=== PATIENT | male | born 1970 | race African-American/Black ===

== ENCOUNTER → 2023-06-11 08:38 | Outpatient (REF) | payer MEDICARE, OTHER, SELFPAY | LOC: RAD 08:38 | PROVIDERS: ATTENDING PHYSICIAN Surgery Vascular Surgery | DX: I77.0 Arteriovenous fistula, acquired (principal) | CPT/HCPCS: 93990 ==

== ENCOUNTER 2023-06-17 16:35 | Emergency (ER) | payer MEDICARE, OTHER, SELFPAY ==
[2023-06-17 16:38] VITALS: BP 142/74; BMI 25.8
[2023-06-17 17:00] VITALS: BP 131/69
[2023-06-17 17:04] LABS: % Basophils 1.2 % (0-2); % Eosinophils 1.6 % (0-6); % Immature Granulocytes 0.3 % (0-0.5); % Monocytes 13.6 % (1.7-9.3); % Neutrophils 61.3 % (42.2-75.2); Absolute Basophils 0.1 10^3/uL (0-0.2); Absolute Eosinophils 0.1 10^3/uL (0-0.7); Absolute Lymphocytes 1.5 10^3/uL (1.2-3.4); Absolute Monocytes 0.9 10^3/uL (0.1-0.6); Absolute Neutrophils 4.2 10^3/uL (1.4-6.5); Hematocrit 30.8 % (39.0-52.0); Hemoglobin 10.9 g/dL (13.0-18.0); Mean Corp Hgb Conc. 35.4 g/dL (33.0-37.0); Mean Corpuscular Hgb 29.9 pg (27.0-31.0); Mean Corpuscular Volume 84.6 fL (80.0-94.0); Mean Platelet Volume 10.2 fL (7.4-10.4); Nucleated Red Blood Cells % 0 % (-); Platelet Count 223 10^3/uL (130-400); Red Blood Cell Count 3.64 10^6/uL (4.70-6.10); Red Cell Dist. Width 14.9 % (11.5-14.5); White Blood Cell Count 6.8 10^3/uL (4.8-10.8)
--- NOTE | 2023-06-17 17:12 | ED.GENMED ---
History of Present Illness
General
Chief Complaint: Abnormal Lab Value
Source: patient
Exam Limitations: none
Time Seen by Provider: 06/17/23 16:53
Nursing documentation reviewed up to this point in time: agreed with
Travel History
Have you had any contact with someone who has COVID-19?: No
Do you have any symptoms of coronavirus? Fever > 100 degrees, chills, cough, shortness of breath, sore throat, loss of taste or smell, muscle aches, or headache?: No
History of Present Illness
History of Present Illness:
52-year-old male from [facility] with history of IDDM, HTN, HLD, epilepsy, CVA, renal failure on dialysis M/W/F, he did have dialysis today and is here for a reported potassium of 7.1. The blood was drawn prior to his dialysis today. He
presents stating that he feels 'fine.'
Past History
Past History
ED Past Medical History: CVA, HTN, Hypercholesterolemia, NIDDM, Renal failure and Seizures
ED Past Surgical History: Urological
Social History
Tobacco: Former smoker
Alcohol: None
Drug: None
Personal:
Living: [facility]
Employment: Not employed
Family History
Family History: Hypertension
Review of Systems
Review of Systems
Allergies reviewed?: Yes
All Other Systems: ROS reviewed and negative except as documented in HPI and ROS
Constitutional: Denies fever or fatigue
Respiratory: Denies trouble breathing
Cardiac: Denies chest pain
ABD/GI: Denies abdominal pain, nausea or vomiting
Skin: Reports other (Dialysis catheter in place, palpable thrill.)
Neurological: Denies dizzy or headache
Phy Exam
Physical Exam
Physical Exam:
GENERAL: No acute distress. A&Ox3.
CONSTITUTIONAL: Afebrile.
EYES: PERRL, conjunctivae normal
ENMT: moist mucus membranes, Pharynx nl
RESPIRATORY: Regular respirations, nonlabored, lungs clear.
CARDIOVASCULAR: Regular rate and rhythm, no murmurs, no rubs.
GI: Soft, nontender
MUSCULOSKELETAL: Well perfused.
SKIN: Warm, dry, pink
PSYCH: Normal mood and affect. Well kept, interactive and appropriate
NEUROLOGIC: Awake, alert and oriented.
Course
Orders/Labs/Results
Orders:
Orders
06/17/23 16:45
Electrocardiogram (*1) Urgent
Reason for Study: Abdominal Pain
EKG- Treatment ONCE
IV Insert/Care/Rem.- Treatment PRN
06/17/23 16:52
Complete Blood Count/With Diff Urgent
Comprehensive Metabolic Panel Urgent
Abnormal Lab Results
06/17/23
16:52
RBC 3.64 L 10^6/uL
(4.70-6.10)
Hgb 10.9 L g/dL
(13.0-18.0)
Hct 30.8 L %
(39.0-52.0)
RDW 14.9 H %
(11.5-14.5)
Absolute Monos (auto) 0.9 H 10^3/uL
(0.1-0.6)
Monocytes % 13.6 H %
(1.7-9.3)
BUN 57 H mg/dl
(9-20)
Creatinine 2.0 H mg/dL
(0.7-1.3)
Glucose 133 H mg/dl
(70-99)
Albumin 2.8 L g/dl
(3.5-5.0)
06/17/23 16:52
06/17/23 16:52
Vital Signs
Initial and Last Documented VS:
Initial Vital Signs
Temp Pulse Resp BP Pulse Ox
98.2 F 69 16 142/74 99
06/17/23 16:38 06/17/23 16:38 06/17/23 16:38 06/17/23 16:38 06/17/23 16:38
Last Documented Vital Signs
Temp Pulse Resp BP Pulse Ox
98.2 F 71 13 119/70 99
06/17/23 16:38 06/17/23 19:15 06/17/23 19:15 06/17/23 19:00 06/17/23 17:30
MDM/Problems Addressed
Differential Diagnosis Includes:
Hyperkalemia
MDM/Problems Addressed:
52-year-old male from [facility] with history of IDDM, HTN, HLD, epilepsy, CVA, renal failure on dialysis M/W/F, he did have dialysis today and is here for a reported potassium of 7.1. The blood was drawn prior to his dialysis today. He
presents stating that he feels 'fine.'
Vital signs stable
EKG NSR
06/17/2023 1744 PM
CBC with no clinically significant abnormality
CMP is showing a normal potassium of 4.6, no other clinically significant abnormalities.
Patient is eating and is stable for discharge.
*Critical Care Note
Total Time (30-74mins, 75-104mins- exclusive of procedures): Not Applicable
ED Attending Note
-
Portions of this chart may have been created with voice recognition software.� Occasional wrong word or��sound alike� substitutions may have occurred due to the inherent limitations of voice recognition software.
Discharge Plan
Departure
Patient Disposition: Assisted/SNF
Date of Disposition: 06/17/23
Time of Disposition: 17:34
Patient with high blood pressure during this ER visit?: No
Condition: Good
Discharge Problem:
History of hyperkalemia
Prescriptions:
No Action
carvedilol [Coreg] 25 mg Tablet
25 mg PO Q12H
ipratropium-albuterol 0.5 mg-3 mg(2.5 mg base)/3 mL Solution For Nebulization
3 ml INHALATION R Q4HPRN PRN (Reason: sob)
polyvinyl alcohol [Artificial Tears (polyvin alc)] 1.4 % Drops
1 drp BOTH EYES Q6HPRN PRN (Reason: DRY EYES)
ondansetron HCl 4 mg Tablet
4 mg PO Q6HPRN PRN (Reason: nausea/vomiting)
insulin aspart U-100 100 unit/mL Solution
0 - 10 unit SC ACHS
Patient Comments:
Rx Instructions:
if 150-200= 2 units; 201-250= 4 units; 251-300= 6 units; 301-350= 8 units; 351-400= 10 units.
pantoprazole 40 mg Tablet,Delayed Release (Dr/Ec)
40 mg PO DAILY
ferrous sulfate 325 mg (65 mg iron) Tablet
325 mg PO DAILY
docusate sodium [Colace] 100 mg Capsule
100 mg PO Q12H PRN (Reason: Constipation)
ascorbic acid (vitamin C) [Vitamin C] 1,000 mg Tablet
1,000 mg PO DAILY
acetaminophen 325 mg Tablet
650 mg PO Q6H PRN (Reason: mild pain)
lidocaine-prilocaine 2.5-2.5 % Cream
1 applic TOPICAL MOWEFR
Rx Instructions:
apply to right avg 1 hr prior to HD TX.
atorvastatin 40 mg Tablet
40 mg PO DAILY
potassium, sodium phosphates [Phosphorous Supplement] 280-160-250 mg Powder In Packet
1 packet PO PCHS Qty: 0 0RF
Rx Instructions:
01/26/2023, patient instructed to take one packet by mouth after meals and at bedtime for ESRD on HD.
bumetanide 2 mg Tablet
2 mg PO DAILY
bisacodyl 10 mg Suppository
10 mg IN DAILY PRN (Reason: constipation)
levetiracetam [Keppra] 750 mg tablet
750 mg PO BID Qty: 60 0RF
psyllium Packet
1 packet PO DAILY
divalproex [Depakote] 500 mg tablet,delayed release (DR/EC)
500 mg PO BID
ceftazidime [Tazicef] 2 gram Recon Soln
2,000 mg IV MOWEFR Qty: 10 0RF
white petrolatum [Hydrophor] 42 % Ointment
1 applic topical DAILY Qty: 454 0RF
heparin (porcine) 5,000 unit/mL Solution
5,000 unit SC Q12H Qty: 0 0RF
oxycodone 10 mg tablet
10 mg PO Q4HPRN PRN (Reason: severe pain) Qty: 10 0RF
Referrals:
Waqar Méndez MD [Family Provider] -
Activity Restrictions/Additional Instructions:
Mr. Mejia potassium is normal
If his potassium is high, it will most likely normalize after dialysis.
Interventions
Interventions:
*Risk Screen - Suicide Last Done: 06/17/23 16:38
*General Assessment Last Done: 06/17/23 16:38
*Neglect/Abuse Screening Last Done: 06/17/23 16:38
ED- Fall Risk Assessment Last Done: 06/17/23 16:38
*ED COVID-19 Vaccine History Last Done: 06/17/23 16:38
*Nursing Disposition Last Done: 06/17/23 19:26
Discharge Date and Time
Discharge Date/Time: 06/17/23 19:30
[2023-06-17 17:23] LABS: ALT (SGPT) 21 U/L (0-50); AST (SGOT) 29 U/L (17-59); Albumin 2.8 g/dl (3.5-5.0); Alkaline Phosphatase 106 U/L (38-126); Blood Urea Nitrogen 57 mg/dl (9-20); Calcium 8.9 mg/dl (8.4-10.2); Carbon Dioxide 30 mmol/L (22-30); Chloride 100 mmol/L (98-107); Estimated Creatinine Clearance 46 ml/min; Glucose 133 mg/dl (70-99); Potassium 4.6 mmol/L (3.5-5.1); Sodium 136 mmol/L (135-145); Total Bilirubin 0.5 mg/dl (0.2-1.3); Total Protein 7.9 g/dl (6.3-8.2); eGFR 39.91
[2023-06-17 18:00] VITALS: BP 147/80
[2023-06-17 19:00] VITALS: BP 119/70
== END 2023-06-17 19:30 ==
LOC: EMR 16:35
PROVIDERS: Emergency Medicine; EMERGENCY PHYSICIAN Emergency Medicine; FAMILY PHYSICIAN Internal Medicine
DX: E87.5 Hyperkalemia (principal); E78.5 Hyperlipidemia, unspecified; E11.9 Type 2 diabetes mellitus without complications; I10 Essential (primary) hypertension; Z87.891 Personal history of nicotine dependence
CPT/HCPCS: 99284; 80053; 85025; 93005

== ENCOUNTER 2024-04-29 17:46 | Emergency (ER) | payer MEDICARE, OTHER, SELFPAY ==
[2024-04-29 17:51] VITALS: BP 117/67
[2024-04-29 18:00] VITALS: BP 129/68
[2024-04-29 18:07] LABS: % Basophils 0.4 % (0-2); % Eosinophils 0.3 % (0-6); % Immature Granulocytes 0.3 % (0-0.5); % Lymphocytes 16.2 % (20.5-51.1); % Monocytes 13.1 % (1.7-9.3); % Neutrophils 69.7 % (42.2-75.2); Absolute Lymphocytes 1.5 10^3/uL (1.2-3.4); Absolute Monocytes 1.2 10^3/uL (0.1-0.6); Absolute Neutrophils 6.5 10^3/uL (1.4-6.5); Hematocrit 30.8 % (39.0-52.0); Hemoglobin 10.9 g/dL (13.0-18.0); Mean Corp Hgb Conc. 35.4 g/dL (33.0-37.0); Mean Corpuscular Hgb 31.8 pg (27.0-31.0); Mean Corpuscular Volume 89.8 fL (80.0-94.0); Mean Platelet Volume 11.3 fL (7.4-10.4); Nucleated Red Blood Cells % 0 % (-); Platelet Count 142 10^3/uL (130-400); Red Blood Cell Count 3.43 10^6/uL (4.70-6.10); White Blood Cell Count 9.4 10^3/uL (4.8-10.8)
[2024-04-29 18:33] LABS: Blood Urea Nitrogen 32 mg/dl (9-20); Calcium 9.1 mg/dl (8.4-10.2); Carbon Dioxide 27 mmol/L (22-30); Chloride 101 mmol/L (98-107); Glucose 150 mg/dl (70-99); Sodium 136 mmol/L (135-145); eGFR 37.41
[2024-04-29 19:00] VITALS: BP 111/67
[2024-04-29 20:00] VITALS: BP 108/62
[2024-04-29 20:06] LABS: Potassium 4.1 mmol/L (3.5-5.1)
--- NOTE | 2024-04-29 20:41 | ED.GENMED ---
History of Present Illness
General
Chief Complaint: Wound Check/Suture Removal
Source: patient
Exam Limitations: none
Time Seen by Provider: 04/29/24 20:35
History of Present Illness
History of Present Illness:
53-year-old male complex medical history presents for evaluation of a sacral wound. This has been ongoing for months. Apparently followed by wound care there. Patient has no acute complaints denying increasing pain fever chills nausea vomiting or
other complaints. Unsure at this time why [facility] wanted him sent out today.
Past History
Past History
ED Past Medical History: CVA, HTN, Hypercholesterolemia, NIDDM, Renal failure and Seizures
ED Past Surgical History: Urological
Social History
Tobacco: Former smoker
Alcohol: None
Drug: None
Personal:
[facility]: [facility]
Employment: Not employed
Family History
Family History: Hypertension
Review of Systems
Review of Systems
All Other Systems: Not applicable
Constitutional: Denies fever or chills
Phy Exam
Physical Exam
Physical Exam:
GENERAL: Alert and oriented. Slow to answer some questions
EYE: Orbits normal.
NECK: Supple
CARDIAC: Regular rate and rhythm
LUNGS: Clear breath sounds,normal
ABDOMEN: Soft, without focal tenderness or distention
NEUROLOGICAL: Alert. Speech normal
SKIN: Warm and dry, very large sacral wound currently being packed. Packing was gently partially removed to evaluate the base. Base is full-thickness. However there is no surrounding erythema or purulent drainage. There is some wetness
appearance to the edge of the wound however.
Course
Orders/Labs/Results
Orders:
Orders
04/29/24 17:56
Basic Metabolic Panel Urgent
Complete Blood Count/With Diff Urgent
04/29/24 19:46
Potassium Urgent
Abnormal Lab Results
04/29/24
17:56
RBC 3.43 L 10^6/uL
(4.70-6.10)
Hgb 10.9 L g/dL
(13.0-18.0)
Hct 30.8 L %
(39.0-52.0)
MCH 31.8 H pg
(27.0-31.0)
RDW 17.0 H %
(11.5-14.5)
MPV 11.3 H fL
(7.4-10.4)
Absolute Monos (auto) 1.2 H 10^3/uL
(0.1-0.6)
Lymphocytes % 16.2 L %
(20.5-51.1)
Monocytes % 13.1 H %
(1.7-9.3)
BUN 32 H mg/dl
(9-20)
Creatinine 2.1 H mg/dL
(0.7-1.3)
Glucose 150 H mg/dl
(70-99)
04/29/24 17:56
04/29/24 19:46
Vital Signs
Initial and Last Documented VS:
Initial Vital Signs
Pulse Resp Pulse Ox
93 13 99
04/29/24 17:50 04/29/24 17:50 04/29/24 17:50
Last Documented Vital Signs
Temp Pulse Resp BP Pulse Ox
99.6 F 85 13 111/67 99
04/29/24 17:51 04/29/24 19:30 04/29/24 19:30 04/29/24 19:00 04/29/24 19:30
*Critical Care Note
Total Time (30-74mins, 75-104mins- exclusive of procedures): Not Applicable
Update Note
Update Note:
Multiple calls were placed to [facility] to try to see what the reason was for sending him tonight. No answer. However medically the wound is stable, no signs of sepsis or secondary infection at this time. Patient was updated pain. Clearly
needs significant offloading.
ED Attending Note
-
Portions of this chart may have been created with voice recognition software.� Occasional wrong word or��sound alike� substitutions may have occurred due to the inherent limitations of voice recognition software.
Discharge Plan
Departure
Patient Disposition: Home (Routine Discharge)
Date of Disposition: 04/29/24
Time of Disposition: 22:08
Patient with high blood pressure during this ER visit?: No
Discharge Problem:
Evaluation of a large sacral wound, History of acute renal failure
Instructions: Wound Care (DC)
Prescriptions:
No Action
carvedilol [Coreg] 25 mg Tablet
25 mg PO Q12H
ipratropium-albuterol 0.5 mg-3 mg(2.5 mg base)/3 mL Solution For Nebulization
3 ml INHALATION R Q4HPRN PRN (Reason: sob)
polyvinyl alcohol [Artificial Tears (polyvin alc)] 1.4 % Drops
1 drp BOTH EYES Q6HPRN PRN (Reason: DRY EYES)
ondansetron HCl 4 mg Tablet
4 mg PO Q6HPRN PRN (Reason: nausea/vomiting)
insulin aspart U-100 100 unit/mL Solution
0 - 10 unit SC ACHS
Patient Comments:
Rx Instructions:
if 150-200= 2 units; 201-250= 4 units; 251-300= 6 units; 301-350= 8 units; 351-400= 10 units.
pantoprazole 40 mg Tablet,Delayed Release (Dr/Ec)
40 mg PO DAILY
ferrous sulfate 325 mg (65 mg iron) Tablet
325 mg PO DAILY
docusate sodium [Colace] 100 mg Capsule
100 mg PO Q12H PRN (Reason: Constipation)
ascorbic acid (vitamin C) [Vitamin C] 1,000 mg Tablet
1,000 mg PO DAILY
acetaminophen 325 mg Tablet
650 mg PO Q6H PRN (Reason: mild pain)
lidocaine-prilocaine 2.5-2.5 % Cream
1 applic TOPICAL MOWEFR
Rx Instructions:
apply to right avg 1 hr prior to HD TX.
atorvastatin 40 mg Tablet
40 mg PO DAILY
potassium, sodium phosphates [Phosphorous Supplement] 280-160-250 mg Powder In Packet
1 packet PO PCHS Qty: 0 0RF
Rx Instructions:
01/26/2023, patient instructed to take one packet by mouth after meals and at bedtime for ESRD on HD.
bumetanide 2 mg Tablet
2 mg PO DAILY
bisacodyl 10 mg Suppository
10 mg [place] DAILY PRN (Reason: constipation)
levetiracetam [Keppra] 750 mg tablet
750 mg PO BID Qty: 60 0RF
psyllium Packet
1 packet PO DAILY
divalproex [Depakote] 500 mg tablet,delayed release (DR/EC)
500 mg PO BID
ceftazidime [Tazicef] 2 gram Recon Soln
2,000 mg IV MOWEFR Qty: 10 0RF
white petrolatum [Hydrophor] 42 % Ointment
1 applic topical DAILY Qty: 454 0RF
heparin (porcine) 5,000 unit/mL Solution
5,000 unit SC Q12H Qty: 0 0RF
oxycodone 10 mg tablet
10 mg PO Q4HPRN PRN (Reason: severe pain) Qty: 10 0RF
Referrals:
Waqar Méndez MD [Family Provider] - Follow up in 2-3 days
Activity Restrictions/Additional Instructions:
Although I suspect this is already being done, needs increased offloading of the sacral area with rotation
Follow-up closely with wound center
Return with fever, spreading redness or any other concerning symptoms
Interventions
Interventions:
*Risk Screen - Suicide Last Done: 04/29/24 17:51
*General Assessment Last Done: 04/29/24 17:51
ED- Fall Risk Assessment Last Done: 04/29/24 18:00
*ED COVID-19 Vaccine History Last Done: 04/29/24 17:51
ED-Skin Assessment Last Done: 04/29/24 18:00
Discharge Date and Time
Print Language: AMHARIC
[2024-04-29 22:00] VITALS: BP 119/85
[2024-04-29 23:00] VITALS: BP 121/68
[2024-04-30] VITALS: BP 111/63
== END 2024-04-30 00:16 | disposition home or self-care (01) ==
LOC: EMR 17:46
PROVIDERS: Emergency Medicine; EMERGENCY PHYSICIAN Emergency Medicine; FAMILY PHYSICIAN Internal Medicine
DX: S31.000A Unspecified open wound of lower back and pelvis without penetration into retroperitoneum, initial encounter (principal); X58.XXXA Exposure to other specified factors, initial encounter; N19 Unspecified kidney failure; Z87.891 Personal history of nicotine dependence
CPT/HCPCS: 99283; 80048; 84132; 85025

== ENCOUNTER 2024-05-13 00:01 | Emergency (ER) | payer MEDICARE, OTHER, SELFPAY ==
[2024-05-13 01:00] VITALS: BP 100/62
[2024-05-13 01:32] LABS: % Basophils 0.5 % (0-2); % Eosinophils 0.7 % (0-6); % Immature Granulocytes 0.3 % (0-0.5); % Lymphocytes 15.2 % (20.5-51.1); % Monocytes 9.5 % (1.7-9.3); % Neutrophils 73.8 % (42.2-75.2); Absolute Basophils 0.1 10^3/uL (0-0.2); Absolute Eosinophils 0.1 10^3/uL (0-0.7); Absolute Lymphocytes 1.5 10^3/uL (1.2-3.4); Absolute Neutrophils 7.5 10^3/uL (1.4-6.5); Hematocrit 26.4 % (39.0-52.0); Hemoglobin 9.2 g/dL (13.0-18.0); Mean Corp Hgb Conc. 34.8 g/dL (33.0-37.0); Mean Corpuscular Hgb 31.6 pg (27.0-31.0); Mean Corpuscular Volume 90.7 fL (80.0-94.0); Mean Platelet Volume 10.6 fL (7.4-10.4); Nucleated Red Blood Cells % 0 % (-); Platelet Count 208 10^3/uL (130-400); Red Blood Cell Count 2.91 10^6/uL (4.70-6.10); Red Cell Dist. Width 15.7 % (11.5-14.5); White Blood Cell Count 10.1 10^3/uL (4.8-10.8)
[2024-05-13 01:53] LABS: Blood Urea Nitrogen 84 mg/dl (9-20); Calcium 9.3 mg/dl (8.4-10.2); Carbon Dioxide 26 mmol/L (22-30); Chloride 97 mmol/L (98-107); Glucose 144 mg/dl (70-99); Sodium 135 mmol/L (135-145); eGFR 18.36
--- NOTE | 2024-05-13 01:56 | ED.GENMED ---
History of Present Illness
General
Chief Complaint: Catheter/Tube Problem
Source: patient
Time Seen by Provider: 05/13/24 01:10
History of Present Illness
History of Present Illness:
53-year-old male with past medical history of CVA, chronic kidney disease (dialysis Thursday/Thursday/Thursday), insulin-dependent diabetes, stage IV sacral decubitus ulcer presenting to the emergency department for evaluation from [facility]
alf for evaluation of reported decreased urinary output from his chronic indwelling Vale catheter. Patient has no complaints or concerns at this time. There were no reported fevers. He denies any abdominal pain, nausea, vomiting, flank
pain. 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
Past History
Past History
ED Past Medical History: CVA, HTN, Hypercholesterolemia, NIDDM, Renal failure and Seizures
ED Past Surgical History: Urological
Social History
Tobacco: Former smoker
Alcohol: None
Drug: None
Personal:
Living: alf
Employment: Not employed
Family History
Family History: Hypertension
Review of Systems
Review of Systems
All Other Systems: ROS reviewed and negative except as documented in HPI and ROS
Phy Exam
Physical Exam
Physical Exam:
GENERAL: Alert , in no apparent distress
EYE: clear conjunctiva b/l
HEAD: NCAT
ENT: o/p clr
CARDIAC: Regular rate and rhythm .
LUNGS: Clear breath sounds bilaterally, no acute respiratory distress, no wheezes/rales/rhonchi
ABDOMEN: Soft, without focal tenderness, no r/g, no cvat, colostomy noted with small brown stool, Vale catheter in place with minimal urinary output
NEUROLOGICAL: Alert and oriented
SKIN: Warm and dry, sacral decubitus ulcer not visualized
MUSCULOSKELETAL: Mild lower extremity edema bilateral
PSYCH: Normal and appropriate interaction.
Scores
Heart Failure Risk
Heart Failure Risk Score: Not Applicable
Heart Score for Chest Pain Patients
STEMI patient?: Not applicable
Withdrawal Assessment of Alcohol
Withdrawal Assessment Completed?: Not applicable
Course
Orders/Labs/Results
Orders:
Orders
05/13/24 01:22
Basic Metabolic Panel Urgent
Complete Blood Count/With Diff Urgent
Abnormal Lab Results
05/13/24
01:22
RBC 2.91 L 10^6/uL
(4.70-6.10)
Hgb 9.2 L g/dL
(13.0-18.0)
Hct 26.4 L %
(39.0-52.0)
MCH 31.6 H pg
(27.0-31.0)
RDW 15.7 H %
(11.5-14.5)
MPV 10.6 H fL
(7.4-10.4)
Absolute Neuts (auto) 7.5 H 10^3/uL
(1.4-6.5)
Absolute Monos (auto) 1.0 H 10^3/uL
(0.1-0.6)
Lymphocytes % 15.2 L %
(20.5-51.1)
Monocytes % 9.5 H %
(1.7-9.3)
Chloride 97 L mmol/L
(98-107)
BUN 84 H mg/dl
(9-20)
Creatinine 3.8 H mg/dL
(0.7-1.3)
Glucose 144 H mg/dl
(70-99)
05/13/24 01:22
05/13/24 01:22
Vital Signs
Initial and Last Documented VS:
Initial Vital Signs
Temp
98.7 F
05/13/24 00:03
Last Documented Vital Signs
Temp BP Pulse Ox
98.7 F 100/62 99
05/13/24 00:03 05/13/24 01:00 05/13/24 01:45
MDM/Problems Addressed
Differential Diagnosis Includes:
Worsening of chronic kidney disease, Vale catheter mechanical dysfunction, urinary tract infection although patient without any fevers or infectious symptoms
MDM/Problems Addressed:
53-year-old male presenting to the emergency department for evaluation of decreased urinary output noticed by his alf today. Vale catheter was exchanged and there was still minimal urinary output. Patient's abdomen is soft and without
any focal tenderness. I suspect his chronic kidney disease is the most likely reasoning for the decreasing urinary output. Will check labs. Anticipate disposition back to alf.
Chronic conditions affecting care: Neurological disorder and Kidney disease
Acute Exacerbation and/or Progression of Chronic Illness: Neurological disorder and Kidney disease
*Pulse Oximetry
Patient hypoxic: no
*Critical Care Note
Total Time (30-74mins, 75-104mins- exclusive of procedures): Not Applicable
Data Reviewed
Review of Other/Old Records Reveals: Labs and Records
Patient Management
Escalation/DeEscalation of care consider admission/obs:
Patient's creatinine 3.8. GFR of 18. Baseline creatinine appears to be between 1.5-2.5. I suspect the change in his creatinine is the likely reason behind his diminished urinary output. Patient already dialysis patient so will not change his long
term outlook/treatment plan. At this time patient does not require further emergent care and can be safely dispositioned back to [facility]. Will arrange for transport.
ED Attending Note
-
Portions of this chart may have been created with voice recognition software.� Occasional wrong word or��sound alike� substitutions may have occurred due to the inherent limitations of voice recognition software.
Discharge Plan
Departure
Patient Disposition: [facility]/SNF
Date of Disposition: 05/13/24
Time of Disposition: 01:56
Patient with high blood pressure during this ER visit?: No
Discharge Problem:
CKD (chronic kidney disease)
Instructions: End-stage kidney disease (kidney failure)
Prescriptions:
No Action
carvedilol [Coreg] 25 mg Tablet
25 mg PO Q12H
ipratropium-albuterol 0.5 mg-3 mg(2.5 mg base)/3 mL Solution For Nebulization
3 ml INHALATION R Q4HPRN PRN (Reason: sob)
polyvinyl alcohol [Artificial Tears (polyvin alc)] 1.4 % Drops
1 drp BOTH EYES Q6HPRN PRN (Reason: DRY EYES)
ondansetron HCl 4 mg Tablet
4 mg PO Q6HPRN PRN (Reason: nausea/vomiting)
insulin aspart U-100 100 unit/mL Solution
0 - 10 unit SC ACHS
Patient Comments:
Rx Instructions:
if 150-200= 2 units; 201-250= 4 units; 251-300= 6 units; 301-350= 8 units; 351-400= 10 units.
pantoprazole 40 mg Tablet,Delayed Release (Dr/Ec)
40 mg PO DAILY
ferrous sulfate 325 mg (65 mg iron) Tablet
325 mg PO DAILY
docusate sodium [Colace] 100 mg Capsule
100 mg PO Q12H PRN (Reason: Constipation)
ascorbic acid (vitamin C) [Vitamin C] 1,000 mg Tablet
1,000 mg PO DAILY
acetaminophen 325 mg Tablet
650 mg PO Q6H PRN (Reason: mild pain)
lidocaine-prilocaine 2.5-2.5 % Cream
1 applic TOPICAL MOWEFR
Rx Instructions:
apply to right avg 1 hr prior to HD TX.
atorvastatin 40 mg Tablet
40 mg PO DAILY
potassium, sodium phosphates [Phosphorous Supplement] 280-160-250 mg Powder In Packet
1 packet PO PCHS Qty: 0 0RF
Rx Instructions:
01/26/2023, patient instructed to take one packet by mouth after meals and at bedtime for ESRD on HD.
bumetanide 2 mg Tablet
2 mg PO DAILY
bisacodyl 10 mg Suppository
10 mg [place] DAILY PRN (Reason: constipation)
levetiracetam [Keppra] 750 mg tablet
750 mg PO BID Qty: 60 0RF
psyllium Packet
1 packet PO DAILY
divalproex [Depakote] 500 mg tablet,delayed release (DR/EC)
500 mg PO BID
ceftazidime [Tazicef] 2 gram Recon Soln
2,000 mg IV MOWEFR Qty: 10 0RF
white petrolatum [Hydrophor] 42 % Ointment
1 applic topical DAILY Qty: 454 0RF
heparin (porcine) 5,000 unit/mL Solution
5,000 unit SC Q12H Qty: 0 0RF
oxycodone 10 mg tablet
10 mg PO Q4HPRN PRN (Reason: severe pain) Qty: 10 0RF
Referrals:
Waqar Méndez MD [Family Provider] -
Interventions
Interventions:
*Risk Screen - Suicide Last Done: 05/13/24 00:03
*General Assessment Last Done: 05/13/24 00:03
*Neglect/Abuse Screening Last Done: 05/13/24 00:03
ED- Fall Risk Assessment Last Done: 05/13/24 03:42
*ED COVID-19 Vaccine History Last Done: 05/13/24 00:03
*Nursing Disposition Last Done: 05/13/24 03:42
CH-Glnbkv-[id number] Assessment Last Done: 05/13/24 00:03
ED-Male Genitourinary Assessment Last Done: 05/13/24 00:03
Discharge Date and Time
Discharge Date/Time: 05/13/24 05:21
Print Language: GERMAN
== END 2024-05-13 05:21 ==
LOC: EMR 00:01
PROVIDERS: Physician Assistant Medical; EMERGENCY PHYSICIAN Student in an Organized Health Care Education/Training Program; FAMILY PHYSICIAN Internal Medicine
DX: E11.22 Type 2 diabetes mellitus with diabetic chronic kidney disease (principal); I12.0 Hypertensive chronic kidney disease with stage 5 chronic kidney disease or end stage renal disease; N18.6 End stage renal disease; Z99.2 Dependence on renal dialysis; I69.351 Hemiplegia and hemiparesis following cerebral infarction affecting right dominant side; E78.00 Pure hypercholesterolemia, unspecified; Z79.4 Long term (current) use of insulin; Z96.0 Presence of urogenital implants
CPT/HCPCS: 99283; 80048; 85025

== ENCOUNTER 2024-08-18 22:32 | Observation (INO) | payer MEDICARE, OTHER, SELFPAY ==
[2024-08-18 19:41] VITALS: BP 101/59
--- NOTE | 2024-08-18 19:42 | ED.GENMED ---
History of Present Illness
General
Chief Complaint: Abnormal Lab Value
Time Seen by Provider: 08/18/24 19:44
History of Present Illness
History of Present Illness:
TIME OF INITIAL ENCOUNTER: 7:45 PM
HPI: The patient was sent here from [facility] related to a hemoglobin of 6.1. The patient has CKD on HD and was dialyzed yesterday. The patient has no specific complaints.
EXAM:
GENERAL: Well appearing in no distress, foul-smelling odor noted, borderline hypotension noted
HEENT: Slightly dry oral mucosa
CARDIOVASCULAR: No murmurs, normal heart rate, regular rhythm, No chest wall tenderness
PULMONARY: No respiratory distress, breath sounds are clear and equal
ABDOMEN: Soft with no peritoneal signs, no tenderness, colostomy is in place with scant amount of brown stool which was heme-negative
NEUROLOGIC: Nearly absent strength of the lower extremities, protective heel boots on, he is moving his upper extremities with no significant difficulty
PSYCHIATRIC: Fair this is an acute problem insight and judgement
EXTREMITIES: Absent range of motion of the lower extremities
SKIN: Sacral decubitus
NUMBER AND COMPLEXITY OF PROBLEMS ADDRESSED AT THE ENCOUNTER
� Chronic conditions affecting care: IDDM, CKD on HD, testicular cancer, CVA, high blood pressure, seizure disorder
� Acute Exacerbation and/or Progression of Chronic Illness:
� Differential Diagnosis includes: Anemia of chronic disease, acute blood loss anemia, iron deficiency anemia, anemia related to chronic kidney disease
AMOUNT AND/OR COMPLEXITY OF DATA TO BE REVIEWED AND ANALYZED
� I performed an independent evaluation of and my interpretation is:
EKG:
CT:
X-rays:
Laboratory Studies: Hemoglobin 6.7, BUN 27, creatinine 2.5, iron 37
Other:
� Review of other/old records: I reviewed records, the patient was given 3 units of blood when he was admitted with sepsis. In April, hemoglobin was 9.2 and earlier in April it was 10.9
� Clinical information was obtained by an independent historian: I reviewed notes from [facility]
� Prescriptions/Medications Considered but not given:
� Further testing considered but not performed:
RISK OF COMPLICATIONS AND/OR MORBIDITY OR MORTALITY OF PATIENT MANAGEMENT
� Social determinants of health affecting care: Resides at [facility]
� Discussion with other providers: Dr. Orosco
� Escalation of care including admission/observation vs risk of discharge considered: Given the drop in hemoglobin, I recommend patient stay especially as he has been borderline high tensive here. I have ordered 2 units of
blood. He signed consent.
ANY OTHER UPDATES:
Past History
Past History
ED Past Medical History: CVA, HTN, Hypercholesterolemia, NIDDM, Renal failure and Seizures
ED Past Surgical History: Urological
Social History
Tobacco: Former smoker
Alcohol: None
Drug: None
Personal:
Living: [facility]
Employment: Not employed
Family History
Family History: Hypertension
Phy Exam
Physical Exam
Physical Exam:
See HPI
Course
Orders/Labs/Results
Orders:
Orders
08/18/24 20:31
Add On- LAB Urgent
Tests Added?: iron, TIBC, ferritin
Complete Blood Count/With Diff Urgent
Comprehensive Metabolic Panel Urgent
Ferritin Urgent
Comment: ADD ON
Iron Urgent
Comment: ADD ON
Total Iron Binding Urgent
Comment: ADD ON
08/18/24 21:22
* Blood Bank Products Urgent
Blood Bank Products: *Packed RBC Leuko(PRBC's)
Quantity: 2
Transfuse Today: Yes
Reason: Anemia
08/18/24 21:47
Admit/Transfer Patient As Directed
Co-Sign Provider:
Level of Care: Observation services
Assign to:: Medical/Surgical
Physician / Group: hospitalist
Diagnosis: symptomatic anemia
08/18/24 21:48
PRN Pain Medication Management As Directed
May give lesser potent ordered pain med per pt: Yes
preference::
Protocol:: Medication orders for pain may be administered in a
manner that supports deferring to patient preference
when the pt is:
- Requesting an ordered lesser potent pain medication.
Least to most potent pain medications are defined
as: acetaminophen < NSAID < tramadol < opioids
(morphine, oxycodone, hydromorphone).
- Requesting a lesser dose of the same medication IF
ORDERED.
- Requesting a less intrusive route of administration
if both routes are prescribed by the provider (PO <
IV).
08/18/24 21:51
Code Status As Directed
Resuscitation Status: Full Code
08/18/24 22:07
Type And Crossmatch [Type+Screen] Urgent
Abnormal Lab Results
08/18/24
20:31
RBC 2.25 L 10^6/uL
(4.70-6.10)
Hgb 6.7 L* g/dL
(13.0-18.0)
Hct 20.6 L* %
(39.0-52.0)
MCHC 32.5 L g/dL
(33.0-37.0)
RDW 17.5 H %
(11.5-14.5)
Abs Immat Gran (auto) 0.1 H 10^3/uL
(0-0.05)
Absolute Neuts (auto) 7.8 H 10^3/uL
(1.4-6.5)
Absolute Lymphs (auto) 1.1 L 10^3/uL
(1.2-3.4)
Absolute Monos (auto) 0.9 H 10^3/uL
(0.1-0.6)
Immature Gran % 1.1 H %
(0-0.5)
Neutrophils % 77.9 H %
(42.2-75.2)
Lymphocytes % 10.9 L %
(20.5-51.1)
BUN 27 H mg/dl
(9-20)
Creatinine 2.5 H mg/dL
(0.7-1.3)
Iron 37 L ug/dl
(49-181)
TIBC 103 L ug/dl
(261-462)
AST 16 L U/L
(17-59)
Albumin 2.7 L g/dl
(3.5-5.0)
08/18/24 20:31
08/18/24 20:31
Vital Signs
Initial and Last Documented VS:
Initial Vital Signs
Pulse Resp BP Pulse Ox
93 18 101/59 100
08/18/24 19:41 08/18/24 19:41 08/18/24 19:41 08/18/24 19:41
Last Documented Vital Signs
Temp Pulse Resp BP Pulse Ox
37.8 C 88 18 96/57 100
08/18/24 19:54 08/18/24 21:45 08/18/24 21:45 08/18/24 20:00 08/18/24 20:30
*Critical Care Note
Total Time (30-74mins, 75-104mins- exclusive of procedures): Not Applicable
ED Attending Note
-
Portions of this chart may have been created with voice recognition software.� Occasional wrong word or��sound alike� substitutions may have occurred due to the inherent limitations of voice recognition software.
Discharge Plan
Departure
Patient Disposition: Admit
Date of Disposition: 08/18/24
Time of Disposition: 21:24
Presentation/result/management discussed w/ accepting MD/DO: Hospitalist
Discharge Problem:
Anemia
Prescriptions:
No Action
carvedilol [Coreg] 25 mg Tablet
25 mg PO Q12H
ipratropium-albuterol 0.5 mg-3 mg(2.5 mg base)/3 mL Solution For Nebulization
3 ml INHALATION R Q4HPRN PRN (Reason: sob)
polyvinyl alcohol [Artificial Tears (polyvin alc)] 1.4 % Drops
1 drp BOTH EYES Q6HPRN PRN (Reason: DRY EYES)
ondansetron HCl 4 mg Tablet
4 mg PO Q6HPRN PRN (Reason: nausea/vomiting)
insulin aspart U-100 100 unit/mL Solution
0 - 10 unit SC ACHS
Patient Comments:
Rx Instructions:
if 150-200= 2 units; 201-250= 4 units; 251-300= 6 units; 301-350= 8 units; 351-400= 10 units.
pantoprazole 40 mg Tablet,Delayed Release (Dr/Ec)
40 mg PO DAILY
ferrous sulfate 325 mg (65 mg iron) Tablet
325 mg PO DAILY
docusate sodium [Colace] 100 mg Capsule
100 mg PO Q12H PRN (Reason: Constipation)
ascorbic acid (vitamin C) [Vitamin C] 1,000 mg Tablet
1,000 mg PO DAILY
acetaminophen 325 mg Tablet
650 mg PO Q6H PRN (Reason: mild pain)
lidocaine-prilocaine 2.5-2.5 % Cream
1 applic TOPICAL MOWEFR
Rx Instructions:
apply to right avg 1 hr prior to HD TX.
atorvastatin 40 mg Tablet
40 mg PO DAILY
potassium, sodium phosphates [Phosphorous Supplement] 280-160-250 mg Powder In Packet
1 packet PO PCHS Qty: 0 0RF
Rx Instructions:
01/26/2023, patient instructed to take one packet by mouth after meals and at bedtime for ESRD on HD.
bumetanide 2 mg Tablet
2 mg PO DAILY
bisacodyl 10 mg Suppository
10 mg [place] DAILY PRN (Reason: constipation)
levetiracetam [Keppra] 750 mg tablet
750 mg PO BID Qty: 60 0RF
psyllium Packet
1 packet PO DAILY
divalproex [Depakote] 500 mg tablet,delayed release (DR/EC)
500 mg PO BID
ceftazidime [Tazicef] 2 gram Recon Soln
2,000 mg IV MOWEFR Qty: 10 0RF
white petrolatum [Hydrophor] 42 % Ointment
1 applic topical DAILY Qty: 454 0RF
heparin (porcine) 5,000 unit/mL Solution
5,000 unit SC Q12H Qty: 0 0RF
oxycodone 10 mg tablet
10 mg PO Q4HPRN PRN (Reason: severe pain) Qty: 10 0RF
Referrals:
Waqar Méndez MD [Family Provider] -
Interventions
Interventions:
*Risk Screen - Suicide Last Done: 08/18/24 19:53
*General Assessment Last Done: 08/18/24 19:55
*Neglect/Abuse Screening Last Done: 08/18/24 19:53
*ED- Fall Risk Assessment Last Done: 08/18/24 19:55
*ED COVID-19 Vaccine History Last Done: 08/18/24 19:55
Discharge Date and Time
Print Language: HONDURAN
[2024-08-18 19:51] VITALS: BP 101/59
[2024-08-18 20:00] VITALS: BP 96/57
[2024-08-18 21:07] LABS: ALT (SGPT) 13 U/L (0-50); AST (SGOT) 16 U/L (17-59); Albumin 2.7 g/dl (3.5-5.0); Alkaline Phosphatase 103 U/L (38-126); Blood Urea Nitrogen 27 mg/dl (9-20); Calcium 8.8 mg/dl (8.4-10.2); Carbon Dioxide 25 mmol/L (22-30); Chloride 99 mmol/L (98-107); Glucose 78 mg/dl (70-99); Iron 37 ug/dl (49-181); Potassium 3.6 mmol/L (3.5-5.1); Sodium 136 mmol/L (135-145); Total Bilirubin 0.7 mg/dl (0.2-1.3); eGFR 30.35
[2024-08-18 21:09] LABS: Hematocrit 20.6 % (39.0-52.0); Hemoglobin 6.7 g/dL (13.0-18.0); Mean Corp Hgb Conc. 32.5 g/dL (33.0-37.0); Mean Corpuscular Hgb 29.8 pg (27.0-31.0); Mean Corpuscular Volume 91.6 fL (80.0-94.0); Mean Platelet Volume 9.3 fL (7.4-10.4); Platelet Count 211 10^3/uL (130-400); Red Blood Cell Count 2.25 10^6/uL (4.70-6.10); Red Cell Dist. Width 17.5 % (11.5-14.5)
[2024-08-18 21:12] LABS: Percent Saturation 35 % (20-50); Total Iron Binding Capacity 103 ug/dl (261-462)
[2024-08-18 21:33] LABS: % Basophils 0.3 % (0-2); % Eosinophils 0.5 % (0-6); % Immature Granulocytes 1.1 % (0-0.5); % Lymphocytes 10.9 % (20.5-51.1); % Monocytes 9.3 % (1.7-9.3); % Neutrophils 77.9 % (42.2-75.2); Absolute Eosinophils 0.1 10^3/uL (0-0.7); Absolute Immature Granulocytes 0.1 10^3/uL (0-0.05); Absolute Lymphocytes 1.1 10^3/uL (1.2-3.4); Absolute Monocytes 0.9 10^3/uL (0.1-0.6); Absolute Neutrophils 7.8 10^3/uL (1.4-6.5); Nucleated Red Blood Cells % 0 % (-)
--- NOTE | 2024-08-18 21:33 | HPS.HSE ---
Family Physician
-
Family Physician: Waqar Méndez
Chief Complaint
-
Low hemoglobin
History of Present Illness
This is a 53-year-old with history of end-stage renal disease on hemodialysis Thursday, hypertension, hyperlipidemia, diabetes, CVA with right hemiplegia and hemiparesis, sacral pressure ulcers, status post colectomy with end
colostomy, presenting to the emergency department with low hemoglobin.
It appears patient was transferred to the emergency department when he was found to have low hemoglobin on routine blood test. His last hemoglobin here was 9.2 in April. Patient unable to verbalize much but denies any hematemesis, melena or
hematochezia.
In the emergency department he was afebrile with a Tmax of 100.1, blood pressure was 96/52 with a pulse rate of 93 satting 100% on room air. Hemoglobin was 6.7 with MCV of 91.6. WBCs and platelet counts were normal. Electrolytes were all within
normal range. BUN/creatinine consistent with ESRD. Low iron and TIBC.
Medical History
Past Medical History
Past Medical History: Reports Other
Additional Past Medical History:
ESRD MWF
chronic Vale
history of intracranial hemorrhage stroke residual right-sided weakness
hypertension
hyperlipidemia
diabetes
chronic bedbound
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
right thigh complex abscess
sacral stage IV decubitus ulcer with osteomyelitis�
Past Surgical History: Reports None and Other
Social History
Unable to obtain full social history at this time due to: Acuity
Family History
Family History: Not pertinent
Allergies / Home Medications
Allergies reflects when Allergies were last updated in [facility].
Home Medications with original date entered in [facility]
Allergy/Medication List:
Allergies
Allergy/AdvReac Type Severity Reaction Status Date / Time
banana Allergy Swelling Verified 01/26/23 08:06
Home Medications
acetaminophen 325 mg tablet 650 mg PO Q4H PRN temp>100F 08/14/22
amlodipine 10 mg tablet 10 mg PO DAILY Blood pressure 08/14/22
bisacodyl 10 mg rectal suppository (Dulcolax (bisacodyl)) 10 mg NM DAILY PRN if no results for MOM 08/14/22
carvedilol 25 mg tablet (Coreg) 25 mg PO Q12H Blood pressure 08/14/22
docusate sodium 100 mg capsule (Colace) 100 mg PO Q12H PRN Constipation 08/14/22
ferrous sulfate 325 mg (65 mg iron) tablet 325 mg PO DAILY Supplement 08/14/22
heparin (porcine) 5,000 unit/mL injection solution 5,000 unit SC TID Blood clot prevention/tx 08/14/22
insulin aspart U-100 100 unit/mL subcutaneous solution 0 - 10 unit SC ACHS Diabetes 08/14/22
ipratropium 0.5 mg-albuterol 3 mg (2.5 mg base)/3 mL nebulization soln 3 ml inhalation R Q4HPRN PRN sob 08/14/22
ondansetron HCl 4 mg tablet 4 mg PO Q6HPRN PRN nausea/vomiting 08/14/22
pantoprazole 40 mg tablet,delayed release 40 mg PO DAILY Gastrointestinal issue 08/14/22
polyvinyl alcohol 1.4 % eye drops (Artificial Tears (polyvinyl alcohol)) 1 drp BOTH EYES Q6HPRN PRN DRY EYES 08/14/22
acetaminophen 325 mg tablet 650 mg PO Q6H PRN mild pain 12/02/22
ascorbic acid (vitamin C) 1,000 mg tablet (Vitamin C) 1,000 mg PO DAILY Supplement 12/02/22
lidocaine-prilocaine 2.5 %-2.5 % topical cream 1 applic topical MOWEFR apply to right AVG 12/02/22
atorvastatin 40 mg tablet 40 mg PO DAILY High Cholesterol 01/16/23
oxycodone 10 mg tablet 10 mg PO Q4HPRN PRN severe pain 01/16/23
tramadol 50 mg tablet 50 mg PO Q8HPRN PRN moderate pain 01/16/23
potassium, sodium phosphates 280 mg-160 mg-250 mg oral powder packet (Phosphorous Supplement) 1 packet PO PCHS #0 ea 01/22/23
bisacodyl 10 mg rectal suppository 10 mg NM DAILY PRN constipation 01/23/23
bumetanide 2 mg tablet 2 mg PO DAILY 01/23/23
levetiracetam 750 mg tablet (Keppra) 750 mg PO BID #60 tabs 01/25/23
divalproex 500 mg tablet,delayed release (Depakote) 500 mg PO BID 04/06/23
lorazepam 2 mg/mL injection solution 1 mg IM Q2H PRN seizures 04/06/23
psyllium 1 packet PO DAILY 04/06/23
Review of Systems
-
History Source: Patient
Constitutional: Reports No Symptoms
EENT: Reports No Symptoms
Respiratory: Reports No Symptoms
Cardiac: Reports No Symptoms
Abdomen/GI: Reports No Symptoms
Musculoskeletal: Reports No Symptoms
Skin: Reports No Symptoms
Neurological: Reports No Symptoms
Endocrine: Reports No Symptoms
Hematologic/Lymphatic: Reports No Symptoms
Psych: Reports No Symptoms
Physical Exam
Vital Signs
Vital Signs
Temp Pulse Resp BP Pulse Ox
100.1 F 93 24 96/57 100
08/18/24 19:54 08/18/24 20:00 08/18/24 20:00 08/18/24 20:00 08/18/24 20:00
Physical Exam
General: Well Developed, Well Nourished, No Apparent Distress and Comfortable
HEENT: NormoCephalic, Anicteric, Moist mucous membranes and Atraumatic
Respiratory: Clear
Cardiac: S1/S2 and Regular Rhythm
Breast: Deferred by me
GI: Soft, Non Tender, Non Distended and Normal Bowel Sounds
Rectal: Other (colostomy with heme negative brown stool)
Genito-urinary: Deferred by me
Musculoskeletal: No Clubbing, No Cyanosis and No Edema
Skin: Warm
Neuro: AO x 3 and Cranial Nerves Intact
Hematologic/Lymphatic: No Lymphadenopathy
Psych: Calm
Laboratory Results
-
08/18/24 20:
08/18/24 20:
Laboratory Results
Total Bilirubin 0.7 mg/dl (0.2-1.3) 08/18/24 20:
AST 16 U/L (17-59) L 08/18/24 20:
ALT 13 U/L (0-50) 08/18/24:
Alkaline Phosphatase 103 U/L (38-126) 08/18/24:
Data Reviewed
-
Lab Data: Labs Reviewed by me
Old Records: Reviewed
Impression/Plan
-
IMPRESSION:
Chronically ill patient with end-stage renal disease on hemodialysis Thursday, CVA with right hemiplegia, mostly normal bowel, presents to the emergency department from senior care with low hemoglobin. He has heme-negative brown
stool from his colostomy. No evidence of acute blood loss. No evidence of chronic GI bleed at this time. He is afebrile and hemodynamically stable with blood pressure of 96 systolic. Last HD was yesterday with a completed session.
PLAN:
1. Anemia -given low iron likely iron deficiency anemia combined with anemia of chronic disease in patient with ESRD and [place]'s. No evidence of acute blood loss. Likely transfuse and d/c. Not sure needs 2 units as ordered per ED.
-Admit to MedSurg observation
-Transfuse 2 units (ED already ordered 2 units)
-Given that the patient will be given 2 units we will keep until he receives dialysis tomorrow
-Check ferritin, iron supplementation per hemodialysis
- SUMEET per hemodialysis/nephrology
2. ESRD - M/W/F
- nephrology consultation
-
3. DM II
- lantus 10 hs at home, will continue with 5 hs here
- sliding scale insulin
4. Seizure d/o
- continue valproic acid and keppra per home regimen
- pureed diet, thin liquids
5. HTN - orthostatic
- continue coreg with hold parameters
- midodrine on dialysis days
wound care/ostomy consult for ulcer, complete course of doxycycline from home
on influenza ppx with tamiflu m/w/f
DVT PPX - hep s/q q 12
Code status - Full Code
[2024-08-18 21:35] LABS: Anisocytosis 1+; Hypochromasia 2+; Macrocytosis 1+; Normal RBC Morphology No; Polychromasia 1+
[2024-08-18 21:36] LABS: Stomatocytes Occasional
[2024-08-18 22:00] VITALS: BP 94/57
[2024-08-18 23:35] VITALS: BP 95/61
[2024-08-19] VITALS (11 sets, daily range): BP systolic 85–121; BP diastolic 50–72; BMI 21.5
[2024-08-19 02:12] LABS: Glucose - Point of Care 82 mg/dl (70-99)
[2024-08-19 08:14] LABS: Glucose - Point of Care 74 mg/dl (70-99)
[2024-08-19 08:54] LABS: Hematocrit 25.2 % (39.0-52.0); Hemoglobin 8.5 g/dL (13.0-18.0); Mean Corp Hgb Conc. 33.7 g/dL (33.0-37.0); Mean Platelet Volume 9.6 fL (7.4-10.4); Platelet Count 200 10^3/uL (130-400); Red Blood Cell Count 2.83 10^6/uL (4.70-6.10); Red Cell Dist. Width 16.7 % (11.5-14.5); White Blood Cell Count 10.5 10^3/uL (4.8-10.8)
--- NOTE | 2024-08-19 09:01 | W.CON.NEPH ---
Consultation
-
Date/Time Consultation Requested: 08/19/2024 7:00 AM
Date/Time Consultation Performed: 08/19/2024 9:00 AM
Requesting Provider: Dr. Eldridge
Performing Provider: Dr. Prescott
Reason for Consultation: End-stage renal disease
Medical History
-
Chief Complaint: End-stage renal disease
History of Present Illness:
The patient is a 53-year-old male with a past medical history of end-stage renal disease who dialyzes Thursday at [facility]. He has a history of hypertension for which he is maintained on carvedilol. He is maintained on insulin for
diabetes. He has a prior history of CVA with right hemiplegia and hemiparesis as well as underlying sacral decubiti. He has also had a previous colectomy and colostomy. He presented to the hospital with a hemoglobin of 6.7. On presentation to
the hospital the patient had low-grade fevers and hypotension with blood pressure of 96/52. Nephrology was consulted in regards to his end-stage renal disease.
Past Medical History
ESRD Thursday [facility]
chronic Vale
history of intracranial hemorrhage stroke residual right-sided weakness
hypertension
hyperlipidemia
diabetes
chronic bedbound
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
right thigh complex abscess
History of seizure disorder
sacral stage IV decubitus ulcer with osteomyelitis�
Social History
Tobacco: Non-Smoker
Family History
no ckd
Allergies / Home Medications
Allergy/AdvReac Type Severity Reaction Status Date / Time
banana Allergy Swelling Verified 04/29/24 17:49
�Medication �Instructions �Recorded �Confirmed �Type
carvedilol 25 mg tablet (Coreg) 25 mg PO Q12H Blood pressure 08/14/22 04/06/23 History
docusate sodium 100 mg capsule 100 mg PO Q12H PRN Constipation 08/14/22 04/06/23 History
(Colace)
ferrous sulfate 325 mg (65 mg 325 mg PO DAILY Supplement 08/14/22 04/06/23 History
iron) tablet
insulin aspart U-100 100 unit/mL 0 - 10 unit SC ACHS Diabetes 08/14/22 04/06/23 History
subcutaneous solution
ipratropium 0.5 mg-albuterol 3 mg 3 ml inhalation R Q4HPRN PRN sob 08/14/22 04/06/23 History
(2.5 mg base)/3 mL nebulization
soln
ondansetron HCl 4 mg tablet 4 mg PO Q6HPRN PRN nausea/vomiting 08/14/22 04/06/23 History
pantoprazole 40 mg tablet,delayed 40 mg PO DAILY Gastrointestinal 08/14/22 04/06/23 History
release issue
polyvinyl alcohol 1.4 % eye drops 1 drp BOTH EYES Q6HPRN PRN DRY EYES 08/14/22 04/06/23 History
(Artificial Tears (polyvinyl
alcohol))
acetaminophen 325 mg tablet 650 mg PO Q6H PRN mild pain 12/02/22 04/06/23 History
ascorbic acid (vitamin C) 1,000 mg 1,000 mg PO DAILY Supplement 12/02/22 04/06/23 History
tablet (Vitamin C)
lidocaine-prilocaine 2.5 %-2.5 % 1 applic topical MOWEFR apply to 12/02/22 04/06/23 History
topical cream right AVG
atorvastatin 40 mg tablet 40 mg PO DAILY High Cholesterol 01/16/23 04/06/23 History
potassium, sodium phosphates 280 1 packet PO PCHS #0 ea 01/22/23 04/06/23 Rx
mg-160 mg-250 mg oral powder
packet (Phosphorous Supplement)
bisacodyl 10 mg rectal suppository 10 mg DC DAILY PRN constipation 01/23/23 04/06/23 History
bumetanide 2 mg tablet 2 mg PO DAILY Fluid 01/23/23 04/06/23 History
Retention/Swelling
levetiracetam 750 mg tablet 750 mg PO BID #60 tabs 01/25/23 04/06/23 Rx
(Keppra)
divalproex 500 mg tablet,delayed 500 mg PO BID Seizures 04/06/23 04/06/23 History
release (Depakote)
psyllium 1 packet PO DAILY Constipation 04/06/23 04/06/23 History
ceftazidime 2 gram solution for 2,000 mg IV MOWEFR #10 ea 04/16/23 Rx
injection (Tazicef)
heparin (porcine) 5,000 unit/mL 5,000 unit SC Q12H Blood clot 04/16/23 04/06/23 Rx
injection solution prevention/tx #0 mL
oxycodone 10 mg tablet 10 mg PO Q4HPRN PRN severe pain 04/16/23 Rx
#10 tabs
white petrolatum 42 % topical 1 applic topical DAILY #454 grams 04/16/23 Rx
ointment (Hydrophor)
Review of Systems
-
History Source: Patient
All other systems: Negative unless noted
Constitutional: Other (Chronically nonambulatory bedbound)
Abdomen/GI: Other (LLQ Colostomy)
: Other (Chronic Vale)
Physical Exam
Vital Signs
Vital Signs
Temp Pulse Resp BP Pulse Ox
98.8 F 89 16 120/68 99
08/19/24 07:48 08/19/24 07:48 08/19/24 07:48 08/19/24 07:48 08/19/24 07:48
Lab Results
08/19/24 08:02
WBC 10.5 10^3/uL (4.8-10.8) 08/19/24 08:02
RBC 2.83 10^6/uL (4.70-6.10) L 08/19/24 08:02
Hgb 8.5 g/dL (13.0-18.0) L D 08/19/24 08:02
Hct 25.2 % (39.0-52.0) L 08/19/24 08:02
Plt Count 200 10^3/uL (130-400) 08/19/24 08:02
eGFR 30.35 08/18/24 20:31
Albumin 2.7 g/dl (3.5-5.0) L 08/18/24 20:31
Physical Exam
General: AOx3, Nontoxic , NAD,chronically ill appearing
HEENT: PERRL, EOMI, Anicteric, Conjunctivae Clear, Ear/Nose Intact, Hearing Normal, Oropharynx Clear/Moist, Dentition Intact, Facial Symmetry, Neck Supple, Neck: Trachea Midline, No JVD and No Thyromegaly, no Bruits
Respiratory: Clear to auscultation bilaterally with normal lung exersion
Cardiac: S1/S2 and Regular Rate/Rhythm
Breast: Deferred by me
Abdomen: Soft, Nontender, Nondistended, Normal Bowel Sounds and No Hepatosplenomegaly,colostomy
Rectal: Deferred by Provider
Genito-urinary: Vale
Extremities: No Clubbing, No Cyanosis and No Edema
Skin: No Rash or open lesions
Neuro: Right hemiplegia
Hematologic/Lymphatic: No Cervical Lymphadenopathy, No Submandibular Lymphadenopathy and No Supraclavicular Lymphadenopathy
Psych: Mood/afflect flat, Insight/judgement good and Appropriate
Vascular: plus 1 pedal and radial pulses
Vascular Access: AVF (RUE with good thrill and bruit)
Data Reviewed
-
Labs: Labs Reviewed by me (BMP CBC)
Old Records: Reviewed (Reviewed previous renal consultation from April 06, 2023 are ESRD)
Assessment/Plan
-
Impression:
Anemia (6.7)
End-stage renal disease Thursday [facility]
Type 2 diabetes
Seizure disorder
Hypertension
History of Colostomy
Chronic Vale catheter
Anemia
History of CVA with right-sided hemiparesis
Plan:
- Status post 2 units of blood transfused for anemia
- Will perform dialysis today given Thursday schedule, orders provided
-Continue midodrine support 10 mg for dialysis given chronic hypotension on dialysis
- We will provide SUMEET for anemia support
- Heme check colostomy in regards to anemia
- Maintain carvedilol in setting of hypertension
[2024-08-19 09:07] LABS: Blood Urea Nitrogen 30 mg/dl (9-20); Calcium 8.6 mg/dl (8.4-10.2); Carbon Dioxide 25 mmol/L (22-30); Chloride 101 mmol/L (98-107); Estimated Creatinine Clearance 28 ml/min; Glucose 66 mg/dl (70-99); Potassium 3.7 mmol/L (3.5-5.1); Sodium 136 mmol/L (135-145); eGFR 24.38
[2024-08-19] MEDS: PROTONIX 40 MG PO (09:15)
[2024-08-19] MEDS: COREG 25 MG PO (09:15)
[2024-08-19] MEDS: VIBRAMYCIN 100 MG PO (09:15)
[2024-08-19] MEDS: FEOSOL 325 MG PO (09:16)
[2024-08-19] MEDS: LIPITOR 40 MG PO (09:16)
[2024-08-19] MEDS: BUMEX 2 MG PO (09:16)
[2024-08-19] MEDS: HEPARIN 5000 UNITS SC (09:17)
[2024-08-19] MEDS: KEPPRA 250 MG PO (09:17)
[2024-08-19] MEDS: TAMIFLU 30 MG PO (09:31)
[2024-08-19] MEDS: ProAmatine 10 MG PO (09:31)
[2024-08-19] MEDS: DEPAKOTE (12 HR RELEASE) 500 MG PO (09:35)
--- NOTE | 2024-08-19 11:02 | WOUNDNOTE ---
[facility] RN note: Patient admitted with low hemoglobin
See H&P for complete history.
PMH: Per physician note, ESRD MWFchronic Vale history of intracranial hemorrhage stroke residual right-sided weakness hypertension
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
sacral stage IV decubitus ulcer with osteomyelitis. Patient transferred from [place].
Wound Location and type/assessment: Patient admitted with stage 4 sacral ulcer with osteomyelitis, unstageable PI to right heel. Patient is known from past admission for sacral ulcer. Upon assessment, wound has purulent drainage and odor. The right
heel unstageable ulcer has intact eschar. No drainage or erythema noted. See worklist for measurements and description. The buttocks have what appears to be newly healed areas of pink skin. Patient was also found to be fiber filled boots and has an
unstageable PI of right heel. LE skin is extremely dry and flakey. Patient has a colostomy with what appears to be a new appliance. Patient denies issues or problems with colostomy.
Appetite: Fair, puree diet
Pressure redistribution devices in place: Vers[employer] Car Air, turning schedule, patient positioned on right semi-side lying position with heels off-loaded with boots.
Plan: Clean and pack sacral wound with Dakins moistened gauze BID. Apply Mineral oil to newly healed skin on buttocks and dry skin on lower legs. Betadine to right heel unstageable wound. Ostomy supplies at bedside. GLENNA Ortiz updated on plan. Will
confirm orders with hospitalist and update nurse. Updated care plan and will follow as needed.
Note to case management of equipment requested for discharge:
Recommend follow up at wound care center upon discharge.
[2024-08-19 11:28] LABS: Hepatitis B Surface Antigen Negative (Negative)
[2024-08-19] MEDS: DAKIN'S SOLUTION 0.125% 1/4 STRENGTH 473 ML TOPICAL (11:42)
[2024-08-19 12:05] LABS: Glucose - Point of Care 78 mg/dl (70-99)
[2024-08-19] MEDS: MANNITOL 25% 12.5 GRAMS IV ×2 (13:05→14:38)
[2024-08-19] MEDS: RETACRIT 10000 UNITS IV (13:27)
--- NOTE | 2024-08-19 13:48 | W.PN.HOSP.TC ---
Today's Communication/Plan
-
Transfused with appropriate follow-up hemoglobin level.
Given the with midodrine.
Wound care.
Discharge after hemodialysis
Assessment / Plan
Assessment / Plan
Impression:
Presented from alf with abnormal lab/decreased hemoglobin at 6.7.
Chronic anemia
Other conditions:
End-stage renal disease on HD Thursday
Chronic hypotension.
Type 2 diabetes/IDDM.
History of CVA with right-sided hemiparesis.
Seizure disorder.
Essential hypertension.
Diverting colostomy
Indwelling Vale catheter.
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
Plan:
Chronic normocytic anemia.
Presents from nursing facility with decreased hemoglobin at 6.7
No evidence for acute blood loss.
Iron studies consistent with combination of anemia of chronic inflammation and end-stage renal disease.
Appropriate response to transfusion 2 units of packed red blood cells given with hemoglobin at 8.5
Epogen as per renal
End-stage renal disease on dialysis Thursday
HD today
Continue midodrine with HD
IDDM.
Continue carbohydrate controlled diet.
Continue insulin basal bolus protocol and standing dose of Lantus. Monitor for hypoglycemia.
Status post CVA with hemiparesis.
Seizure disorder
Continue supportive care
Continue Keppra and valproic acid
Diet adjusted with aspiration precautions
Stage IV sacral wound with chronic osteomyelitis.
Afebrile.
Normal white count.
Continue wound care.
On doxycycline initiated at nursing facility empirically from course. Will complete as recommended
Not clear reasons for Tamiflu [employer]
Disposition: Discharge after HD
Follow-up with hemoglobin level as outpatient
Anticipated Discharge: Today
Subjective/Interval History
-
Date of Service: August 19, 2024
Objective Data
-
Labs:
Laboratory Results
08/19/24
08:02
WBC 10.5
Hgb 8.5 L D
Hct 25.2 L
Plt Count 200
Sodium 136
Potassium 3.7
Chloride 101
Carbon Dioxide 25
BUN 30 H
Creatinine 3.0 H
Glucose 66 L
Calcium 8.6
Vital Signs:
Vital Signs
Temp Pulse Resp BP Pulse Ox
98.8 F 89 16 120/68 99
08/19/24 07:48 08/19/24 07:48 08/19/24 07:48 08/19/24 09:15 08/19/24 07:48
I&O
08/18/24 08/19/24 08/20/24
06:59 06:59 06:59
Intake Total 500 / 500
Output Total 300 / 300
Balance 500 / 500 -300 / -300
Physical Exam
-
General: Well Developed and No Apparent Distress
HEENT: Normocephalic, Atraumatic and Moist Mucous Membranes
Respiratory: Clear to Auscultation and Decreased Breath Sounds
Cardiac: Regular Rhythm and S1/S2; Negative Murmur, Rub or Gallop
GI: Soft, Nontender, Nondistended, Normal Bowel Sounds and Ostomy; Negative Organomegaly
Rectal: Deferred by Provider
Genito-urinary: Vale (Milky colored urine)
Musculoskeletal: No Clubbing, No Cyanosis and No Edema
Skin: Negative Rash
Neuro: Other (Awake, nonverbal with hemiparesis at the baseline)
--- NOTE | 2024-08-19 13:53 | W.PN.NEPH.HD ---
Assessment
-
Patient seen on dialysis
Systolic blood pressure stable with current UF
For discharge after HD
Progress Note - Hemodialysis
-
Date of Service: August 19, 2024
Duration: 30 minutes and 3 hours
Potassium Bath: 3
Calcium Bath: 2.5
Opti-Dialyzer: 160
Ultrafiltration: Other (1 kg)
Blood Flow: 400
Dialysate Flow: 600
Heparin: None
EPO: None
[2024-08-19] MEDS: FLEXBUMIN 25% FOR HEMODIALYSIS 12.5 GRAMS IV ×2 (13:54→15:10)
--- NOTE | 2024-08-19 14:04 | W.DS.TRANS ---
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
-
Discharge Instructions:
Discharge Diagnosis/Procedures Impression:
Presented from senior living with abnormal lab/
decreased hemoglobin at 6.7.
Chronic anemia
Other conditions:
End-stage renal disease on HD Thursday
Thursday
Chronic hypotension.
Type 2 diabetes/IDDM.
History of CVA with right-sided hemiparesis.
Seizure disorder.
Essential hypertension.
Diverting colostomy
Indwelling Vale catheter.
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
Diet Other diet
Additional Diets Pur�ed diet with thin liquids
Instructions:
Stand-Alone Forms:
Changes to Home Medications: No
Discharge Medications:
DC Medications w/original date entered in [employer]
carvedilol 25 mg tablet (Coreg) 25 mg PO Q12H Blood pressure 08/14/22
docusate sodium 100 mg capsule (Colace) 100 mg PO Q12H PRN Constipation 08/14/22
ferrous sulfate 325 mg (65 mg iron) tablet 325 mg PO DAILY Supplement 08/14/22
insulin aspart U-100 100 unit/mL subcutaneous solution 0 - 10 unit SC ACHS Diabetes 08/14/22
ipratropium 0.5 mg-albuterol 3 mg (2.5 mg base)/3 mL nebulization soln 3 ml inhalation R Q4HPRN PRN sob 08/14/22
ondansetron HCl 4 mg tablet 4 mg PO Q6HPRN PRN nausea/vomiting 08/14/22
pantoprazole 40 mg tablet,delayed release 40 mg PO DAILY Gastrointestinal issue 08/14/22
polyvinyl alcohol 1.4 % eye drops (Artificial Tears (polyvinyl alcohol)) 1 drp BOTH EYES Q6HPRN PRN DRY EYES 08/14/22
acetaminophen 325 mg tablet 650 mg PO Q6H PRN mild pain 12/02/22
ascorbic acid (vitamin C) 1,000 mg tablet (Vitamin C) 1,000 mg PO DAILY Supplement 12/02/22
lidocaine-prilocaine 2.5 %-2.5 % topical cream 1 applic topical MOWEFR apply to right AVG 12/02/22
atorvastatin 40 mg tablet 40 mg PO DAILY High Cholesterol 01/16/23
potassium, sodium phosphates 280 mg-160 mg-250 mg oral powder packet (Phosphorous Supplement) 1 packet PO PCHS #0 ea 01/22/23
bisacodyl 10 mg rectal suppository 10 mg PA DAILY PRN constipation 01/23/23
bumetanide 2 mg tablet 2 mg PO DAILY Fluid Retention/Swelling 01/23/23
levetiracetam 750 mg tablet (Keppra) 750 mg PO BID #60 tabs 01/25/23
divalproex 500 mg tablet,delayed release (Depakote) 500 mg PO BID Seizures 04/06/23
psyllium 1 packet PO DAILY Constipation 04/06/23
heparin (porcine) 5,000 unit/mL injection solution 5,000 unit SC Q12H Blood clot prevention/tx #0 mL 04/16/23
white petrolatum 42 % topical ointment (Hydrophor) 1 applic topical DAILY #454 grams 04/16/23
doxycycline hyclate 100 mg capsule 100 mg PO Q12 #4 caps 08/19/24
midodrine 5 mg tablet 10 mg (2 x 5 mg) PO MoWeFr@0800 #30 tabs 08/19/24
oxycodone 10 mg tablet 10 mg PO Q4HPRN PRN severe pain #10 tabs 08/19/24
Home Medication Changes
Pending Results: No
--- NOTE | 2024-08-19 14:05 | W.DCSUMMARY ---
Discharge Summary
Discharge Data
Date of Admission: 08/18/24
Date of Discharge: 08/19/24
-
Pending Results: No
Hospital Course
Impression:
Presented from care home with abnormal lab/decreased hemoglobin at 6.7.
Chronic anemia
Other conditions:
End-stage renal disease on HD Thursday
Chronic hypotension.
Type 2 diabetes/IDDM.
History of CVA with right-sided hemiparesis.
Seizure disorder.
Essential hypertension.
Diverting colostomy
Indwelling Vale catheter.
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
Plan:
Chronic normocytic anemia.
Presents from nursing facility with decreased hemoglobin at 6.7
No evidence for acute blood loss.
Iron studies consistent with combination of anemia of chronic inflammation and end-stage renal disease.
Appropriate response to transfusion 2 units of packed red blood cells given with hemoglobin at 8.5
Epogen as per renal
End-stage renal disease on dialysis Thursday
HD today
Continue midodrine with HD
IDDM.
Continue carbohydrate controlled diet.
Continue insulin basal bolus protocol and standing dose of Lantus. Monitor for hypoglycemia.
Status post CVA with hemiparesis.
Seizure disorder
Continue supportive care
Continue Keppra and valproic acid
Diet adjusted with aspiration precautions
Stage IV sacral wound with chronic osteomyelitis.
Afebrile.
Normal white count.
Continue wound care.
On doxycycline initiated at nursing facility empirically from course. Will complete as recommended
Not clear reasons for Tamiflu [employer]ENT
Disposition: Discharge after HD
Follow-up with hemoglobin level as outpatient
Discharge Plan
-
Patient Disposition: Penitentiary[facility]SNF
Discharge Diagnosis/Procedures: Impression:
Presented from care home with abnormal lab/decreased hemoglobin at 6.7.
Chronic anemia
Other conditions:
End-stage renal disease on HD Thursday
Chronic hypotension.
Type 2 diabetes/IDDM.
History of CVA with right-sided hemiparesis.
Seizure disorder.
Essential hypertension.
Diverting colostomy
Indwelling Vale catheter.
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
Condition: Fair
Diet: Other diet
Additional Diets: Pur�ed diet with thin liquids
Referrals:
Waqar Méndez MD [Family Provider] -
Prescriptions:
New
doxycycline hyclate 100 mg Capsule
100 mg PO Q12 Qty: 4 0RF
midodrine 5 mg Tablet
10 mg PO MoWeFr@0800 Qty: 30 0RF
Continued
carvedilol [Coreg] 25 mg Tablet
25 mg PO Q12H
ipratropium-albuterol 0.5 mg-3 mg(2.5 mg base)/3 mL Solution For Nebulization
3 ml INHALATION R Q4HPRN PRN (Reason: sob)
polyvinyl alcohol [Artificial Tears (polyvin alc)] 1.4 % Drops
1 drp BOTH EYES Q6HPRN PRN (Reason: DRY EYES)
ondansetron HCl 4 mg Tablet
4 mg PO Q6HPRN PRN (Reason: nausea/vomiting)
insulin aspart U-100 100 unit/mL Solution
0 - 10 unit SC ACHS
Patient Comments:
Rx Instructions:
if 150-200= 2 units; 201-250= 4 units; 251-300= 6 units; 301-350= 8 units; 351-400= 10 units.
pantoprazole 40 mg Tablet,Delayed Release (Dr/Ec)
40 mg PO DAILY
ferrous sulfate 325 mg (65 mg iron) Tablet
325 mg PO DAILY
docusate sodium [Colace] 100 mg Capsule
100 mg PO Q12H PRN (Reason: Constipation)
ascorbic acid (vitamin C) [Vitamin C] 1,000 mg Tablet
1,000 mg PO DAILY
acetaminophen 325 mg Tablet
650 mg PO Q6H PRN (Reason: mild pain)
lidocaine-prilocaine 2.5-2.5 % Cream
1 applic TOPICAL MOWEFR
Rx Instructions:
apply to right avg 1 hr prior to HD TX.
atorvastatin 40 mg Tablet
40 mg PO DAILY
potassium, sodium phosphates [Phosphorous Supplement] 280-160-250 mg Powder In Packet
1 packet PO PCHS Qty: 0 0RF
Rx Instructions:
01/26/2023, patient instructed to take one packet by mouth after meals and at bedtime for ESRD on HD.
bumetanide 2 mg Tablet
2 mg PO DAILY
bisacodyl 10 mg Suppository
10 mg DE DAILY PRN (Reason: constipation)
levetiracetam [Keppra] 750 mg tablet
750 mg PO BID Qty: 60 0RF
psyllium Packet
1 packet PO DAILY
divalproex [Depakote] 500 mg tablet,delayed release (DR/EC)
500 mg PO BID
white petrolatum [Hydrophor] 42 % Ointment
1 applic topical DAILY Qty: 454 0RF
heparin (porcine) 5,000 unit/mL Solution
5,000 unit SC Q12H Qty: 0 0RF
oxycodone 10 mg tablet
10 mg PO Q4HPRN PRN (Reason: severe pain) Qty: 10 0RF
Discontinued
ceftazidime [Tazicef] 2 gram Recon Soln
2,000 mg IV MOWEFR Qty: 10 0RF
Discharge Orders:
Discharge Patient (As Directed); Ordered 08/19/24
Ordered By: Osvaldo Eldridge
Discharge Date and Time
Print Language: SINHALA
--- NOTE | 2024-08-19 14:16 | PTCARENOTE ---
obtained verbal consent for HIV testing from patient.
[2024-08-19 15:23] LABS: HIV Combo Negative (Negative)
--- NOTE | 2024-08-19 15:28 | CM ---
Pt cleared for discharge to LTC today. Resides at [facility].
Pt's sister agreeable to discharge today. OBS letter reviewed verbally with pt's sister. Copy in chart.
PLAN:[place] by ambulance today
report: [phone]
fax: [phone]
[2024-08-19 15:30] LABS: Hepatitis C Antibody Negative (Negative)
[2024-08-19 16:48] LABS: Glucose - Point of Care 69 mg/dl (70-99)
[2024-08-19 17:09] LABS: Glucose - Point of Care 71 mg/dl (70-99)
--- NOTE | 2024-08-19 17:23 | PTCARENOTE ---
at 1647, patient's AccuCheck 69, no s/s of hypoglycemia. administered 4 ounces of orange juice per diabetic protocol and AccuCheck rechecked at 1708 and was 71, will continue to monitor.
== END 2024-08-19 17:23 ==
LOC: 3 WEST ACU 22:32
PROVIDERS: ADMITTING PHYSICIAN Internal Medicine; ATTENDING PHYSICIAN Internal Medicine; EMERGENCY PHYSICIAN Emergency Medicine; FAMILY PHYSICIAN Internal Medicine; OTHER PHYSICIAN Specialist
PROC: 5A1D70Z Performance of Urinary Filtration, Intermittent, Less than 6 Hours Per Day (ICD-10-PCS; 2024-08-19)
DX: N18.6 End stage renal disease (principal); E11.22 Type 2 diabetes mellitus with diabetic chronic kidney disease; I12.0 Hypertensive chronic kidney disease with stage 5 chronic kidney disease or end stage renal disease; Z99.2 Dependence on renal dialysis; G40.909 Epilepsy, unspecified, not intractable, without status epilepticus; Z87.891 Personal history of nicotine dependence; D63.1 Anemia in chronic kidney disease; I69.351 Hemiplegia and hemiparesis following cerebral infarction affecting right dominant side; Z93.3 Colostomy status; I95.89 Other hypotension; L89.154 Pressure ulcer of sacral region, stage 4
CPT/HCPCS: 80048; 80053; 82728; 82962; 83540; 83550; 85025; 85027; 86803; 86850; 86900; 86901; 86920; 87340; 87389; 99285; G0378; P9016; P9047; Q5106

== ENCOUNTER 2024-08-30 00:55 | Inpatient (IN) | payer MEDICARE, OTHER, SELFPAY ==
[2024-08-29] VITALS (10 sets, daily range): BP systolic 78–103; BP diastolic 51–66; BMI 21.9
--- NOTE | 2024-08-29 19:28 | ED.GENMED ---
History of Present Illness
General
Chief Complaint: Blood Pressure Problem
Source: patient, records and ambulance crew
Exam Limitations: none
Time Seen by Provider: 08/29/24 19:17
Nursing documentation reviewed up to this point in time: agreed with
History of Present Illness
History of Present Illness:
53-year-old male with past medical history of insulin-dependent diabetes, ESRD on dialysis, hypertension, hyperlipidemia, prior CVA with residual right hemiparesis, chronic stage IV sacral wound with chronic osteomyelitis, prior colectomy with
colostomy; he presents [facility] the emergency room today [facility] for evaluation of lethargy and hypotension. Of note patient was just admitted to this hospital 08/18 until 08/19�he presented with acute on chronic anemia without evidence of
acute blood loss; he was transfused 2 units of PRBCs and discharged back to [facility]. He does have chronic issues with hypotension and is on midodrine chronically when he receives hemodialysis. Apparently today he had his dialysis session and
was hypotensive. Hypotension did not improve as the day went on and he was noted to be increasingly lethargic which prompted transfer to the emergency department. Patient is awake and alert here. He does admit to feeling mildly weak but denies
any other specific symptoms.
Past History
Past History
ED Past Medical History: CVA, HTN, Hypercholesterolemia, NIDDM, Renal failure and Seizures
ED Past Surgical History: Urological
Social History
Tobacco: Former smoker
Alcohol: None
Drug: None
Personal:
Living: penitentiary
Employment: Not employed
Family History
Family History: Hypertension
Review of Systems
Review of Systems
All Other Systems: ROS reviewed and negative except as documented in HPI and ROS
Respiratory: Denies trouble breathing
Cardiac: Denies chest pain
ABD/GI: Denies abdominal pain or nausea
Musculoskeletal: Denies neck pain or back pain
Neurological: Reports weakness (Generally weak); Denies headache
Phy Exam
Physical Exam
Physical Exam:
General: Awake, alert; chronically ill-appearing
Head: Normocephalic, atraumatic
Eyes: Conjunctiva normal, pupils equal round and reactive to light bilaterally
Throat: Airway intact, handling secretions
Neck: Trachea midline
Lungs: Clear to auscultation bilaterally, no wheezing, rales, rhonchi; no tachypnea, normal pulse ox
Heart: Regular rate and rhythm, no murmurs, gallops, or rubs
Abd: Soft, non distended, no apparent tenderness, colostomy in place
: Chronic Vale catheter in place with cloudy urine, dark yellow with sediment
Skin: Stage IV sacral wound (pictured below); skin is dry and flaking specifically in the legs and heels but no pressure wounds noted in the legs
Extremities: Warm and well-perfused; right upper extremity fistula
Scores
Heart Failure Risk
Heart Failure Risk Score: Not Applicable
Heart Score for Chest Pain Patients
STEMI patient?: Not applicable
Withdrawal Assessment of Alcohol
Withdrawal Assessment Completed?: Not applicable
Course
Orders/Labs/Results
Orders:
Orders
08/29/24 19:21
Cardiac Monitoring- Treatment ONCE
IV Insert/Care/Rem.- Treatment PRN
O2 Therapy [RESP] Urgent
Titrate/Wean O2 to maintain O2 sat greater than (%): 93
Special Instructions: TO MAINTAIN CONTINUOUS O2 SATS > OR = 93%
Pulse Ox/cont/shift [RESP] Urgent
Quantity: 1
Special Instructions: CONTINUOUS
08/29/24 19:22
CR Chest - 2 Views Urgent
Comment:
Reason For Exam: suspected infection
08/29/24 19:25
Complete Blood Count/With Diff Urgent
Comprehensive Metabolic Panel Urgent
Lactic Acid Q4H
Comment: ON ICE, CANCEL 2ND ORDER IF FIRST LACTIC ACID LEVEL <2
Urinalysis Reflex To Culture Urgent
Date Specimen was Collected: 08/29/24
Time Specimen was Collected: 19:22
Urine Microscopic Reflex Cult Urgent
Blood Culture Q20M
MARCO ANTONIO Source: Blood/Venous
Specimen Description:
Comment: Urgent from separate sites. If patient screens positive for possible sepsis
Blood Culture Q20M
MARCO ANTONIO Source: Blood/Venous
Specimen Description:
Comment: Urgent from separate sites. If patient screens positive for possible sepsis
Urine Culture Urgent
MARCO ANTONIO Source: U
Specimen Description:
Date Specimen was Collected: 08/29/24
Time Specimen was Collected: 19:22
08/29/24 19:27
0.9% Sodium Chloride 250 ml [Nss] 250 ml IV BOLUS
08/29/24 19:35
Electrocardiogram (*1) Urgent
Reason for Study: Fatigue / Weakness
EKG- Treatment ONCE
08/29/24 19:46
Type+Screen Urgent
08/29/24 22:56
Midodrine [ProAmatine] 10 mg PO NOW STA
08/29/24 23:07
0.9% Sodium Chloride 250 ml [Nss] 250 ml IV BOLUS
08/29/24 23:09
Piperacillin/Tazo 3.375 Gram [Zosyn] 3.375 gram in 50 ml IV NOW
Vancomycin [Vancocin] 1,500 mg 0.9% Sodium Chloride 500 ml [Nss] 500 ml IV NOW
08/30/24 00:40
Admit/Transfer Patient As Directed
Co-Sign Provider:
Level of Care: Inpatient admission
Assign to:: Telemetry
Physician / Group: [place]
Diagnosis: Hypotension
Reason for Telemetry: Arrhythmia
Date to Stop Telemetry: 09/02/24
Time to Stop Telemetry: 11:00
Reason for Hospitalization: Hypotension
Expected length of stay greater than two midnights?: Yes
ELOS- Estimated Length of Stay in days: 2
I certify the patient meets the requirements for IP care: Yes
PRN Pain Medication Management As Directed
May give lesser potent ordered pain med per pt: Yes
preference::
Protocol:: Medication orders for pain may be administered in a
manner that supports deferring to patient preference
when the pt is:
- Requesting an ordered lesser potent pain medication.
Least to most potent pain medications are defined
as: acetaminophen < NSAID < tramadol < opioids
(morphine, oxycodone, hydromorphone).
- Requesting a lesser dose of the same medication IF
ORDERED.
- Requesting a less intrusive route of administration
if both routes are prescribed by the provider (PO <
IV).
08/30/24 00:42
Code Status As Directed
Resuscitation Status: Full Code
08/30/24 02:18
Acetaminophen [Tylenol] 650 mg PO Q4HPRN PRN
Dextrose 50%-Water [Dextrose 50% Syringe] 12.5 grams IV [id number] PRN
Glucagon [GlucaGen] 1 mg IM PRN PRN
Midodrine [ProAmatine] 5 mg PO Q4HPRN PRN
08/30/24 02:18
WOUND/OSTOMY CONSULT Routine
Reason for Consult: Sacral Wound
Activity As Directed
Activity Level: Out of Bed- Chair
With Assistance
Bedside Glucose Monitoring As Directed
Frequency: AC&HS
Additional Instructions:: Change to q6h if pt on TPN, tube feeding or not eating
Vale Catheter [Catheter- Indwelling] As Directed
Reason for insertion: Chronic Vale on Admit
I/O [Intake/ Output] As Directed
Frequency: Per unit guidelines
Ostomy Care As Directed
Vital Signs As Directed
Frequency: Per unit guidelines
Weight As Directed
Frequency: Daily
Oxygen Therapy [O2 Therapy] [RESP] Routine
Titrate/Wean O2 to maintain O2 sat greater than (%): 94
08/30/24 Breakfast
2000 calorie (17 carb) Diabetic
Diabetic Diet: Potassium, 2 Gram
Sodium, 2 Gram
Basic Metabolic Panel IN AM
Complete Blood Count/No Diff IN AM
Glycohemoglobin (HgbA1c) IN AM
08/30/24 07:30
Insulin Aspart Corrective Low [Novolog Flexpen-Low Resistance] See Protocol SC AC
08/30/24 08:00
Ascorbic Acid [Vitamin C] 1,000 mg PO DAILY
Atorvastatin [Lipitor] 40 mg PO DAILY
Carvedilol [Coreg] 25 mg PO Q12
Divalproex Delayed Rel. 12 Hr [Depakote (12 Hr Release)] 500 mg PO BID
Ferrous Sulfate [Feosol] 325 mg PO DAILY
Heparin 5,000 units SC Q12
Levetiracetam [Keppra] 250 mg PO TID
Pantoprazole [Protonix] 40 mg PO DAILY
Sodium Zirconium Cyclosilicate [Lokelma] 10 gram PO TuThSa@0800
08/31/24 08:00
Midodrine [ProAmatine] 10 mg PO MoWeFr@0800
09/02/24 11:00
DC Protocol for Telemetry ONCE
Abnormal Lab Results
08/29/24
19:25
RBC 3.22 L 10^6/uL
(4.70-6.10)
Hgb 9.4 L g/dL
(13.0-18.0)
Hct 29.1 L %
(39.0-52.0)
MCHC 32.3 L g/dL
(33.0-37.0)
RDW 17.0 H %
(11.5-14.5)
Abs Immat Gran (auto) 0.1 H 10^3/uL
(0-0.05)
Absolute Lymphs (auto) 0.8 L 10^3/uL
(1.2-3.4)
Immature Gran % 0.9 H %
(0-0.5)
Neutrophils % 77.7 H %
(42.2-75.2)
Lymphocytes % 12.0 L %
(20.5-51.1)
Sodium 134 L mmol/L
(135-145)
Creatinine 1.5 H mg/dL
(0.7-1.3)
Total Protein 8.9 H g/dl
(6.3-8.2)
Albumin 2.9 L g/dl
(3.5-5.0)
Ur Occult Blood Reflex 3+ A
(Negative)
Leukocyte Esterase Rfl 3+ A
(Negative)
Urine WBC (Reflex) >100 A /HPF
(0-5)
Urine Bacteria (Reflex) Many A
(Negative)
Urine Albumin (Reflex) 3+ A
(Neg - Trace)
08/29/24 19:25
08/29/24 19:25
Vital Signs
Initial and Last Documented VS:
Initial Vital Signs
Pulse Resp
96 20
08/29/24 19:10 08/29/24 19:10
Last Documented Vital Signs
Temp Pulse Resp BP Pulse Ox
37.4 C 77 14 88/56 100
08/29/24 19:12 08/30/24 00:15 08/30/24 00:15 08/30/24 00:00 08/29/24 19:45
MDM/Problems Addressed
Differential Diagnosis Includes:
Hypotension: hypovolemia after dialysis, anemia/GI bleeding, sepsis/infection
MDM/Problems Addressed:
53-year-old male with recent admission for acute on chronic anemia presents [facility] the ER from [facility] for evaluation of hypotension after dialysis. Slightly weak/lethargic but no other specific symptoms noted. Blood pressure 83/55 on arrival.
Heart rate in the 90s. Afebrile. Normal respiratory rate, normal pulse ox. Physical exam as noted. Will place large-bore IV send labs including a CBC and a CMP, lactate and blood cultures. Send urinalysis from catheter and check chest x-ray.
Send type and screen in case of anemia. No bleeding noted here. Will provide some gentle fluids and assess response. Reassess after the above.
Labs reviewed: CBC shows stable anemia. CMP shows CKD no other clinically significant abnormalities. His urinalysis is positive for infection. Chest x-ray shows no pneumonia. He is hypotensive despite 2050 cc of fluid, no signs of volume
overload at this point we will continue with cautious fluids. He was given his normal dose of midodrine without significant improvement. Will cover with broad-spectrum antibiotics�could be sepsis from UTI or bacteremia from sacral wound.
Discussed case with hospitalist for admission.
Chronic conditions affecting care:
ESRD, prior CVA with hemiparesis, diabetes all impact his care
*Radiology
Radiology exam reviewed: radiology read reviewed
*Pulse Oximetry
Patient hypoxic: no
*Critical Care Note
Total Time (30-74mins, 75-104mins- exclusive of procedures): 32
comment:
Critical care statement: A total of 32 minutes of critical care time was provided for this patient. This includes management of unstable vital signs, evaluation of the patient at bedside, frequent reassessment, discussion with
consultants/hospitalist, and review of pertinent medical records. This time was separate from time utilized to perform any aforementioned documented procedures
Data Reviewed
Review of Other/Old Records Reveals: Labs, Records and Discharge Summary
Source: patient, records, ambulance crew and penitentiary records
Patient Management
Discussion with other providers: Hospitalist (Discussed with hospitalist)
Escalation/DeEscalation of care consider admission/obs:
Admission indicated
ED Attending Note
-
Portions of this chart may have been created with voice recognition software.� Occasional wrong word or��sound alike� substitutions may have occurred due to the inherent limitations of voice recognition software.
Discharge Plan
Departure
Patient Disposition: Admit
Date of Disposition: 08/29/24
Time of Disposition: 23:11
Admit to doctor: Milan
Presentation/result/management discussed w/ accepting MD/DO: Hospitalist
Discharge Problem:
Hypotension, Acute UTI, Sacral wound
Interventions
Interventions:
*Risk Screen - Suicide Last Done: 08/29/24 19:12
*General Assessment Last Done: 08/29/24 19:12
*Neglect/Abuse Screening Last Done: 08/29/24 19:12
*ED- Fall Risk Assessment Last Done: 08/29/24 19:12
*ED COVID-19 Vaccine History Last Done: 08/29/24 19:12
ED- Cardiac Assessment Last Done: 08/29/24 21:28
ED- Neurological Assessment Last Done: 08/29/24 21:28
ED- Pulmonary Assessment Last Done: 08/29/24 21:28
[2024-08-29 19:32] LABS: Urine Albumin 3+ (Neg - Trace); Urine Bilirubin Negative (Negative); Urine Character Cloudy (Clear); Urine Color Yellow; Urine Glucose Negative (Negative); Urine Ketone Negative (Negative); Urine Leukocyte 3+ (Negative); Urine Nitrite Negative (Negative); Urine Occult Blood 3+ (Negative); Urine Urobilinogen Negative (Neg - 1+)
[2024-08-29 19:38] LABS: Hematocrit 29.1 % (39.0-52.0); Hemoglobin 9.4 g/dL (13.0-18.0); Mean Corp Hgb Conc. 32.3 g/dL (33.0-37.0); Mean Corpuscular Hgb 29.2 pg (27.0-31.0); Mean Corpuscular Volume 90.4 fL (80.0-94.0); Mean Platelet Volume 9.4 fL (7.4-10.4); Platelet Count 218 10^3/uL (130-400); Red Blood Cell Count 3.22 10^6/uL (4.70-6.10); White Blood Cell Count 6.7 10^3/uL (4.8-10.8)
[2024-08-29 19:43] LABS: Lactic Acid 1.4 mmol/L (0.7-2.0)
[2024-08-29 19:46] LABS: ALT (SGPT) < 10 U/L (0-50); AST (SGOT) 19 U/L (17-59); Albumin 2.9 g/dl (3.5-5.0); Alkaline Phosphatase 97 U/L (38-126); Blood Urea Nitrogen 12 mg/dl (9-20); Calcium 8.6 mg/dl (8.4-10.2); Carbon Dioxide 24 mmol/L (22-30); Chloride 100 mmol/L (98-107); Estimated Creatinine Clearance 57 ml/min; Glucose 77 mg/dl (70-99); Potassium 4.1 mmol/L (3.5-5.1); Sodium 134 mmol/L (135-145); Total Bilirubin 1.1 mg/dl (0.2-1.3); Total Protein 8.9 g/dl (6.3-8.2); eGFR 56.02
[2024-08-29 19:56] LABS: Urine Bacteria Many (Negative); Urine Red Blood Cell 0-2 /HPF (0-2); Urine Squamous Cell 0-2 /LPF (Few); Urine White Cell >100 /HPF (0-5)
--- NOTE | 2024-08-29 20:00 | EDRN ---
Patient rolled and all linen and things removed from underneath him and pillow placed under him on the right hand side.
[2024-08-29] MEDS: NSS 250 IV ×2 (20:02→23:11)
[2024-08-29 20:07] LABS: % Eosinophils 0.1 % (0-6); % Immature Granulocytes 0.9 % (0-0.5); % Monocytes 8.3 % (1.7-9.3); % Neutrophils 77.7 % (42.2-75.2); Absolute Basophils 0.1 10^3/uL (0-0.2); Absolute Immature Granulocytes 0.1 10^3/uL (0-0.05); Absolute Lymphocytes 0.8 10^3/uL (1.2-3.4); Absolute Monocytes 0.6 10^3/uL (0.1-0.6); Absolute Neutrophils 5.2 10^3/uL (1.4-6.5); Nucleated Red Blood Cells % 0 % (-)
[2024-08-29 20:10] LABS: Anisocytosis 1+; Hypochromasia 1+; Macrocytosis 1+; Normal RBC Morphology No; Polychromasia Occasional; Target Cells 1+; Tear Drop Red Blood Cells 1+
--- NOTE | 2024-08-29 22:00 | EDRN ---
Attempted to roll patient onto other side he does not want the pillow change to other side, patient was pulled up in bed though and provided with a blanket
[2024-08-29] MEDS: ProAmatine 10 MG PO (23:06)
--- NOTE | 2024-08-29 23:10 | EDRN ---
Patient able to swallow his pill without difficulty, call lomax in reach and lights turned down
[2024-08-29] MEDS: ZOSYN 50 IV (23:11)
[2024-08-30] VITALS (43 sets, daily range): BP systolic 76–112; BP diastolic 46–69
[2024-08-30] MEDS: VANCOCIN 530 MG IV (00:06)
--- NOTE | 2024-08-30 00:32 | EDRN ---
Dr. Yates at bedside
--- NOTE | 2024-08-30 00:45 | HPS.HSE ---
Family Physician
-
Family Physician: * NONE
Chief Complaint
-
Hypotension
History of Present Illness
Patient is a 53y M with PMH significant for ESRD on HD, R hemiparesis s/p CVA and DM-II who [place] ED from local [place] for evaluation of hypotension. Patient had his usual HD session today. No records are available to review; however, he
states that he completed his full session with no issues / difficulty. Patient was reportedly noted to be lethargic and hypotensive following HD and remained so throughout the day. He was sent to the ED for further evaluation.
In the ED, patient is resting comfortably. He states that he feels fine and he denies any specific complaints.
Medical History
Past Medical History
Past Medical History: Reports Other
Additional Past Medical History:
ESRD MWF
chronic Vale
history of intracranial hemorrhage stroke residual right-sided weakness
hypertension
hyperlipidemia
diabetes
chronically bedbound
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
right thigh complex abscess
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
anemia of ESRD / chronic disease
Past Surgical History: Reports Other
Additional Past Surgical History:
RUE AVG
Colostomy formation
R Orchiectomy
R Thigh Abscess Drainage
Social History
Tobacco: Non-smoker
Alcohol: None
Drug: None
Living: Care Home
Family History
Family History: Not pertinent
Allergies / Home Medications
Allergies reflects when Allergies were last updated in [facility].
Home Medications with original date entered in [facility]
Allergy/Medication List:
Allergies
Allergy/AdvReac Type Severity Reaction Status Date / Time
banana Allergy Swelling Verified 08/29/24 19:20
Home Medications
carvedilol 25 mg tablet (Coreg) 25 mg PO Q12H Blood pressure 08/14/22
ferrous sulfate 325 mg (65 mg iron) tablet 325 mg PO DAILY Supplement 08/14/22
insulin aspart U-100 100 unit/mL subcutaneous solution 0 - 10 unit SC ACHS Diabetes 08/14/22
ipratropium 0.5 mg-albuterol 3 mg (2.5 mg base)/3 mL nebulization soln 3 ml inhalation R Q4HPRN PRN sob 08/14/22
ondansetron HCl 4 mg tablet 4 mg PO Q6HPRN PRN nausea/vomiting 08/14/22
pantoprazole 40 mg tablet,delayed release 40 mg PO DAILY Gastrointestinal issue 08/14/22
acetaminophen 325 mg tablet 650 mg PO Q6H PRN mild pain 12/02/22
ascorbic acid (vitamin C) 1,000 mg tablet (Vitamin C) 1,000 mg PO DAILY Supplement 12/02/22
lidocaine-prilocaine 2.5 %-2.5 % topical cream 1 applic topical MOWEFR apply to right AVG 12/02/22
atorvastatin 40 mg tablet 40 mg PO DAILY High Cholesterol 01/16/23
bisacodyl 10 mg rectal suppository 10 mg NV DAILY PRN constipation 01/23/23
bumetanide 2 mg tablet 2 mg PO DAILY Fluid Retention/Swelling 01/23/23
divalproex 500 mg tablet,delayed release (Depakote) 500 mg PO BID Seizures 04/06/23
heparin (porcine) 5,000 unit/mL injection solution 5,000 unit SC Q12H Blood clot prevention/tx #0 mL 04/16/23
midodrine 5 mg tablet 10 mg (2 x 5 mg) PO MoWeFr@0800 #30 tabs 08/19/24
oxycodone 10 mg tablet 10 mg PO Q4HPRN PRN severe pain #10 tabs 08/19/24
levetiracetam 750 mg tablet (Keppra) 250 mg PO TID 08/29/24
sodium zirconium cyclosilicate 10 gram oral powder packet (Lokelma) 10 g PO .DEMETRIA ALEXANDER,LANI 08/29/24
Review of Systems
-
History Source: Patient
A 12 point ROS was completed and negative except as noted: Yes
Constitutional: Denies Fever or Chills
Respiratory: Denies Cough or Trouble Breathing
Cardiac: Denies Chest Pain or Palpitations
Abdomen/GI: Denies Abdominal Pain, Nausea or Vomiting
: Denies Dysuria, Frequency or Flank Pain
Musculoskeletal: Denies Joint Pain or Edema
Neurological: Denies Dizzy or Headache
Physical Exam
Vital Signs
Vital Signs
Temp Pulse Resp BP Pulse Ox
99.3 F 77 14 88/56 100
08/29/24 19:12 08/30/24 00:15 08/30/24 00:15 08/30/24 00:00 08/29/24 19:45
Physical Exam
General: Other (Chronically ill-appearing 53y M in no acute distress.)
HEENT: Other (Dry MM. Neck supple.)
Respiratory: Clear; No Wheezes, Rales or Rhonchi
Cardiac: S1/S2 and Regular Rhythm; No Murmur
GI: Soft, Non Tender, Non Distended, Normal Bowel Sounds and Other (L sided ostomy intact with gas / stool in device.)
Genito-urinary: Other (Vale in place.)
Neuro: Awake, Alert and Other (R hemiparesis - chronic. No new focal deficits appreciated.)
Laboratory Results
-
08/29/24 19:25
08/29/24 19:25
Laboratory Results
Lactic Acid Cancelled 08/29/24 23:30
Total Bilirubin 1.1 mg/dl (0.2-1.3) 08/29/24 19:25
AST 19 U/L (17-59) 08/29/24 19:25
ALT < 10 U/L (0-50) 08/29/24 19:25
Alkaline Phosphatase 97 U/L (38-126) 08/29/24 19:25
Impression/Plan
-
A/P: Patient is a 53y M with PMH significant for ESRD on HD, prior CVA and chronically bedbound status who presents to ED for evaluation of hypotension.
Hypotension
- Admit for further evaluation and treatment.
- Patient with chronic hypotension and is on midodrine on HD days (today).
- He has no complaints / asymptomatic at present.
- Not clear that any acute / underlying process here.
- Midodrine PRN and continue usual dose.
- Avoid sedating / hypotensive agents. Hold bumex / diuretics.
- Follow for improvement / stability in BP.
- UA abnormal c/w chronic Vale placement. Negative nitrites. Would hold further abx pending symptoms / culture data / etc.
ESRD on HD
- Stable. s/p HD today. Labs unremarkable.
- Consult Nephrology if patient remains hospitalized on Thursday (next HD day).
- Continue Lokelma on off days.
Anemia of ESRD / Chronic Disease
- Stable. Hgb continues to improve from prior.
- Continue iron supplementation.
- Follow H&H for any changes.
ASCVD
Right Hemiparesis as Late Effect of CVA
Seizure Disorder
- Stable. No new focal deficits.
- Continue Keppra.
DM-II
- Stable. Follow glucose and cover with SSI as needed.
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
- Wound Care eval for local care recommendations.
- Note that patient is not on chronic abx for reported chronic osteomyelitis.
- Completed course of oral doxycycline last month for this issue.
Colostomy Status
- Routine ostomy care
Chronic Indwelling Vale
- Maintain catheter.
DVT Prophylaxis: Subcut heparin
Code Status: Full
--- NOTE | 2024-08-30 02:16 | EDRN ---
Patient rolled and cleaned and changed dressing wet to dry applied on sacral wound, pillow placed under left side of patient, lights turned down
[2024-08-30 06:50] LABS: Hematocrit 24.2 % (39.0-52.0); Hemoglobin 7.9 g/dL (13.0-18.0); Mean Corp Hgb Conc. 32.6 g/dL (33.0-37.0); Mean Corpuscular Hgb 29.2 pg (27.0-31.0); Mean Corpuscular Volume 89.3 fL (80.0-94.0); Mean Platelet Volume 9.4 fL (7.4-10.4); Platelet Count 221 10^3/uL (130-400); Red Blood Cell Count 2.71 10^6/uL (4.70-6.10); Red Cell Dist. Width 17.1 % (11.5-14.5); White Blood Cell Count 9.6 10^3/uL (4.8-10.8)
[2024-08-30 07:11] LABS: Blood Urea Nitrogen 15 mg/dl (9-20); Calcium 8.2 mg/dl (8.4-10.2); Carbon Dioxide 26 mmol/L (22-30); Chloride 103 mmol/L (98-107); Estimated Creatinine Clearance 45 ml/min; Glucose 75 mg/dl (70-99); Potassium 3.8 mmol/L (3.5-5.1); Sodium 136 mmol/L (135-145); eGFR 42.18
[2024-08-30 07:40] LABS: Glucose - Point of Care 72 mg/dl (70-99)
[2024-08-30] MEDS: NOVOLOG FLEXPEN-LOW RESISTANCE SC ×3 (07:53→16:22)
[2024-08-30] MEDS: HEPARIN 5000 UNITS SC ×2 (08:06→21:30)
[2024-08-30] MEDS: FEOSOL 325 MG PO (08:09)
[2024-08-30] MEDS: DEPAKOTE (12 HR RELEASE) 500 MG PO ×2 (08:10→21:29)
[2024-08-30] MEDS: KEPPRA 250 MG PO ×3 (08:10→21:29)
[2024-08-30] MEDS: PROTONIX 40 MG PO (08:10)
[2024-08-30] MEDS: LIPITOR 40 MG PO (08:11)
[2024-08-30] MEDS: VITAMIN C 1000 MG PO (08:31)
--- NOTE | 2024-08-30 08:31 | EDRN ---
TO Dr Okeefe- HOLD today [facility] dose d/t K - 3.8
--- NOTE | 2024-08-30 09:00 | W.PN.HOSP.TC ---
Today's Communication/Plan
-
Midodrine changed to TID every day
Appreciate ID and Nephro
Assessment / Plan
Assessment / Plan
Physical Exam
General: Other (Chronically ill-appearing 53y M in no acute distress.)
HEENT: Other (Dry MM. Neck supple.)
Respiratory: Clear; No Wheezes, Rales or Rhonchi
Cardiac: S1/S2 and Regular Rhythm; No Murmur
GI: Soft, Non Tender, Non Distended, Normal Bowel Sounds and Other (L sided ostomy intact with gas / stool in device.)
Genito-urinary: Other (Vale in place.)
Neuro: Awake, Alert and Other (R hemiparesis - chronic. No new focal deficits appreciated.)
Assessment/Plan
53y M with PMH significant for ESRD on HD, R hemiparesis s/p CVA/chronically bedbound status and type 2 diabetes mellitus who preseneds to ED from local [place] for evaluation of hypotension. Patient had his usual HD session on 08/29/24. He stated
that he completed his full session with no issues / difficulty. Patient was reportedly noted to be lethargic and hypotensive following HD and remained so throughout the day. He was sent to the ED for further evaluation. In the ED, patient is
resting comfortably. He states that he feels fine and he denies any specific complaints.
Hypotension
- Patient with chronic hypotension and is on midodrine on HD days (today) --> spoke with nephrology and changed the Midodrine to TID every day
- He has no complaints / asymptomatic at present.
- Not clear that any acute / underlying process here.
- Avoid sedating / hypotensive agents. Hold Bumex / diuretics.
- Follow for improvement / stability in BP.
- UA abnormal c/w chronic Vale placement. Negative nitrites. Would hold further antibiotics pending symptoms / culture data / etc.
- Appreciate ID and nephrology
ESRD on HD
- Stable. s/p HD today. Labs unremarkable.
- Consult Nephrology if patient remains hospitalized on Thursday (next HD day).
- Continue Lokelma on off days.
Anemia of ESRD / Chronic Disease
- Stable. Hgb continues to improve from prior.
- Continue iron supplementation.
- Follow H&H for any changes.
- PER ER NURSE: Stool is yellow fuentes liquid in colostomy and is negative for Hemoccult
ASCVD
Right Hemiparesis as Late Effect of CVA
Seizure Disorder
- Stable. No new focal deficits.
- Continue Keppra.
DM-II
- Stable. Follow glucose and cover with SSI as needed.
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
- Wound Care eval for local care recommendations.
- Note that patient is not on chronic abx for reported chronic osteomyelitis.
- Completed course of oral doxycycline last month for this issue.
Colostomy Status
- Routine ostomy care
Chronic Indwelling Vale
- Maintain catheter.
DVT Prophylaxis: Subcut heparin
Code Status: Full
Anticipated Discharge: 24 - 48 hours
Subjective/Interval History
-
Date of Service: August 30, 2024
Patient was seen and examined. He denied any new symptoms.
Objective Data
-
Labs:
Laboratory Results
08/30/24
06:04
WBC 9.6
Hgb 7.9 L
Hct 24.2 L
Plt Count 221
Sodium 136
Potassium 3.8
Chloride 103
Carbon Dioxide 26
BUN 15
Creatinine 1.9 H
Glucose 75
Calcium 8.2 L
Vital Signs:
Vital Signs
Temp Pulse Resp BP Pulse Ox
99.3 F 77 17 95/69 99
08/29/24 19:12 08/30/24 08:30 08/30/24 08:30 08/30/24 08:30 08/30/24 07:49
[2024-08-30] MEDS: ProAmatine 5 MG PO (09:07)
--- NOTE | 2024-08-30 09:41 | EDRN ---
Bed air mattress overlay in place
--- NOTE | 2024-08-30 10:28 | CM ---
Patient is a assisted care resident @ [facility]
Per facility provider patient is awake, alert, and oriented at baseline; he is bedridden; requires total care but able to feed self; needs Vernell lift for transfers
HD 3 times per week
Plan: Return to [facility] when stable for discharge
--- NOTE | 2024-08-30 11:13 | WOUNDNOTE ---
SACRUM AND L OF SACRUM
--- NOTE | 2024-08-30 11:14 | WOUNDNOTE ---
L LATERAL LOWER LEG
--- NOTE | 2024-08-30 11:15 | WOUNDNOTE ---
HEELS AND POSTERIOR LEGS
--- NOTE | 2024-08-30 11:20 | WOUNDNOTE ---
[facility] RN note: Patient admitted with hypotension,acute UTI
See H&P for complete history. From [facility].
PMH: Per physician note, ESRD-MWF,chronic Vale history of intracranial hemorrhage stroke residual right-sided weakness hypertension
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
sacral stage IV decubitus ulcer with osteomyelitis.
Wound Location and type/assessment: Patient known to service, last seen 08/19/24 for same stage 4 sacral PI and unstageable PI to R heel. Sacral ulcer, base pale pink, with purulent drainage and odor. L side of sacrum with stage 3 PI vs tape
abrasion. Periwound with scarring and posterior thighs with scars. Right heel with peeling patch of dried up skin easily removed. Healed PI underneath, pale pink scar. L lateral leg with dark red skin and scabs, suspect old healing PI vs evolving
DTI. Patient using own fiber filled boots, when removed lots of skin flaking off feet and legs. Patient has a LUQ colostomy with what appears to be a new appliance, no leakage. Output formed fuentes stool, stoma pale pink. Patient denies issues or
problems with colostomy, confirmed was changed recently. Nurse Greene assisted with turning, skin care and changing Ultrasorb pad. Dr. Okeefe at bedside and approved of wound care.
Appetite: Fair, puree diet
Pressure redistribution devices in place: Versa Car Air, turning schedule, off-loading heel boots.
Plan: Sacrum applied saline WTD and silicone foam covering L sacrum also. Will order Dakin's moistened Kerlix to dry dressing daily. Applied Vaseline to legs will order Mineral oil. Silicone foams applied to heels and fiber filled boots re applied.
Will call [facility] for Ostomy supplies, nurse aware. Updated care plan and will follow as needed.
Note to case management of equipment requested for discharge: None.
[2024-08-30] MEDS: ROCEPHIN 1000 MG IV (12:11)
[2024-08-30] MEDS: STERILE WATER FOR INJECTION 10 ML IV (12:14)
[2024-08-30 12:21] LABS: Glucose - Point of Care 73 mg/dl (70-99)
--- NOTE | 2024-08-30 14:41 | CON.ID ---
Consultation
-
Date/Time Consultation Requested: 08/30/2024 0223
Date/Time Consultation Performed: 08/30/2024 1440
Requesting Provider: Milan
Performing Provider: Luis Felipe
Reason for Consultation: Sacral wound
Chief Complaint / Past History
History of Present Illness
Bautista Cortez is a 53-year-old man being evaluated at the request of Dr. Lai in regards to sacral wound. History is obtained from chart review. Additional history was attempted to be obtained from the patient, but he could not provide any
significant history for me.
The patient resides at a local halfway and has a history of CVA with right residual, seizure disorder and diabetes mellitus. Additionally, he has a history of ESRD on dialysis. He is known to the Infectious Diseases service, having been seen
in late 2022. He recently was admitted to [facility] in late July for significant anemia. He was transferred back to the [place] [facility] on 08/[facility], but presents back to the ER on 08/29/2024 for evaluation of lethargy and hypotension.
According to reviewed notes he had had his usual dialysis session and following that was found to be hypotensive, but did not improve throughout the day. Because he was noted to be lethargic, he was sent to the ER for further evaluation.
He has a known longstanding sacral decubiti, and Infectious diseases is asked to comment upon further antimicrobial therapy.
At present, he denies any fevers or chills. He denies any pain. He denies any cough.
Past History
Additional Past Medical History:
Intracranial hemorrhage/CVA with right-sided weakness
Seizure
Diabetes mellitus
Hypertension
End-stage renal disease on dialysis Wednesdays and Fridays via RUE AVG
dyslipidemia
History of testicular cancer status post right orchiectomy
chronic obrien
chronic sacral decubitus/osteo s/p 6 weeks cefazolin (completed 09/2022)
Hx Abscess from sacrum to right knee s/p I+D s/p 6 weeks cefazolin/metronidazole till 9/27/23.
Diverting colostomy
Ambulatory dysfunction
Allergy History:
banana Allergy (Verified 08/29/24 19:20)
Swelling
Medications Reviewed: Yes
Current Antibiotics:
Ceftriaxone
Vancomycin/Zosyn; given in ER
Social History
Tobacco: Non-Smoker
Alcohol: None
Drug: None
Living: [facility]
Employment: Disabled
Family History
Family History: Not Pertinent
Review of Systems
Vital Signs
Temp Pulse Resp BP Pulse Ox
99.3 F 62 13 89/57 99
08/29/24 19:12 08/30/24 12:30 08/30/24 12:30 08/30/24 12:30 08/30/24 07:49
Physical Exam
Physical Exam
Constitutional: Comfortable, Chronically Ill and Non-toxic
Head: Other (Temporal wasting)
Eyes: Pupils Equal, Pupils Round and No Conjunctival Hemorrhage
Oral: No Thrush and No Ulcers
Cardiovascular: Regular Rate and S1/S2; Negative S3/S4
Pulmonary: Clear; Negative Wheezes, Rales or Rhonchi
Gastrointestinal: Soft, Non Tender and Other (Ostomy in place with stool in bag.)
Genito-Urinary: Obrien and Clear Urine
Extremities: Other (Generalized muscle wasting of the lower extremities); Negative Edema, Cyanosis or Erythema
Skin: Warm and Dry; Negative Rash
Wound: Other (Deep sacral decubiti noted.)
Lab / Diagnostic Study Results
08/30/24 06:04
08/30/24 06:04
Abs Immat Gran (auto) 0.1 10^3/uL (0-0.05) H 08/29/24 19:25
Absolute Neuts (auto) 5.2 10^3/uL (1.4-6.5) 08/29/24 19:25
Absolute Lymphs (auto) 0.8 10^3/uL (1.2-3.4) L 08/29/24 19:25
Absolute Monos (auto) 0.6 10^3/uL (0.1-0.6) 08/29/24 19:25
Absolute Basos (auto) 0.1 10^3/uL (0-0.2) 08/29/24 19:25
Immature Gran % 0.9 % (0-0.5) H 08/29/24 19:25
Neutrophils % 77.7 % (42.2-75.2) H 08/29/24 19:25
Lymphocytes % 12.0 % (20.5-51.1) L 08/29/24 19:25
Monocytes % 8.3 % (1.7-9.3) 08/29/24 19:25
Eosinophils % 0.1 % (0-6) 08/29/24 19:25
Basophils % 1.0 % (0-2) 08/29/24 19:25
Lactic Acid Cancelled 08/29/24 23:30
Ur Squamous Epith Cells 0-2 /LPF (Few) 08/29/24 19:25
Microbiology Results
Micro:
08/29/24:25 Blood Culture - Pending
Blood/Venous
08/29/24:25 Blood Culture - Pending
Blood/Venous
08/29/24 19:25 Urine Culture - Pending
Urine
Assessment / Plan
Hypotension
Chronic sacral decubiti with history of osteomyelitis
- Currently with odor and and drainage
Intracranial hemorrhage/CVA with right-sided weakness
Seizure disorder
Diabetes mellitus
Hypertension
ESRD�HD
dyslipidemia
History of testicular cancer status post right orchiectomy
chronic obrien
Diverting colostomy
Ambulatory dysfunction
Recommendations:
At present, patient without fever or leukocytosis.
Would discontinue further antibiotics.
Patient needs aggressive wound care, and agree with the use of Dakin's solution to control overall bioburden.
Offload sacral area.
Follow white count and temperature curve.
Further recommendations as additional data is returned.
--- NOTE | 2024-08-30 14:54 | W.CON.NEPH ---
Consultation
-
Date/Time Consultation Requested: 08/30/2024 2 PM
Date/Time Consultation Performed: 08/30/2024 3 PM
Requesting Provider: Dr. Fuentes
Performing Provider: Dr. Hopkins
Reason for Consultation: ESRD
Medical History
-
Chief Complaint: End-stage renal disease
History of Present Illness:
The patient is a 53-year-old male with end-stage renal disease who dialyzes Thursday at [facility]. He has a history of hypertension for which he is maintained on carvedilol. He is maintained on insulin for diabetes. He has a prior
history of CVA with right hemiplegia and hemiparesis as well as underlying sacral decubiti. He has previous colectomy and colostomy. He presented to the hospital with hypotension. He has no specific complaints.
Past Medical History
ESRD Thursday [facility]
chronic Vale
history of intracranial hemorrhage stroke residual right-sided weakness
hypertension
hyperlipidemia
diabetes
chronic bedbound
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
right thigh complex abscess
History of seizure disorder
sacral stage IV decubitus ulcer with osteomyelitis�
Social History
Tobacco: Non-Smoker
Family History
no ckd
Allergies / Home Medications
Allergy/AdvReac Type Severity Reaction Status Date / Time
banana Allergy Swelling Verified 08/29/24 19:20
�Medication �Instructions �Recorded �Confirmed �Type
carvedilol 25 mg tablet (Coreg) 25 mg PO Q12H Blood pressure 08/14/22 08/30/24 History
ferrous sulfate 325 mg (65 mg 325 mg PO DAILY Supplement 08/14/22 08/30/24 History
iron) tablet
insulin aspart U-100 100 unit/mL 1 sliding scale dose SC ACHS 08/14/22 08/30/24 History
subcutaneous solution Diabetes
ipratropium 0.5 mg-albuterol 3 mg 3 ml inhalation R Q4HPRN PRN sob 08/14/22 08/30/24 History
(2.5 mg base)/3 mL nebulization
soln
ondansetron HCl 4 mg tablet 4 mg PO Q6HPRN PRN nausea/vomiting 08/14/22 08/30/24 History
pantoprazole 40 mg tablet,delayed 40 mg PO DAILY Gastrointestinal 08/14/22 08/30/24 History
release issue
acetaminophen 325 mg tablet 650 mg PO Q4HPRN PRN mild pain 12/02/22 08/30/24 History
ascorbic acid (vitamin C) 1,000 mg 1,000 mg PO DAILY Supplement 12/02/22 08/30/24 History
tablet (Vitamin C)
lidocaine-prilocaine 2.5 %-2.5 % 1 applic topical MOWEFR apply to 12/02/22 08/30/24 History
topical cream right AVG
atorvastatin 40 mg tablet 40 mg PO DAILY High Cholesterol 01/16/23 08/30/24 History
bisacodyl 10 mg rectal suppository 10 mg AK DAILYPRN PRN if no bm 01/23/23 08/30/24 History
aftr mom
bumetanide 2 mg tablet 2 mg PO DAILY Fluid 01/23/23 08/30/24 History
Retention/Swelling
divalproex 500 mg tablet,delayed 500 mg PO BID Seizures 04/06/23 08/30/24 History
release (Depakote)
heparin (porcine) 5,000 unit/mL 5,000 unit SC Q12H Blood clot 04/16/23 08/30/24 Rx
injection solution prevention/tx #0 mL
oxycodone 10 mg tablet 10 mg PO Q4HPRN PRN severe pain 08/19/24 08/30/24 Rx
#10 tabs
levetiracetam 750 mg tablet 250 mg PO TID 08/29/24 08/30/24 History
(Keppra)
insulin glargine 100 unit/mL (3 10 unit SC HS 08/30/24 08/30/24 History
mL) subcutaneous pen (Lantus
Solostar U-100 Insulin)
midodrine 10 mg tablet 10 mg PO MOWEFR before diaylsis 08/30/24 08/30/24 History
sodium chloride-hypochlorous acid 1 irrig irrigation BID sacral wound 08/30/24 08/30/24 History
0.033 % irrigation solution (Vashe)
sodium zirconium cyclosilicate 10 10 g PO TUTHSA 08/30/24 08/30/24 History
gram oral powder packet (Lokelma)
Review of Systems
-
All other systems: Negative unless noted
Physical Exam
Vital Signs
Vital Signs
Temp Pulse Resp BP Pulse Ox
99.3 F 62 13 89/57 99
08/29/24 19:12 08/30/24 12:30 08/30/24 12:30 08/30/24 12:30 08/30/24 07:49
Lab Results
WBC 9.6 10^3/uL (4.8-10.8) 08/30/24 06:04
RBC 2.71 10^6/uL (4.70-6.10) L 08/30/24 06:04
Hgb 7.9 g/dL (13.0-18.0) L 08/30/24 06:04
Hct 24.2 % (39.0-52.0) L 08/30/24 06:04
Plt Count 221 10^3/uL (130-400) 08/30/24 06:04
Sodium 136 mmol/L (135-145) 08/30/24 06:04
Potassium 3.8 mmol/L (3.5-5.1) 08/30/24 06:04
Chloride 103 mmol/L (98-107) 08/30/24 06:04
Carbon Dioxide 26 mmol/L (22-30) 08/30/24 06:04
BUN 15 mg/dl (9-20) 08/30/24 06:04
Creatinine 1.9 mg/dL (0.7-1.3) H 08/30/24 06:04
eGFR 42.18 08/30/24 06:04
Glucose 75 mg/dl (70-99) 08/30/24 06:04
Calcium 8.2 mg/dl (8.4-10.2) L 08/30/24 06:04
Albumin 2.9 g/dl (3.5-5.0) L 08/29/24 19:25
Physical Exam
Patient is awake in no distress. Mood and affect were fair, insight and judgment were fair. Pupils are equal round and reactive to light, extraocular movements are intact, sclera were anicteric. Hearing was normal, ears and nose are intact.
Oropharynx was clear. Neck was supple with trachea midline and no thyromegaly. Heart was regular rate and rhythm without rubs. Lower extremities without edema. Lungs were clear to auscultation bilaterally and with normal excursion. Abdomen was
soft, nontender, with normal active bowel sounds, and no hepatosplenomegaly. Skin was without rash and with normal turgor. Right upper extremity AV fistula with good thrill and bruit
Data Reviewed
-
Radiology: Image Personally Visualized and interpreted (Chest x-ray 08/29/2024 by reading shows no acute disease)
Medical Tests (Nuc Med, Echo etc): Image Personally Visualized and interpreted (EKG 08/29/2024 by my reading shows normal sinus rhythm nonspecific T wave)
Labs: Labs Reviewed by me
Old Records: Reviewed
Assessment/Plan
-
Impression:
Anemia
End-stage renal disease Thursday [facility]
Type 2 diabetes
Seizure disorder
Hypotension
History of Colostomy
Chronic Vale catheter
Anemia
History of CVA with right-sided hemiparesis
Plan:
Dialysis tomorrow
Midodrine for blood pressure control
Evaluation for infection
Hold carvedilol
Continue Lokelma
Check cortisol
[2024-08-30 16:20] LABS: Glucose - Point of Care 73 mg/dl (70-99)
[2024-08-30] MEDS: ProAmatine 10 MG PO (18:44)
--- NOTE | 2024-08-30 21:30 | W.PN.UPDATE ---
Update Note
Progress Note Update
Patient is hypotensive with the sbp in 80s, midodrine dose increased earlier today from 5mg to 10mg TID and received 10mg 1-2 hrs ago . BP still dropping down current bp 74/51.
Will start Levophed and transfer to imu for administration per protocol.
[2024-08-30 21:38] LABS: Glucose - Point of Care 73 mg/dl (70-99)
--- NOTE | 2024-08-30 22:34 | PTCARENOTE ---
Pt transferred to IMU for hypotension control. BP at this time 100/67 MAP 78. Pt able to make needs known at this time, AAox2 unsure of month.
--- NOTE | 2024-08-30 22:49 | TRANSFER ---
Day shift administered scheduled midodrine 10mg to Pt at 18:44 for BP 82/53. At 19:30 for this RN's shift manual BP was 84/46. Pt asymptomatic and answering questions appropriately. THERMAL INTELLIGENCE ANALYST notified and instructed RN to recheck in an hour. Around 20:58
manual BP 82/48 HR 73. THERMAL INTELLIGENCE ANALYST notified and on floor to assess Pt. Order placed for IMU transfer, and pressors. Report given to Emily Pt transferred.
[2024-08-30] MEDS: LEVOPHED 250 IV (23:22)
[2024-08-31] VITALS (67 sets, daily range): BP systolic 75–132; BP diastolic 51–80; BMI 20.9
[2024-08-31 04:17] LABS: % Basophils 0.8 % (0-2); % Eosinophils 0.3 % (0-6); % Immature Granulocytes 0.8 % (0-0.5); % Lymphocytes 12.1 % (20.5-51.1); % Monocytes 7.6 % (1.7-9.3); % Neutrophils 78.4 % (42.2-75.2); Absolute Basophils 0.1 10^3/uL (0-0.2); Absolute Immature Granulocytes 0.1 10^3/uL (0-0.05); Absolute Lymphocytes 1.2 10^3/uL (1.2-3.4); Absolute Monocytes 0.7 10^3/uL (0.1-0.6); Absolute Neutrophils 7.5 10^3/uL (1.4-6.5); Hematocrit 27.5 % (39.0-52.0); Hemoglobin 8.8 g/dL (13.0-18.0); Mean Corpuscular Volume 90.8 fL (80.0-94.0); Mean Platelet Volume 8.9 fL (7.4-10.4); Nucleated Red Blood Cells % 0 % (-); Platelet Count 260 10^3/uL (130-400); Red Blood Cell Count 3.03 10^6/uL (4.70-6.10); Red Cell Dist. Width 17.3 % (11.5-14.5); White Blood Cell Count 9.6 10^3/uL (4.8-10.8)
[2024-08-31 04:46] LABS: Blood Urea Nitrogen 22 mg/dl (9-20); Carbon Dioxide 25 mmol/L (22-30); Chloride 102 mmol/L (98-107); Estimated Creatinine Clearance 30 ml/min; Glucose 73 mg/dl (70-99); Potassium 3.9 mmol/L (3.5-5.1); Sodium 138 mmol/L (135-145); eGFR 27.67
--- NOTE | 2024-08-31 07:27 | W.PN.HOSP.TC ---
Today's Communication/Plan
-
Continue pressors -- wean as tolerated
Continue antibiotics
Continue to monitor in IMU
Assessment / Plan
Assessment / Plan
Physical Exam
General: Other (Chronically ill-appearing 53y M in no acute distress.)
HEENT: Other (Dry MM. Neck supple.)
Respiratory: Clear; No Wheezes, Rales or Rhonchi
Cardiac: S1/S2 and Regular Rhythm; No Murmur
GI: Soft, Non Tender, Non Distended, Normal Bowel Sounds and Other (L sided ostomy intact with gas / stool in device.)
Genito-urinary: Other (Vale in place.)
Neuro: Awake, Alert and Other (R hemiparesis - chronic. No new focal deficits appreciated.)
Assessment/Plan
53y M with PMH significant for ESRD on HD, R hemiparesis s/p CVA/chronically bedbound status and type 2 diabetes mellitus who preseneds to ED from local [place] for evaluation of hypotension. Patient had his usual HD session on 08/29/24. He stated
that he completed his full session with no issues / difficulty. Patient was reportedly noted to be lethargic and hypotensive following HD and remained so throughout the day. He was sent to the ED for further evaluation. In the ED, patient is
resting comfortably. He states that he feels fine and he denies any specific complaints.
Hypotension
Septic Shock
Gram Negative Bacteremia
- Patient with chronic hypotension and is on midodrine on HD days (today) --> spoke with nephrology and changed the Midodrine to TID every day
- He has no complaints / asymptomatic at present.
- Echocardiogram unremarkable
- Start Zosyn
- Follow cultures
- UA abnormal c/w chronic Vale placement. Negative nitrites. Would hold further antibiotics pending symptoms / culture data / etc.
- Appreciate ID and nephrology
ESRD on HD
- Stable. s/p HD today.
- Nephrology onboard
Anemia of ESRD / Chronic Disease
- Stable.
- Continue iron supplementation.
- Follow H&H for any changes.
ASCVD
Right Hemiparesis as Late Effect of CVA
Seizure Disorder
- Stable. No new focal deficits.
- Continue Keppra.
DM-II
- Stable. Follow glucose and cover with SSI as needed.
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
- Wound Care eval for local care recommendations.
- Note that patient is not on chronic abx for reported chronic osteomyelitis.
- Completed course of oral doxycycline last month for this issue.
Colostomy Status
- Routine ostomy care
Chronic Indwelling Vale
- Maintain catheter.
DVT Prophylaxis: Subcut heparin
Code Status: Full
Septic shock needing pressors and antibiotics, needing monitoring in the IMU is a high risk encounter.
Anticipated Discharge: > 48 hours
Subjective/Interval History
-
Date of Service: August 31, 2024
Patient was seen and examined. Overnight, he became more hypotensive needing transfer to IMU and vasopressors. He denied any symptoms or complaints this morning.
Objective Data
-
Labs:
Laboratory Results
08/31/24
04:08
WBC 9.6
Hgb 8.8 L
Hct 27.5 L
Plt Count 260
Sodium 138
Potassium 3.9
Chloride 102
Carbon Dioxide 25
BUN 22 H
Creatinine 2.7 H
Glucose 73
Calcium 9.0
Vital Signs:
Vital Signs
Temp Pulse Resp BP Pulse Ox
98.3 F 64 22 109/63 99
08/31/24 03:50 08/31/24 06:30 08/31/24 06:30 08/31/24 06:30 08/31/24 06:30
I&O
08/30/24 08/31/2409/01/25
06:59 06:59 06:59
Intake Total 94 / 94
Output Total 90 / 90
Balance
[2024-08-31] MEDS: LIPITOR 40 MG PO (08:12)
[2024-08-31] MEDS: ProAmatine 10 MG PO ×3 (08:12→18:02)
[2024-08-31] MEDS: PROTONIX 40 MG PO (08:12)
[2024-08-31] MEDS: FEOSOL 325 MG PO (08:12)
--- NOTE | 2024-08-31 08:33 | W.PN.ID1 ---
Date of Service
Date of Service: August 31, 2024
Today's Communication
Observe off antibiotics.
Assessment / Plan
Hypotension
Chronic sacral decubiti with history of osteomyelitis
- Currently with odor and and drainage
Hx Intracranial hemorrhage/CVA with right-sided weakness
Seizure disorder
Diabetes mellitus
Hypertension
ESRD�HD
dyslipidemia
History of testicular cancer status post right orchiectomy
chronic obrien
Diverting colostomy
Ambulatory dysfunction
Recommendations:
At present, patient without fever or leukocytosis.
Observe off antibiotics
Continue aggressive wound care, including use of Dakin's solution to control overall bioburden.
Offload sacral area.
Follow white count and temperature curve.
����������������������������������������������������������
Chief Complaint
-: Other (Sacral wound)
Subjective / Review of Systems
Review of Systems: No Fever
Vital Signs / Physical Exam
Vital Signs
Vital Signs
Temp Pulse Resp BP Pulse Ox
98.3 F 64 22 109/63 99
08/31/24 03:50 08/31/24 06:30 08/31/24 06:30 08/31/24 06:30 08/31/24 06:30
Physical Exam
Constitutional: Comfortable, Chronically Ill and Cachetic
Eyes: Sclera Anicteric
Cardiovascular: S1/S2; Negative S3/S4
Pulmonary: Non Labored
Gastrointestinal: Soft, Non Distended and Other (Ostomy in place)
Genito-Urinary: Obrien
Wound: Other (Sacral wound dressed.)
Objective Data
Lab Data
Lab Results
08/31/24 04:08
08/31/24 04:08
Estimated Creat Clear 30 ml/min 08/31/24 04:08
Lactic Acid Cancelled 08/29/24 23:30
Total Bilirubin 1.1 mg/dl (0.2-1.3) 08/29/24 19:25
AST 19 U/L (17-59) 08/29/24 19:25
ALT < 10 U/L (0-50) 08/29/24 19:25
Alkaline Phosphatase 97 U/L (38-126) 08/29/24 19:25
Most recent labs reviewed.
Micro Results:
08/29/24 19:25 Blood Culture - Preliminary
Blood/Venous No Growth in 24 hours- Final report to follow
08/31/24 03:59 MRSA Screen - Pending
Nose
08/29/24 19:25 Blood Culture - Preliminary
Blood/Venous No Growth in 24 hours- Final report to follow
08/29/24 19:25 Urine Culture - Pending
Urine
[2024-08-31 09:07] LABS: Glucose - Point of Care 80 mg/dl (70-99)
[2024-08-31] MEDS: NOVOLOG FLEXPEN-LOW RESISTANCE SC ×3 (09:23→17:34)
--- NOTE | 2024-08-31 09:41 | W.PN.NEPH.HD ---
Assessment
-
Dialysis tolerating on low-dose pressor support
Progress Note - Hemodialysis
-
Date of Service: August 31, 2024
Duration: 30 minutes and 3 hours
Potassium Bath: 3
Calcium Bath: 2.5
Opti-Dialyzer: 160
Ultrafiltration: Other (1 kg)
Blood Flow: 400
Dialysate Flow: 600
Heparin: None
EPO: None
[2024-08-31] MEDS: RETACRIT 10000 UNITS IV (09:51)
[2024-08-31] MEDS: FLEXBUMIN 25% FOR HEMODIALYSIS 12.5 GRAMS IV (10:05)
[2024-08-31] MEDS: MANNITOL 25% 12.5 GRAMS IV (10:05)
--- NOTE | 2024-08-31 11:16 | PTCARENOTE ---
Pt working with PT and pressures dropped to 60's systolic. Pt laid flat and pressures recovered only to 70-80's. PRN Midodrine given. Dr. Newton and Dr. Reese notified via TT.
[2024-08-31] MEDS: VITAMIN C 1000 MG PO (12:02)
[2024-08-31] MEDS: KEPPRA 250 MG PO ×3 (12:02→21:03)
[2024-08-31] MEDS: DEPAKOTE (12 HR RELEASE) 500 MG PO ×2 (12:02→21:02)
[2024-08-31] MEDS: DAKIN'S SOLUTION 0.125% 1/4 STRENGTH 473 ML TOPICAL (12:02)
[2024-08-31] MEDS: HYDROPHOR 1 APPLIC TOPICAL (12:03)
[2024-08-31] MEDS: HEPARIN 5000 UNITS SC ×2 (12:04→21:02)
[2024-08-31 13:02] LABS: Glucose - Point of Care 72 mg/dl (70-99)
--- NOTE | 2024-08-31 14:14 | PTCARENOTE ---
Pt's assessment as documented. Aox2, not time. Slow speech. Remains on levo at 4mcg at this time. Tolerated HD well. Order received for PICC line, VAT nurse notified via TT. Q2T maintained. Call lomax within reach.
[2024-08-31] MEDS: ZOSYN 50 IV ×2 (14:41→21:03)
--- NOTE | 2024-08-31 15:00 | VATNOTE ---
Spoke with KINDRA DENNIS MD to place PICC in context of positive blood cultures.
[2024-08-31] MEDS: LEVOPHED 250 IV (15:32)
[2024-08-31 17:41] LABS: Glucose - Point of Care 79 mg/dl (70-99)
--- NOTE | 2024-08-31 18:23 | PTCARENOTE ---
Per IVT, PICC line okay to use. Tubing changed and levo moved to PICC. Peripheral site removed.
[2024-08-31 21:41] LABS: Glucose - Point of Care 99 mg/dl (70-99)
[2024-09-01] VITALS (44 sets, daily range): BP systolic 83–131; BP diastolic 48–74; BMI 20.6
[2024-09-01] MEDS: ZOSYN 50 IV ×3 (05:02→21:13)
[2024-09-01 05:20] LABS: Blood Urea Nitrogen 12 mg/dl (9-20); Calcium 8.4 mg/dl (8.4-10.2); Carbon Dioxide 27 mmol/L (22-30); Chloride 99 mmol/L (98-107); Estimated Creatinine Clearance 45 ml/min; Glucose 87 mg/dl (70-99); Potassium 3.6 mmol/L (3.5-5.1); Sodium 137 mmol/L (135-145); eGFR 45.01
--- NOTE | 2024-09-01 05:47 | PTCARENOTE ---
Pt Bp maintaining within goal on LEVO, now on 1 of LEVO gtt. Assessment care and vitals as charted.
[2024-09-01 05:53] LABS: Hematocrit 22.4 % (39.0-52.0); Hemoglobin 7.4 g/dL (13.0-18.0); Mean Corpuscular Hgb 29.6 pg (27.0-31.0); Mean Corpuscular Volume 89.6 fL (80.0-94.0); Mean Platelet Volume 9.4 fL (7.4-10.4); Platelet Count 250 10^3/uL (130-400); Red Cell Dist. Width 17.2 % (11.5-14.5); White Blood Cell Count 12.8 10^3/uL (4.8-10.8)
[2024-09-01 05:56] LABS: Absolute Neutrophils -Man Diff 8.8 10^3/uL (1.4-6.5); Band Neutrophils 1 % (0-3); Eosinophils 1 % (0-6); Lymphocytes 25 % (20-51); Monocytes 5 % (2-9); Normal RBC Morphology No; Platelets Checked Yes; Segmented Neutrophils 68 % (42-75)
[2024-09-01 05:57] LABS: Anisocytosis 1+; Macrocytosis 1+; Polychromasia 1+; Total Cells Counted 100
[2024-09-01 07:39] LABS: Glucose - Point of Care 96 mg/dl (70-99)
--- NOTE | 2024-09-01 08:03 | W.PN.HOSP.TC ---
Today's Communication/Plan
-
See plan
Assessment / Plan
Assessment / Plan
Physical Exam
General: Other (Chronically ill-appearing 53y M in no acute distress.)
HEENT: Other (Dry MM. Neck supple.)
Respiratory: Clear
Cardiac: S1/S2 and Regular Rhythm
GI: Soft, Non Tender, Non Distended, Normal Bowel Sounds and Other (L sided ostomy intact with gas / stool in device.)
Genito-urinary: Other (Vale in place.)
Neuro: Awake, Alert and Other (R hemiparesis - chronic. No new focal deficits appreciated.)
Assessment/Plan
53y M with PMH significant for ESRD on HD, R hemiparesis s/p CVA/chronically bedbound status and type 2 diabetes mellitus who preseneds to ED from local [place] for evaluation of hypotension. Patient had his usual HD session on 08/29/24. He stated
that he completed his full session with no issues / difficulty. Patient was reportedly noted to be lethargic and hypotensive following HD and remained so throughout the day. He was sent to the ED for further evaluation. In the ED, patient is
resting comfortably. He states that he feels fine and he denies any specific complaints.
Hypotension
Septic Shock
Gram Negative Bacteremia
- Upgraded to the ICU on 09/01/24 due to vascular access issues, needing pressors, femoral line, difficult to get blood pressure measurement, possible A-Line placement. Appreciate origination specialist.
- Patient with chronic hypotension and is on midodrine on HD days (today) --> spoke with nephrology and changed the Midodrine to TID every day
- But now hypotension worse needing Levophed
- Echocardiogram unremarkable
- Continue Zosyn
- Follow cultures
- UA abnormal c/w chronic Vale placement. Negative nitrites. Would hold further antibiotics pending symptoms / culture data / etc.
- Appreciate ID and nephrology
PICC related venous thrombosis
- Patient has very difficult IV access and PICC line in the left upper extremity was placed with reportedly great difficulty.
- Patient has no other obtainable peripheral IV access.
- Patient needs pressors, and given the above, a central line was placed in the right femoral region.
- PICC line removed.
- Serial ultrasound in next 48 to 72 hours and monitor left upper extremity clinically for any swelling. Hold off full dose anticoagulation for now especially given history of intracranial hemorrhage
ESRD on HD
- Stable. s/p HD today.
- Nephrology onboard
Anemia of ESRD / Chronic Disease
- Stable.
- Continue iron supplementation.
- Follow H&H for any changes.
ASCVD
Right Hemiparesis as Late Effect of CVA
Seizure Disorder
- Stable. No new focal deficits.
- Continue Keppra.
DM-II
- Stable. Follow glucose and cover with SSI as needed.
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
- Wound Care eval for local care recommendations.
- Note that patient is not on chronic abx for reported chronic osteomyelitis.
- Completed course of oral doxycycline last month for this issue.
Colostomy Status
- Routine ostomy care
Chronic Indwelling Vale
- Maintain catheter.
DVT Prophylaxis: Subcut heparin
Code Status: Full
Septic shock needing pressors and antibiotics, needing monitoring in the ICU is a high risk encounter.
Anticipated Discharge: > 48 hours
Subjective/Interval History
-
Date of Service: September 01, 2024
Patient was seen and examined. He appeared to be more lethargic this morning.
Objective Data
-
Labs:
Laboratory Results
09/01/24
04:05
WBC 12.8 H
Hgb 7.4 L
Hct 22.4 L
Plt Count 250
Sodium 137
Potassium 3.6
Chloride 99
Carbon Dioxide 27
BUN 12
Creatinine 1.8 H
Glucose 87
Calcium 8.4
Vital Signs:
Vital Signs
Temp Pulse Resp BP Pulse Ox
98.9 F 57 20 83/55 98
09/01/24 07:21 09/01/24 05:30 09/01/24 07:21 09/01/24 05:30 09/01/24 07:21
I&O
08/31/24 09/01/24 09/02/24
06:59 06:59 06:59
Intake Total 94 / 94 121.7 / 121.7
Output Total 90 / 90 185 / 185
Balance 4 / 4 -63.3 / -63.3
[2024-09-01] MEDS: NOVOLOG FLEXPEN-LOW RESISTANCE SC ×3 (08:23→17:39)
--- NOTE | 2024-09-01 08:44 | VATNOTE ---
5/8 left arm swollen on assessment. primary RN states it was swollen yesterday as well prior to PICC placement. U/S ordered to r/o clot.
[2024-09-01] MEDS: PROTONIX 40 MG PO (08:53)
[2024-09-01] MEDS: ProAmatine 10 MG PO ×3 (08:53→17:59)
[2024-09-01] MEDS: KEPPRA 250 MG PO ×2 (08:53→15:24)
[2024-09-01] MEDS: DEPAKOTE (12 HR RELEASE) 500 MG PO (08:53)
[2024-09-01] MEDS: FEOSOL 325 MG PO (08:54)
[2024-09-01] MEDS: DAKIN'S SOLUTION 0.125% 1/4 STRENGTH 473 ML TOPICAL (08:54)
[2024-09-01] MEDS: VITAMIN C 1000 MG PO (08:54)
[2024-09-01] MEDS: LIPITOR 40 MG PO (08:54)
[2024-09-01] MEDS: HYDROPHOR 1 APPLIC TOPICAL (08:56)
[2024-09-01] MEDS: HEPARIN 5000 UNITS SC ×2 (09:08→21:12)
[2024-09-01 09:18] LABS: Magnesium 1.7 mg/dl (1.6-2.3); Phosphorus 2.1 mg/dl (2.5-4.5)
[2024-09-01 09:30] LABS: INR 1.53; PT 18.9 Sec (11.4-14.6)
[2024-09-01 09:31] LABS: APTT 42.6 Sec (23.4-35.0)
--- NOTE | 2024-09-01 09:46 | PTCARENOTE ---
Order received to upgrade pt to ICU. Report to receiving RN. Belongings collected from room. Transferred to [id number].
--- NOTE | 2024-09-01 10:15 | PTCARENOTE ---
report received,transfer to ICU. assessments per work list. levophed off, MAP 88. insurance risk surveyor updated
--- NOTE | 2024-09-01 10:55 | CON.INTV ---
Consultation
Consultation Request
Date/Time Consultation Requested: 09/01/2024
Date/Time Consultation Performed: 09/01/2024
Reason for Consultation: Septic shock requiring pressor support
Medical History
-
Chief Complaint: Septic shock
History of Present Illness:
53-year-old male past ministry of end-stage renal disease on hemodialysis Thursday, status post CVA with residual right-sided hemiparesis, bedbound, type 2 diabetes, chronic decubitus sacral ulcer, history of osteomyelitis present to
emergency department for hypotension and lethargy after hemodialysis. He was found to have gram-negative bacteremia and is requiring pressor support. He was transferred to ICU for line management and pressure support.
Past Medical History
Past Medical History: Other (End-stage renal disease, osteomyelitis, intracranial hemorrhage, CVA, residual right-sided hemiparesis, diabetes type 2, hypertension)
Allergies / Home Medications
Allergies
Allergy/AdvReac Type Severity Reaction Status Date / Time
banana Allergy Swelling Verified 08/29/24 19:20
Home Medications
�Medication �Instructions �Recorded �Confirmed �Last Taken �Type
carvedilol 25 mg tablet (Coreg) 25 mg PO Q12H Blood pressure 08/14/22 08/30/24 Unknown History
ferrous sulfate 325 mg (65 mg 325 mg PO DAILY Supplement 08/14/22 08/30/24 Unknown History
iron) tablet
insulin aspart U-100 100 unit/mL 1 sliding scale dose SC ACHS 08/14/22 08/30/24 Unknown History
subcutaneous solution Diabetes
ipratropium 0.5 mg-albuterol 3 mg 3 ml inhalation R Q4HPRN PRN sob 08/14/22 08/30/24 Unknown History
(2.5 mg base)/3 mL nebulization
soln
ondansetron HCl 4 mg tablet 4 mg PO Q6HPRN PRN nausea/vomiting 08/14/22 08/30/24 Unknown History
pantoprazole 40 mg tablet,delayed 40 mg PO DAILY Gastrointestinal 08/14/22 08/30/24 Unknown History
release issue
acetaminophen 325 mg tablet 650 mg PO Q4HPRN PRN mild pain 12/02/22 08/30/24 Unknown History
ascorbic acid (vitamin C) 1,000 mg 1,000 mg PO DAILY Supplement 12/02/22 08/30/24 Unknown History
tablet (Vitamin C)
lidocaine-prilocaine 2.5 %-2.5 % 1 applic topical MOWEFR apply to 12/02/22 08/30/24 Unknown History
topical cream right AVG
atorvastatin 40 mg tablet 40 mg PO DAILY High Cholesterol 01/16/23 08/30/24 Unknown History
bisacodyl 10 mg rectal suppository 10 mg GA DAILYPRN PRN if no bm 01/23/23 08/30/24 Unknown History
aftr mom
bumetanide 2 mg tablet 2 mg PO DAILY Fluid 01/23/23 08/30/24 Unknown History
Retention/Swelling
divalproex 500 mg tablet,delayed 500 mg PO BID Seizures 04/06/23 08/30/24 Unknown History
release (Depakote)
heparin (porcine) 5,000 unit/mL 5,000 unit SC Q12H Blood clot 04/16/23 08/30/24 Unknown Rx
injection solution prevention/tx #0 mL
oxycodone 10 mg tablet 10 mg PO Q4HPRN PRN severe pain 08/19/24 08/30/24 Unknown Rx
#10 tabs
levetiracetam 750 mg tablet 250 mg PO TID Seizures 08/29/24 08/30/24 Unknown History
(Keppra)
insulin glargine 100 unit/mL (3 10 unit SC HS Diabetes 08/30/24 08/30/24 Unknown History
mL) subcutaneous pen (Lantus
Solostar U-100 Insulin)
midodrine 10 mg tablet 10 mg PO MOWEFR before diaylsis 08/30/24 08/30/24 Unknown History
sodium chloride-hypochlorous acid 1 irrig irrigation BID sacral wound 08/30/24 08/30/24 Unknown History
0.033 % irrigation solution (Vashe)
sodium zirconium cyclosilicate 10 10 g PO TUTA Kidney Disease 08/30/24 08/30/24 Unknown History
gram oral powder packet (Lokelma)
Review of Systems
-
Unable to Obtain full review of systems at this time due to: Patient Non Verbal (Patient nonverbal/unwilling to answer questions during interview)
Vitals / Labs / Diagnostic Testing
Vital Signs
Temp Pulse Resp BP Pulse Ox
98.9 F 59 15 131/71 98
09/01/24 10:00 09/01/24 10:00 09/01/24 10:00 09/01/24 10:00 09/01/24 10:00
Lab Data
09/01/24 04:05
09/01/24 04:05
Laboratory Results
09/01/24
09:03
PT 18.9 H
INR 1.53
APTT 42.6 H
Microbiology
08/31/24 03:59 Nose MRSA Screen - Final
No Methicillin Resistant Staphylococcus aureus isolated.
08/29/24 19:25 Blood/Venous Blood Culture - Preliminary
No Growth in 48 hours- Final report to follow
08/29/24 19:25 Blood/Venous Blood Culture - Preliminary
Positive culture in progress
08/29/24 19:25 Blood/Venous Gram Stain - Preliminary
08/29/24 19:25 Urine Urine Culture - Final
Diagnostic Testing:
Physical Exam
-
Cardiovascular: S1/S2
Respiratory: Other (Unable to auscultate due to poor respiratory effort)
Neurology: Awake, Alert and Other (Residual right-sided hemiparesis. Able to lift left arm against gravity)
General: Other (Resting comfortably in bed on room air)
Assessment
-
Assessment:
53-year-old male past medical history ESRD on HD, status post CVA with right-sided hemiparesis, bedbound presents for hypotension, lethargy found to have gram negative bacteremia. Was transferred to the ICU for line management and pressure support.
Plan:
#Septic shock
Meet SIRS criteria, leukocytosis, hypotension, requiring pressors, suspected source is chronic sacral decubitus ulcer
Chest x-ray demonstrated no pneumonia
Was previously requiring pressors as needed, was able to be titrated from 4-1 mg Levophed and now he is off pressors
Continue down titrate pressors as tolerated, Continue 3 times daily midodrine
Continue IV Zosyn
Blood cultures currently pending, preliminary result for Gram negative bacteremia
Follow-up culture results
Infectious disease following, will defer antibiotic management
Ordered CT abdomen pelvis with IV and oral contrast to evaluate for any abscesses
Peripheral venous ultrasound upper left extremity ordered to evaluate for any possible DVT of his PICC line
Will evaluate line access requirements of this patient
#ESRD on HD
Stable
On Thursday regiment, received dialysis yesterday with no issues regarding blood pressure
Potassium 3.6 this morning, was on Lokelma scheduled Thursday and
Hold Lokelma
Potassium repletion during hemodialysis
#Stage IV sacral wound with chronic osteomyelitis
Wound care eval placed
Aggressive wound care with use of Dakin solution
Recently completed a course of oral doxycycline last month
Continue with wound care, continue IV antibiotics per ID
#Malnutrition
Patient reportedly not eating, unsure if this is by choice as he is able to tolerate p.o. meds
Nutrition consult placed
DVT prophylaxis: Subcu heparin
CODE STATUS: Full code
--- NOTE | 2024-09-01 11:01 | W.PN.ID1 ---
Date of Service
Date of Service: September 01, 2024
Today's Communication
Continue antibiotics. See below�
Assessment / Plan
Hypotension
Chronic sacral decubiti with history of osteomyelitis
- Currently with odor and and drainage
Hx Intracranial hemorrhage/CVA with right-sided weakness
Seizure disorder
Diabetes mellitus
Hypertension
ESRD�HD
dyslipidemia
History of testicular cancer status post right orchiectomy
chronic obrien
Diverting colostomy
Ambulatory dysfunction
Recommendations:
Patient now with leukocytosis. Blood cultures (single bottle from single set) positive yesterday, and antibiotics reinitiated.
- Source likely sacral wound, but would consider abdominal/pelvic CT imaging to ensure no abscess.
Continue Zosyn for today. Repeat blood cultures are pending.
Continue aggressive wound care, including use of Dakin's solution to control overall bioburden.
Offload sacral area.
Follow white count and temperature curve. Follow cultures.
Patient currently critically ill, in ICU on pressor therapy.
����������������������������������������������������������
Chief Complaint
-: Other (Sacral wound)
Subjective / Review of Systems
Patient seen and examined. Since yesterday, blood cultures returned positive (GNR's) and antibiotics were reinitiated. Additionally, difficulty with blood pressure measurements has prompted transfer to ICU for potential invasive BP monitoring. At
present, patient denies specific complaints.
Review of Systems: No Fever
Vital Signs / Physical Exam
Vital Signs
Vital Signs
Temp Pulse Resp BP Pulse Ox
98.9 F 59 15 131/71 98
09/01/24 10:00 09/01/24 10:00 09/01/24 10:00 09/01/24 10:00 09/01/24 10:00
Physical Exam
Constitutional: Comfortable, Chronically Ill and Cachetic
Head: Other (Temporal wasting)
Eyes: No Conjunctival Hemorrhage
Cardiovascular: S1/S2; Negative S3/S4
Pulmonary: Non Labored
Gastrointestinal: Soft, Non Distended and Other (Ostomy in place.)
Wound: Other (Large, deep sacral ulceration with packing in place. Positive malodor.)
Neurological: Awake and Alert
Psychological: Calm
Objective Data
Lab Data
Lab Results
09/01/24 04:05
09/01/24 04:05
PT 18.9 Sec (11.4-14.6) H 09/01/24 09:03
INR 1.53 09/01/24 09:03
APTT 42.6 Sec (23.4-35.0) H 09/01/24 09:03
Estimated Creat Clear 45 ml/min 09/01/24 04:05
Lactic Acid Cancelled 08/29/24 23:30
Total Bilirubin 1.1 mg/dl (0.2-1.3) 08/29/24 19:25
AST 19 U/L (17-59) 08/29/24 19:25
ALT < 10 U/L (0-50) 08/29/24 19:25
Alkaline Phosphatase 97 U/L (38-126) 08/29/24 19:25
Most recent labs reviewed.
Micro Results:
08/31/24 03:59 MRSA Screen - Final
Nose No Methicillin Resistant Staphylococcus aureus isolated.
08/29/24 19:25 Blood Culture - Preliminary
Blood/Venous No Growth in 48 hours- Final report to follow
08/31/24 13:19 Blood Culture - Pending
Blood/Venous
08/29/24 19:25 Blood Culture - Preliminary
Blood/Venous Positive for GNR's; culture in progress
Gram Stain - Preliminary
08/31/24 13:19 Blood Culture - Pending
Blood/Venous
08/29/24 19:25 Urine Culture - Final
Urine
Care Review
Plan reviewed with: Physician (Critical Care)
--- NOTE | 2024-09-01 11:31 | W.PN.NEPH.PH ---
Today's Communication / Plan
-
Discontinue Lokelma
Dialysis tomorrow
Assessment/Plan
-
Impression:
Anemia
End-stage renal disease Thursday [facility]
Type 2 diabetes
Seizure disorder
Hypotension
History of Colostomy
Chronic Vale catheter
Anemia
History of CVA with right-sided hemiparesis
Plan:
Dialysis tomorrow
Midodrine for blood pressure control
Bacteremia
Transferred to the ICU for blood pressure management on low-dose Levophed
No acute need for dialysis today
Patient on Lokelma chronically I will discontinue at this time with low normal potassium

33 minutes critical care time
-
-
Date of Service: September 01, 2024
CC / HPI / ROS
-
Chief Complaint:
ESRD
History of Present Illness:
ESRD Thursday with bacteremia
Review of Systems:
No chest pain or shortness of breath patient minimally verbal
Labs
-
Labs:
WBC 12.8 10^3/uL (4.8-10.8) H 09/01/24 04:05
RBC 2.50 10^6/uL (4.70-6.10) L 09/01/24 04:05
Hgb 7.4 g/dL (13.0-18.0) L 09/01/24 04:05
Hct 22.4 % (39.0-52.0) L 09/01/24 04:05
Plt Count 250 10^3/uL (130-400) 09/01/24 04:05
Sodium 137 mmol/L (135-145) 09/01/24 04:05
Potassium 3.6 mmol/L (3.5-5.1) 09/01/24 04:05
Chloride 99 mmol/L (98-107) 09/01/24 04:05
Carbon Dioxide 27 mmol/L (22-30) 09/01/24 04:05
BUN 12 mg/dl (9-20) 09/01/24 04:05
Creatinine 1.8 mg/dL (0.7-1.3) H 09/01/24 04:05
eGFR 45.01 09/01/24 04:05
Glucose 87 mg/dl (70-99) 09/01/24 04:05
Calcium 8.4 mg/dl (8.4-10.2) 09/01/24 04:05
Phosphorus 2.1 mg/dl (2.5-4.5) L 09/01/24 04:05
Albumin 2.9 g/dl (3.5-5.0) L 08/29/24 19:25
Physical Exam
-
Vital Signs:
Vital Signs
Temp Pulse Resp BP Pulse Ox
98.9 F 59 15 131/71 98
09/01/24 10:00 09/01/24 10:00 09/01/24 10:00 09/01/24 10:00 09/01/24 10:00
Cardiovascular:: Regular rate and rhythm
Respiratory:: Bilateral: Coarse
Lung Excursion:: Normal
Abdomen:: Nontender and Soft
Bowel Sounds:: Normal
Extremity Edema:: None: Bilateral:
[2024-09-01 11:34] LABS: Glucose - Point of Care 98 mg/dl (70-99)
--- NOTE | 2024-09-01 11:46 | PTCARENOTE ---
reassessed. took one sip oral contrast, now refusing. clinical field specialist, resident and hospitlist updated. ultrasound results noted. awaiting orders. rlevophed [email or web address] to keep map>[email or web address]
[2024-09-01] MEDS: DILAUDID 0.5 MG IV (13:03)
--- NOTE | 2024-09-01 13:59 | OR.RPT ---
Operative Report
Operative Report
Right femoral Central Line placement
Indication: Shock, need central access. Lack of peripheral IV access. Current PICC line has a clot requiring removal. Patient had prior right IJ permacath placed and concern for stenosis on the right side with right IJ vein very small. Left
subclavian also not optimal for cannulation. Due to lack of optimal access in the thoracic region, right femoral line was placed instead
Consent: Informed consent obtained from patient. In the presence of GLENNA Nicole.
Time-out was performed and patient was placed in Supine position. Ultrasound was used to assess patency of Right Femoral vein. Under sterile conditions area was cleaned with chlorhexidine and then a full body drape was placed. 3 mL of local
anesthesia with lidocaine was injected. Under real-time ultrasound guidance, long axis view, the needle was inserted and vein was punctured, once blood was aspirated, syringe was removed and guidewire was advanced which did not meet any resistance.
Subsequently needle was withdrawn and guidewire was left in place. Ultrasound was used again to confirm presence of guidewire inside the vein lumen. A small asaf was placed at the skin and a dilator was advanced to about 50% of its length.
Dilator was removed and central venous catheter was advanced over guidewire and subsequently guidewire was removed. All 3 ports were capped and they were easy to flush and were withdrawing blood without any resistance. Central line was sutured to
the skin and dressing was applied.
Complications: None
Blood loss: <1 ml
Time spent: 25 min
Date of Service: 09/01/2024
[2024-09-01] MEDS: LEVOPHED 250 IV (14:10)
--- NOTE | 2024-09-01 15:04 | PTCARENOTE ---
reconditioning associate placed right femoral triple lumen, good blood returns from all ports. premedicated with dilaudid, blood pressure drop with dilaudid, levophed adjustment per work list. VAT team aware to pull picc. per Health Coordinator, ok to continue to
obtain blood pressures left forearm.
[2024-09-01 17:22] LABS: Glucose - Point of Care 95 mg/dl (70-99)
--- NOTE | 2024-09-01 17:49 | PTCARENOTE ---
taken and returned from CT scan without issue. no changes in assessments
[2024-09-01 18:52] LABS: Hepatitis B Surface Antigen Negative (Negative)
--- NOTE | 2024-09-01 20:00 | PTCARENOTE ---
Assumed care of patient at 1900, nursing assessment completed and as documented. Assessment limited to patient lethargy and willingness to participate. Patient OxSelf, lethargic but arouses to verbal stimuli, R hemiparesis. On RA, shallow
respirations, diminshed lung sounds throughout, sats 99%. SB on monitor rates 40-50's, +2 BLUE edema, pedal pulses weak but present, RUE fistula patent with positive bruit and thrill. Colostomy to left abdomen, draining brown liquid stool, patient
with poor appetite and refused dinner and Nepro supplement. Chronic indwelling obrien catheter present, oliguric, draining beck urine. Patient with sacral wound, dressing CDI at this time, B/L heel foams present and CDI, dressing to LUE from old
PICC line. Hygiene care provided, repositioned for comfort. Patient refused PO HS medications. Right femoral TLC patent and in place, levophed remains infusing - see worklist for titrations. VSS, call lomax within reach, care ongoing.
[2024-09-01 20:25] LABS: Hepatitis B Surface Antibody Indeterminate
[2024-09-01] MEDS: KEPPRA PO ×2 (21:12→21:59)
[2024-09-01] MEDS: DEPAKOTE (12 HR RELEASE) PO ×2 (21:12→21:58)
[2024-09-01 21:47] LABS: Glucose - Point of Care 105 mg/dl (70-99)
--- NOTE | 2024-09-01 23:00 | PTCARENOTE ---
assumed care of patient @ 2300. received pt laying in bed, neuro assessment limited d/t pt not participating, mostly nonverbal however nods head appropriately. pupils equal and reactive. lethargic, flat affect, withdrawn. R sided hemiparesis. SB on
tele HR 40s-50s. +2 edema in uppers, weak pulses. Lungs clear, diminished on room air taking shallow breaths . L sided colostomy draining brown stool. chronic obrien in place with beck/brown urine. Stg 4 wound on sacrum dressed, RU fistula +bruit
and thrill. R femoral triple lumen IV patent with levo running at 1 for Maps >65. call lomax within reach .
[2024-09-02] VITALS (72 sets, daily range): BP systolic 51–144; BP diastolic 44–78; BMI 20.3
[2024-09-02 04:48] LABS: Hematocrit 23.4 % (39.0-52.0); Hemoglobin 7.5 g/dL (13.0-18.0); Mean Corp Hgb Conc. 32.1 g/dL (33.0-37.0); Mean Corpuscular Hgb 28.8 pg (27.0-31.0); Mean Platelet Volume 9.1 fL (7.4-10.4); Platelet Count 239 10^3/uL (130-400); Red Cell Dist. Width 17.3 % (11.5-14.5); White Blood Cell Count 12.7 10^3/uL (4.8-10.8)
[2024-09-02] MEDS: DILAUDID 0.5 MG IV ×2 (04:50→10:33)
[2024-09-02 05:07] LABS: Blood Urea Nitrogen 19 mg/dl (9-20); Calcium 8.7 mg/dl (8.4-10.2); Carbon Dioxide 25 mmol/L (22-30); Chloride 98 mmol/L (98-107); Estimated Creatinine Clearance 30 ml/min; Glucose 93 mg/dl (70-99); Potassium 3.7 mmol/L (3.5-5.1); Sodium 137 mmol/L (135-145); eGFR 27.67
[2024-09-02 05:31] LABS: Absolute Neutrophils -Man Diff 9.6 10^3/uL (1.4-6.5); Anisocytosis 2+; Band Neutrophils 2 % (0-3); Lymphocytes 19 % (20-51); Macrocytosis 1+; Monocytes 5 % (2-9); Normal RBC Morphology No; Platelets Checked Yes; Polychromasia 1+; Segmented Neutrophils 74 % (42-75)
[2024-09-02 05:32] LABS: Total Cells Counted 100
[2024-09-02] MEDS: ZOSYN 50 IV ×3 (06:03→21:16)
[2024-09-02 07:43] LABS: Glucose - Point of Care 99 mg/dl (70-99)
[2024-09-02] MEDS: NOVOLOG FLEXPEN-LOW RESISTANCE SC ×3 (07:49→17:48)
[2024-09-02] MEDS: DAKIN'S SOLUTION 0.125% 1/4 STRENGTH 20 ML TOPICAL (07:52)
[2024-09-02] MEDS: DEPAKOTE (12 HR RELEASE) PO ×2 (07:53→10:26)
[2024-09-02] MEDS: FEOSOL PO ×2 (07:53→10:26)
[2024-09-02] MEDS: ProAmatine PO ×3 (07:53→13:15)
[2024-09-02] MEDS: PROTONIX PO ×2 (07:54→10:25)
[2024-09-02] MEDS: VITAMIN C PO ×2 (07:54→10:25)
[2024-09-02] MEDS: KEPPRA PO ×2 (07:54→10:26)
[2024-09-02] MEDS: LIPITOR PO ×2 (07:54→10:26)
[2024-09-02] MEDS: HEPARIN 5000 UNITS SC ×2 (07:56→21:16)
--- NOTE | 2024-09-02 08:00 | PTCARENOTE ---
Patient received lying in bed with eyes closed, lying still, respirations shallow but nonlabored. He rouses easily to name called. He shakes head yes/no to questions asked but is not verbal. Attempted to give po meds and patient refused, spit out.
See can washer charted on Worklist. Currently on Levophed gtt at 2mcg/min via right femoral TLC. Colostomy LUQ with very small amount of liquid brown drainage. Refused po nutritional supplement, shakes head no when asked if wants breakfast. MD
made aware that patient refusing po medication and fluids/nutrition. SB on CM. Patient turned every 2 hours. Bed in low and locked position, call lomax within reach.
--- NOTE | 2024-09-02 08:26 | W.PN.INTV ---
Today's Communication / Plan
Recommendations
N.p.o. prior to iRad drainage
iRad consult for drainage of right side abscess
Surgery consult
Continue pressors as needed to maintain MAP greater than 65
Continue IV antibiotics
Dialysis today
Assessment
-
Assessment:
53-year-old male past medical history ESRD on HD, status post CVA with right-sided hemiparesis, bedbound presents for hypotension, lethargy found to have gram negative bacteremia. Was transferred to the ICU for line management and pressure support.
Plan:
#Septic shock
#Gram-negative bacteremia
Meet SIRS criteria, leukocytosis, hypotension, requiring pressors, suspected source is chronic sacral decubitus ulcer
Blood cultures currently pending, preliminary result for Gram negative bacteremia
Infectious disease following, will defer antibiotic management
Chest x-ray demonstrated no pneumonia
Requiring pressors as needed to keep MAP greater than 65
Continue down titrate pressors as tolerated, Continue 3 times daily midodrine
Continue IV Zosyn
#Multiple abscesses
#Acute right sacroiliac osteomyelitis
CT abdomen pelvis with IV contrast returned as acute osteomyelitis of the right sacroiliac joint, as well as a 13.1 cm abscess extending anteriorly from the right sacroiliac joint into the right iliac us muscle, as well as large 7.4 cm abscess
subcutaneous fat posterior left iliac bone extending the left gluteus villa muscle
Surgery consult placed, evaluated and determined no acute surgical intervention at this time. 7.4 cm abscess is draining into open sacral wound and 13.1 cm abscess is too deep for surgical intervention
iRad consult for drainage of 13.1 cm right sacroiliac abscess
Culture orders placed for fluid collection after IR drainage
Nursing aware patient should be n.p.o. prior to procedure
#Left upper extremity superficial venous thrombosis
Patient had a PICC line in his left upper extremity, peripheral venous ultrasound demonstrated thrombus formation of the left basilic vein surrounding the PICC line catheter
PICC line was removed and right femoral central venous catheter was placed
No anticoagulation needed for superficial venous thrombosis
Will continue to monitor to ensure sure thrombosis does not propagate into deep veins
#ESRD on HD MWF
Stable
Potassium 3.6, was on Lokelma scheduled Thursday and
Lokelma discontinued by nephrology
Potassium repletion during hemodialysis
#Stage IV sacral wound with chronic osteomyelitis
Wound care eval placed
Wound culture collected and pending
Aggressive wound care with use of Dakin solution
Recently completed a course of oral doxycycline last month
Continue with wound care, continue IV antibiotics per ID
#Malnutrition
Patient reportedly not eating, unsure if this is by choice as he is able to tolerate p.o. meds
Nutrition consult placed
Diet: N.p.o. prior to IR procedure
DVT prophylaxis: Subcu heparin
CODE STATUS: Full code
Subjective Dataa
Subjective Data
Date of Service:
Date of Service: September 02, 2024
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
Subjective:
53-year-old male past medical history of end-stage renal disease on hemodialysis Thursday, status post CVA with residual right-sided hemiparesis, bedbound, type 2 diabetes, chronic decubitus sacral ulcer, history of osteomyelitis
present to emergency department for hypotension and lethargy after hemodialysis. He was found to have gram-negative bacteremia and is requiring pressor support. He was transferred to ICU for line management and pressure support. Subjectively
patient still alert and oriented and will respond with head nods occasionally. Still nonverbal to questions. Patient will follow commands during interview and physical exam.
Review of Systems
General: Other (Unable to perform as patient nonverbal during interview)
Objective Data
Data Reviewed
Vital Signs / I&O / Oxygen:
Vital Signs
Temp Pulse Resp BP Pulse Ox
100.3 F 48 25 97/49 97
09/02/24 07:59 09/02/24 07:53 09/02/24 05:30 09/02/24 07:53 09/02/24 05:30
Intake and Output
09/01/24 09/02/24 09/03/24
06:59 06:59 06:59
Intake Total 121.7 / 121.7 365.5 / 365.5
Output Total 185 / 185 390 / 390
Balance -63.3 / -63.3 -24.5 / -24.5
SaO2 97
Physical Exam
Cardiovascular: S1-S2
Respiratory: Other (Unable to auscultate due to poor respiratory effort and contracted posture)
GI: Soft, Non Distended and Other (Ostomy present)
Neurology: Awake and Alert
Skin: Other (Chronic large stage IV sacral decubitus ulcer with foul smell)
Labs/Micro/Reports
Lab Data
09/02/24 04:17
09/02/24 04:17
Laboratory Results
09/01/24
09:03
PT 18.9 H
INR 1.53
APTT 42.6 H
Microbiology
08/29/24 19:25 Blood/Venous Blood Culture - Preliminary
No Growth in 72 hours- Final report to follow
08/31/24 13:19 Blood/Venous Blood Culture - Preliminary
No Growth in 24 hours- Final report to follow
08/29/24 19:25 Blood/Venous Blood Culture - Preliminary
Positive culture in progress
08/29/24 19:25 Blood/Venous Gram Stain - Preliminary
08/31/24 03:59 Nose MRSA Screen - Final
No Methicillin Resistant Staphylococcus aureus isolated.
08/29/24 19:25 Urine Urine Culture - Final
--- NOTE | 2024-09-02 08:52 | W.PN.ID1 ---
Date of Service
Date of Service: September 02, 2024
Today's Communication
Continue antibiotics. Recommend General Surgery evaluation
Assessment / Plan
Hypotension
Chronic sacral decubiti with osteomyelitis
- Currently with odor and and drainage
Right iliacus muscle abscess
Left gluteus villa muscle abscess with gas
Bacteremia with GNR (anaerobic bottle)
Hx Intracranial hemorrhage/CVA with right-sided weakness
Seizure disorder
Diabetes mellitus
Hypertension
ESRD�HD
dyslipidemia
History of testicular cancer status post right orchiectomy
chronic obrien
Diverting colostomy
Ambulatory dysfunction
Recommendations:
CT scan reveals a right iliacus muscle abscess, along with a left gluteus villa, with gas in the tissues.
Continue Zosyn. Repeat blood cultures are pending. Awaiting further identification of currently positive blood culture
Recommend surgery evaluation for possible necrotizing fasciitis.
Continue aggressive wound care, including use of Dakin's solution to control overall bioburden.
Offload sacral area.
Follow white count and temperature curve.
Wean pressors as able, keeping MAP>= 65
Patient remains critically ill, in ICU, on pressor therapy.
����������������������������������������������������������
Chief Complaint
-: Other (Sacral wound)
Subjective / Review of Systems
Patient seen and examined. Patient remains on norepinephrine drip at this time. Patient denies pain. No fevers overnight.
Vital Signs / Physical Exam
Vital Signs
Vital Signs
Temp Pulse Resp BP Pulse Ox
100.3 F 48 25 97/49 97
09/02/24 07:59 09/02/24 07:53 09/02/24 05:30 09/02/24 07:53 09/02/24 05:30
Physical Exam
Constitutional: Comfortable, Chronically Ill and Non-toxic
Head: Other (Temporal wasting)
Eyes: Sclera Anicteric
Cardiovascular: S1/S2; Negative S3/S4
Pulmonary: Non Labored
Gastrointestinal: Soft, Non Distended, Normal Bowel Sounds and Other (Ostomy in place.)
Wound: Other (Large, deep sacral ulceration with packing in place. Positive malodor.)
Neurological: Awake and Alert
Psychological: Calm
Objective Data
Lab Data
Lab Results
09/02/24 04:17
09/02/24 04:17
PT 18.9 Sec (11.4-14.6) H 09/01/24 09:03
INR 1.53 09/01/24 09:03
APTT 42.6 Sec (23.4-35.0) H 09/01/24 09:03
Estimated Creat Clear 30 ml/min 09/02/24 04:17
Lactic Acid Cancelled 08/29/24 23:30
Total Bilirubin 1.1 mg/dl (0.2-1.3) 08/29/24 19:25
AST 19 U/L (17-59) 08/29/24 19:25
ALT < 10 U/L (0-50) 08/29/24 19:25
Alkaline Phosphatase 97 U/L (38-126) 08/29/24 19:25
Most recent labs reviewed.
Micro Results:
08/29/24 19:25 Blood Culture - Preliminary
Blood/Venous No Growth in 72 hours- Final report to follow
08/31/24 13:19 Blood Culture - Preliminary
Blood/Venous No Growth in 24 hours- Final report to follow
08/29/24 19:25 Blood Culture - Preliminary
Blood/Venous Positive culture in progress
Gram Stain - Preliminary
08/31/24 03:59 MRSA Screen - Final
Nose No Methicillin Resistant Staphylococcus aureus isolated.
08/29/24 19:25 Urine Culture - Final
Urine
Imaging:
09/01/2024 CT abdomen/pelvis with contrast: A large 8.3 cm ulcer posterior to the right iliac bone and sacroiliac joint is noted. There is severe septic arthritis of the right sacroiliac joint, with adjacent osteomyelitis in the sacrum and right
iliac bone. There is a large 13.1 cm abscess in the right iliac us muscle arising from the anterior margin of the right sacroiliac joint. There is also a large 7.4 cm abscess in the subcutaneous fat posterior to the left iliac bone, extending into
the left gluteus villa muscle. Gas is noted in the tissues. There is chronic osseous destruction of the inferior sacrum and coccyx. Severe bone demineralization is also noted. Please see full dictation for additional detail. Film personally
reviewed.
Care Review
Plan reviewed with: Physician (Critical Care)
--- NOTE | 2024-09-02 09:40 | PTCARENOTE ---
Dr. Lester and AFTER SCHOOL TUTOR Dominique at the bedside. Wound care provided, wound cultures sent. Complete cares given. CHG cloth bath, obrien care. Complete linen change. A&D ointment to very dry skin. Patient refusing oral care. Lip care rendered.
--- NOTE | 2024-09-02 10:12 | CON.GS ---
Addendum entered and electronically signed by Giovani Samson MD 09/02/24 12:32:
I saw and examined the patient independently.
The Auctioneer Art's note was reviewed and I agree with the note, assessment and plan except where noted below.
Comment: This is a 53-year-old male with multiple medical comorbidities who presented to our ICU in septic shock found to have gram-negative bacteremia. A CT scan was performed which demonstrated a large 7.4 cm abscess in the left iliac region as
well as a 13 cm abscess in the right iliacus. General surgery consulted for management and ruling out necrotizing fasciitis. His sacral wound is actually fairly reassuring, there is pus but this is draining. His ostomy is working.
Sacral wound: Continue packing wound deep into the cavity with Dakin's gauze wet to dry. Offload and rotate wound as able.
IR consult for his right iliacus abscess. Said cultures, I suspect this is the source of his gram-negative bacteremia.
ID consult for long-term management of his antibiotics particularly in the setting of known osteomyelitis.
Will try to establish goals of care with family
No acute surgical intervention warranted at this time, we will follow peripherally please call with any questions or concerns.
Original Note:
Consultation
-
Date/Time Consultation Performed: 09/02/24 0945
Medical History
-
Chief Complaint: wound
History of Present Illness:
Mr Cortez is a 53 yo male with a h/o ESRD on HD, DM, seizure disorder, hemorrhagic CVA with R hemiparesis who is bedbound with osteomyelitis and chronic sacral wound with multiple debridements to the sacrum as well as prior right and left thigh
abscess/wounds requiring debridement. A diverting colostomy was created November 2022 and his last debridement procedure was March of 2023. He is currently awake but non verbal and the majority of history was obtained from prior records. Upon
review of prior records, he has been OX3 at baseline and able to converse. He presented this admission with sepsis and is currently in the ICU on pressors. On exam, is a large stage 4 sacral wound present which tunnels about 8-9cm into the left
buttock with purulent discharge emanating from the tunnelling portion of the wound; otherwise, the majority of the wound bed is clean with granulation tissue and very minimal slough.
Past Medical History
Past Medical History: Cancer (testicular), CVA (right weakness), HTN, Hypercholesterolemia, IDDM, Seizures and Other (chronic obrien)
Past Surgical History: Bowel Resection (Diverting colostomy 11/2022), Urological (orchiectomy) and Other (sacral and thigh wound debridements)
Social History
Tobacco: Former Smoker
Alcohol: None
Living: Senior Living
Family History
Family History: Reviewed & Not Pertinent
Allergies / Home Medications
Allergy/AdvReac Type Severity Reaction Status Date / Time
banana Allergy Swelling Verified 08/29/24 19:20
�Medication �Instructions �Recorded �Confirmed �Type
carvedilol 25 mg tablet (Coreg) 25 mg PO Q12H Blood pressure 08/14/22 08/30/24 History
ferrous sulfate 325 mg (65 mg 325 mg PO DAILY Supplement 08/14/22 08/30/24 History
iron) tablet
insulin aspart U-100 100 unit/mL 1 sliding scale dose SC ACHS 08/14/22 08/30/24 History
subcutaneous solution Diabetes
ipratropium 0.5 mg-albuterol 3 mg 3 ml inhalation R Q4HPRN PRN sob 08/14/22 08/30/24 History
(2.5 mg base)/3 mL nebulization
soln
ondansetron HCl 4 mg tablet 4 mg PO Q6HPRN PRN nausea/vomiting 08/14/22 08/30/24 History
pantoprazole 40 mg tablet,delayed 40 mg PO DAILY Gastrointestinal 08/14/22 08/30/24 History
release issue
acetaminophen 325 mg tablet 650 mg PO Q4HPRN PRN mild pain 12/02/22 08/30/24 History
ascorbic acid (vitamin C) 1,000 mg 1,000 mg PO DAILY Supplement 12/02/22 08/30/24 History
tablet (Vitamin C)
lidocaine-prilocaine 2.5 %-2.5 % 1 applic topical MOWEFR apply to 12/02/22 08/30/24 History
topical cream right AVG
atorvastatin 40 mg tablet 40 mg PO DAILY High Cholesterol 01/16/23 08/30/24 History
bisacodyl 10 mg rectal suppository 10 mg PA DAILYPRN PRN if no bm 01/23/23 08/30/24 History
aftr mom
bumetanide 2 mg tablet 2 mg PO DAILY Fluid 01/23/23 08/30/24 History
Retention/Swelling
divalproex 500 mg tablet,delayed 500 mg PO BID Seizures 04/06/23 08/30/24 History
release (Depakote)
heparin (porcine) 5,000 unit/mL 5,000 unit SC Q12H Blood clot 04/16/23 08/30/24 Rx
injection solution prevention/tx #0 mL
oxycodone 10 mg tablet 10 mg PO Q4HPRN PRN severe pain 08/19/24 08/30/24 Rx
#10 tabs
levetiracetam 750 mg tablet 250 mg PO TID Seizures 08/29/24 08/30/24 History
(Keppra)
insulin glargine 100 unit/mL (3 10 unit SC HS Diabetes 08/30/24 08/30/24 History
mL) subcutaneous pen (Lantus
Solostar U-100 Insulin)
midodrine 10 mg tablet 10 mg PO MOWEFR before diaylsis 08/30/24 08/30/24 History
sodium chloride-hypochlorous acid 1 irrig irrigation BID sacral wound 08/30/24 08/30/24 History
0.033 % irrigation solution (Vashe)
sodium zirconium cyclosilicate 10 10 g PO TUTHSA Kidney Disease 08/30/24 08/30/24 History
gram oral powder packet (Lokelma)
Review of Systems
-
Unable to obtain full review of systems at this time due to: Acuity and Patient Non Verbal
History Source: [facility]
A 10 point review of systems was completed, and was negative except as per HPI.
Physical Exam
Vital Signs
Temp Pulse Resp BP Pulse Ox
100.3 F 48 25 97/49 97
09/02/24 07:59 09/02/24 07:53 09/02/24 05:30 09/02/24 07:53 09/02/24 05:30
09/01/24 09/02/24 09/03/24
06:59 06:59 06:59
Actual Weight 65 kg 64.1 kg
Body Mass Index (BMI) 20.3
Lab Results
09/02/24 04:17
09/02/24 04:17
WBC 12.7 10^3/uL (4.8-10.8) H 09/02/24 04:17
Hgb 7.5 g/dL (13.0-18.0) L 09/02/24 04:17
Hct 23.4 % (39.0-52.0) L 09/02/24 04:17
Plt Count 239 10^3/uL (130-400) 09/02/24 04:17
Abs Immat Gran (auto) 0.1 10^3/uL (0-0.05) H 08/31/24 04:08
Neutrophils % 78.4 % (42.2-75.2) H 08/31/24 04:08
Physical Exam
General: No Apparent Distress
HEENT: Normocephalic
Respiratory: Non Labored Respirations
GI: Soft and Non Tender
Skin: Other (Stage 4 sacral wound with healthy granulation tissue to majority of base of wound, 2 very small areas of slough at the center of the wound. The wound tunnels about 8-9cm into the left buttock with purulent drainage from tunneled area. )
Neuro: Awake and Alert
Psych: Calm
Data Reviewed
-
CT Scan: Image Personally Visualized and interpreted, Report Reviewed by me, Discussed with Physician, Discussed with Nurse and Discussed with Patient
Labs: Labs Reviewed by me, Discussed with Physician, Discussed with Nurse and Discussed with Patient
Old Records: Reviewed
Assessment / Plan
-
53 yo male with a h/o ESRD on HD, DM, seizure disorder, hemorrhagic CVA with R hemiparesis who is bedbound with osteomyelitis and chronic sacral wound with multiple debridements to the sacrum as well as prior right and left thigh abscess/wounds
requiring debridement. A diverting colostomy was created November 2022 ([facility]) and his last debridement procedure was March of 2023.
Admitted for sepsis and in ICU with pressor for hypotension. Blood cx from 08/29 with [facility] on preliminary findings. Leukocytosis persists.
Surgery consulted to evaluate wound. There is a large stage 4 sacral wound present which tunnels about 8-9cm into the left buttock with purulent discharge emanating from the tunnelling portion of the wound; otherwise, the majority of the wound bed
is clean with granulation tissue and very minimal slough. CT imaging of abd/pelvis from yesterday morning reviewed, of note:
#1 There is a 7.4 cm abscess in the subcutaneous fat posterior to the left iliac bone extending into the left gluteus villa muscle. This appears to be draining into the sacral wound bed adequately on exam and does not require surgical intervention
for I&D at this time. Do not suspect necrotizing fascitis.
-Would continue to pack this tunnelled area and the sacral wound bed with Dakin's soaked Kerlix gauze.
-Cultures obtained today at bedside of purulent material
- Wound care following
#2 There is septic arthritis of the right sacroiliac joint with osteo of the sacrum and right iliac bone with an adjacent 13.1 cm abscess to the right iliacus muscle
-Consult placed to IR for aspiration/drain placement of this abscess. Obtain cx during procedure.
-Continue abx as per ID
Surgery to follow peripherally. Please call with questions/concerns.
--- NOTE | 2024-09-02 10:53 | PN.CDI ---
CDI
- -
CDI:
Physician Documentation Request
Admit Date: 08/30/24 00:55
Dear Doctor Maldonado,
08/30 Progress note states 'hypotension, Patient with chronic hypotension and is on midodrine on HD days (today) --> spoke with nephrology and changed the Midodrine to TID every day'
08/31 Progress note states 'hypotension, septic shock, gram neg bacteremia'
Patient has remained afebrile.
Heart rates varied on 08/30-08/31 59-80s
Respiratory rates 10-24
WBC
Laboratory Tests
08/30/24 08/31/24
06:04 04:08
WBC 9.6 9.6
Recognized standard criteria for this condition and other associated definitions:
�Bacteremia
-Abnormal laboratory test does not indicate a clinically ill patient
�Sepsis
-Systemic manifestations of infection, with 2 or more SIRS criteria which include:
-Fever > 100.9��F or hypothermia < 96.8��F
-Leukocytosis WBC > 12,000 or leukopenia, WBC < 4,000, or > 10% bands
-Tachycardia- > 90 beats/minute
-Tachypnea- RR > 20 breaths/minute or PaCO2 < 32mmHg
Source: Merck Manual 2012
-Documentation should include the known or suspected organism, and the underlying infection, such as UTI or pneumonia
Based on the above information and the recognized standard SIRS criteria, please clarify if sepsis is still an accurate diagnosis, and reflective of the patient�s condition, to ensure quality of the medical record.
Please clarify in the Progress Notes:
�Sepsis is/was present and is a clinical diagnosis based on (please include this additional support in the medical record)
�After study sepsis has been ruled out
�Other
Use of terms such as suspected, likely, concern for, or probable (associated with a specific diagnosis that is being evaluated, monitored, or treated as if it exists) are acceptable and can be coded in the inpatient setting, when documented at the
time of discharge.
Thank you,
Deonna Pineda RN, BSN
CDI Specialist
tiger text
Please use your independent medical judgment in providing your response.
--- NOTE | 2024-09-02 10:54 | W.PN.NEPH.PH ---
Today's Communication / Plan
-
Dialysis
Assessment/Plan
-
Impression:
Anemia
End-stage renal disease Thursday [facility]
Type 2 diabetes
Seizure disorder
Hypotension
History of Colostomy
Chronic Vale catheter
Anemia
History of CVA with right-sided hemiparesis
*septic arthritis of the right sacroiliac joint with osteo of the sacrum
*7.4 cm abscess in the subcutaneous fat posterior to the left iliac bone
Plan:
Midodrine for blood pressure control
Bacteremia=7.4 cm abscess in the subcutaneous fat posterior to the left iliac bone/no surgical intervention at this time/possible IR drain
Maintain on Levophed
Patient on Lokelma chronically = discontinued for the time being
PICC line removed with thrombus development

33 minutes critical care time
-
-
Date of Service: September 02, 2024
CC / HPI / ROS
-
Chief Complaint:
ESRD
History of Present Illness:
ESRD Thursday with bacteremia
Review of Systems:
No chest pain or shortness of breath patient minimally verbal
Labs
-
Labs:
WBC 12.7 10^3/uL (4.8-10.8) H 09/02/24 04:17
RBC 2.60 10^6/uL (4.70-6.10) L 09/02/24 04:17
Hgb 7.5 g/dL (13.0-18.0) L 09/02/24 04:17
Hct 23.4 % (39.0-52.0) L 09/02/24 04:17
Plt Count 239 10^3/uL (130-400) 09/02/24 04:17
Sodium 137 mmol/L (135-145) 09/02/24 04:17
Potassium 3.7 mmol/L (3.5-5.1) 09/02/24 04:17
Chloride 98 mmol/L (98-107) 09/02/24 04:17
Carbon Dioxide 25 mmol/L (22-30) 09/02/24 04:17
BUN 19 mg/dl (9-20) 09/02/24 04:17
Creatinine 2.7 mg/dL (0.7-1.3) H 09/02/24 04:17
eGFR 27.67 09/02/24 04:17
Glucose 93 mg/dl (70-99) 09/02/24 04:17
Calcium 8.7 mg/dl (8.4-10.2) 09/02/24 04:17
Phosphorus 2.1 mg/dl (2.5-4.5) L 09/01/24 04:05
Albumin 2.9 g/dl (3.5-5.0) L 08/29/24 19:25
Physical Exam
-
Vital Signs:
Vital Signs
Temp Pulse Resp BP Pulse Ox
100.3 F 49 25 96/52 97
09/02/24 07:59 09/02/24 05:30 09/02/24 05:30 09/02/24 05:30 09/02/24 05:30
--- NOTE | 2024-09-02 11:38 | CM ---
CM following re:L discharge planning.
Reviewed pt's chart, met with pt.
Pt is a custodial care resident at [facility], on Medicaid 15 day bed hold, requires total care, Vernell lift for transfer, on HD MWF.
CM spoke to [facility] liaison and she confirmed that pt will be accepted when medically stable.
[facility] nursing report: [phone]
Discharge instructions fax: [phone]
D/C plan: return back to [facility] for a security compliance specialist care.
CM will follow with discharge plan updates as hospitalization progresses
[2024-09-02] MEDS: HYDROPHOR 1 APPLIC TOPICAL (11:46)
--- NOTE | 2024-09-02 12:00 | PTCARENOTE ---
Essentially no change in patient's physical assessment. Wendi bar gauger and lubricator tender at bedside.
[2024-09-02] MEDS: FLEXBUMIN 25% FOR HEMODIALYSIS 12.5 GRAMS IV ×2 (13:02→14:02)
[2024-09-02] MEDS: MANNITOL 25% 12.5 GRAMS IV ×2 (13:02→14:35)
[2024-09-02] MEDS: RETACRIT 10000 UNITS IV (13:03)
[2024-09-02 13:06] LABS: Glucose - Point of Care 94 mg/dl (70-99)
[2024-09-02] MEDS: KEPPRA 250 MG IV ×3 (13:14→21:16)
[2024-09-02] MEDS: DEPACON 55 MG IV ×2 (13:16→20:03)
[2024-09-02] MEDS: ADRENALIN 250 IV (13:16)
--- NOTE | 2024-09-02 13:25 | PTCARENOTE ---
Levophed gtt off and Epi gtt started per order. Dialysis in progress.
--- NOTE | 2024-09-02 13:29 | W.PN.NEPH.HD ---
Assessment
-
pressors
Progress Note - Hemodialysis
-
Date of Service: September 02, 2024
Duration: 30 minutes and 3 hours
Potassium Bath: 3
Calcium Bath: 2.5
Opti-Dialyzer: 160
Ultrafiltration: Other (1 kg)
Blood Flow: 400
Dialysate Flow: 600
Heparin: None
EPO: None
--- NOTE | 2024-09-02 14:48 | PTCARENOTE ---
Report given verbally to RN assuming care at 1500, Real MANZANARES. Questions answered.
--- NOTE | 2024-09-02 16:16 | W.PN.HOSP.TC ---
Today's Communication/Plan
-
See plan
Assessment / Plan
Assessment / Plan
Physical Exam
General: Other (Chronically ill-appearing 53y M in no acute distress.)
HEENT: Other (Dry MM. Neck supple.)
Respiratory: Clear
Cardiac: S1/S2 and Regular Rhythm
GI: Soft, Non Tender, Non Distended, Normal Bowel Sounds and Other (L sided ostomy intact with gas / stool in device.)
Genito-urinary: Other (Obrien in place.)
Neuro: Awake, Alert and Other (R hemiparesis - chronic. No new focal deficits appreciated.)
Assessment/Plan
53y M with PMH significant for ESRD on HD, R hemiparesis s/p CVA/chronically bedbound status and type 2 diabetes mellitus who preseneds to ED from local [place] for evaluation of hypotension. Patient had his usual HD session on 08/29/24. He stated
that he completed his full session with no issues / difficulty. Patient was reportedly noted to be lethargic and hypotensive following HD and remained so throughout the day. He was sent to the ED for further evaluation. In the ED, patient is
resting comfortably. He states that he feels fine and he denies any specific complaints.
Hypotension
Septic Shock and Gram Negative Bacteremia associated with sacral decubitus ulcers, osteomyelitis as well as abscesses on CT imaging
Concern for necrotizing fasciitis with gas noted on imaging
- Upgraded to the ICU on 09/01/24 due to vascular access issues, needing pressors, femoral line, difficult to get blood pressure measurement, possible A-Line placement. Appreciate professor of poultry science.
- Patient with chronic hypotension and is on midodrine on HD days (today) --> spoke with nephrology and changed the Midodrine to TID every day
- But this admission, hypotension worsened, needing Levophed
- Echocardiogram unremarkable
- Continue Zosyn
- Vasopressors: Levophed switched to Epinephrine given mild bradycardia, wean as tolerated
- Follow cultures
- UA abnormal c/w chronic Obrien placement. Negative nitrites. Would hold further antibiotics pending symptoms / culture data / etc.
- Appreciate ID and nephrology
Concern for necrotizing fasciitis with gas noted on imaging
Acute osteomyelitis of the right sacroiliac joint on CT Imaging
13.1 cm abscess extending anteriorly from the right sacroiliac joint into the right iliac us muscle on CT Imaging
Large 7.4 cm abscess subcutaneous fat posterior left iliac bone extending the left gluteus villa muscle on CT Imaging
-General surgery service consulted, appreciate their evaluation and recommendations -- no acute surgical intervention at this time
-IR consulted for abscess drainage as per general surgery recommendations
PICC related venous thrombosis
- Patient has very difficult IV access and PICC line in the left upper extremity was placed with reportedly great difficulty.
- Patient has no other obtainable peripheral IV access.
- Patient needs pressors, and given the above, a central line was placed in the right femoral region.
- PICC line removed on September 01, 2024.
- Serial ultrasound in next 48 to 72 hours and monitor left upper extremity clinically for any swelling. Hold off full dose anticoagulation for now especially given history of intracranial hemorrhage
ESRD on HD
- Stable. s/p HD today.
- Nephrology onboard
Anemia of ESRD / Chronic Disease
- Stable.
- Continue iron supplementation.
- Follow H&H for any changes.
ASCVD
Right Hemiparesis as Late Effect of CVA
Seizure Disorder
- Stable. No new focal deficits.
- Continue Keppra.
DM-II
- Stable. Follow glucose and cover with SSI as needed.
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
- Wound Care eval for local care recommendations.
- Note that patient is not on chronic abx for reported chronic osteomyelitis.
- Completed course of oral doxycycline last month for this issue.
Colostomy Status
- Routine ostomy care
Chronic Indwelling Obrien
- Maintain catheter.
History of Intracranial hemorrhage/CVA with right-sided weakness
Seizure disorder
Hypertension
Dyslipidemia
History of testicular cancer status post right orchiectomy
Chronic obrien
Ambulatory dysfunction
DVT Prophylaxis: Subcutaneous Heparin
Code Status: Full Code
Septic shock needing pressors and antibiotics, in setting of abscesses and osteomyelitis, needing monitoring in the ICU is a high risk encounter.
Anticipated Discharge: > 48 hours
Subjective/Interval History
-
Date of Service: September 02, 2024
Patient was seen and examined. He remained lethargic but did not report any complaints.
Objective Data
-
Labs:
Laboratory Results
09/02/24
04:17
WBC 12.7 H
Hgb 7.5 L
Hct 23.4 L
Plt Count 239
Sodium 137
Potassium 3.7
Chloride 98
Carbon Dioxide 25
BUN 19
Creatinine 2.7 H
Glucose 93
Calcium 8.7
Vital Signs:
Vital Signs
Temp Pulse Resp BP Pulse Ox
98 F 53 13 98/54 99
09/02/24 15:23 09/02/24 14:30 09/02/24 14:30 09/02/24 14:30 09/02/24 14:30
I&O
09/01/24 09/02/24 09/03/24
06:59 06:59 06:59
Intake Total 121.7 / 121.7 365.5 / 373.0 141.8 / 141.8
Output Total 185 / 185 390 / 390
Balance -63.3 / -63.3 -24.5 / -17.0 141.8 / 141.8
--- NOTE | 2024-09-02 16:53 | PTCARENOTE ---
HD completed 1kg off per HD nurse.
Pt. taken to [facility] for Drain placement.
--- NOTE | 2024-09-02 17:12 | W.PN.UPDATE ---
Update Note
Progress Note Update
CT guided abscess drain placed, yielding 55 cc of purulent fluid. Sent for C+S.
[2024-09-02 17:46] LABS: Glucose - Point of Care 125 mg/dl (70-99)
[2024-09-02] MEDS: ProAmatine 10 MG PO (17:53)
--- NOTE | 2024-09-02 18:19 | PTCARENOTE ---
Pt. arrived back from [facility]. Drain in place, reviewed with [facility] nurse, YUSRA.
[2024-09-02] MEDS: HEPARIN SC ×2 (20:03→20:06)
--- NOTE | 2024-09-02 21:07 | PTCARENOTE ---
Assumed care of pt at 1900. Received pt on Epinephrine drip at 7mcg/min. Have been tapering down based on MAP goal, see med titration flowsheet on worklist for details. Pt is A/O x2 to person and place, disoriented to month/year and situation. Pt is
withdrawn, able to answer questions but needs encouragement, sometimes mouths his answers and needs to repeat himself in order to hear him, speech is in a whisper and is slow/slurred at times. Pt occasionally makes statements that don't make sense,
for example was repeating over and over 'two [place] games' but denied that he wanted to watch the [place] game and was not able to further elaborate on what he meant. Pt has been SB on monitor, HR in 50s. SpO2 99% on RA. RLQ SHAILA drain in place
with purulent drainage. See nursing shift assessment flowsheet for full physical assessment details. CHG cloth bath done and all linens and gown changed, obrien care done and teeth brushed. Call lomax within reach.
[2024-09-02 22:15] LABS: Glucose - Point of Care 155 mg/dl (70-99)
[2024-09-03] VITALS (52 sets, daily range): BP systolic 85–157; BP diastolic 47–97; BMI 20.1
--- NOTE | 2024-09-03 00:30 | PTCARENOTE ---
Midnight assessment unchanged. Continuing to wean epinephrine, see med titration flowsheet. Sinus bety on monitor, HR in 40s-50s.
[2024-09-03] MEDS: ADRENALIN 250 IV (02:14)
[2024-09-03 04:21] LABS: % Basophils 0.3 % (0-2); % Eosinophils 0.1 % (0-6); % Immature Granulocytes 0.9 % (0-0.5); % Lymphocytes 11.3 % (20.5-51.1); % Monocytes 8.1 % (1.7-9.3); % Neutrophils 79.3 % (42.2-75.2); Absolute Immature Granulocytes 0.1 10^3/uL (0-0.05); Absolute Lymphocytes 1.3 10^3/uL (1.2-3.4); Absolute Neutrophils 9.3 10^3/uL (1.4-6.5); Hematocrit 21.5 % (39.0-52.0); Mean Corp Hgb Conc. 32.6 g/dL (33.0-37.0); Mean Corpuscular Hgb 29.3 pg (27.0-31.0); Nucleated Red Blood Cells % 0.2 % (-); Platelet Count 209 10^3/uL (130-400); Red Blood Cell Count 2.39 10^6/uL (4.70-6.10); Red Cell Dist. Width 17.2 % (11.5-14.5); White Blood Cell Count 11.7 10^3/uL (4.8-10.8)
[2024-09-03 04:44] LABS: Blood Urea Nitrogen 10 mg/dl (9-20); Calcium 8.6 mg/dl (8.4-10.2); Carbon Dioxide 24 mmol/L (22-30); Chloride 103 mmol/L (98-107); Estimated Creatinine Clearance 49 ml/min; Glucose 127 mg/dl (70-99); Potassium 3.5 mmol/L (3.5-5.1); Sodium 143 mmol/L (135-145); eGFR 51.84
[2024-09-03] MEDS: ZOSYN 50 IV ×3 (06:01→21:26)
--- NOTE | 2024-09-03 07:04 | W.PN.INTV ---
Today's Communication / Plan
Recommendations
- Transfuse 1 unit PRBC
- Follow-up labs in a.m.
Assessment
-
Patient is a very pleasant 53-year-old gentleman with history of incisional disease on hemodialysis chronic hypotension requiring midodrine, history of CVA with right-sided hemiparesis, bedbound who was brought to the hospital for hypotension,
lethargy and noted to have gram-negative bacteremia. Patient also noted to have decub ulcers which are felt to be possible etiology of underlying infection. Patient has significant peripheral vascular disease and primary team I was having
difficulty obtaining a blood pressure and patient had been on Levophed for hypotension. Patient was transferred to ICU for closer monitoring of blood pressure and pressor management.
Additional workup including a CT abdomen pelvis which showed evidence of osteomyelitis, sacral decubitus ulcers along with abscess and gas in the air. General surgery service was consulted along with IR for drainage of abscess.
09/03. 107/55, 46, 17, 96% on room air. 99.3 �F. Currently infusing on Epinephrine @2
- Hemoglobin down to 7.0 from 7.5 yesterday and 9.44 days ago. Platelet count normal. WBC down to 11.7
- Creatinine at 1.6, sodium normal at 143. Potassium normal at 3.5.
- Blood cultures positive for Bacteroides
#1. Gram-negative bacteremia with septic shock. Related to sacral decubitus ulcers, osteomyelitis as well as abscesses as suggested by CT scan.
- Continue antibiotics as ordered, IV Zosyn. Epinephrine currently infusing at 2 and patient is saturating well on room air.
- Patient is otherwise afebrile, lactate unremarkable. ID service on case
- In view of mild bradycardia, switched Levophed to epinephrine infusion as needed.
- Patient has colostomy in place, Vale catheter in place, chronically bedbound
- Concern for necrotizing fasciitis with gas noted on imaging. General surgery service consulted. No plans for surgical debridement per Gen surgery service. IR consulted and abscess was drained 09/02, c/s pending
- Continue needed Dilaudid for pain control.
#2. End-stage renal disease, on hemodialysis. Patient had a right arm AV graft in place. Prior history of right IJ permacath.
- Nephrology service on case
#3. PICC related venous thrombosis.
- Right femoral central line placed 09/01
- Removed PICC line. Can perform serial ultrasound in next 48 to 72 hours and monitor left upper extremity clinically for any swelling. Hold off full dose anticoagulation for now since thrombus was noted in the superficial vein.
#4. Sinus bradycardia. Narrow QRS complex noted, no evidence of heart block.
- Changed norepinephrine to epinephrine as needed to keep MAP above 65.
#5. h/o intracranial hemorrhage, resultant hemiplegia, bedbound status. Longstanding sacral decubitus ulcers. Patient is s/p colostomy as well as chronic Vale catheter placement.
- Continue aggressive wound care, PT/OT.
#6. Anemia. Acute on chronic with acute critical illness and underlying end-stage renal disease.
- Transfuse 1 unit packed RBC. Discussed with patient, he is agreeable to proceed.
DVT prophylaxis with subcu heparin.
GI prophylaxis with Protonix.
Critical Care time 48 mins -- The patient is admitted for acute critical illness for the treatment of vital organ failure and/or prevention of further life-threatening conditions. Total care includes time spent in review of history, physical exam,
medications, hemodynamic/ventilator parameters, laboratory data, imaging and discussion with house staff, pharmacy, respiratory therapy, rf technician, and nursing.
Subjective Dataa
Subjective Data
Date of Service:
Date of Service: September 03, 2024
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
Subjective:
Patient comfortably lying in bed in no acute distress.
Review of Systems
Genitourinary: Other (All 14 systems reviewed and negative except as stated above in the history of present illness.)
Objective Data
Data Reviewed
Vital Signs / I&O / Oxygen:
Vital Signs
Temp Pulse Resp BP Pulse Ox
99.3 F 46 17 107/55 96
09/03/24 03:50 09/03/24 06:00 09/03/24 06:00 09/03/24 06:00 09/03/24 06:00
Intake and Output
09/02/24 09/03/24 09/04/24
06:59 06:59 06:59
Intake Total 365.5 / 373.0 720.0 / 720.0
Output Total 390 / 390 86 / 86
Balance -24.5 / -17.0 634.0 / 634.0
SaO2 96
Physical Exam
HEENT: Normocephalic
Cardiovascular: S1-S2
Respiratory: Clear and Non-Labored Respirations
GI: Soft, Non Distended and Other (Ostomy present)
Neurology: Awake and Alert
Skin: Warm
Labs/Micro/Reports
Lab Data
09/03/24 04:12
09/03/24 04:12
Microbiology
08/29/24 19:25 Blood/Venous Blood Culture - Preliminary
No Growth in 4 days- Final report to follow
09/02/24 17:08 Abscess Gram Stain - Preliminary
08/31/24 13:19 Blood/Venous Blood Culture - Preliminary
No Growth in 48 hours- Final report to follow
08/29/24 19:25 Blood/Venous Blood Culture - Preliminary
Bacteroides aimee
08/29/24 19:25 Blood/Venous Gram Stain - Preliminary
08/31/24 03:59 Nose MRSA Screen - Final
No Methicillin Resistant Staphylococcus aureus isolated.
08/29/24 19:25 Urine Urine Culture - Final
--- NOTE | 2024-09-03 08:10 | PTCARENOTE ---
Received pt on his right side. He opened his eyes to verbal and light tactile stimuli. He has a soft voice quality. He was informed of the plan of care regarding blood transfusion, dressing change with analgesia on board, and the importance of good
nutrition for wound healing. Right femoral TL CVC with Epinephrine @2mcg/min. Other two ports flushed and patent. Right upper arm AV fistula +bruit/+thrill. Poor inspiratory effort. RA pulse ox 99%. +BSX4. LUQ colostomy w/stoma budded & pink.
Audible burping of his stoma heard. Anuric, chronic Vale to gravity drain & secured. Purple hue in collection bag. Fiber filled heel relief boots intact. Right heel dressing intact. Sacral dressing with drainage noted. Repositioned for comfort.
Maintained on [facility] bed. He drank his Nepro for his breakfast. Safe environment maintained.
[2024-09-03] MEDS: NOVOLOG FLEXPEN-LOW RESISTANCE SC (08:16)
[2024-09-03 08:17] LABS: Glucose - Point of Care 144 mg/dl (70-99)
[2024-09-03] MEDS: ProAmatine 10 MG PO ×3 (08:34→17:25)
[2024-09-03] MEDS: KEPPRA 250 MG IV ×3 (08:34→21:26)
[2024-09-03] MEDS: VITAMIN C 1000 MG PO (08:34)
[2024-09-03] MEDS: FEOSOL 325 MG PO (08:34)
[2024-09-03] MEDS: LIPITOR 40 MG PO (08:34)
[2024-09-03] MEDS: PROTONIX 40 MG PO (08:34)
[2024-09-03] MEDS: HEPARIN 5000 UNITS SC ×2 (08:35→20:16)
[2024-09-03] MEDS: DEPACON 55 MG IV ×2 (08:35→20:16)
--- NOTE | 2024-09-03 09:06 | W.PN.ID1 ---
Date of Service
Date of Service: September 03, 2024
Today's Communication
Continue Zosyn.
Assessment / Plan
Septic Shock - improving
Chronic sacral decubiti with osteomyelitis
- Currently with odor and and drainage
Right iliacus muscle abscess
Left gluteus villa muscle abscess with gas
Bacteremia with GNR (anaerobic bottle)
Hx Intracranial hemorrhage/CVA with right-sided weakness
Seizure disorder
Diabetes mellitus
Hypertension
ESRD�HD
dyslipidemia
History of testicular cancer status post right orchiectomy
chronic obrien
Diverting colostomy
Ambulatory dysfunction
Recommendations:
CT scan reveals a right iliacus muscle abscess, along with a left gluteus villa, with gas in the tissues.
Admission blood culture with bacteroides - zosyn is appropriate therapy
Follow up drain output
Continue Zosyn.
Repeat blood cultures are no growth to date
appreciate surgery evaluation
Continue aggressive wound care, including use of Dakin's solution to control overall bioburden.
Offload sacral area.
Follow white count and temperature curve.
Wean pressors as able, keeping MAP>= 65
Patient remains critically ill, in ICU, on pressor therapy.
����������������������������������������������������������
Chief Complaint
-: Other (Sacral wound)
Subjective / Review of Systems
tmax yesterday 100.3
remains on pressors, level being titrated down
had drain placed into abscess with 55 ccs output
did not respond to my questions
Vital Signs / Physical Exam
Vital Signs
Vital Signs
Temp Pulse Resp BP Pulse Ox
97.7 F 51 17 107/62 96
09/03/24 07:00 09/03/24 08:34 09/03/24 06:00 09/03/24 08:34 09/03/24 06:00
Physical Exam
Constitutional: No Acute Distress
Cardiovascular: Regular Rate and S1/S2; Negative Murmur or Rub
Pulmonary: Clear and Symmetric; Negative Wheezes or Rales
Gastrointestinal: Soft, Non Tender, Non Distended and Normal Bowel Sounds
Skin: Warm and Dry; Negative Rash or Jaundice
Lines: Other (drain - cloudy fluid)
Objective Data
Lab Data
Lab Results
09/03/24 04:12
09/03/24 04:12
PT 18.9 Sec (11.4-14.6) H 09/01/24 09:03
INR 1.53 09/01/24 09:03
APTT 42.6 Sec (23.4-35.0) H 09/01/24 09:03
Estimated Creat Clear 49 ml/min 09/03/24 04:12
Lactic Acid Cancelled 08/29/24 23:30
Total Bilirubin 1.1 mg/dl (0.2-1.3) 08/29/24 19:25
AST 19 U/L (17-59) 08/29/24 19:25
ALT < 10 U/L (0-50) 08/29/24 19:25
Alkaline Phosphatase 97 U/L (38-126) 08/29/24 19:25
Most recent labs reviewed.
Micro Results:
08/29/24 19:25 Blood Culture - Preliminary
Blood/Venous No Growth in 4 days- Final report to follow
09/02/24 17:08 Wound Culture - Pending
Abscess Gram Stain - Preliminary
08/31/24 13:19 Blood Culture - Preliminary
Blood/Venous No Growth in 48 hours- Final report to follow
08/29/24 19:25 Blood Culture - Preliminary
Blood/Venous Bacteroides aimee
Gram Stain - Preliminary
09/02/24 11:49 Wound Culture - Pending
Sacral Gram Stain - Pending
09/02/24 11:49 Anaerobic Culture - Pending
Sacral
08/31/24 03:59 MRSA Screen - Final
Nose No Methicillin Resistant Staphylococcus aureus isolated.
08/29/24 19:25 Urine Culture - Final
Urine
Imaging:
09/01/2024 CT abdomen/pelvis with contrast: A large 8.3 cm ulcer posterior to the right iliac bone and sacroiliac joint is noted. There is severe septic arthritis of the right sacroiliac joint, with adjacent osteomyelitis in the sacrum and right
iliac bone. There is a large 13.1 cm abscess in the right iliac us muscle arising from the anterior margin of the right sacroiliac joint. There is also a large 7.4 cm abscess in the subcutaneous fat posterior to the left iliac bone, extending into
the left gluteus villa muscle. Gas is noted in the tissues. There is chronic osseous destruction of the inferior sacrum and coccyx. Severe bone demineralization is also noted. Please see full dictation for additional detail. Film personally
reviewed.
[2024-09-03] MEDS: DILAUDID 0.5 MG IV (09:47)
--- NOTE | 2024-09-03 09:52 | PTCARENOTE ---
c/o pain in his entire back. Hydromorphone administered. Will change his sacral dressing earlier than we discussed due to timing of his analgesia will make it >24 hours since his dressing change. He nodded his head in understanding.
[2024-09-03] MEDS: DAKIN'S SOLUTION 0.125% 1/4 STRENGTH 473 ML TOPICAL (11:56)
[2024-09-03] MEDS: HYDROPHOR 1 APPLIC TOPICAL (11:57)
--- NOTE | 2024-09-03 12:00 | PTCARENOTE ---
Sacral dressing changed as instructed. [place] eschar noted under the skin on the left side. Wound was cleansed & packed as ordered. Secured with silicone border dressing. Aquaphor applied to his lower extremities after he was provided a CHG bath.
Right Femoral TL CVC dressing CDI. He was assisted putting a movie on the television, eye glasses cleaned, and phone charging. He does not want to order lunch at this time. Safe environment maintained. Repositioned for comfort.
[2024-09-03 12:11] LABS: Glucose - Point of Care 176 mg/dl (70-99)
--- NOTE | 2024-09-03 12:11 | W.PN.NEPH.PH ---
Today's Communication / Plan
-
Continue epinephrine
Assessment/Plan
-
Impression:
Anemia
End-stage renal disease Thursday [place]
Type 2 diabetes
Seizure disorder
Hypotension
History of Colostomy
Chronic Vale catheter
Anemia
History of CVA with right-sided hemiparesis
*septic arthritis of the right sacroiliac joint with osteo of the sacrum
*7.4 cm abscess in the subcutaneous fat posterior to the left iliac bone with drain
Left basilic vein thrombus
Plan:
Continue outpatient midodrine dosing
Antibiotics per primary team and ID
Next dialysis Thursday
Continue epinephrine drip at low-dose, may also consider switching to dopamine if hypotension is not as significant an issue
Critical care time spent 31 minutes
-
-
Date of Service: September 03, 2024
CC / HPI / ROS
-
Chief Complaint:
ESRD
History of Present Illness:
ESRD Thursday with bacteremia
Tolerated dialysis yesterday
Remains bradycardic
Hypotensive on epinephrine drip
Critically ill in ICU
Hemoglobin lower at 7, transfused
Review of Systems:
No chest pain or shortness of breath patient minimally verbal
Labs
-
Labs:
WBC 11.7 10^3/uL (4.8-10.8) H 09/03/24 04:12
RBC 2.39 10^6/uL (4.70-6.10) L 09/03/24 04:12
Hgb 7.0 g/dL (13.0-18.0) L 09/03/24 04:12
Hct 21.5 % (39.0-52.0) L 09/03/24 04:12
Plt Count 209 10^3/uL (130-400) 09/03/24 04:12
Sodium 143 mmol/L (135-145) 09/03/24 04:12
Potassium 3.5 mmol/L (3.5-5.1) 09/03/24 04:12
Chloride 103 mmol/L (98-107) 09/03/24 04:12
Carbon Dioxide 24 mmol/L (22-30) 09/03/24 04:12
BUN 10 mg/dl (9-20) 09/03/24 04:12
Creatinine 1.6 mg/dL (0.7-1.3) H 09/03/24 04:12
eGFR 51.84 09/03/24 04:12
Glucose 127 mg/dl (70-99) H 09/03/24 04:12
Calcium 8.6 mg/dl (8.4-10.2) 09/03/24 04:12
Phosphorus 2.1 mg/dl (2.5-4.5) L 09/01/24 04:05
Albumin 2.9 g/dl (3.5-5.0) L 08/29/24 19:25
Physical Exam
-
Vital Signs:
Vital Signs
Temp Pulse Resp BP Pulse Ox
98.5 F 63 13 85/75 99
09/03/24 11:00 09/03/24 10:28 09/03/24 10:28 09/03/24 10:28 09/03/24 10:28
Cardiovascular:: Regular rate and rhythm (Bradycardic)
Respiratory:: Bilateral: Coarse
Lung Excursion:: Normal
Abdomen:: Nontender and Soft
Bowel Sounds:: Normal
Extremity Edema:: None: Bilateral:
Other Findings::
AV fistula with thrill and bruit
[2024-09-03] MEDS: NOVOLOG FLEXPEN-LOW RESISTANCE 1 UNITS SC (13:08)
[2024-09-03 17:17] LABS: Glucose - Point of Care 206 mg/dl (70-99)
[2024-09-03] MEDS: NOVOLOG FLEXPEN-LOW RESISTANCE 2 UNITS SC (17:21)
--- NOTE | 2024-09-03 19:28 | W.PN.HOSP.TC ---
Today's Communication/Plan
-
See plan
Assessment / Plan
Assessment / Plan
Physical Exam
General: Other (Chronically ill-appearing 53y M in no acute distress.)
HEENT: Other (Dry MM. Neck supple.)
Respiratory: Clear
Cardiac: S1/S2 and Regular Rhythm
GI: Soft, Non Tender, Non Distended, Normal Bowel Sounds and Other (L sided ostomy intact with gas / stool in device.)
Genito-urinary: Other (Obrien in place.)
Neuro: Awake, Alert and Other (R hemiparesis - chronic. No new focal deficits appreciated.)
Assessment/Plan
53y M with PMH significant for ESRD on HD, R hemiparesis s/p CVA/chronically bedbound status and type 2 diabetes mellitus who preseneds to ED from local [place] for evaluation of hypotension. Patient had his usual HD session on 08/29/24. He stated
that he completed his full session with no issues / difficulty. Patient was reportedly noted to be lethargic and hypotensive following HD and remained so throughout the day. He was sent to the ED for further evaluation. In the ED, patient is
resting comfortably. He states that he feels fine and he denies any specific complaints.
Hypotension
Sinus Bradycardia
Septic Shock and Gram Negative Bacteremia (Bacteroides) associated with sacral decubitus ulcers, osteomyelitis as well as abscesses on CT imaging
Concern for necrotizing fasciitis with gas noted on imaging
- Upgraded to the ICU on 09/01/24 due to vascular access issues, needing pressors, femoral line, difficult to get blood pressure measurement, possible A-Line placement. 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
- Patient with chronic hypotension and is on midodrine on HD days (today) --> spoke with nephrology and changed the Midodrine to TID every day
- But this admission, hypotension worsened, needing Levophed
- Echocardiogram unremarkable
- Continue Zosyn
- Vasopressors: Levophed switched to Epinephrine given mild bradycardia -- Epinephrine infusion ongoing
- Follow cultures
- UA abnormal c/w chronic Obrien placement. Negative nitrites. Would hold further antibiotics pending symptoms / culture data / etc.
- Appreciate ID and nephrology
Concern for necrotizing fasciitis with gas noted on imaging
Acute osteomyelitis of the right sacroiliac joint on CT Imaging
13.1 cm abscess extending anteriorly from the right sacroiliac joint into the right iliac us muscle on CT Imaging
Large 7.4 cm abscess subcutaneous fat posterior left iliac bone extending the left gluteus villa muscle on CT Imaging
-General surgery service consulted, appreciate their evaluation and recommendations -- no acute surgical intervention at this time
-IR consulted for abscess drainage as per general surgery recommendations
PICC related venous thrombosis
- Patient has very difficult IV access and PICC line in the left upper extremity was placed with reportedly great difficulty.
- Patient has no other obtainable peripheral IV access.
- Patient needs pressors, and given the above, a central line was placed in the right femoral region.
- PICC line removed on September 01, 2024.
- Serial ultrasound in next 48 to 72 hours and monitor left upper extremity clinically for any swelling. Hold off full dose anticoagulation for now especially given this is a superficial venous
thrombosis (and patient has history of intracranial hemorrhage)
ESRD on HD
Right arm AV graft in place
Prior history of right IJ permacath
- Next dialysis on 09/05/24
- Stable.
- Nephrology onboard
Anemia of ESRD / Chronic Disease
- Stable.
- Continue iron supplementation.
- Transfuse 1 unit packed RBC on 09/03/24
ASCVD
Right Hemiparesis as Late Effect of CVA
Seizure Disorder
- Stable. No new focal deficits.
- Continue Keppra.
DM-II
- Stable. Follow glucose and cover with SSI as needed.
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
- Wound Care eval for local care recommendations.
- Note that patient is not on chronic abx for reported chronic osteomyelitis.
- Completed course of oral doxycycline last month for this issue.
Colostomy Status
- Routine ostomy care
Chronic Indwelling Obrien
- Maintain catheter.
History of Intracranial hemorrhage/CVA with right-sided weakness
Seizure disorder
Hypertension
Dyslipidemia
History of testicular cancer status post right orchiectomy
Chronic obrien
Ambulatory dysfunction
DVT Prophylaxis: Subcutaneous Heparin
Code Status: Full Code
Septic shock needing pressors and antibiotics, in setting of abscesses and osteomyelitis, needing monitoring in the ICU is a high risk encounter.
Anticipated Discharge: > 48 hours
Subjective/Interval History
-
Date of Service: September 03, 2024
Patient was seen and examined. No new symptoms or complaints.
Objective Data
-
Vital Signs:
Vital Signs
Temp Pulse Resp BP Pulse Ox
98.6 F 54 14 124/55 100
09/03/24 15:00 09/03/24 17:25 09/03/24 17:00 09/03/24 17:25 09/03/24 17:00
I&O
09/02/24 09/03/24 09/04/24
06:59 06:59 06:59
Intake Total 365.5 / 373.0 720.0 / 727.5 670.0 / 670.0
Output Total 390 / 390 86 / 86 340 / 340
Balance -24.5 / -17.0 634.0 / 641.5 330.0 / 330.0
--- NOTE | 2024-09-03 23:08 | PTCARENOTE ---
[facility] Assessments completed - patient very lethargic, states he is tired. patient offers no c/o pain or discomfort at this time. patients sacral wound intact, obrien intact, large amount of liquid stool emptied from colostomy
(500) SHAILA drain empty, and obrien intact with 0 output.
Pts heart rate between 40-50, 100% on RA, diminished lung sounds with poor inspiratory effort.
patient requested a movie, and is resting comfortably at this time.
[2024-09-04] VITALS (40 sets, daily range): BP systolic 106–154; BP diastolic 57–88; BMI 20.2
[2024-09-04 04:54] LABS: Blood Urea Nitrogen 18 mg/dl (9-20); Carbon Dioxide 24 mmol/L (22-30); Chloride 105 mmol/L (98-107); Estimated Creatinine Clearance 31 ml/min; Glucose 153 mg/dl (70-99); Potassium 3.3 mmol/L (3.5-5.1); Sodium 144 mmol/L (135-145); eGFR 30.35
[2024-09-04 05:01] LABS: % Basophils 0.5 % (0-2); % Eosinophils 0.2 % (0-6); % Immature Granulocytes 2.8 % (0-0.5); % Lymphocytes 10.8 % (20.5-51.1); % Monocytes 7.6 % (1.7-9.3); % Neutrophils 78.1 % (42.2-75.2); Absolute Basophils 0.1 10^3/uL (0-0.2); Absolute Immature Granulocytes 0.4 10^3/uL (0-0.05); Absolute Lymphocytes 1.4 10^3/uL (1.2-3.4); Absolute Neutrophils 10.3 10^3/uL (1.4-6.5); Hematocrit 27.6 % (39.0-52.0); Mean Corp Hgb Conc. 32.6 g/dL (33.0-37.0); Mean Corpuscular Hgb 28.7 pg (27.0-31.0); Mean Corpuscular Volume 87.9 fL (80.0-94.0); Nucleated Red Blood Cells % 0.6 % (-); Platelet Count 216 10^3/uL (130-400); Red Blood Cell Count 3.14 10^6/uL (4.70-6.10); Red Cell Dist. Width 17.7 % (11.5-14.5); White Blood Cell Count 13.2 10^3/uL (4.8-10.8)
[2024-09-04] MEDS: ZOSYN 50 IV ×3 (06:02→22:22)
[2024-09-04] MEDS: KCL 100 IV (06:12)
[2024-09-04 08:17] LABS: Glucose - Point of Care 172 mg/dl (70-99)
[2024-09-04] MEDS: KEPPRA 250 MG IV ×3 (09:20→22:21)
[2024-09-04] MEDS: DEPACON 55 MG IV ×2 (09:20→20:46)
[2024-09-04] MEDS: HEPARIN 5000 UNITS SC ×2 (09:21→20:46)
[2024-09-04] MEDS: LIPITOR 40 MG PO (09:22)
[2024-09-04] MEDS: ProAmatine 10 MG PO ×3 (09:22→18:05)
[2024-09-04] MEDS: VITAMIN C 1000 MG PO (09:22)
[2024-09-04] MEDS: FEOSOL 325 MG PO (09:23)
[2024-09-04] MEDS: PROTONIX 40 MG PO (09:23)
[2024-09-04] MEDS: NOVOLOG FLEXPEN-LOW RESISTANCE 1 UNITS SC (09:27)
--- NOTE | 2024-09-04 09:29 | W.PN.INTV ---
Today's Communication / Plan
Recommendations
- Wean epinephrine as tolerated, target MAP 65 or above
- If patient continues to stay off pressors, could potentially be transferred out of ICU later today.
Assessment
-
Patient is a very pleasant 53-year-old gentleman with history of incisional disease on hemodialysis chronic hypotension requiring midodrine, history of CVA with right-sided hemiparesis, bedbound who was brought to the hospital for hypotension,
lethargy and noted to have gram-negative bacteremia. Patient also noted to have decub ulcers which are felt to be possible etiology of underlying infection. Patient has significant peripheral vascular disease and primary team I was having
difficulty obtaining a blood pressure and patient had been on Levophed for hypotension. Patient was transferred to ICU for closer monitoring of blood pressure and pressor management.
Additional workup including a CT abdomen pelvis which showed evidence of osteomyelitis, sacral decubitus ulcers along with abscess and gas in the air. General surgery service was consulted along with IR for drainage of abscess.
09/04. 147/68, afebrile, epinephrine infusing at 2.
- Hemoglobin improved up to 9 from 7 yesterday after 1 unit of packed RBCs. WBC count 13.2 and platelet 216.
- Blood cultures positive for Bacteroides
#1. Gram-negative bacteremia with septic shock. Related to sacral decubitus ulcers, osteomyelitis as well as abscesses as suggested by CT scan.
- Continue antibiotics as ordered, IV Zosyn. Epinephrine currently infusing at 2 and patient is saturating well on room air. Wean as tolerated
- Patient is otherwise afebrile, lactate unremarkable. ID service on case
- In view of mild bradycardia, switched Levophed to epinephrine infusion as needed.
- Patient has colostomy in place, Vale catheter in place, chronically bedbound
- Concern for necrotizing fasciitis with gas noted on imaging. General surgery service consulted. No plans for surgical debridement per Gen surgery service. IR consulted and abscess was drained 09/02, c/s pending. SHAILA drain in place, minimal
drainage overnight.
- Continue needed Dilaudid for pain control.
#2. End-stage renal disease, on hemodialysis. Patient had a right arm AV graft in place. Prior history of right IJ permacath.
- Nephrology service on case
#3. PICC related venous thrombosis.
- Right femoral central line placed 09/01
- Removed PICC line. Can perform serial ultrasound in next 48 to 72 hours and monitor left upper extremity clinically for any swelling. Hold off full dose anticoagulation for now since thrombus was noted in the superficial vein.
#4. Sinus bradycardia. Narrow QRS complex noted, no evidence of heart block.
- Changed norepinephrine to epinephrine as needed to keep MAP above 65.
#5. h/o intracranial hemorrhage, resultant hemiplegia, bedbound status. Longstanding sacral decubitus ulcers. Patient is s/p colostomy as well as chronic Vale catheter placement.
- Continue aggressive wound care, PT/OT.
#6. Anemia. Acute on chronic with acute critical illness and underlying end-stage renal disease.
- Transfused 1 unit packed RBC 09/03. Hemoglobin improved.
DVT prophylaxis with subcu heparin.
GI prophylaxis with Protonix.
Critical Care time 45 mins -- The patient is admitted for acute critical illness for the treatment of vital organ failure and/or prevention of further life-threatening conditions. Total care includes time spent in review of history, physical exam,
medications, hemodynamic/ventilator parameters, laboratory data, imaging and discussion with house staff, pharmacy, respiratory therapy, older adult social work specialist, and nursing.
Subjective Dataa
Subjective Data
Date of Service:
Date of Service: September 04, 2024
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
Subjective:
Patient comfortably lying in bed in no acute distress.
Review of Systems
Genitourinary: Other (No new symptoms reported.)
Objective Data
Data Reviewed
Vital Signs / I&O / Oxygen:
Vital Signs
Temp Pulse Resp BP Pulse Ox
97.8 F 51 18 147/68 99
09/04/24 08:00 09/04/24 09:22 09/04/24 07:00 09/04/24 09:22 09/04/24 07:00
Intake and Output
09/03/24 09/04/24 09/05/24
06:59 06:59 06:59
Intake Total 720.0 / 727.5 1230.0 / 1230.0
Output Total 86 / 86 360 / 360
Balance 634.0 / 641.5 870.0 / 870.0
SaO2 99
Physical Exam
HEENT: Normocephalic
Cardiovascular: S1-S2
Respiratory: Clear and Non-Labored Respirations
GI: Soft, Non Distended and Other (Ostomy present)
Neurology: Awake and Alert
Skin: Warm
Labs/Micro/Reports
Lab Data
09/04/24 04:11
09/04/24 04:11
Microbiology
08/29/24 19:25 Blood/Venous Blood Culture - Preliminary
Bacteroides aimee
08/29/24 19:25 Blood/Venous Gram Stain - Preliminary
08/29/24 19:25 Blood/Venous Blood Culture - Final
No Growth - Final Report
09/02/24 11:49 Sacral Wound Culture - Preliminary
09/02/24 11:49 Sacral Gram Stain - Preliminary
08/31/24 13:19 Blood/Venous Blood Culture - Preliminary
No Growth in 72 hours- Final report to follow
09/02/24 11:49 Sacral Anaerobic Culture - Preliminary
Culture pending. Anaerobic cultures are examined after 3
days incubation. Additional information to follow.
09/02/24 17:08 Abscess Wound Culture - Preliminary
09/02/24 17:08 Abscess Gram Stain - Preliminary
08/31/24 03:59 Nose MRSA Screen - Final
No Methicillin Resistant Staphylococcus aureus isolated.
[2024-09-04] MEDS: FLUSH (NSS) 2 FLUSH IV (09:30)
--- NOTE | 2024-09-04 09:30 | PTCARENOTE ---
Rec'd pt at 0800 resting in bed. Rec'd pt dozing but did readily open eyes to verbal stimuli. Follows basic commands but overall has a very flat/withdrawn affect. Speech is very soft, slow and at times difficult to understand. Moves his L arm. Can
grasp with his R hand but very weak. Unable to lift R arm and does not move legs . Legs with fiber filled boots intact. Skin is dark wm and dry. Wounds as documented. Respirs are unlabored on RA with sats of 100%. BS are clear. Sl decreased at the
bases. Monitor Sinus Devin in the 40's. VS as documented. MAP's have been >65. Dr. Oro in and plan is to wean Epi gtt as MAP tolerates. Currently at 1.5 Mcg. + pulses. R upper arm AV fistula with + Bruit and Thrill. +1 L UE edema. Denies chest
pain. ABd is soft with + BS. L abd colostomy stoma is pink and budded-has liquid fuentes stool. Passing flatus. Appetite is very poor- took a few sips of Nepro but refused any other breakfast. Encouraged pt that if he doesn't try to eat something the
doctors are looking at tube feeds. No difficulty noted with swallowing. R lower abd SHAILA drain with purulent fuentes drainage. Flushed with sterile saline 10 mls. Vale intact for small amts of beck urine. R femoral TLC with Epi gtt and KCL 40 meq rider
infusing. Site wnl. Turned and repositioned. Skin and mouth care given. Updated on plan of care. Call lomax in reach.
--- NOTE | 2024-09-04 09:39 | W.PN.NEPH.PH ---
Today's Communication / Plan
-
wean epi
Assessment/Plan
-
Impression:
Anemia
End-stage renal disease Thursday [place]
Type 2 diabetes
Seizure disorder
Hypotension
History of Colostomy
Chronic Vale catheter
Anemia
History of CVA with right-sided hemiparesis
*septic arthritis of the right sacroiliac joint with osteo of the sacrum
*7.4 cm abscess in the subcutaneous fat posterior to the left iliac bone with drain
Left basilic vein thrombus
Plan:
Continue outpatient midodrine dosing
Antibiotics per primary team and ID
Next dialysis tomorrow
Continue epinephrine drip at low-dose, weaning
Critical care time spent 31 minutes
-
-
Date of Service: September 04, 2024
CC / HPI / ROS
-
Chief Complaint:
ESRD
History of Present Illness:
ESRD Thursday with bacteremia
Less bradycardic on epinephrine
BP stable on epinephrine drip/midodrine
Critically ill in ICU
Hemoglobin up to 9, transfused 09/03/24
Review of Systems:
No chest pain or shortness of breath
Labs
-
Labs:
WBC 13.2 10^3/uL (4.8-10.8) H 09/04/24 04:11
RBC 3.14 10^6/uL (4.70-6.10) L 09/04/24 04:11
Hgb 9.0 g/dL (13.0-18.0) L D 09/04/24 04:11
Hct 27.6 % (39.0-52.0) L 09/04/24 04:11
Plt Count 216 10^3/uL (130-400) 09/04/24 04:11
Sodium 144 mmol/L (135-145) 09/04/24 04:11
Potassium 3.3 mmol/L (3.5-5.1) L 09/04/24 04:11
Chloride 105 mmol/L (98-107) 09/04/24 04:11
Carbon Dioxide 24 mmol/L (22-30) 09/04/24 04:11
BUN 18 mg/dl (9-20) 09/04/24 04:11
Creatinine 2.5 mg/dL (0.7-1.3) H 09/04/24 04:11
eGFR 30.35 09/04/24 04:11
Glucose 153 mg/dl (70-99) H 09/04/24 04:11
Calcium 9.0 mg/dl (8.4-10.2) 09/04/24 04:11
Phosphorus 2.1 mg/dl (2.5-4.5) L 09/01/24 04:05
Albumin 2.9 g/dl (3.5-5.0) L 08/29/24 19:25
Physical Exam
-
Vital Signs:
Vital Signs
Temp Pulse Resp BP Pulse Ox
97.8 F 51 18 147/68 99
09/04/24 08:00 09/04/24 09:22 09/04/24 07:00 09/04/24 09:22 09/04/24 07:00
Cardiovascular:: Regular rate and rhythm
Respiratory:: Bilateral: Coarse
Lung Excursion:: Normal
Abdomen:: Nontender and Soft
Bowel Sounds:: Normal
Extremity Edema:: None: Bilateral:
--- NOTE | 2024-09-04 09:40 | W.PN.ID1 ---
Date of Service
Date of Service: September 04, 2024
Today's Communication
Continue Zosyn.
Assessment / Plan
Septic Shock - improving
Chronic sacral decubiti with osteomyelitis
- Currently with odor and and drainage
Right iliacus muscle abscess
Left gluteus vilal muscle abscess with gas
Bacteremia with GNR (anaerobic bottle)
Hx Intracranial hemorrhage/CVA with right-sided weakness
Seizure disorder
Diabetes mellitus
Hypertension
ESRD�HD
dyslipidemia
History of testicular cancer status post right orchiectomy
chronic obrien
Diverting colostomy
Ambulatory dysfunction
Recommendations:
CT scan reveals a right iliacus muscle abscess, along with a left gluteus villa, with gas in the tissues.
Admission blood culture with bacteroides
Follow up drain output
Continue Zosyn.
Repeat blood cultures are no growth to date
appreciate surgery evaluation
Continue aggressive wound care, including use of Dakin's solution to control overall bioburden.
Offload sacral area.
Follow white count and temperature curve.
Wean pressors as able, keeping MAP>= 65
Patient remains critically ill, in ICU, on pressor therapy.
����������������������������������������������������������
Chief Complaint
-: Other (Sacral wound)
Subjective / Review of Systems
afebrile
bp stable
nods yes and no appropriately
no complaints
Vital Signs / Physical Exam
Vital Signs
Vital Signs
Temp Pulse Resp BP Pulse Ox
97.8 F 51 18 147/68 99
09/04/24 08:00 09/04/24 09:22 09/04/24 07:00 09/04/24 09:22 09/04/24 07:00
Physical Exam
Constitutional: No Acute Distress and Chronically Ill
Cardiovascular: Regular Rate and S1/S2; Negative Murmur or Rub
Pulmonary: Clear and Symmetric; Negative Wheezes or Rales
Gastrointestinal: Soft, Non Tender, Non Distended and Normal Bowel Sounds
Skin: Warm and Dry; Negative Rash or Jaundice
Lines: Other (drain - purulent drainage)
Objective Data
Lab Data
Lab Results
09/04/24 04:11
09/04/24 04:11
PT 18.9 Sec (11.4-14.6) H 09/01/24 09:03
INR 1.53 09/01/24 09:03
APTT 42.6 Sec (23.4-35.0) H 09/01/24 09:03
Estimated Creat Clear 31 ml/min 09/04/24 04:11
Lactic Acid Cancelled 08/29/24 23:30
Total Bilirubin 1.1 mg/dl (0.2-1.3) 08/29/24 19:25
AST 19 U/L (17-59) 08/29/24 19:25
ALT < 10 U/L (0-50) 08/29/24 19:25
Alkaline Phosphatase 97 U/L (38-126) 08/29/24 19:25
Most recent labs reviewed.
Micro Results:
08/29/24 19:25 Blood Culture - Preliminary
Blood/Venous Bacteroides aimee
Gram Stain - Preliminary
08/29/24 19:25 Blood Culture - Final
Blood/Venous No Growth - Final Report
09/02/24 11:49 Wound Culture - Preliminary
Sacral Gram Stain - Preliminary
08/31/24 13:19 Blood Culture - Preliminary
Blood/Venous No Growth in 72 hours- Final report to follow
09/02/24 11:49 Anaerobic Culture - Preliminary
Sacral Culture pending. Anaerobic cultures are examined after 3
days incubation. Additional information to follow.
09/02/24 17:08 Wound Culture - Preliminary
Abscess Gram Stain - Preliminary
05/07/25 03:59 MRSA Screen - Final
Nose No Methicillin Resistant Staphylococcus aureus isolated.
08/29/24 19:25 Urine Culture - Final
Urine
Imaging:
09/01/2024 CT abdomen/pelvis with contrast: A large 8.3 cm ulcer posterior to the right iliac bone and sacroiliac joint is noted. There is severe septic arthritis of the right sacroiliac joint, with adjacent osteomyelitis in the sacrum and right
iliac bone. There is a large 13.1 cm abscess in the right iliac us muscle arising from the anterior margin of the right sacroiliac joint. There is also a large 7.4 cm abscess in the subcutaneous fat posterior to the left iliac bone, extending into
the left gluteus villa muscle. Gas is noted in the tissues. There is chronic osseous destruction of the inferior sacrum and coccyx. Severe bone demineralization is also noted. Please see full dictation for additional detail. Film personally
reviewed.
--- NOTE | 2024-09-04 11:00 | PTCARENOTE ---
HANNAH lr completed. Epi gtt turned off currently. MAP's are 85. Dr. Duke in to see pt and updated.
[2024-09-04 11:50] LABS: Glucose - Point of Care 137 mg/dl (70-99)
[2024-09-04] MEDS: NOVOLOG FLEXPEN-LOW RESISTANCE SC ×2 (12:00→17:16)
[2024-09-04] MEDS: HYDROPHOR 1 APPLIC TOPICAL (13:13)
[2024-09-04] MEDS: DAKIN'S SOLUTION 0.125% 1/4 STRENGTH 473 ML TOPICAL (13:13)
--- NOTE | 2024-09-04 13:15 | PTCARENOTE ---
Pt resting most of the morning. VS as noted with Epi gtt off- HR remains in the 40's, MAP's >65. No c/o pain. Of note-earlier pt could give a weak grasp of his R arm but could not lift it- now is able to lift it up- is weaker than the L but is able
to move it. Still have not seen him move his legs. Speech can at times be very very soft and other times a little louder but can be difficult to understand as speech at times can tend to get garbled. Complete CHG bath given. Oral care given. Wound
care done to Stage 4 sacral wound. Cleansed and packed with Dakins then Silicone foam. Aquaphor applied to skin on legs- still get very flaky. Very scant amt of beck urine via obrien. Turned and repositioned. Call lomax in reach. Lunch ordered. Wants
to watch a movie.
--- NOTE | 2024-09-04 14:00 | PTCARENOTE ---
Pt agreed to try a hamburger for lunch as he has not eaten really anything. Sat pt upright in bed to eat and cut the hamburger in very tiny pieces but he struggled with chewing even the smallest bite as he appears to have no upper teeth. Then tried
custard and still couldn't swallow it and had to spit both out. Is taking his pills and liquids ok with no evidence of coughing. Will order a speech therapy consult to evaluate chewing and swallowing. Offered to order pt some soup but didn't want
any currently. Mouth care given. Watching a movie- call lomax in reach. No other changes
--- NOTE | 2024-09-04 16:30 | PTCARENOTE ---
Assessment is unchanged. Watching TV or dozing. Remains with a very flat affect but will eventually interact. VS as documented. Turned and repositioned. Fiber fill boots back on pt -were off x 2hrs. Pt placed on [facility] Air bed. (prior bed
was a [facility]) Callbell in reach.
[2024-09-04 17:10] LABS: Glucose - Point of Care 118 mg/dl (70-99)
[2024-09-04] MEDS: FLUSH (NSS) 1 FLUSH IV (17:15)
--- NOTE | 2024-09-04 17:50 | W.PN.HOSP.TC ---
Today's Communication/Plan
-
Wean pressors
Continue Zosyn
Hgb improved
Dialysis tomorrow
Assessment / Plan
Assessment / Plan
Physical Exam
General: Other (Chronically ill-appearing 53y M in no acute distress.)
HEENT: Other (Dry MM. Neck supple.)
Respiratory: Clear
Cardiac: S1/S2 and Regular Rhythm
GI: Soft, Non Tender, Non Distended, Normal Bowel Sounds and Other (L sided ostomy intact with gas / stool in device.)
Genito-urinary: Other (Obrien in place.)
Neuro: Lethargic, arousable, and Other (R hemiparesis - chronic. No new focal deficits appreciated.)
Assessment/Plan
53y M with PMH significant for ESRD on HD, R hemiparesis s/p CVA/chronically bedbound status and type 2 diabetes mellitus who preseneds to ED from local [place] for evaluation of hypotension. Patient had his usual HD session on 08/29/24. He stated
that he completed his full session with no issues / difficulty. Patient was reportedly noted to be lethargic and hypotensive following HD and remained so throughout the day. He was sent to the ED for further evaluation. In the ED, patient is
resting comfortably. He states that he feels fine and he denies any specific complaints.
Hypotension
Sinus Bradycardia
Septic Shock and Gram Negative Bacteremia (Bacteroides) associated with sacral decubitus ulcers, osteomyelitis as well as abscesses on CT imaging
Concern for necrotizing fasciitis with gas noted on imaging
- Upgraded to the ICU on 09/01/24 due to vascular access issues, needing pressors, femoral line, difficult to get blood pressure measurement, possible A-Line placement. Appreciate cyber special agent.
- Patient with chronic hypotension and is on midodrine on HD days (today) --> spoke with nephrology and changed the Midodrine to TID every day
- But this admission, hypotension worsened, needing pressors
- Echocardiogram unremarkable
- Continue Zosyn
- Vasopressors: Levophed switched to Epinephrine given mild bradycardia -- wean epinephrine as tolerated
- Follow cultures
- UA abnormal c/w chronic Obrien placement. Negative nitrites. Would hold further antibiotics pending symptoms / culture data / etc.
- Appreciate ID and nephrology
Concern for necrotizing fasciitis with gas noted on imaging
Acute osteomyelitis of the right sacroiliac joint on CT Imaging
13.1 cm abscess extending anteriorly from the right sacroiliac joint into the right iliac us muscle on CT Imaging
Large 7.4 cm abscess subcutaneous fat posterior left iliac bone extending the left gluteus villa muscle on CT Imaging
-General surgery service consulted, appreciate their evaluation and recommendations -- no acute surgical intervention at this time
-IR consulted for abscess drainage as per general surgery recommendations
PICC related venous thrombosis
- Patient has very difficult IV access and PICC line in the left upper extremity was placed with reportedly great difficulty.
- Patient has no other obtainable peripheral IV access.
- Patient needs pressors, and given the above, a central line was placed in the right femoral region.
- PICC line removed on September 01, 2024.
- Serial ultrasound in next 48 to 72 hours and monitor left upper extremity clinically for any swelling. Hold off full dose anticoagulation for now especially given this is a superficial venous
thrombosis (and patient has history of intracranial hemorrhage)
ESRD on HD
Right arm AV graft in place
Prior history of right IJ permacath
- Next dialysis on 09/05/24
- Stable.
- Nephrology onboard
Anemia of ESRD / Chronic Disease
- Stable.
- Continue iron supplementation.
- Transfused 1 unit packed RBC on 09/03/24 with improvement in Hgb
ASCVD
Right Hemiparesis as Late Effect of CVA
Seizure Disorder
- Stable. No new focal deficits.
- Continue Keppra.
DM-II
- Stable. Follow glucose and cover with SSI as needed.
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
- Wound Care eval for local care recommendations.
- Note that patient is not on chronic abx for reported chronic osteomyelitis.
- Completed course of oral doxycycline last month for this issue.
Colostomy Status
- Routine ostomy care
Chronic Indwelling Obrien
- Maintain catheter.
History of Intracranial hemorrhage/CVA with right-sided weakness
Seizure disorder
Hypertension
Dyslipidemia
History of testicular cancer status post right orchiectomy
Chronic obrien
Ambulatory dysfunction
DVT Prophylaxis: Subcutaneous Heparin
Code Status: Full Code
Septic shock needing pressors and antibiotics, in setting of abscesses and osteomyelitis, needing monitoring in the ICU is a high risk encounter.
Anticipated Discharge: > 48 hours
Subjective/Interval History
-
Date of Service: September 04, 2024
Patient was seen and examined, he remained lethargic with some one word responses.
Objective Data
-
Vital Signs:
Vital Signs
Temp Pulse Resp BP Pulse Ox
97.6 F 44 23 125/66 100
09/04/24 16:00 09/04/24 16:30 09/04/24 16:30 09/04/24 16:00 09/04/24 16:30
I&O
09/03/24 09/04/24 09/05/24
06:59 06:59 06:59
Intake Total 720.0 / 727.5 1230.0 / 1262.5 634.4 / 634.4
Output Total 86 / 86 360 / 360 200 / 200
Balance 634.0 / 641.5 870.0 / 902.5 434.4 / 434.4
--- NOTE | 2024-09-04 18:12 | PTCARENOTE ---
Repositioned. Awaiting dinner. Hr will dip to 38 but pt awake and BP as documented.
--- NOTE | 2024-09-04 20:30 | PTCARENOTE ---
vulnerability assessment analyst, pt eyes open to voice, minimal verbal response, nods appropriately. SB HR high 30s-40s, R fem TLC WNL. RA Sat 98%. R abd SHAILA intact with small amt purulent drainage. Vale WNL- scant urine. POC discussed, call monie w/pt.
[2024-09-05] VITALS (39 sets, daily range): BP systolic 48–163; BP diastolic 51–76; BMI 20.2
--- NOTE | 2024-09-05 | PTCARENOTE ---
no changes in pt assessment.
[2024-09-05 00:17] LABS: Glucose - Point of Care 104 mg/dl (70-99)
[2024-09-05 03:40] LABS: Hematocrit 27.5 % (39.0-52.0); Hemoglobin 8.9 g/dL (13.0-18.0)
--- NOTE | 2024-09-05 04:00 | PTCARENOTE ---
pt awake t/o shift, unable to sleep. CHG cloth bath, turned/repositioned. no changes in assessment.
[2024-09-05 04:02] LABS: Blood Urea Nitrogen 27 mg/dl (9-20); Calcium 9.1 mg/dl (8.4-10.2); Carbon Dioxide 23 mmol/L (22-30); Chloride 105 mmol/L (98-107); Estimated Creatinine Clearance 25 ml/min; Glucose 117 mg/dl (70-99); Magnesium 1.8 mg/dl (1.6-2.3); Potassium 4.1 mmol/L (3.5-5.1); Sodium 143 mmol/L (135-145); eGFR 23.44
[2024-09-05] MEDS: ZOSYN 50 IV ×3 (06:11→20:49)
[2024-09-05 07:40] LABS: Glucose - Point of Care 153 mg/dl (70-99)
[2024-09-05] MEDS: NOVOLOG FLEXPEN-LOW RESISTANCE 1 UNITS SC (07:41)
[2024-09-05] MEDS: ProAmatine 10 MG PO ×2 (07:47→12:31)
[2024-09-05] MEDS: DEPACON 55 MG IV (07:47)
[2024-09-05] MEDS: LIPITOR 40 MG PO (07:48)
[2024-09-05] MEDS: HEPARIN 5000 UNITS SC ×2 (07:49→20:29)
[2024-09-05] MEDS: PROTONIX 40 MG PO (07:49)
[2024-09-05] MEDS: VITAMIN C 1000 MG PO (07:49)
[2024-09-05] MEDS: FEOSOL 325 MG PO (07:49)
[2024-09-05] MEDS: KEPPRA 250 MG IV (07:49)
[2024-09-05] MEDS: HYDROPHOR 1 APPLIC TOPICAL (07:51)
[2024-09-05] MEDS: DAKIN'S SOLUTION 0.125% 1/4 STRENGTH 473 ML TOPICAL (07:51)
--- NOTE | 2024-09-05 09:07 | W.PN.INTV ---
Today's Communication / Plan
Recommendations
Appropriate for downgrade to telemetry
Continue IV antibiotics
Initiated 5 mg twice daily BuSpar
Changed to Keppra and valproate from IV to p.o.
Added nystatin swish and swallow for suspected oral thrush
Added holding parameters for midodrine
Urgent repeat upper extremity venous duplex ultrasound to evaluate for superficial VTE
Dialysis scheduled for today
Continue aggressive wound care for stage IV sacral ulcer
Assessment
-
Assessment:
53-year-old male past medical history ESRD on HD, status post CVA with right-sided hemiparesis, bedbound presents for hypotension, lethargy found to have gram negative bacteremia. Was transferred to the ICU for line management and pressure support.
Plan:
#Septic shock
#Gram-negative bacteremia
Meet SIRS criteria, leukocytosis, hypotension, requiring pressors, suspected source is chronic sacral decubitus ulcer and or GI
Currently patient is not requiring pressors, shock component of sepsis has resolved
Blood cultures positive gram-negative bacteremia, returned Bacteroides aimee
Infectious disease following, will defer antibiotic management
Was requiring norepinephrine for pressor support, however patient developed bradycardia and was transitioned to epinephrine
Currently patient has been able to be weaned off of pressors
Continue 3 times daily midodrine. Added holding parameters for midodrine. Hold for SBP greater than 120 and for heart rate less than 50
Continue IV Zosyn
Patient is appropriate for downgrade to telemetry
#Multiple abscesses
#Acute right sacroiliac osteomyelitis
CT abdomen pelvis with IV contrast returned as acute osteomyelitis of the right sacroiliac joint, as well as a 13.1 cm abscess extending anteriorly from the right sacroiliac joint into the right iliac us muscle, as well as large 7.4 cm abscess
subcutaneous fat posterior left iliac bone extending the left gluteus villa muscle
Surgery consult placed, evaluated and determined no acute surgical intervention at this time. 7.4 cm abscess is draining into open sacral wound and 13.1 cm abscess is too deep for surgical intervention
Status post IR drainage of right iliac us abscess, 55 cm purulent fluid collected and sent for culture
Culture returned Proteus and Klebsiella, likely source is from GI. Although sacral wound did return Proteus as well.
Patient currently has a SHAILA drain in place which has been draining since Thursday, nursing reports 15 mL of drainage in last 24 hours
Continue SHAILA drainage
Continue IV antibiotics
#Left upper extremity superficial venous thrombosis
Patient had a PICC line in his left upper extremity, peripheral venous ultrasound demonstrated thrombus formation of the left basilic vein surrounding the PICC line catheter
PICC line was removed and right femoral central venous catheter was placed
No anticoagulation needed for superficial venous thrombosis
Recheck upper left extremity venous duplex ultrasound to evaluate superficial VTE progression
#ESRD on HD MWF
Stable on Thursday regimen
Admitted on [facility] scheduled Thursday and
Lokelma discontinued by nephrology due to concerns for hypokalemia
Potassium/electrolyte repletion during hemodialysis
#Stage IV sacral wound with chronic osteomyelitis
Wound care eval placed
Wound culture collected, culture returned Proteus, and strep species
Aggressive wound care with use of Dakin solution
Recently completed a course of oral doxycycline last month
Continue with wound care, continue IV antibiotics per ID
#Suspected oral thrush
Nursing reports patient has white coating throughout his mouth, patient not willing to open mouth during physical exam
Ordered nystatin swish and swallow, of note there is a banana allergy which is conflicting with nystatin formulation. Pharmacy aware and will discontinue if potential interaction
#Flat affect
Patient has been nonverbal throughout stay, he does understand, follows commands and will nod head to questions. However he is not speaking. Nursing report that he does speak however his affect is flat
Initiate 5 mg twice daily BuSpar p.o.
#Seizure disorder
Transitioned IV Keppra and valproate to p.o., continue
#Malnutrition
Patient reportedly not eating, unsure if this is by choice as he is able to tolerate p.o. meds
Nutrition consult placed
Diet: 2000-calorie diabetic
DVT prophylaxis: Subcu heparin
CODE STATUS: Full code
Subjective Dataa
Subjective Data
Date of Service:
Date of Service: September 05, 2024
Chief Complaint: Surgical Corsetier Follow Up
Subjective:
53-year-old male past medical history of end-stage renal disease on hemodialysis Thursday, status post CVA with residual right-sided hemiparesis, bedbound, type 2 diabetes, chronic decubitus sacral ulcer, history of osteomyelitis
present to emergency department for hypotension and lethargy after hemodialysis. He was found to have gram-negative bacteremia and was requiring pressor support. He was transferred to ICU for line management and pressure support. Subjectively
patient still alert and oriented and will respond with head nods. Nurses report he is talkative but with the flat aspect. Still nonverbal to questions during interview. Patient will follow commands during interview and physical exam.
Review of Systems
General: Other (Patient nonverbal during interview)
Objective Data
Data Reviewed
Vital Signs / I&O / Oxygen:
Vital Signs
Temp Pulse Resp BP Pulse Ox
97.7 F 48 20 146/73 98
09/05/24 08:53 09/05/24 08:00 09/05/24 08:00 09/05/24 08:00 09/05/24 08:00
Intake and Output
09/04/24 09/05/24 09/06/24
06:59 06:59 06:59
Intake Total 1230.0 / 1262.5 684.4 / 684.4
Output Total 360 / 360 495 / 495
Balance 870.0 / 902.5 189.4 / 189.4
SaO2 98
Physical Exam
HEENT: Normocephalic
Cardiovascular: S1-S2
Respiratory: Clear and Non-Labored Respirations
GI: Soft, Non Distended and Other (Ostomy present)
Neurology: Awake and Alert
Skin: Warm and Other (Chronic nonhealing stage IV sacral decubitus ulcer, foul smell. Currently dressed)
Labs/Micro/Reports
Lab Data
09/05/24 03:28
09/05/24 03:28
Microbiology
09/02/24 11:49 Sacral Wound Culture - Preliminary
Proteus mirabilis
09/02/24 11:49 Sacral Gram Stain - Preliminary
09/02/24 17:08 Abscess Wound Culture - Final
Proteus mirabilis
Klebsiella pneumoniae
09/02/24 17:08 Abscess Gram Stain - Final
08/31/24 13:19 Blood/Venous Blood Culture - Preliminary
No Growth in 4 days- Final report to follow
08/29/24 19:25 Blood/Venous Blood Culture - Preliminary
Bacteroides aimee
08/29/24 19:25 Blood/Venous Gram Stain - Preliminary
08/29/24 19:25 Blood/Venous Blood Culture - Final
No Growth - Final Report
09/02/24 11:49 Sacral Anaerobic Culture - Preliminary
Culture pending. Anaerobic cultures are examined after 3
days incubation. Additional information to follow.
--- NOTE | 2024-09-05 09:25 | PTOTSP ---
Speech Language Pathology
Pt seen for clinical bedside swallow evaluation. White coating noted by RN on lingual surface, also noted by this CASTER INVESTMENT CASTING. RN notified MD. Pt denied any oral or throat pain. P.O. trials attempted. Pt only agreeable to sips of nutritional supplement.
Consecutive sips noted with trace diffuse oral residue. No overt signs of aspiration. Pt reported he has difficulty chewing many items, including ground meats. Limited evaluation given refusal of majority of consistencies.
Recommend:
(1) Downgrade to IDDSI Level 5 (minced/moist) solids and thin liquids
(2) Aspiration precautions: sit upright, slow rate, ensure oral cavity clear post P.O. intake
(3) Meds as tolerated
(4) [employer] to continue to follow
--- NOTE | 2024-09-05 10:15 | PTCARENOTE ---
Rec'd care of patient at 0700. Patient alert and oriented. Very flat and withdrawn. Slow to respond. Moving b/l UE. Weak hand grasps. Right side weaker than left (hx right hemiparesis). B/l foot drop. SB with prolonged QT interval on tele. Rate in
the 40's. Trace edema in LUE. Palpable pulses. Lung sounds shallow/diminished throughout. Pulse ox 98-100% on RA. Hypo BS. Colostomy with small amount of stool. Appetite poor. Patient agreeable to take a few sips of Nepro drink. While doing oral
hygiene, patient found to have thrush. Denies pain. Photogrammetric Surveyor notified and order for Nystatin obtained. Chronic obrien in place. Oliguric. HD scheduled for today. Right AV fistula +thrill/bruit. Wound care completed as ordered. Right neeraj drain with
purulent output. Flushed per order. Right femoral line in place. Discussed during rounds, ordered to reassess known superficial clot. VAT notified of plan to remove femoral line and place alternative IV access.
--- NOTE | 2024-09-05 10:26 | W.PN.ID1 ---
Date of Service
Date of Service: September 05, 2024
Today's Communication
Continue Zosyn.
Assessment / Plan
Septic Shock - improving
Chronic sacral decubiti
Chronic sacral osteomyelitis
Right iliacus muscle abscess
Left gluteus villa muscle abscess with gas
Bacteremia with Bacteroides iamee
Hx Intracranial hemorrhage/CVA with right-sided weakness
Seizure disorder
Diabetes mellitus
Hypertension
ESRD�HD
dyslipidemia
History of testicular cancer status post right orchiectomy
chronic obrien
Diverting colostomy
Ambulatory dysfunction
Recommendations:
Follow drain output
Continue Zosyn.
Repeat blood cultures are no growth to date
Continue aggressive wound care, including use of Dakin's solution to control overall bioburden.
Offload sacral area.
Follow white count and temperature curve.
Wean pressors as able, keeping MAP>= 65
����������������������������������������������������������
Chief Complaint
-: Other (Sacral wound, Osteomyelitis, Gluteal abscess)
Subjective / Review of Systems
Review of Systems: No Fever
Vital Signs / Physical Exam
Vital Signs
Vital Signs
Temp Pulse Resp BP Pulse Ox
97.7 F 43 14 153/71 99
09/05/24 08:53 09/05/24 10:00 09/05/24 10:00 09/05/24 10:00 09/05/24 10:00
Physical Exam
Constitutional: No Acute Distress, Chronically Ill and Non-toxic
Eyes: Pupils Equal and Pupils Round
Cardiovascular: Regular Rate and S1/S2; Negative S3/S4
Pulmonary: Clear, Symmetric and Non Labored; Negative Wheezes or Rales
Gastrointestinal: Soft, Non Tender, Non Distended and Normal Bowel Sounds
Skin: Warm and Dry; Negative Rash or Jaundice
Wound: Other (Sacral wound dressed.)
Neurological: Awake
Psychological: Calm
Lines: Other (drain - purulent drainage)
Objective Data
Lab Data
Lab Results
09/05/24 03:28
09/05/24 03:28
PT 18.9 Sec (11.4-14.6) H 09/01/24 09:03
INR 1.53 09/01/24 09:03
APTT 42.6 Sec (23.4-35.0) H 09/01/24 09:03
Estimated Creat Clear 25 ml/min 09/05/24 03:28
Lactic Acid Cancelled 08/29/24 23:30
Total Bilirubin 1.1 mg/dl (0.2-1.3) 08/29/24 19:25
AST 19 U/L (17-59) 08/29/24 19:25
ALT < 10 U/L (0-50) 08/29/24 19:25
Alkaline Phosphatase 97 U/L (38-126) 08/29/24 19:25
Most recent labs reviewed.
Micro Results:
09/02/24 11:49 Wound Culture - Preliminary
Sacral Proteus mirabilis
Gram Stain - Preliminary
09/02/24 17:08 Wound Culture - Final
Abscess Proteus mirabilis
Klebsiella pneumoniae
Gram Stain - Final
08/31/24 13:19 Blood Culture - Preliminary
Blood/Venous No Growth in 4 days- Final report to follow
08/29/24 19:25 Blood Culture - Preliminary
Blood/Venous Bacteroides aimee
Gram Stain - Preliminary
08/29/24 19:25 Blood Culture - Final
Blood/Venous No Growth - Final Report
09/02/24 11:49 Anaerobic Culture - Preliminary
Sacral Culture pending. Anaerobic cultures are examined after 3
days incubation. Additional information to follow.
08/31/24 03:59 MRSA Screen - Final
Nose No Methicillin Resistant Staphylococcus aureus isolated.
08/29/24 19:25 Urine Culture - Final
Urine
Wound/abscess/other Cult Final 09/02/24
Moderate Proteus mirabilis
Moderate Klebsiella pneumoniae
Organism 1 Proteus mirabilis
Organism 2 Klebsiella pneumoniae
P.MIRABILI K.PNEUMO
M.I.C. RX M.I.C. RX
--------- --- --------- ---
Amoxicillin/Potas. Clavulanate <=8/4 S <=8/4 S
Ampicillin <=8 S >16 R
Ampicillin/Sulbactam <=4/2 S <=4/2 S
Aztreonam <=4 S <=4 S
Cefazolin 4 I <=2 S
Cefepime <=2 S
Ceftazidime <=1 S
Ceftriaxone <=1 S
Ertapenem <=0.5 S <=0.5 S
Ciprofloxacin 0.5 I <=0.25 S
Gentamicin <=2 S <=2 S
Meropenem <=1 S <=1 S
Piperacillin/Tazobactam <=8 S <=8 S
Tetracycline >8 R <=4 S
Tobramycin <=2 S <=2 S
Trimethoprim/Sulfamethoxazole <=2/38 S <=2/38 S
Imaging:
09/01/2024 CT abdomen/pelvis with contrast: A large 8.3 cm ulcer posterior to the right iliac bone and sacroiliac joint is noted. There is severe septic arthritis of the right sacroiliac joint, with adjacent osteomyelitis in the sacrum and right
iliac bone. There is a large 13.1 cm abscess in the right iliac us muscle arising from the anterior margin of the right sacroiliac joint. There is also a large 7.4 cm abscess in the subcutaneous fat posterior to the left iliac bone, extending into
the left gluteus villa muscle. Gas is noted in the tissues. There is chronic osseous destruction of the inferior sacrum and coccyx. Severe bone demineralization is also noted. Please see full dictation for additional detail. Film personally
reviewed.
[2024-09-05 11:38] LABS: Glucose - Point of Care 119 mg/dl (70-99)
[2024-09-05] MEDS: NOVOLOG FLEXPEN-LOW RESISTANCE SC ×2 (11:40→17:22)
--- NOTE | 2024-09-05 11:46 | W.PN.NEPH.HD ---
Assessment
-
Patient seen on dialysis
Systolic blood pressure stable (155 systolic )at current u/f
Progress Note - Hemodialysis
-
Date of Service: September 05, 2024
Duration: 30 minutes and 3 hours
Potassium Bath: 3
Calcium Bath: 2.5
Opti-Dialyzer: 160
Ultrafiltration: Other (0.5 kg)
Blood Flow: 400
Dialysate Flow: 600
Heparin: None
EPO: 10,000
[2024-09-05] MEDS: MYCOSTATIN ORAL SUSPENSION 5 ML PO ×3 (12:31→20:49)
[2024-09-05] MEDS: BUSPAR 5 MG PO ×2 (12:31→20:29)
--- NOTE | 2024-09-05 12:50 | PTCARENOTE ---
HD in progress. NSR on tele. VSS. Pulse ox 98% on RA. LUE US +occlusive deep venous thrombosis within the left brachial vein. No other changes.
[2024-09-05] MEDS: MANNITOL 25% 12.5 GRAMS IV (13:02)
[2024-09-05] MEDS: RETACRIT 10000 UNITS IV (13:02)
[2024-09-05] MEDS: FLEXBUMIN 25% FOR HEMODIALYSIS 12.5 GRAMS IV (13:02)
--- NOTE | 2024-09-05 13:18 | W.PN.UPDATE ---
Documented by User: Victoriano Marquez DO, Resident 09/05/24 14:25
Update Note
Progress Note Update
The in-patient radiologist reached out regarding ultrasound results. Was found that patient has a short segment occlusive thrombus in the left brachial vein, last scan it was called basilic, however this probably represents same clot. Final read
was he has a deep venous thrombosis in the brachial vein, no basilic vein clot seen on today's ultrasound. Patient was not placed on anticoagulation as it was thought to be superficial, not deep. Patient also has a history of intracranial
hemorrhage causing residual right-sided hemiparesis. Unsure specifically when, from notes it was prior to 03/2023. Placed a neurology consult for guidance regarding initiating anticoagulation.
Neurology responded as its fine to start AC on him. Will hold off on starting full dose for DVT as right now were still working on getting him better IV access. Will need to wait until good IV access is established. Will continue on prophylactic
dose of heparin until IV access is established.

Documented by User: Yordan Cervantes MD 09/05/24 16:12
Update Note
Progress Note Update
The inpatient radiologist reached out regarding ultrasound results. Was found that patient has a short segment occlusive thrombus in the left brachial vein, last scan it was called basilic, however this probably represents same clot. Final read
was he has a deep venous thrombosis in the brachial vein, no basilic vein clot seen on today's ultrasound. Patient was not placed on anticoagulation as it was thought to be superficial, not deep. Patient also has a history of intracranial
hemorrhage causing residual right-sided hemiparesis. Unsure specifically when, from notes it was prior to 03/2023. Placed a neurology consult for guidance regarding initiating anticoagulation.
Neurology responded as its fine to start AC on him. Will hold off on starting full dose for DVT as right now were still working on getting him better IV access. Will need to wait until good IV access is established. Will continue on prophylactic
dose of heparin until IV access is established.
--- NOTE | 2024-09-05 13:26 | PTCARENOTE ---
Patient downgraded to IMU level.
--- NOTE | 2024-09-05 13:29 | W.PN.HOSP.TC ---
Today's Communication/Plan
-
cont zosyn
Tube feeds 2/2 poor oral intake
transfer to IMU
Assessment / Plan
Assessment / Plan
53yo M with PMHX of ESRD on HD, R hemiparesis s/p ICH, bedbound, DM admitted with hypotension and lethargy, found septic shock with bacteremia due to osteomyelitis of sacral wound with abscess
A/P:
#Septic shock 2/2 osteomyelitis with bacteremia of the sacral ulcer with concern for necrotizing fasciitis and abscess
7.4 cm abscess in the subcutaneous fat posterior to the left iliac bone extending into the left gluteus villa muscle - draining - cont packing, no need for I&D
ID follows - cont Abx
GenSx - recommended IRAD for 13.1cm right iliacus abscess that was drained on 09/02/24
Bcx with bacteroides aimee, repeated Bcx NTD
WOund Cx Proteus mirabilis, klebsiella pneumoniae and streptococcus species sensitive to zosyn
sacral offloading
#Chronic anemia 2/2 ESRD
Epo as per Nephrology
Cont HD
s/p 1 unit PRBC on 09/03/24
follow CBC
#Seizure d/o
Seizure precautions
cont AED
#CHronic hypotension
midodrine
#DM type 1
cont insulin, accuchekcs, DM diet
#HLD
cont lipitor
#Poor oral intake
promotions specialist consult
might need TF
#Superficial venous thrombosis
Short segment occlusive deep venous thrombosis within the left brachial vein
PICC removed
no direct indication for anticoagulation
#Mild/moderate rectal wall thickening
outpatient sigmoidoscopy
#periportal edema
probably 2/2 IVF during shock resuscitation
Outpatient GI
#Mood d/o
cont meds
#Chronic urinary retention
obrien
#Diverting colostomy
colostomy care
DVT ppx hep
GI ppx PPI
Full code
I have spent at least 58min reviewing chart, test results, providing direct patient care
Anticipated Discharge: > 48 hours
Subjective/Interval History
-
Date of Service: September 05, 2024
Objective Data
-
Labs:
Laboratory Results
09/05/24
03:28
Hgb 8.9 L
Hct 27.5 L
Sodium 143
Potassium 4.1
Chloride 105
Carbon Dioxide 23
BUN 27 H
Creatinine 3.1 H
Glucose 117 H
Calcium 9.1
Vital Signs:
Vital Signs
Temp Pulse Resp BP Pulse Ox
98.4 F 43 15 105/54 98
09/05/24 11:51 09/05/24 13:15 09/05/24 13:15 09/05/24 13:15 09/05/24 13:15
I&O
09/04/24 09/05/24 09/06/24
06:59 06:59 06:59
Intake Total 1230.0 / 1262.5 684.4 / 684.4
Output Total 360 / 360 495 / 495
Balance 870.0 / 902.5 189.4 / 189.4
Review of Systems
-
Unable to obtain full review of systems at this time due to: Patient Non-verbal
Physical Exam
-
General: Comfortable
Respiratory: Clear to Auscultation
Cardiac: Regular Rhythm
GI: Soft, Nontender, Nondistended and Ostomy
Skin: Warm
Neuro: Awake and Alert
Psych: Calm
--- NOTE | 2024-09-05 13:54 | CM ---
CM following re:L discharge planning.
Reviewed pt's chart, met with pt during HD treatment.
Pt is a care home care resident at [facility], on Medicaid 15 day bed hold, requires total care, Vrenell lift for transfer, on HD MWF.
CM spoke to [facility] liaison and she confirmed that pt will be accepted when medically stable.
Updated clinical faxed to [facility] for a review.
[facility] nursing report: [phone]
Discharge instructions fax: [phone]
D/C plan: return back to [facility] for a exterminator helper care.
CM will follow with discharge plan updates as hospitalization progresses
--- NOTE | 2024-09-05 14:24 | CON.NEURO ---
Neuro Assessment/Plan
Assessment
DVT left brachail
distant left sided ICH
Head CT from 2022 imgs revld, mild right sided hypoattenuation; no evidence for a massive left sided bleed on head CT
Plan
would anticoagulate for DVT as needed; his brain parenchyma looks pretty good and the benefits for treating DVT certainly outweigh risks of bleeding
Consultation
Order
Date of Consultation: 09/05/24
Requesting Provider: Victoriano Marquez
Reason for Consult: DVT, distant ICH, anticoagulation
Subjective/Objective
Subjective Data
Date of Service: September 05, 2024
He is a 53 year old man with distant history of left sided intracranial hemorrhage, chronic right sided weakness, epilepsy, ESRD on dialysis MWF, Diabetes, HTN, chronic sacral decubiti/osteomyelitis, found to have left brachail DVT
patient reports spontaneous hemorrhagic stroke ~3 years ago; able to lift both arms antigravity, no movement in legs, cannot say when he last ambulated
Objective Data
Vital Signs
Temp Pulse Resp BP Pulse Ox
36.9 C 43 15 105/54 98
09/05/24 11:51 09/05/24 13:15 09/05/24 13:15 09/05/24 13:15 09/05/24 13:15
Lab Results
09/05/24 03:28
09/05/24 03:28
PT 18.9 Sec (11.4-14.6) H 09/01/24 09:03
INR 1.53 09/01/24 09:03
APTT 42.6 Sec (23.4-35.0) H 09/01/24 09:03
Sodium 143 mmol/L (135-145) 09/05/24 03:28
Potassium 4.1 mmol/L (3.5-5.1) 09/05/24 03:28
BUN 27 mg/dl (9-20) H 09/05/24 03:28
Glucose 117 mg/dl (70-99) H 09/05/24 03:28
Calcium 9.1 mg/dl (8.4-10.2) 09/05/24 03:28
Phosphorus 2.1 mg/dl (2.5-4.5) L 09/01/24 04:05
Patient Allergies
banana Allergy (Verified 08/29/24 19:20)
Swelling
Physical Exam
-
AAOx3, speech clear, poor recollection of events
face symmetric
able to lift both arms antigravity, no movement in legs
Medications
-
Active Medications
Generic Name Dose Route Start Last Admin
Trade Name Freq PRN Reason Stop Dose Admin
Acetaminophen 650 mg 08/30/24 02:18
Acetaminophen 325 Mg Tablet PO 09/27/24 02:17
Q4HPRN PRN
Mild Pain / Temp > 101
Albumin Human 12.5 grams 09/05/24 08:00 09/05/24 13:02
Albumin 12.5 Grams/50 Ml Bag *For Hemodialysis* IV 09/05/24 23:59 12.5 grams
HD-Q1HPRN PRN Administration
SBP < 90 mmHg
Atorvastatin Calcium 40 mg 08/30/24 08:00 09/05/24 07:48
Atorvastatin (Lipitor) 40 Mg Tablet PO 09/27/24 07:59 40 mg
DAILY EDGAR Administration
Buspirone HCl 5 mg 09/05/24 12:00 09/05/24 12:31
Buspirone 5 Mg Tablet PO 10/03/24 11:59 5 mg
BID EDGAR Administration
Divalproex Sodium 500 mg 09/05/24 20:00
Divalproex 500 Mg Delayed Release (12 Hr) Tablet PO 10/03/24 19:59
Q12 EDGAR
Emollient Ointment 0 applic 08/31/24 08:00 09/05/24 07:51
Petrolatum/Mineral Oil (Hydrophor) Oint 100 Gram TOPICAL 09/28/24 07:59 1 applic
DAILY EDGAR Administration
Ferrous Sulfate 325 mg 08/30/24 08:00 09/05/24 07:49
Ferrous Sulfate 325 Mg Tablet PO 09/27/24 07:59 325 mg
DAILY EDGAR Administration
Glucagon 1 mg 08/30/24 02:18
Glucagon 1 Mg Vial IM 09/27/24 02:17
PRN PRN
hypoglycemia
Protocol
Heparin Sodium 5,000 units 08/30/24 08:00 09/05/24 07:49
Heparin 5,000 Units/Ml 1 Ml Vial SC 09/27/24 07:59 5,000 units
Q12 EDGAR Administration
Hydromorphone HCl 0.5 mg 09/02/24 12:54 09/03/24 09:47
Hydromorphone 0.5 Mg/0.5 Ml Syringe IV 09/16/24 12:53 0.5 mg
Q6HPRN PRN Administration
MODERATE PAIN/DRESSING CHANGES
Piperacillin Sod/Tazobactam Sod 2.25 grams in 50 mls @ 100 mls/hr 08/31/24 14:00 09/05/24 06:11
Zosyn IV 50 mls
Q8H EDGAR Administration
Insulin Aspart 0 units 08/30/24 07:30 09/05/24 11:40
Insulin Aspart Low Resistance 300 Units/3 Ml Pen.Injctr SC 09/27/24 07:29 Not Given
AC EDGAR
Protocol
Levetiracetam 250 mg 09/05/24 16:00
Levetiracetam 250 Mg Regular Release Tablet PO 10/03/24 15:59
TID EDGAR
Mannitol 12.5 grams 09/05/24 08:00 09/05/24 13:02
Mannitol 25% (12.5 Grams/50 Ml) Vial IV 09/05/24 23:59 12.5 grams
HD-Q1HPRN PRN Administration
SBP < 90 mmHg
Midodrine 10 mg 08/30/24 18:00 09/05/24 12:31
Midodrine 5 Mg Tablet PO 09/27/24 17:59 10 mg
TID@0800,1300,1800 EDGAR Administration
Nystatin 5 ml 09/05/24 13:00 09/05/24 12:31
Nystatin Oral Suspension 500,000 Units/5 Ml PO 10/03/24 12:59 5 ml
QID EDGAR Administration
Pantoprazole Sodium 40 mg 08/30/24 08:00 09/05/24 07:49
Pantoprazole 40 Mg Delayed Release Tablet PO 09/27/24 07:59 40 mg
DAILY EDGAR Administration
Sodium Chloride 0 flush 08/30/24 03:00 09/04/24 17:15
Sodium Chloride 0.9% (Flush) Syringe IV 09/27/24 02:59 1 flush
PER PROTOCOL EDGAR Administration
Sodium Chloride 10 ml 09/05/24 08:00
Sodium Chloride (4 Meq/Ml) 30 Ml Vial *For Hemodialysis* IV 09/05/24 23:59
HD-Q1HPRN PRN
cramps
Sodium Hypochlorite 0 ml 08/31/24 08:00 09/05/24 07:51
Dakin's Solution 0.125% (1/4 Strength) 473 Ml Bottle TOPICAL 09/28/24 07:59 473 ml
DAILY EDGAR Administration
Home Medications
�Medication �Instructions �Recorded
carvedilol 25 mg tablet (Coreg) 25 mg PO Q12H Blood pressure 08/14/22
ferrous sulfate 325 mg (65 mg 325 mg PO DAILY Supplement 08/14/22
iron) tablet
insulin aspart U-100 100 unit/mL 1 sliding scale dose SC ACHS 08/14/22
subcutaneous solution Diabetes
ipratropium 0.5 mg-albuterol 3 mg 3 ml inhalation R Q4HPRN PRN sob 08/14/22
(2.5 mg base)/3 mL nebulization
soln
ondansetron HCl 4 mg tablet 4 mg PO Q6HPRN PRN nausea/vomiting 08/14/22
pantoprazole 40 mg tablet,delayed 40 mg PO DAILY Gastrointestinal 08/14/22
release issue
acetaminophen 325 mg tablet 650 mg PO Q4HPRN PRN mild pain 12/02/22
ascorbic acid (vitamin C) 1,000 mg 1,000 mg PO DAILY Supplement 12/02/22
tablet (Vitamin C)
lidocaine-prilocaine 2.5 %-2.5 % 1 applic topical MOWEFR apply to 12/02/22
topical cream right AVG
atorvastatin 40 mg tablet 40 mg PO DAILY High Cholesterol 01/16/23
bisacodyl 10 mg rectal suppository 10 mg ND DAILYPRN PRN if no bm 01/23/23
aftr mom
bumetanide 2 mg tablet 2 mg PO DAILY Fluid 01/23/23
Retention/Swelling
divalproex 500 mg tablet,delayed 500 mg PO BID Seizures 04/06/23
release (Depakote)
heparin (porcine) 5,000 unit/mL 5,000 unit SC Q12H Blood clot 04/16/23
injection solution prevention/tx #0 mL
oxycodone 10 mg tablet 10 mg PO Q4HPRN PRN severe pain 08/19/24
#10 tabs
levetiracetam 750 mg tablet 250 mg PO TID Seizures 08/29/24
(Keppra)
insulin glargine 100 unit/mL (3 10 unit SC HS Diabetes 08/30/24
mL) subcutaneous pen (Lantus
Solostar U-100 Insulin)
midodrine 10 mg tablet 10 mg PO MOWEFR before diaylsis 08/30/24
sodium chloride-hypochlorous acid 1 irrig irrigation BID sacral wound 08/30/24
0.033 % irrigation solution (Vashe)
sodium zirconium cyclosilicate 10 10 g PO TUTHSA Kidney Disease 05/06/25
gram oral powder packet (Lokelma)
[2024-09-05] MEDS: KEPPRA 250 MG PO ×2 (15:25→20:49)
--- NOTE | 2024-09-05 15:39 | PTCARENOTE ---
Patient transported to [facility] for central line placement.
--- NOTE | 2024-09-05 17:09 | PTCARENOTE ---
Patient settled back in room s/p central line placement in IRAD.
[2024-09-05] MEDS: ProAmatine PO (17:24)
[2024-09-05 17:33] LABS: Glucose - Point of Care 86 mg/dl (70-99)
--- NOTE | 2024-09-05 18:09 | PTCARENOTE ---
Left nare DHT placed. Xray taken for placement confirmation.
[2024-09-05 18:52] LABS: TSH 0.55 uIU/ml (0.47-4.68)
[2024-09-05] MEDS: DEPAKOTE (12 HR RELEASE) 500 MG PO (20:29)
--- NOTE | 2024-09-05 21:56 | PTCARENOTE ---
Received patient AAOx3, flat, withdrawn. Slow to respond, garbled speech. Sinus bety 40s-50s, BP stable, normothermic. +1 LUE edema. Weak pedal pulses b/l. 100% on room air, shallow breathing and diminished lung sounds throughout. Left nare DHT at
70 cm, RD to place TF orders. Hypoactive bowel sounds throughout, left colostomy putting out brown stool, budded and pink. Chronic obrien, obrien care done, oliguric. Foam on sacrum CDI, heel foams applied. Right pelvic SHAILA drain putting out purulent
drainage. Right IJ TLC and PIV patent, WNL. Hourly rounding and patient safety checks ongoing.
[2024-09-05 23:25] LABS: Glucose - Point of Care 82 mg/dl (70-99)
[2024-09-06] VITALS (21 sets, daily range): BP systolic 105–139; BP diastolic 57–70; BMI 20.1
[2024-09-06 04:22] LABS: % Basophils 0.5 % (0-2); % Eosinophils 0.6 % (0-6); % Immature Granulocytes 1.5 % (0-0.5); % Monocytes 6.9 % (1.7-9.3); % Neutrophils 77.5 % (42.2-75.2); Absolute Eosinophils 0.1 10^3/uL (0-0.7); Absolute Immature Granulocytes 0.1 10^3/uL (0-0.05); Absolute Lymphocytes 1.1 10^3/uL (1.2-3.4); Absolute Monocytes 0.6 10^3/uL (0.1-0.6); Absolute Neutrophils 6.7 10^3/uL (1.4-6.5); Hematocrit 25.6 % (39.0-52.0); Hemoglobin 8.5 g/dL (13.0-18.0); Mean Corp Hgb Conc. 33.2 g/dL (33.0-37.0); Mean Corpuscular Hgb 29.4 pg (27.0-31.0); Mean Corpuscular Volume 88.6 fL (80.0-94.0); Mean Platelet Volume 9.8 fL (7.4-10.4); Nucleated Red Blood Cells % 1.7 % (-); Platelet Count 146 10^3/uL (130-400); Red Blood Cell Count 2.89 10^6/uL (4.70-6.10); Red Cell Dist. Width 17.3 % (11.5-14.5); White Blood Cell Count 8.7 10^3/uL (4.8-10.8)
--- NOTE | 2024-09-06 04:31 | PTCARENOTE ---
Patient pulled out dobhoff tube because 'it was uncomfortable'. TOOL AND DIE MAKER APPRENTICE notified, patient reports he is ready to eat normal food today. CHG bath done, repositioned, labs sent.
[2024-09-06 04:49] LABS: ALT (SGPT) < 10 U/L (0-50); AST (SGOT) 12 U/L (17-59); Albumin 2.7 g/dl (3.5-5.0); Alkaline Phosphatase 86 U/L (38-126); Blood Urea Nitrogen 13 mg/dl (9-20); Calcium 8.6 mg/dl (8.4-10.2); Carbon Dioxide 27 mmol/L (22-30); Chloride 109 mmol/L (98-107); Estimated Creatinine Clearance 46 ml/min; Glucose 75 mg/dl (70-99); Potassium 3.8 mmol/L (3.5-5.1); Sodium 143 mmol/L (135-145); Total Bilirubin 0.7 mg/dl (0.2-1.3); Total Protein 7.4 g/dl (6.3-8.2); eGFR 48.21
[2024-09-06] MEDS: ZOSYN 50 IV (05:17)
[2024-09-06 05:40] LABS: Glucose - Point of Care 74 mg/dl (70-99)
[2024-09-06] MEDS: HEPARIN 5000 UNITS SC (08:06)
[2024-09-06] MEDS: DAKIN'S SOLUTION 0.125% 1/4 STRENGTH 473 ML TOPICAL (08:07)
[2024-09-06] MEDS: HYDROPHOR 1 APPLIC TOPICAL (08:08)
[2024-09-06] MEDS: NOVOLOG FLEXPEN-LOW RESISTANCE SC ×3 (08:12→17:30)
--- NOTE | 2024-09-06 08:21 | W.PN.NEPH.PH ---
Today's Communication / Plan
-
Dialysis tomorrow
Assessment/Plan
-
Impression:
Anemia
End-stage renal disease Thursday [place]
Type 2 diabetes
Seizure disorder
Hypotension
History of Colostomy
Chronic [place] catheter
Anemia
History of CVA with right-sided hemiparesis
*septic arthritis of the right sacroiliac joint with osteo of the sacrum
*7.4 cm abscess in the subcutaneous fat posterior to the left iliac bone with drain
Left basilic vein thrombus
Plan:
Continue outpatient midodrine dosing 10 mg 3 times daily
Antibiotics per primary team and ID, zosyn renally dosed
Next dialysis tomorrow, orders provided
-
-
Date of Service: September 06, 2024
CC / HPI / ROS
-
Chief Complaint:
ESRD
History of Present Illness:
ESRD Thursday with bacteremia
BP stable on midodrine
Hemoglobin 8.5, transfused 09/03/24
Review of Systems:
No chest pain or shortness of breath
Labs
-
Labs:
WBC 8.7 10^3/uL (4.8-10.8) 09/06/24 04:06
RBC 2.89 10^6/uL (4.70-6.10) L 09/06/24 04:06
Hgb 8.5 g/dL (13.0-18.0) L 09/06/24 04:06
Hct 25.6 % (39.0-52.0) L 09/06/24 04:06
Plt Count 146 10^3/uL (130-400) D 09/06/24 04:06
Sodium 143 mmol/L (135-145) 09/06/24 04:06
Potassium 3.8 mmol/L (3.5-5.1) 09/06/24 04:06
Chloride 109 mmol/L (98-107) H 09/06/24 04:06
Carbon Dioxide 27 mmol/L (22-30) 09/06/24 04:06
BUN 13 mg/dl (9-20) 09/06/24 04:06
Creatinine 1.7 mg/dL (0.7-1.3) H 09/06/24 04:06
eGFR 48.21 09/06/24 04:06
Glucose 75 mg/dl (70-99) 09/06/24 04:06
Calcium 8.6 mg/dl (8.4-10.2) 09/06/24 04:06
Phosphorus 2.1 mg/dl (2.5-4.5) L 09/01/24 04:05
Albumin 2.7 g/dl (3.5-5.0) L 09/06/24 04:06
Physical Exam
-
Vital Signs:
Vital Signs
Temp Pulse Resp BP Pulse Ox
98.4 F 43 14 110/60 98
09/06/24 08:00 09/06/24 06:30 09/06/24 06:30 09/06/24 06:00 09/06/24 06:30
Cardiovascular:: Regular rate and rhythm
Respiratory:: Bilateral: Coarse
Lung Excursion:: Normal
Abdomen:: Nontender and Soft
Bowel Sounds:: Normal
Extremity Edema:: None: Bilateral:
[2024-09-06 08:23] LABS: Glucose - Point of Care 71 mg/dl (70-99)
[2024-09-06] MEDS: MYCOSTATIN ORAL SUSPENSION PO ×2 (08:30→09:12)
--- NOTE | 2024-09-06 09:05 | PTOTSP ---
Speech Language Pathology
Pt seen for dysphagia tx. More interactive this date. Dysarthria and dysphonia noted with decreased intelligibility noted. Inconsistent reports of abilities noted. Pt stated he wanted a tuna fish sandwich, but then also said he was unable to
chew ground meat given recent tooth extraction. He stated he is to get dentures next week. Unsure if this is accurate given noted cognitive deficits. Oral pooling of secretions noted. Pt refused HOB to be higher than 45 degrees, stating this is
the position he eats in. Discussed risk for aspiration/choking, and pt stated 'I won't choke.'
Seen with puree, regular solids, and thin liquids provided. Prolonged mastication of regular solids noted, partially related to limited dentition and partially related to oral dysphagia. No overt signs of aspiration. Also seen with med pass with
meds all at once whole with liquid with no overt difficulty.
Discussed option of IDDSI 6, but pt stated he would not be able to chew most items on that diet. He asked if we had puree. As pt is able to chew some items and has been asking for tuna salad, will recommend IDDSI 5 diet. CXR does not show
evidence for PNA.
Recommend:
(1) IDDSI Level 5 (minced/moist) and thin liquids
(2) Aspiration precautions: partial assist, slow rate, oral suctioning post P.O. intake, sit as upright as pt will allow
(3) Meds as tolerated
(4) BUSINESS SERVICES CLERK to continue to follow
[2024-09-06] MEDS: DEPAKOTE (12 HR RELEASE) 500 MG PO ×2 (09:12→20:29)
[2024-09-06] MEDS: ProAmatine 10 MG PO ×2 (09:12→17:03)
[2024-09-06] MEDS: BUSPAR 5 MG PO ×2 (09:13→20:29)
[2024-09-06] MEDS: LIPITOR 40 MG PO (09:13)
[2024-09-06] MEDS: PROTONIX 40 MG PO (09:13)
[2024-09-06] MEDS: FEOSOL 325 MG PO (09:13)
[2024-09-06] MEDS: KEPPRA 250 MG PO ×3 (09:13→22:16)
--- NOTE | 2024-09-06 09:27 | W.PN.ID1 ---
Date of Service
Date of Service: September 06, 2024
Today's Communication
Narrow Zosyn to Unasyn 3g IV q6h.
Anticipate 6 weeks of IV abx through 10/10/24.
Assessment / Plan
Right iliacus muscle abscess
Left gluteus villa muscle abscess with gas s/p drain placement
Acute osteo of sacrum and left iliac bone
Bacteremia with Bacteroides aimee
Septic Shock - resolved
Chronic sacral decubiti
Chronic sacral osteomyelitis
Hx Intracranial hemorrhage/CVA with right-sided weakness
Seizure disorder
Diabetes mellitus
Hypertension
ESRD�HD
dyslipidemia
History of testicular cancer status post right orchiectomy
chronic obrien
Diverting colostomy
Ambulatory dysfunction
Recommendations:
Repeat blood cultures are no growth to date
Follow drain output
Narrow Zosyn to Unasyn 3g IV q6h.
Anticipate 6 weeks of IV abx through 10/10/24.
Continue aggressive wound care, including use of Dakin's solution to control overall bioburden.
Offload sacral area.
Follow white count and temperature curve.
����������������������������������������������������������
Chief Complaint
-: Other (Sacral wound, Osteomyelitis, Gluteal abscess)
Subjective / Review of Systems
No new complains.
Vital Signs / Physical Exam
Vital Signs
Vital Signs
Temp Pulse Resp BP Pulse Ox
98.4 F 58 19 105/63 99
09/06/24 08:00 09/06/24 09:00 09/06/24 09:00 09/06/24 09:00 09/06/24 08:30
Physical Exam
Constitutional: Chronically Ill
Eyes: Pupils Equal and Pupils Round
Cardiovascular: Regular Rate and S1/S2; Negative S3/S4
Pulmonary: Clear and Non Labored
Gastrointestinal: Soft, Non Tender, Non Distended and Normal Bowel Sounds
Wound: Other (Sacral wound dressed.)
Neurological: Awake
Psychological: Calm
Lines: Other (drain - purulent drainage)
Objective Data
Lab Data
Lab Results
09/06/24 04:06
09/06/24 04:06
PT 18.9 Sec (11.4-14.6) H 09/01/24 09:03
INR 1.53 09/01/24 09:03
APTT 42.6 Sec (23.4-35.0) H 09/01/24 09:03
Estimated Creat Clear 46 ml/min 09/06/24 04:06
Lactic Acid Cancelled 08/29/24 23:30
Total Bilirubin 0.7 mg/dl (0.2-1.3) 09/06/24 04:06
AST 12 U/L (17-59) L 09/06/24 04:06
ALT < 10 U/L (0-50) 09/06/24 04:06
Alkaline Phosphatase 86 U/L (38-126) 09/06/24 04:06
Most recent labs reviewed.
Micro Results:
08/31/24 13:19 Blood Culture - Final
Blood/Venous No Growth - Final Report
09/02/24 11:49 Anaerobic Culture - Preliminary
Sacral Culture pending. Anaerobic cultures are examined after 3
days incubation. Additional information to follow.
09/02/24 11:49 Wound Culture - Preliminary
Sacral Proteus mirabilis
Streptococcus species
Gram Stain - Preliminary
09/02/24 17:08 Wound Culture - Final
Abscess Proteus mirabilis
Klebsiella pneumoniae
Gram Stain - Final
08/29/24 19:25 Blood Culture - Preliminary
Blood/Venous Bacteroides aimee
Gram Stain - Preliminary
08/29/24 19:25 Blood Culture - Final
Blood/Venous No Growth - Final Report
08/31/24 03:59 MRSA Screen - Final
Nose No Methicillin Resistant Staphylococcus aureus isolated.
08/29/24 19:25 Urine Culture - Final
Urine
Wound/abscess/other Cult Final 09/02/24
Moderate Proteus mirabilis
Moderate Klebsiella pneumoniae
Organism 1 Proteus mirabilis
Organism 2 Klebsiella pneumoniae
P.MIRABILI K.PNEUMO
M.I.C. RX M.I.C. RX
--------- --- --------- ---
Amoxicillin/Potas. Clavulanate <=8/4 S <=8/4 S
Ampicillin <=8 S >16 R
Ampicillin/Sulbactam <=4/2 S <=4/2 S
Aztreonam <=4 S <=4 S
Cefazolin 4 I <=2 S
Cefepime <=2 S
Ceftazidime <=1 S
Ceftriaxone <=1 S
Ertapenem <=0.5 S <=0.5 S
Ciprofloxacin 0.5 I <=0.25 S
Gentamicin <=2 S <=2 S
Meropenem <=1 S <=1 S
Piperacillin/Tazobactam <=8 S <=8 S
Tetracycline >8 R <=4 S
Tobramycin <=2 S <=2 S
Trimethoprim/Sulfamethoxazole <=2/38 S <=2/38 S
Imaging:
09/01/2024 CT abdomen/pelvis with contrast: A large 8.3 cm ulcer posterior to the right iliac bone and sacroiliac joint is noted. There is severe septic arthritis of the right sacroiliac joint, with adjacent osteomyelitis in the sacrum and right
iliac bone. There is a large 13.1 cm abscess in the right iliac us muscle arising from the anterior margin of the right sacroiliac joint. There is also a large 7.4 cm abscess in the subcutaneous fat posterior to the left iliac bone, extending into
the left gluteus villa muscle. Gas is noted in the tissues. There is chronic osseous destruction of the inferior sacrum and coccyx. Severe bone demineralization is also noted. Please see full dictation for additional detail. Film personally
reviewed.
--- NOTE | 2024-09-06 09:50 | W.PN.PUL3 ---
Today's Communication / Plan
-
Antibiotics per ID
Nystatin swish and swallow for 14 days
Heparin drip for left upper extremity DVT with eventual transition to NOAC, preferably Eliquis
Case management consult to see if Eliquis is affordable
If H&H + platelet count are stable by tomorrow then would consider transitioning to NOAC tomorrow (09/07)
Continue Keppra + Depakote
Encourage incentive spirometer
Buspirone for significant depression
Patient is stable for downgrade to telemetry. No additional recommendations at this time. Pulmonary service will now sign off. Please reconsult if there are any additional questions/concerns, or if patient's respiratory status deteriorates.
Assessment
-
Impression:
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
#13.1 cm abscess in the right iliacus muscle s/p IR drain with severe septic arthritis of the right sacroiliac joint with adjacent acute OM of the sacrum + right iliac bone
#8.3 cm ulcer posterior to the right iliac bone + SI joint
#Left gluteus villa muscle abscess (7.4cm) with gas
#Bacteremia with Bacteroides auris
#Thrush
#Left upper extremity DVT involving short segment of left brachial vein (per LUE Duplex US from 09/05/2024)
#History of ICH with residual right-sided weakness
#History of testicular cancer s/p orchiectomy
#Chronic Vale
#Ambulatory dysfunction
#ESRD on HD
#Chronic sacral decubitus ulcer s/p anterior abdominal wall diverting colostomy
#Septic shock � shock state now resolved
#Depression
Plan:
- Continue with ABx per ID - currently on Zosyn --> to be changed to Unasyn per ID
- Continue nystatin swish and swallow for thrush
- Sacral culture from 09/02 grew Proteus mirabilis + Streptococcus species
- Fluid culture from abscess s/p IR drainage into right pelvic fluid collection grew Proteus mirabilis + Klebsiella pneumonia
- Repeat blood cultures on 08/31/2024 show NGTD
- General surgery consulted and given no concern for nec fasc, no acute surgical intervention recommended at this time
- Continue wound care
- Continue with aspiration precautions
- Maintain SpO2 >90-94%
- prn nebulized bronchodilators - not currently bronchospastic
- Incentive spirometer encouraged 10x per hour for at least 4 hrs a day
- Maintain MAP>65
- Continue midodrine
- Continue with HD as per nephrology
- Replete electrolytes with K>4, Mg>2
- Patient had a left upper extremity duplex US on 09/01/2024 showing a PICC line associated thrombus around the left basilic vein --> LUE duplex US repeated yesterday showing short segment occlusive DVT involving the left brachial vein
- Given his history of ICH, neurology consulted to assess if it is safe to start systemic anticoagulation
- Dr Viera confirmed that it is safe to anticoagulate for DVT as needed with benefits outweighing the risk of bleeding
- Start heparin gtt given anemia and thrombocytopenia, and if blood counts appear stable by tomorrow with no concern for bleeding then would consider starting NOAC at that time, preferably Eliquis
- Case management consult to assure that Eliquis is affordable
- Continue AEDs with keppra and depakote
- Given his depression, we started buspirone 5mg BID on 09/05 -> he does appear more interactive today, and is currently sitting in bed watching cartoons
- Maintain euglycemia with goal BG 140-180
- Given that he does not seem to be consuming enough calories, agree with DHT and then to start tube feeds
- Trend H/H and transfuse if needed to keep Hb>7g/dL; keep plt>20k, unless there is concern for bleeding then keep plt>50k
- PT/OT
- DVT ppx: Heparin gtt
Code status: Full Code
Patient was downgraded to IMU level of care on 09/05, and he is now stable for downgrade to telemetry. No additional recommendations at this time. Pulmonary service will now sign off. Thank you for allowing us to be involved in the care of this
patient. Please reconsult if there are any additional questions/concerns, or if patient's respiratory status deteriorates.
Total time spent today was 57 minutes for this encounter. Time includes reviewing laboratory test/imaging results, reviewing pertinent medical records, obtaining and reviewing medical history, performing an appropriate exam, ordering medications,
tests and procedures. Time also includes documentation of this encounter, coordinating patient care and communicating with other healthcare professionals. Total time does not include separately billed tests performed on this date of service.
Subjective Data
-
Date of Service:
Date of Service: September 06, 2024
Chief Complaint: Pulmonary Follow Up
Subjective:
Patient was seen and evaluated this morning. Currently on room air saturating 99%, afebrile overnight, and BP 120/66 and heart rate 49. He is awake, alert and answering questions appropriately. No chest pain, SOB, fevers or chills.
Review of Systems
General: Other (Negative unless mentioned above)
Objective Data
Data Reviewed
Vital Signs / I&O / Oxygen:
Vital Signs
Temp Pulse Resp BP Pulse Ox
98.4 F 58 19 105/63 99
09/06/24 08:00 09/06/24 09:00 09/06/24 09:00 09/06/24 09:00 09/06/24 08:30
Intake and Output
09/05/24 09/06/24 09/07/24
06:59 06:59 06:59
Intake Total 684.4 / 684.4 405 / 405
Output Total 495 / 495 780 / 780
Balance 189.4 / 189.4 -375 / -375
SaO2 99
Physical Exam
General: Respiratory Distress (negative), Comfortable, Chills (negative) and Sweats (negative)
HEENT: Normocephalic and Anicteric
Cardiovascular: S1-S2 and Peripheral Edema (negative)
Respiratory: Wheeze (negative), Crackles (negative), Rhonchi (negative), Non-Labored Respirations and Other (Diminished breath sounds bilaterally)
GI: Soft, Non Distended, Non Tender and Normal Bowel Sounds
Neurology: AO x 3 and Tremors (negative)
Skin: Warm, Dry, Cyanosis (negative) and Jaundice (negative)
Labs/Micro/Reports
Lab Data
09/06/24 04:06
Microbiology
08/31/24 13:19 Blood/Venous Blood Culture - Final
No Growth - Final Report
09/02/24 11:49 Sacral Anaerobic Culture - Preliminary
Culture pending. Anaerobic cultures are examined after 3
days incubation. Additional information to follow.
09/02/24 11:49 Sacral Wound Culture - Preliminary
Proteus mirabilis
Streptococcus species
09/02/24 11:49 Sacral Gram Stain - Preliminary
09/02/24 17:08 Abscess Wound Culture - Final
Proteus mirabilis
Klebsiella pneumoniae
09/02/24 17:08 Abscess Gram Stain - Final
08/29/24 19:25 Blood/Venous Blood Culture - Preliminary
Bacteroides aimee
08/29/24 19:25 Blood/Venous Gram Stain - Preliminary
08/29/24 19:25 Blood/Venous Blood Culture - Final
No Growth - Final Report
--- NOTE | 2024-09-06 11:01 | PN.CDI ---
CDI
- -
CDI:
Physician Documentation Request
Admit Date: 08/30/24 00:55
Dear Doctor Kira,
Patient presented to ED from [facility] for evaluation of lethargy and hypotension. ED disposition problems include 'Hypotension, acute uti, sacral wound'
08/30 HEEL PRICKER note states 'Patient is hypotensive with the sbp in 80s, midodrine dose increased earlier today from 5mg to 10mg TID and received 10mg 1-2 hrs ago . BP still dropping down current bp 74/51. Will start Levophed and transfer to imu for
administration per protocol'
08/31 hospitalist progress note includes a diagnosis of septic shock-gram negative bacteremia
Patient was afebrile during hospitalization
Heart rates between 08/29-08/31 52-100
Respiratory rates documented between 08/29-08/31 8-28
WBC
Laboratory Tests
08/29/24 08/30/24 08/31/24
19:25 06:04 04:08
WBC 6.7 9.6 9.6
09/01/24
04:05
WBC 12.8 H
Please clarify the following:
Sepsis was present on admission
Sepsis was not present on admission
Unable to determine
Use of terms such as suspected, likely, concern for, or probable (associated with a specific diagnosis that is being evaluated, monitored, or treated as if it exists) are acceptable and can be coded in the inpatient setting, when documented at the
time of discharge.
Thank you,
Deonna Pineda RN, BSN
CDI Specialist
tiger text
Please use your independent medical judgment in providing your response.
[2024-09-06 11:08] LABS: APTT 36.5 Sec (23.4-35.0)
--- NOTE | 2024-09-06 11:21 | PN.CDI ---
CDI
- -
CDI:
Physician Documentation Request
Admit Date: 08/30/24 00:55
Dear Doctor Kira,
Patient presented to [facility] from [facility] for evaluation of lethargy and hypotension. ED disposition problems include 'Hypotension, acute uti, sacral wound'
08/30 PYROMETER OPERATOR note states 'Patient is hypotensive with the sbp in 80s, midodrine dose increased earlier today from 5mg to 10mg TID and received 10mg 1-2 hrs ago . BP still dropping down current bp 74/51. Will start Levophed and transfer to imu for
administration per protocol'
08/31 hospitalist progress note includes a diagnosis of septic shock-gram negative bacteremia
08/31 ID note states observe off antibiotics, at present patient without fever or leukocytosis
Patient was afebrile during hospitalization
Heart rates between 08/29-08/31 52-100
Respiratory rates documented between 08/29-08/31 8-28
WBC
Laboratory Tests
08/29/24 08/30/24 08/31/24
19:25 06:04 04:08
WBC 6.7 9.6 9.6
09/01/24
04:05
WBC 12.8 H
Please clarify the following:
Sepsis was present on admission
Sepsis was not present on admission
Unable to determine
Use of terms such as suspected, likely, concern for, or probable (associated with a specific diagnosis that is being evaluated, monitored, or treated as if it exists) are acceptable and can be coded in the inpatient setting, when documented at the
time of discharge.
Thank you,
Deonna Pineda RN, BSN
CDI Specialist
tiger text
Please use your independent medical judgment in providing your response.
[2024-09-06] MEDS: HEPARIN 25000 UNITS/250 ML IV (11:50)
[2024-09-06] MEDS: UNASYN IV ×3 (11:50→23:58)
[2024-09-06] MEDS: MYCOSTATIN ORAL SUSPENSION 5 ML PO ×3 (12:08→22:16)
[2024-09-06] MEDS: ProAmatine PO (12:08)
[2024-09-06 12:13] LABS: Glucose - Point of Care 76 mg/dl (70-99)
--- NOTE | 2024-09-06 12:13 | W.PN.HOSP.TC ---
Addendum entered and electronically signed by Oscar Malone MD 09/06/24 12:44:
#Asymptomatic bety
COrtzol and TSH WNL
avoid AVB and CCB
telemetry
Possibly AED induced
Original Note:
Today's Communication/Plan
-
cont Abx
discuss with Plastic Sx timing for involvement
Assessment / Plan
Assessment / Plan
53yo M with PMHX of ESRD on HD, R hemiparesis s/p ICH, bedbound, DM admitted with hypotension and lethargy, found septic shock with bacteremia due to osteomyelitis of sacral wound with abscess
A/P:
#Septic shock 2/2 osteomyelitis with bacteremia of the sacral ulcer with concern for necrotizing fasciitis and abscess
7.4 cm abscess in the subcutaneous fat posterior to the left iliac bone extending into the left gluteus villa muscle - draining - cont packing, no need for I&D
ID follows - cont Abx
GenSx - recommended IRAD for 13.1cm right iliacus abscess that was drained on 09/02/24
Bcx with bacteroides aimee, repeated Bcx NTD
WOund Cx Proteus mirabilis, klebsiella pneumoniae and streptococcus species sensitive to zosyn, unasyn - ID planning unasyn for 6 weeks till 10/10/24
sacral offloading
#Chronic anemia 2/2 ESRD
Epo as per Nephrology
Cont HD
s/p 1 unit PRBC on 09/03/24
follow CBC
#Seizure d/o
Seizure precautions
cont AED
#Protein calorie malnutrition with dysphagia
patient self removed NG
on diet as per INSTRUCTION ASSISTANT PRINCIPAL
#Chronic hypotension
midodrine
#DM type 1
cont insulin, accuchekcs, DM diet
#HLD
cont lipitor
#Poor oral intake
electrical instrumentation technician consult
might need TF
#LUE DVT
heparin with eventual Eliquis
Short segment occlusive deep venous thrombosis within the left brachial vein
PICC removed
#Mild/moderate rectal wall thickening
outpatient sigmoidoscopy
#periportal edema
probably 2/2 IVF during shock resuscitation
Outpatient GI
#Mood d/o
cont meds
#Chronic urinary retention
obrien
#Diverting colostomy
colostomy care
DVT ppx hep
GI ppx PPI
Full code
I have spent at least 58min reviewing chart, test results, providing direct patient care
Anticipated Discharge: > 48 hours
Subjective/Interval History
-
Date of Service: September 06, 2024
Objective Data
-
Labs:
Laboratory Results
09/06/24 09/06/24 09/06/24
04:06 10:04 10:41
WBC 8.7 Pending
Hgb 8.5 L Pending
Hct 25.6 L Pending
Plt Count 146 D Pending
APTT 36.5 H
Sodium 143
Potassium 3.8
Chloride 109 H
Carbon Dioxide 27
BUN 13
Creatinine 1.7 H
Glucose 75
Calcium 8.6
Total Bilirubin 0.7
AST 12 L
ALT < 10
Alkaline Phosphatase 86
09/06/24
18:00
WBC
Hgb
Hct
Plt Count
APTT Pending
Sodium
Potassium
Chloride
Carbon Dioxide
BUN
Creatinine
Glucose
Calcium
Total Bilirubin
AST
ALT
Alkaline Phosphatase
Vital Signs:
Vital Signs
Temp Pulse Resp BP Pulse Ox
98.4 F 58 19 105/63 99
09/06/24 08:00 09/06/24 09:00 09/06/24 09:00 09/06/24 09:00 09/06/24 08:30
I&O
09/05/24 09/06/24 09/07/24
06:59 06:59 06:59
Intake Total 684.4 / 684.4 405 / 405
Output Total 495 / 495 780 / 780
Balance 189.4 / 189.4 -375 / -375
Review of Systems
-
History Source: Patient
All other systems: Reviewed and negative
Physical Exam
-
General: No Apparent Distress
HEENT: Normocephalic
Respiratory: Clear to Auscultation
Cardiac: Regular Rhythm
GI: Soft, Nontender and Nondistended
Genito-urinary: Turbid Urine and Obrien
Musculoskeletal: No Clubbing, No Cyanosis and No Edema
Skin: Other (sacral deep wound)
Neuro: Awake, Alert and Other (non-verbal)
Psych: Calm
--- NOTE | 2024-09-06 12:17 | PTCARENOTE ---
pt received this am aox3, forgetful at times, pt with hx of cva, has garbled speech. frequent oral care provided. pt provided total bed bath. right IJ dressing changed, biopatch applied, all lumens flush with good blood return. heparin gtt started
as per order. wound care completed. all safety precautions in place, call lomax within reach. sb to nsr on monitor.
[2024-09-06 17:06] LABS: Glucose - Point of Care 76 mg/dl (70-99)
[2024-09-06 17:53] LABS: APTT > 200 Sec (23.4-35.0)
[2024-09-06 21:18] LABS: Glucose - Point of Care 73 mg/dl (70-99)
[2024-09-07] VITALS (15 sets, daily range): BP systolic 93–127; BP diastolic 53–75; BMI 19.8
[2024-09-07 02:32] LABS: APTT 85.1 Sec (23.4-35.0)
[2024-09-07 05:09] LABS: % Basophils 0.6 % (0-2); % Eosinophils 0.6 % (0-6); % Immature Granulocytes 1.6 % (0-0.5); % Lymphocytes 13.4 % (20.5-51.1); % Monocytes 7.2 % (1.7-9.3); % Neutrophils 76.6 % (42.2-75.2); Absolute Basophils 0.1 10^3/uL (0-0.2); Absolute Eosinophils 0.1 10^3/uL (0-0.7); Absolute Immature Granulocytes 0.2 10^3/uL (0-0.05); Absolute Lymphocytes 1.4 10^3/uL (1.2-3.4); Absolute Monocytes 0.7 10^3/uL (0.1-0.6); Absolute Neutrophils 7.8 10^3/uL (1.4-6.5); Hematocrit 26.5 % (39.0-52.0); Hemoglobin 8.8 g/dL (13.0-18.0); Mean Corp Hgb Conc. 33.2 g/dL (33.0-37.0); Mean Corpuscular Hgb 29.3 pg (27.0-31.0); Mean Corpuscular Volume 88.3 fL (80.0-94.0); Mean Platelet Volume 9.9 fL (7.4-10.4); Nucleated Red Blood Cells % 1.8 % (-); Platelet Count 154 10^3/uL (130-400); Red Cell Dist. Width 17.4 % (11.5-14.5); White Blood Cell Count 10.2 10^3/uL (4.8-10.8)
[2024-09-07] MEDS: UNASYN IV ×2 (05:47→13:37)
[2024-09-07 05:52] LABS: ALT (SGPT) < 10 U/L (0-50); AST (SGOT) 16 U/L (17-59); Albumin 2.8 g/dl (3.5-5.0); Alkaline Phosphatase 87 U/L (38-126); Blood Urea Nitrogen 21 mg/dl (9-20); Calcium 8.7 mg/dl (8.4-10.2); Carbon Dioxide 23 mmol/L (22-30); Chloride 107 mmol/L (98-107); Estimated Creatinine Clearance 34 ml/min; Glucose 74 mg/dl (70-99); Potassium 3.4 mmol/L (3.5-5.1); Sodium 142 mmol/L (135-145); Total Bilirubin 0.7 mg/dl (0.2-1.3); Total Protein 7.6 g/dl (6.3-8.2); eGFR 33.54
[2024-09-07 07:52] LABS: Glucose - Point of Care 83 mg/dl (70-99)
[2024-09-07] MEDS: NOVOLOG FLEXPEN-LOW RESISTANCE SC ×3 (08:09→18:16)
[2024-09-07] MEDS: KEPPRA 250 MG PO ×3 (08:15→21:21)
[2024-09-07] MEDS: BUSPAR 5 MG PO ×2 (08:15→21:21)
[2024-09-07] MEDS: FEOSOL 325 MG PO (08:15)
[2024-09-07] MEDS: LIPITOR 40 MG PO (08:15)
[2024-09-07] MEDS: MYCOSTATIN ORAL SUSPENSION 5 ML PO ×4 (08:16→21:21)
[2024-09-07] MEDS: PROTONIX 40 MG PO (08:16)
[2024-09-07] MEDS: ProAmatine PO ×2 (08:16→13:38)
[2024-09-07] MEDS: DEPAKOTE (12 HR RELEASE) 500 MG PO ×2 (08:16→21:21)
[2024-09-07] MEDS: HYDROPHOR 1 APPLIC TOPICAL (08:17)
[2024-09-07] MEDS: DAKIN'S SOLUTION 0.125% 1/4 STRENGTH 473 ML TOPICAL (08:17)
--- NOTE | 2024-09-07 08:20 | PTCARENOTE ---
Patients ostomy leaking. Appliance changed.
--- NOTE | 2024-09-07 09:37 | PN.CDI ---
CDI
- -
CDI:
Physician Documentation Request
Admit Date: 08/30/24 00:55
Dear Doctor Kira,
09/06 hospitalist progress note contains 'Protein calorie malnutrition with dysphagia'
To ensure the quality of the medical record, based on the above information and the recognized standards for malnutrition , could you please verify in your progress notes which of the following responses best reflects the patient's nutritional
status:
(Specify severity) Malnutrition is/was present and is a clinical diagnosis (please provide additional support in the medical record)
Malnutrition ruled out
Other (please specify)
[place] Criteria ([facility] Hospitalist 2017)
2 or more criteria must be present for either
non severe or severe malnutrition
Note that the criteria differs related to the
presence of an acute or chronic illness
Acute Illness Chronic Illness
Energy Intake Non Severe: <75% for >7 days Non Severe: <75% for >1 month
Severe: <50% for >5 days Severe: <75% for >1 month
Weight Loss Non Severe: 1-2% over 1 week Non Severe: 5% over 1 month
5% over 1 month 7.5% over 3 months
7.5% over 3 months 10% over 6 months
1 year N/A 20% over 1 year
Severe: >2% over 1 week Severe: >5% over 1 month
>5% over 1 month >7.5% over 3 months
>7.5% over 3 months >10% over 6 months
1 year N/A >20% over 1 year
Body Fat Non Severe: Mild Decrease Non Severe: Mild Loss
Severe: Moderate Decrease Severe: Severe Loss
Muscle Mass Non Severe: Mild Decrease Non Severe: Mild Loss
Severe: Moderate Decrease Severe: Severe Loss
Fluid Accumulation Non Severe: Mild Accumulation Non Severe: Mild Accumulation
Severe: Moderate to severe Severe: Moderate to severe
accumulation accumulation
Reduced J2Ee Engineer Strength Non Severe: N/A Non Severe: N/A
Severe: Measurably reduced Severe: Measurably reduced
Use of terms such as suspected, likely, concern for, or probable (associated with a specific diagnosis that is being evaluated, monitored, or treated as if it exists) are acceptable and can be coded in the inpatient setting, when documented at the
time of discharge.
Thank you,
Deonna Pineda RN, BSN
CDI Specialist
tiger text
Please use your independent medical judgment in providing your response.
[2024-09-07] MEDS: ProAmatine 10 MG PO ×2 (11:39→17:53)
--- NOTE | 2024-09-07 11:56 | W.PN.HOSP.TC ---
Addendum entered and electronically signed by Oscar Malone MD 09/07/24 12:51:
Echo without wall motion abnormalities, EF preserved
Original Note:
Today's Communication/Plan
-
cont Abx
discuss intermediate frame tender Abx plan see above
Heparin and switch to ELiquis in AM
Assessment / Plan
Assessment / Plan
53yo M with PMHX of ESRD on HD, R hemiparesis s/p ICH, bedbound, DM admitted with hypotension and lethargy, found septic shock with bacteremia due to osteomyelitis of sacral wound with abscess
A/P:
#sepsis on admiison with Septic shock 2/2 osteomyelitis with bacteremia of the sacral ulcer with concern for necrotizing fasciitis and abscess
7.4 cm abscess in the subcutaneous fat posterior to the left iliac bone extending into the left gluteus villa muscle - draining - cont packing, no need for I&D
ID follows - cont Abx
GenSx - recommended IRAD for 13.1cm right iliacus abscess that was drained on 09/02/24
Bcx with bacteroides aimee, repeated Bcx NTD
WOund Cx Proteus mirabilis, klebsiella pneumoniae and streptococcus species sensitive to zosyn, unasyn - ID planning Abx for 6 weeks till 10/10/24. Now with complication after PICC and complex IV access -will attempt to find intermediate frame tender solution for
Abx either with IRAD for new appropriate line or with ID for Abx that can be given during HD sessions
sacral offloading
Discussed with Plastic Sx - currently not a candidate for flap closure due to acute infection, timing hard to determine since unclear healing potential
#Chronic anemia 2/2 ESRD
Epo as per Nephrology
Cont HD
s/p 1 unit PRBC on 09/03/24
follow CBC
#Seizure d/o
Seizure precautions
cont AED
#Asymptomatic bety
COrtzol and TSH WNL
avoid AVB and CCB
telemetry
Possibly AED induced
#Protein calorie malnutrition with dysphagia
patient self removed NG
on diet as per CONVERSION DEVELOPER
#Chronic hypotension
midodrine
#DM type 1
cont insulin, accuchekcs, DM diet
#HLD
cont lipitor
#Poor oral intake
systems analyst engineer consult
might need TF
#LUE DVT
heparin with eventual Eliquis - anticoagulation agreed with neurologist
Short segment occlusive deep venous thrombosis within the left brachial vein
PICC removed, now with R IJ
#Mild/moderate rectal wall thickening
outpatient sigmoidoscopy
#periportal edema
probably 2/2 IVF during shock resuscitation
Outpatient GI
#Mood d/o
cont meds
#Chronic urinary retention
obrien
#Diverting colostomy
colostomy care
DVT ppx hep
GI ppx PPI
Full code
I have spent at least 58min reviewing chart, test results, providing direct patient care
Anticipated Discharge: > 48 hours
Subjective/Interval History
-
Date of Service: September 07, 2024
Objective Data
-
Labs:
Laboratory Results
09/07/24 09/07/24 09/07/24
02:07 04:57 10:34
WBC 10.2
Hgb 8.8 L
Hct 26.5 L
Plt Count 154
APTT 85.1 H 57.0 H
Sodium 142
Potassium 3.4 L
Chloride 107
Carbon Dioxide 23
BUN 21 H
Creatinine 2.3 H
Glucose 74
Calcium 8.7
Total Bilirubin 0.7
AST 16 L
ALT < 10
Alkaline Phosphatase 87
09/07/24
17:20
WBC
Hgb
Hct
Plt Count
APTT Pending
Sodium
Potassium
Chloride
Carbon Dioxide
BUN
Creatinine
Glucose
Calcium
Total Bilirubin
AST
ALT
Alkaline Phosphatase
Vital Signs:
Vital Signs
Temp Pulse Resp BP Pulse Ox
97.9 F 45 18 125/63 100
09/07/24 11:12 09/07/24 08:00 09/07/24 08:00 09/07/24 08:00 09/06/24 20:00
I&O
09/06/24 09/07/24 09/08/24
06:59 06:59 06:59
Intake Total 405 / 405
Output Total 780 / 780 380 / 380
Balance -375 / -375 -370 / -370
Review of Systems
-
History Source: Patient
All other systems: Reviewed and negative
Physical Exam
-
General: Comfortable
HEENT: Normocephalic
Respiratory: Clear to Auscultation
Cardiac: Regular Rhythm
GI: Soft, Nontender and Nondistended
Musculoskeletal: No Clubbing, No Cyanosis and No Edema
Neuro: Awake, Alert, Oriented, AO x 3, No Motor Deficits (RUE and RLE hemiparesis) and Slurred Speech (chronic)
Psych: Calm
--- NOTE | 2024-09-07 12:18 | W.PN.ID1 ---
Date of Service
Date of Service: September 07, 2024
Today's Communication
DC Unasyn
Start cefepime 2g qMWF with HD plus metronidazole 500mg po bid (as tolerated) x 6 weeks through 10/10/24.
Assessment / Plan
Right iliacus muscle abscess
Left gluteus villa muscle abscess with gas s/p drain placement
Acute osteo of sacrum and left iliac bone
Bacteremia with Bacteroides aimee
Picc associated DVT
Septic Shock - resolved
Chronic sacral decubiti
Chronic sacral osteomyelitis
Hx Intracranial hemorrhage/CVA with right-sided weakness
Seizure disorder
Diabetes mellitus
Hypertension
ESRD�HD
dyslipidemia
History of testicular cancer status post right orchiectomy
chronic obrien
Diverting colostomy
Ambulatory dysfunction
Recommendations:
Repeat blood cultures are no growth to date
Abscess cx: Proteus, Klebsiella, Strep species
Follow drain output
PICC line dc'd due to DVT.
DC Unasyn
Start cefepime 2g qMWF with HD plus metronidazole 500mg po bid (as tolerated) x 6 weeks through 10/10/24.
Continue aggressive wound care, including use of Dakin's solution to control overall bioburden.
Offload sacral area.
Follow white count and temperature curve.
����������������������������������������������������������
Chief Complaint
-: Other (Sacral wound, Osteomyelitis, Gluteal abscess)
Vital Signs / Physical Exam
Vital Signs
Vital Signs
Temp Pulse Resp BP Pulse Ox
97.9 F 45 18 125/63 100
09/07/24 11:12 09/07/24 08:00 09/07/24 08:00 09/07/24 08:00 09/06/24 20:00
Physical Exam
Constitutional: Chronically Ill
Eyes: Pupils Equal and Pupils Round
Cardiovascular: Regular Rate and S1/S2; Negative S3/S4
Pulmonary: Clear and Non Labored
Gastrointestinal: Soft, Non Tender, Non Distended and Normal Bowel Sounds
Wound: Other (Sacral wound dressed.)
Neurological: Awake
Psychological: Calm
Lines: Other (drain - purulent drainage)
Objective Data
Lab Data
Lab Results
09/07/24 04:57
09/07/24 04:57
PT 18.9 Sec (11.4-14.6) H 09/01/24 09:03
INR 1.53 09/01/24 09:03
APTT 57.0 Sec (23.4-35.0) H 09/07/24 10:34
Estimated Creat Clear 34 ml/min 09/07/24 04:57
Lactic Acid Cancelled 08/29/24 23:30
Total Bilirubin 0.7 mg/dl (0.2-1.3) 09/07/24 04:57
AST 16 U/L (17-59) L 09/07/24 04:57
ALT < 10 U/L (0-50) 09/07/24 04:57
Alkaline Phosphatase 87 U/L (38-126) 09/07/24 04:57
Most recent labs reviewed.
Micro Results:
09/02/24 11:49 Anaerobic Culture - Preliminary
Sacral Culture pending. Anaerobic cultures are examined after 3
days incubation. Additional information to follow.
08/29/24 19:25 Blood Culture - Final
Blood/Venous Bacteroides aimee
Gram Stain - Final
08/31/24 13:19 Blood Culture - Final
Blood/Venous No Growth - Final Report
09/02/24 11:49 Wound Culture - Preliminary
Sacral Proteus mirabilis
Streptococcus species
Gram Stain - Preliminary
09/02/24 17:08 Wound Culture - Final
Abscess Proteus mirabilis
Klebsiella pneumoniae
Gram Stain - Final
08/29/24 19:25 Blood Culture - Final
Blood/Venous No Growth - Final Report
08/31/24 03:59 MRSA Screen - Final
Nose No Methicillin Resistant Staphylococcus aureus isolated.
08/29/24 19:25 Urine Culture - Final
Urine
Wound/abscess/other Cult Final 09/02/24
Moderate Proteus mirabilis
Moderate Klebsiella pneumoniae
Organism 1 Proteus mirabilis
Organism 2 Klebsiella pneumoniae
P.MIRABILI K.PNEUMO
M.I.C. RX M.I.C. RX
--------- --- --------- ---
Amoxicillin/Potas. Clavulanate <=8/4 S <=8/4 S
Ampicillin <=8 S >16 R
Ampicillin/Sulbactam <=4/2 S <=4/2 S
Aztreonam <=4 S <=4 S
Cefazolin 4 I <=2 S
Cefepime <=2 S
Ceftazidime <=1 S
Ceftriaxone <=1 S
Ertapenem <=0.5 S <=0.5 S
Ciprofloxacin 0.5 I <=0.25 S
Gentamicin <=2 S <=2 S
Meropenem <=1 S <=1 S
Piperacillin/Tazobactam <=8 S <=8 S
Tetracycline >8 R <=4 S
Tobramycin <=2 S <=2 S
Trimethoprim/Sulfamethoxazole <=2/38 S <=2/38 S
Imaging:
09/01/2024 CT abdomen/pelvis with contrast: A large 8.3 cm ulcer posterior to the right iliac bone and sacroiliac joint is noted. There is severe septic arthritis of the right sacroiliac joint, with adjacent osteomyelitis in the sacrum and right
iliac bone. There is a large 13.1 cm abscess in the right iliac us muscle arising from the anterior margin of the right sacroiliac joint. There is also a large 7.4 cm abscess in the subcutaneous fat posterior to the left iliac bone, extending into
the left gluteus villa muscle. Gas is noted in the tissues. There is chronic osseous destruction of the inferior sacrum and coccyx. Severe bone demineralization is also noted. Please see full dictation for additional detail. Film personally
reviewed.
Care Review
Plan reviewed with: Physician (Dr. Malone)
--- NOTE | 2024-09-07 12:50 | PTCARENOTE ---
Patient repositioned frequently, q30 mins. Patient is able to make needs known. Patient has no c/o pain, sacral dressing changed, Aquaphor to legs and heels, fiber filled boots on. Call lomax in reach.
--- NOTE | 2024-09-07 13:21 | W.PN.NEPH.HD ---
Assessment
-
Seen on HD. increase stool output. VSS, access ok
Progress Note - Hemodialysis
-
Date of Service: September 07, 2024
Duration: 30 minutes and 3 hours
Potassium Bath: 3
Calcium Bath: 2.5
Opti-Dialyzer: 160
Ultrafiltration: Other (no)
Blood Flow: 400
Dialysate Flow: 600
Heparin: 0
EPO: 25704 units
[2024-09-07] MEDS: RETACRIT 10000 UNITS IV (13:45)
[2024-09-07 14:23] LABS: Glucose - Point of Care 78 mg/dl (70-99)
[2024-09-07] MEDS: FLEXBUMIN 25% FOR HEMODIALYSIS 12.5 GRAMS IV (14:48)
[2024-09-07] MEDS: MANNITOL 25% 12.5 GRAMS IV (14:48)
--- NOTE | 2024-09-07 15:08 | CM ---
Patient for probable discharge back to [facility] with prescription for IV Cefepime to be administered with HD on . [facility] liaison notified. Prescription and last HD flow sheets faxed. Update referral forwarded.
[2024-09-07] MEDS: MAXIPIME 2000 MG IV (16:00)
[2024-09-07] MEDS: HEPARIN 25000 UNITS/250 ML IV (16:37)
--- NOTE | 2024-09-07 18:10 | PTCARENOTE ---
1810 POC glucose 68. 4 ounces of juice given. Repeat BS due at 1825.
[2024-09-07 18:18] LABS: Glucose - Point of Care 68 mg/dl (70-99)
[2024-09-07 18:22] LABS: APTT 146.4 Sec (23.4-35.0)
--- NOTE | 2024-09-07 18:25 | PTCARENOTE ---
Repeat BS @ 15 mins was 72. Repeat BS in 1 hour due at 1925.
[2024-09-07 18:41] LABS: Glucose - Point of Care 72 mg/dl (70-99)
[2024-09-07 19:42] LABS: Glucose - Point of Care 106 mg/dl (70-99)
[2024-09-07] MEDS: FLAGYL 500 MG PO (21:21)
[2024-09-08 01:56] LABS: APTT 88.3 Sec (23.4-35.0)
--- NOTE | 2024-09-08 02:19 | PTCARENOTE ---
Arrived to unit around 21:30 via bed. AAOx2-3. Able to make needs known. Heparin gtt infusing through right IJ. No c/o pain or discomfort. Call lomax within reach. Oriented to unit.
[2024-09-08 03:24] LABS: Glucose - Point of Care 105 mg/dl (70-99)
[2024-09-08 03:52] VITALS: BP 131/62
[2024-09-08 07:00] VITALS: BP 144/66
[2024-09-08 08:05] LABS: % Basophils 0.7 % (0-2); % Eosinophils 0.6 % (0-6); % Immature Granulocytes 2.8 % (0-0.5); % Lymphocytes 21.4 % (20.5-51.1); % Monocytes 9.2 % (1.7-9.3); % Neutrophils 65.3 % (42.2-75.2); Absolute Basophils 0.1 10^3/uL (0-0.2); Absolute Eosinophils 0.1 10^3/uL (0-0.7); Absolute Immature Granulocytes 0.3 10^3/uL (0-0.05); Absolute Lymphocytes 2.1 10^3/uL (1.2-3.4); Absolute Monocytes 0.9 10^3/uL (0.1-0.6); Absolute Neutrophils 6.3 10^3/uL (1.4-6.5); Hematocrit 26.3 % (39.0-52.0); Hemoglobin 8.7 g/dL (13.0-18.0); Mean Corp Hgb Conc. 33.1 g/dL (33.0-37.0); Mean Corpuscular Hgb 29.5 pg (27.0-31.0); Mean Corpuscular Volume 89.2 fL (80.0-94.0); Mean Platelet Volume 10.2 fL (7.4-10.4); Nucleated Red Blood Cells % 2.4 % (-); Platelet Count 152 10^3/uL (130-400); Red Blood Cell Count 2.95 10^6/uL (4.70-6.10); Red Cell Dist. Width 17.9 % (11.5-14.5); White Blood Cell Count 9.7 10^3/uL (4.8-10.8)
[2024-09-08 08:19] LABS: APTT 73.7 Sec (23.4-35.0)
[2024-09-08 08:43] LABS: ALT (SGPT) < 10 U/L (0-50); AST (SGOT) 13 U/L (17-59); Albumin 2.7 g/dl (3.5-5.0); Alkaline Phosphatase 85 U/L (38-126); Blood Urea Nitrogen 10 mg/dl (9-20); Calcium 8.5 mg/dl (8.4-10.2); Carbon Dioxide 25 mmol/L (22-30); Chloride 106 mmol/L (98-107); Estimated Creatinine Clearance 48 ml/min; Glucose 71 mg/dl (70-99); Potassium 4.3 mmol/L (3.5-5.1); Sodium 139 mmol/L (135-145); Total Bilirubin 0.6 mg/dl (0.2-1.3); Total Protein 7.6 g/dl (6.3-8.2); eGFR 51.84
--- NOTE | 2024-09-08 10:08 | WOUNDNOTE ---
R GREAT TOE TIP
[2024-09-08 10:10] LABS: Glucose - Point of Care 71 mg/dl (70-99)
--- NOTE | 2024-09-08 10:10 | WOUNDNOTE ---
[facility] RN note: Patient's sacral ulcer about the same, wound clean with purulent drainage from undermining from 7-8 o'clock. History of chronic sacral OM. Skin on heels intact with chronic discolored skin areas. L lateral forefoot with discolored skin
area (appears chronic). L lateral falcon linear discolored area remains (not new). PO intake varies. He stated he's hungry for breakfast. Patient colostomy appliance is intact. IR drain intact RLQ. Patient incontinent of small mushy stool. Francisca care
given. Sacral dressing/packing changed. Patient's Aquaphor ointment applied to dry skin and heels. Protective silicone border foam applied to L lateral calf and L lateral forefoot. TruVue lite boots reapplied. Patient turned to L semi side lying
position with help from RN Walker. Patient is on a static air overlay. ID following. Will follow as needed.
[2024-09-08] MEDS: NOVOLOG FLEXPEN-LOW RESISTANCE SC ×2 (10:11→12:09)
[2024-09-08] MEDS: KEPPRA 250 MG PO ×2 (10:11→15:42)
[2024-09-08] MEDS: MYCOSTATIN ORAL SUSPENSION 5 ML PO ×2 (10:11→12:45)
[2024-09-08] MEDS: FEOSOL 325 MG PO (10:13)
[2024-09-08] MEDS: ProAmatine PO (10:13)
[2024-09-08] MEDS: BUSPAR 5 MG PO (10:14)
[2024-09-08] MEDS: DEPAKOTE (12 HR RELEASE) 500 MG PO (10:14)
[2024-09-08] MEDS: PROTONIX 40 MG PO (10:14)
[2024-09-08] MEDS: DAKIN'S SOLUTION 0.125% 1/4 STRENGTH 30 ML TOPICAL (10:15)
[2024-09-08] MEDS: FLAGYL 500 MG PO (10:15)
[2024-09-08] MEDS: LIPITOR 40 MG PO (10:15)
[2024-09-08] MEDS: HYDROPHOR 1 APPLIC TOPICAL (10:16)
--- NOTE | 2024-09-08 10:57 | W.PN.ID1 ---
Date of Service
Date of Service: September 08, 2024
Today's Communication
Continue cefepime 2g qMWF with HD plus metronidazole 500mg po bid (as tolerated) x 6 weeks through 10/10/24.
Assessment / Plan
Right iliacus muscle abscess
Left gluteus villa muscle abscess with gas s/p drain placement
Acute osteo of sacrum and left iliac bone
Bacteremia with Bacteroides aimee
Picc associated DVT
Septic Shock - resolved
Chronic sacral decubiti
Chronic sacral osteomyelitis
Hx Intracranial hemorrhage/CVA with right-sided weakness
Seizure disorder
Diabetes mellitus
Hypertension
ESRD�HD
dyslipidemia
History of testicular cancer status post right orchiectomy
chronic obrien
Diverting colostomy
Ambulatory dysfunction
Recommendations:
Repeat blood cultures are no growth to date
Abscess cx: Proteus, Klebsiella, Strep species, Bacteroides
Follow drain output
PICC line dc'd due to DVT.
Continue cefepime 2g qMWF with HD plus metronidazole 500mg po bid (as tolerated) x 6 weeks through 10/10/24.
Infusion sheet submitted to Case Management 09/07.
Continue aggressive wound care, including use of Dakin's solution to control overall bioburden.
Offload sacral area.
����������������������������������������������������������
Chief Complaint
-: Other (Sacral wound, Osteomyelitis, Gluteal abscess)
Subjective / Review of Systems
Hungry, waiting for breakfast.
Vital Signs / Physical Exam
Vital Signs
Vital Signs
Temp Pulse Resp BP Pulse Ox
98.4 F 62 17 144/66 100
09/08/24 07:00 09/08/24 07:00 09/08/24 07:00 09/08/24 07:00 09/08/24 07:00
Physical Exam
Constitutional: Chronically Ill
Eyes: Pupils Equal and Pupils Round
Cardiovascular: Regular Rate and S1/S2; Negative S3/S4
Pulmonary: Clear and Non Labored
Gastrointestinal: Soft, Non Tender, Non Distended and Normal Bowel Sounds
Wound: Other (Sacral wound dressed; SHAILA drain minimal output.)
Neurological: AO x 3
Lines: Other (drain - purulent drainage)
Objective Data
Lab Data
Lab Results
09/08/24 07:35
09/08/24 07:35
PT 18.9 Sec (11.4-14.6) H 09/01/24 09:03
INR 1.53 09/01/24 09:03
APTT 73.7 Sec (23.4-35.0) H 09/08/24 07:35
Estimated Creat Clear 48 ml/min 09/08/24 07:35
Lactic Acid Cancelled 08/29/24 23:30
Total Bilirubin 0.6 mg/dl (0.2-1.3) 09/08/24 07:35
AST 13 U/L (17-59) L 09/08/24 07:35
ALT < 10 U/L (0-50) 09/08/24 07:35
Alkaline Phosphatase 85 U/L (38-126) 09/08/24 07:35
Most recent labs reviewed.
Micro Results:
09/02/24 11:49 Anaerobic Culture - Final
Sacral Bacteroides oralis
Bacteroides uniformis
Anaerobic Gram Pos Bacilli
09/02/24 11:49 Wound Culture - Final
Sacral Proteus mirabilis
Streptococcus species
Gram Stain - Final
08/29/24 19:25 Blood Culture - Final
Blood/Venous Bacteroides aimee
Gram Stain - Final
08/31/24 13:19 Blood Culture - Final
Blood/Venous No Growth - Final Report
09/02/24 17:08 Wound Culture - Final
Abscess Proteus mirabilis
Klebsiella pneumoniae
Gram Stain - Final
08/29/24 19:25 Blood Culture - Final
Blood/Venous No Growth - Final Report
08/31/24 03:59 MRSA Screen - Final
Nose No Methicillin Resistant Staphylococcus aureus isolated.
08/29/24 19:25 Urine Culture - Final
Urine
Wound/abscess/other Cult Final 09/02/24
Moderate Proteus mirabilis
Moderate Klebsiella pneumoniae
Organism 1 Proteus mirabilis
Organism 2 Klebsiella pneumoniae
P.MIRABILI K.PNEUMO
M.I.C. RX M.I.C. RX
--------- --- --------- ---
Amoxicillin/Potas. Clavulanate <=8/4 S <=8/4 S
Ampicillin <=8 S >16 R
Ampicillin/Sulbactam <=4/2 S <=4/2 S
Aztreonam <=4 S <=4 S
Cefazolin 4 I <=2 S
Cefepime <=2 S
Ceftazidime <=1 S
Ceftriaxone <=1 S
Ertapenem <=0.5 S <=0.5 S
Ciprofloxacin 0.5 I <=0.25 S
Gentamicin <=2 S <=2 S
Meropenem <=1 S <=1 S
Piperacillin/Tazobactam <=8 S <=8 S
Tetracycline >8 R <=4 S
Tobramycin <=2 S <=2 S
Trimethoprim/Sulfamethoxazole <=2/38 S <=2/38 S
Imaging:
09/01/2024 CT abdomen/pelvis with contrast: A large 8.3 cm ulcer posterior to the right iliac bone and sacroiliac joint is noted. There is severe septic arthritis of the right sacroiliac joint, with adjacent osteomyelitis in the sacrum and right
iliac bone. There is a large 13.1 cm abscess in the right iliac us muscle arising from the anterior margin of the right sacroiliac joint. There is also a large 7.4 cm abscess in the subcutaneous fat posterior to the left iliac bone, extending into
the left gluteus villa muscle. Gas is noted in the tissues. There is chronic osseous destruction of the inferior sacrum and coccyx. Severe bone demineralization is also noted. Please see full dictation for additional detail. Film personally
reviewed.
Care Review
Plan reviewed with: Physician (Dr. Malone)
[2024-09-08 11:00] VITALS: BP 108/65
--- NOTE | 2024-09-08 11:54 | W.PN.HOSP.TC ---
Today's Communication/Plan
-
dc
Assessment / Plan
Assessment / Plan
53yo M with PMHX of ESRD on HD, R hemiparesis s/p ICH, bedbound, DM admitted with hypotension and lethargy, found septic shock with bacteremia due to osteomyelitis of sacral wound with abscess. ID recommended cefepime 2g qMWF with HD plus
metronidazole 500mg po bid (as tolerated) x 6 weeks through 10/10/24. Discussed with Plastic Sx - currently not a candidate for flap closure due to acute infection, timing hard to determine since unclear healing potential . Medically stable for d/c
back to [facility]
A/P:
#sepsis on admiison with Septic shock 2/2 osteomyelitis with bacteremia of the sacral ulcer with concern for necrotizing fasciitis and abscess
7.4 cm abscess in the subcutaneous fat posterior to the left iliac bone extending into the left gluteus villa muscle - draining - cont packing, no need for I&D
ID follows - cont Abx
GenSx - recommended IRAD for 13.1cm right iliacus abscess that was drained on 09/02/24
Bcx with bacteroides aimee, repeated Bcx NTD
WOund Cx Proteus mirabilis, klebsiella pneumoniae and streptococcus species sensitive to zosyn, unasyn - ID planning Abx for 6 weeks till 10/10/24. Now with complication after PICC and complex IV access -will attempt to cefepime 2g qMWF with HD plus
metronidazole 500mg po bid (as tolerated) x 6 weeks through 10/10/24
Discussed with Plastic Sx - currently not a candidate for flap closure due to acute infection, timing hard to determine since unclear healing potential
#Chronic anemia 2/2 ESRD
Epo as per Nephrology
Cont HD
s/p 1 unit PRBC on 09/03/24
follow CBC
#Seizure d/o
Seizure precautions
cont AED
#Asymptomatic bety
COrtzol and TSH WNL
avoid AVB and CCB
telemetry
Possibly AED induced
#Protein calorie malnutrition with dysphagia
patient self removed NG
on diet as per OPEN DIE INSPECTOR
#Chronic hypotension
midodrine
#DM type unspecified
cont insulin, accuchekcs, DM diet
#HLD
cont lipitor
#Poor oral intake
coal unloader consult
might need TF
#LUE DVT
heparin with eventual Eliquis - anticoagulation agreed with neurologist
Short segment occlusive deep venous thrombosis within the left brachial vein
PICC removed, now with R IJ
#Mild/moderate rectal wall thickening
outpatient sigmoidoscopy
#periportal edema
probably 2/2 IVF during shock resuscitation
Outpatient GI
#Mood d/o
cont meds
#Chronic urinary retention
obrien
#Diverting colostomy
colostomy care
DVT ppx hep
GI ppx PPI
Full code
I have spent at least 38min reviewing chart, test results, providing direct patient care
Anticipated Discharge: Today
Subjective/Interval History
-
Date of Service: September 08, 2024
Objective Data
-
Labs:
Laboratory Results
09/08/24 09/08/24
01:36 07:35
WBC 9.7
Hgb 8.7 L
Hct 26.3 L
Plt Count 152
APTT 88.3 H 73.7 H
Sodium 139
Potassium 4.3 D
Chloride 106
Carbon Dioxide 25
BUN 10
Creatinine 1.6 H
Glucose 71
Calcium 8.5
Total Bilirubin 0.6
AST 13 L
ALT < 10
Alkaline Phosphatase 85
Vital Signs:
Vital Signs
Temp Pulse Resp BP Pulse Ox
98.4 F 62 17 144/66 100
09/08/24 07:00 09/08/24 07:00 09/08/24 07:00 09/08/24 07:00 09/08/24 07:00
I&O
09/07/24 09/08/24 09/09/24
06:59 06:59 06:59
Intake Total 820 / 820
Output Total 380 / 380 1172 / 1172
Balance -370 / -370 -352 / -352
Review of Systems
-
History Source: Patient
All other systems: Reviewed and negative
Physical Exam
-
General: No Apparent Distress and Comfortable
Respiratory: Clear to Auscultation
Cardiac: Regular Rhythm
Neuro: Awake, Alert and Slurred Speech (chronic)
Psych: Calm
[2024-09-08 12:04] LABS: Glucose - Point of Care 96 mg/dl (70-99)
--- NOTE | 2024-09-08 12:07 | W.DCSUMMARY ---
Discharge Summary
Discharge Data
Date of Admission: 08/30/24
Date of Discharge: 09/08/24
-
Pending Results: No
Hospital Course
53yo M with PMHX of ESRD on HD, R hemiparesis s/p ICH, bedbound, DM admitted with hypotension and lethargy, found septic shock with bacteremia due to osteomyelitis of sacral wound with abscess. ID recommended cefepime 2g qMWF with HD plus
metronidazole 500mg po bid (as tolerated) x 6 weeks through 10/10/24. Discussed with Plastic Sx - currently not a candidate for flap closure due to acute infection, timing hard to determine since unclear healing potential. Bumex and carvidelol
stopped 2/2 hypotension and bradycardia. Eliquis for provoked UE DVT to cont for at least 3mo. Outpatient sygmoidoscopy advised - Colorectal Surgery referral provided
Medically stable for d/c back to [facility]
I have spent at least 38min reviewing chart, test results, providing direct patient care
Patient was managed for:
#sepsis on admission with Septic shock 2/2 osteomyelitis with bacteremia of the sacral ulcer with concern for necrotizing fasciitis and abscess
#Chronic anemia 2/2 ESRD
#Seizure d/o
#Asymptomatic bety
#Protein calorie malnutrition with dysphagia
#Chronic hypotension
#DM type unspecified
#HLD
#Poor oral intake
#LUE DVT
#Mild/moderate rectal wall thickening
#periportal edema
#Mood d/o
#Chronic urinary retention
#Diverting colostomy
Discharge Plan
-
Patient Disposition: Assisted/SNF
Discharge Diagnosis/Procedures: Sacral wound with OM
Diet: Other diet
Additional Diets: Minced and moist, diabetic
Activity: As tolerated
Activity Restrictions/Additional Instructions:
1. Cefepime 2g qMWF with HD through 10/10/24
2. Metronidazole 500mg po bid (as tolerated) through 10/10/24.
3. Weekly CBC, CMP, CRP while on antibiotic.
Wound Care Instructions
Sacrum and L of sacrum: Dakin's moistened Kerlix or gauze, to dry dressing daily.
Heels: skin prep and adhesive or Silicone foams change q 3 days and prn soilage.
fiber filled boots
moisturize legs and feet daily
air mattress
Referrals:
Sumeet Mohr MD [Active] - in three to four weeks (consider sigmoidoscopy for rectal wall thickening )
NONE,* [Family Provider] -
Donal Amor DO [Active] - in six weeks
Additional Discharge Medication Instructions: cefepime 2g qMWF with HD plus metronidazole 500mg po bid (as tolerated) x 6 weeks through 10/10/24
Prescriptions:
New
metronidazole 500 mg Tablet
500 mg PO BID Qty: 90 0RF
white petrolatum [Hydrophor] 42 % Ointment
1 applic topical DAILY Qty: 0 0RF
nystatin 100,000 unit/mL Suspension
5 ml PO QID 3 Days Qty: 60 0RF
cefepime 2 gram Recon Soln
2,000 mg IV MoWeFr@1800 Qty: 0 0RF
midodrine 5 mg Tablet
10 mg PO TID@0800,1300,1800 Qty: 90 0RF
Eliquis DVT-PE Treat 30D Start 5 mg (74 tabs) tablets,dose pack
5 mg PO ONCE Qty: 74 0RF
Rx Instructions:
take 10 mg BID for 13 doses, then 5mg BID until told to stop by the doctor
Continued
ipratropium-albuterol 0.5 mg-3 mg(2.5 mg base)/3 mL Solution For Nebulization
3 ml INHALATION R Q4HPRN PRN (Reason: sob)
ondansetron HCl 4 mg Tablet
4 mg PO Q6HPRN PRN (Reason: nausea/vomiting)
insulin aspart U-100 100 unit/mL Solution
1 sliding scale dose SC ACHS
Patient Comments:
Rx Instructions:
if 150-200= 2 units; 201-250= 4 units; 251-300= 6 units; 301-350= 8 units; 351-400= 10 units.
pantoprazole 40 mg Tablet,Delayed Release (Dr/Ec)
40 mg PO DAILY
ferrous sulfate 325 mg (65 mg iron) Tablet
325 mg PO DAILY
ascorbic acid (vitamin C) [Vitamin C] 1,000 mg Tablet
1,000 mg PO DAILY
acetaminophen 325 mg Tablet
650 mg PO Q4HPRN PRN (Reason: mild pain)
lidocaine-prilocaine 2.5-2.5 % Cream
1 applic TOPICAL MOWEFR
Rx Instructions:
apply to right avg 1 hr prior to HD TX.
atorvastatin 40 mg Tablet
40 mg PO DAILY
bisacodyl 10 mg Suppository
10 mg KS DAILYPRN PRN (Reason: if no bm aftr mom)
divalproex [Depakote] 500 mg tablet,delayed release (DR/EC)
500 mg PO BID
heparin (porcine) 5,000 unit/mL Solution
5,000 unit SC Q12H Qty: 0 0RF
oxycodone 10 mg tablet
10 mg PO Q4HPRN PRN (Reason: severe pain) Qty: 10 0RF
levetiracetam [Keppra] 750 mg tablet
250 mg PO TID
insulin glargine [Lantus Solostar U-100 Insulin] 100 unit/mL (3 mL) Insulin Pen
10 unit SC HS
Vashe 0.033 % Irrigation Solution
1 irrig IRRIGATION BID
Discontinued
carvedilol [Coreg] 25 mg Tablet
25 mg PO Q12H
bumetanide 2 mg Tablet
2 mg PO DAILY
midodrine 10 mg Tablet
10 mg PO MOWEFR
Lokelma 10 gram Powder In Packet
10 g PO TUTHSA
Discharge Orders:
Discharge Patient (As Directed); Ordered 09/08/24
Ordered By: Oscar Malone
Discharge Date and Time
Print Language: SINHALA
--- NOTE | 2024-09-08 12:15 | CM ---
Addendum entered by Pat Norwood 09/08/24 12:43:
Patient scheduled for 4:00 p.m. ambulance transport
Original Note:
CM reviewed chart, patient seen bedside, for discharge today, plan return to [facility]. Patient receiving IV antibiotics to be administered with HD on M,W,Fr. IMM reviewed with patient verbally, provided with copy, placed in chart. Patient
will require ambulance transport upon d/c, forms on chart. Update to [facility] liaison on d.c plan. CM will continue to follow for all discharge planning needs.
Plan; return to [facility], ambulance transport
[facility] nursing report: [phone]
Discharge instructions fax: [phone]
--- NOTE | 2024-09-08 12:19 | W.PN.NEPH.PH ---
Today's Communication / Plan
-
DC
Assessment/Plan
-
Impression:
Anemia
End-stage renal disease Thursday [place]
Type 2 diabetes
Seizure disorder
Hypotension
History of Colostomy
Chronic [place] catheter
Anemia
History of CVA with right-sided hemiparesis
*septic arthritis of the right sacroiliac joint with osteo of the sacrum
*7.4 cm abscess in the subcutaneous fat posterior to the left iliac bone with drain
Left basilic vein thrombus
Plan:
Continue outpatient midodrine dosing 10 mg 3 times daily
Antibiotics per primary team until October 10
Next dialysis tomorrow at outpatient unit
For DC
-
-
Date of Service: September 08, 2024
CC / HPI / ROS
-
Chief Complaint:
ESRD
History of Present Illness:
ESRD Thursday with bacteremia
Tolerated dialysis yesterday
BP stable on midodrine
Hemoglobin stable 8.7
Review of Systems:
No chest pain or shortness of breath
Labs
-
Labs:
WBC 9.7 10^3/uL (4.8-10.8) 09/08/24 07:35
RBC 2.95 10^6/uL (4.70-6.10) L 09/08/24 07:35
Hgb 8.7 g/dL (13.0-18.0) L 09/08/24 07:35
Hct 26.3 % (39.0-52.0) L 09/08/24 07:35
Plt Count 152 10^3/uL (130-400) 09/08/24 07:35
Sodium 139 mmol/L (135-145) 09/08/24 07:35
Potassium 4.3 mmol/L (3.5-5.1) D 09/08/24 07:35
Chloride 106 mmol/L (98-107) 09/08/24 07:35
Carbon Dioxide 25 mmol/L (22-30) 09/08/24 07:35
BUN 10 mg/dl (9-20) 09/08/24 07:35
Creatinine 1.6 mg/dL (0.7-1.3) H 09/08/24 07:35
eGFR 51.84 09/08/24 07:35
Glucose 71 mg/dl (70-99) 09/08/24 07:35
Calcium 8.5 mg/dl (8.4-10.2) 09/08/24 07:35
Phosphorus 2.1 mg/dl (2.5-4.5) L 09/01/24 04:05
Albumin 2.7 g/dl (3.5-5.0) L 09/08/24 07:35
Physical Exam
-
Vital Signs:
Vital Signs
Temp Pulse Resp BP Pulse Ox
98.4 F 62 17 144/66 100
09/08/24 07:00 09/08/24 07:00 09/08/24 07:00 09/08/24 07:00 09/08/24 07:00
Cardiovascular:: Regular rate and rhythm
Respiratory:: Bilateral: Coarse
Lung Excursion:: Normal
Abdomen:: Nontender and Soft
Bowel Sounds:: Normal
Extremity Edema:: None: Bilateral:
[2024-09-08] MEDS: ELIQUIS 10 MG PO (12:42)
[2024-09-08] MEDS: ProAmatine 10 MG PO (12:43)
== END 2024-09-08 16:24 | DRG 871 ==
LOC: 4 WEST ACU 00:55
PROVIDERS: Hospitalist; Internal Medicine Critical Care Medicine; Internal Medicine Nephrology; Radiology Diagnostic Radiology; Radiology Vascular & Interventional Radiology; Specialist; ADMITTING PHYSICIAN Hospitalist; ATTENDING PHYSICIAN Internal Medicine; CONSULT PHYSICIAN Internal Medicine; CONSULT PHYSICIAN Psychiatry & Neurology Clinical Neurophysiology; CONSULT PHYSICIAN Specialist; CONSULT PHYSICIAN Surgery; EMERGENCY PHYSICIAN Emergency Medicine; OTHER PHYSICIAN Internal Medicine Infectious Disease
PROC: 5A1D70Z Performance of Urinary Filtration, Intermittent, Less than 6 Hours Per Day (ICD-10-PCS; 2024-08-31)
PROC: 02HV33Z Insertion of Infusion Device into Superior Vena Cava, Percutaneous Approach (ICD-10-PCS; 2024-08-31)
PROC: 02PYX3Z Removal of Infusion Device from Great Vessel, External Approach (ICD-10-PCS; 2024-09-01)
PROC: 06HY33Z Insertion of Infusion Device into Lower Vein, Percutaneous Approach (ICD-10-PCS; 2024-09-01)
PROC: 0J9C30Z Drainage of Pelvic Region Subcutaneous Tissue and Fascia with Drainage Device, Percutaneous Approach (ICD-10-PCS; 2024-09-02)
PROC: 30243N1 Transfusion of Nonautologous Red Blood Cells into Central Vein, Percutaneous Approach (ICD-10-PCS; 2024-09-03)
PROC: B5181ZA Fluoroscopy of Superior Vena Cava using Low Osmolar Contrast, Guidance (ICD-10-PCS; 2024-09-05)
PROC: 0DH67UZ Insertion of Feeding Device into Stomach, Via Natural or Artificial Opening (ICD-10-PCS; 2024-09-05)
PROC: 02H633Z Insertion of Infusion Device into Right Atrium, Percutaneous Approach (ICD-10-PCS; 2024-09-05)
DX: A41.59 Other Gram-negative sepsis (principal); K68.12 Psoas muscle abscess; L89.154 Pressure ulcer of sacral region, stage 4; N18.6 End stage renal disease; R65.21 Severe sepsis with septic shock; M72.6 Necrotizing fasciitis; I12.0 Hypertensive chronic kidney disease with stage 5 chronic kidney disease or end stage renal disease; E46 Unspecified protein-calorie malnutrition; N39.0 Urinary tract infection, site not specified; M86.68 Other chronic osteomyelitis, other site; T82.868A Thrombosis due to vascular prosthetic devices, implants and grafts, initial encounter; I82.622 Acute embolism and thrombosis of deep veins of left upper extremity; M46.28 Osteomyelitis of vertebra, sacral and sacrococcygeal region; L02.214 Cutaneous abscess of groin; M00.251 Other streptococcal arthritis, right hip; B37.0 Candidal stomatitis; Z68.1 Body mass index [BMI] 19.9 or less, adult; I69.251 Hemiplegia and hemiparesis following other nontraumatic intracranial hemorrhage affecting right dominant side; R26.2 Difficulty in walking, not elsewhere classified; I95.9 Hypotension, unspecified; B95.4 Other streptococcus as the cause of diseases classified elsewhere; E11.22 Type 2 diabetes mellitus with diabetic chronic kidney disease; I25.10 Atherosclerotic heart disease of native coronary artery without angina pectoris; E11.69 Type 2 diabetes mellitus with other specified complication; D63.1 Anemia in chronic kidney disease; I95.89 Other hypotension; E78.00 Pure hypercholesterolemia, unspecified; R13.10 Dysphagia, unspecified; F39 Unspecified mood [affective] disorder; G40.909 Epilepsy, unspecified, not intractable, without status epilepticus; Y84.8 Other medical procedures as the cause of abnormal reaction of the patient, or of later complication, without mention of misadventure at the time of the procedure; Y92.239 Unspecified place in hospital as the place of occurrence of the external cause; Y71.2 Prosthetic and other implants, materials and accessory cardiovascular devices associated with adverse incidents; R45.89 Other symptoms and signs involving emotional state; Z99.2 Dependence on renal dialysis; Z90.49 Acquired absence of other specified parts of digestive tract; Z93.3 Colostomy status; Z87.891 Personal history of nicotine dependence; Z74.01 Bed confinement status; Z85.47 Personal history of malignant neoplasm of testis; Z91.018 Allergy to other foods; Z79.4 Long term (current) use of insulin; Z90.79 Acquired absence of other genital organ(s)
CPT/HCPCS: 36556; 49406; 71045; 71046; 74177; 76937; 77001; 80048; 80053; 81003; 81015; 82533; 82962; 83036; 83605; 83735; 84100; 84443; 85014; 85018; 85025; 85027; 85610; 85730; 86706; 86850; 86900; 86901; 86920; 87040; 87070; 87075; 87076; 87077; 87086; 87149; 87185; 87186; 87205; 87340; 92526; 92610; 93005; 93306; 93971; 96361; 96365; 96367; 99152; 99291; C1751; G0257; P9016; P9047; Q5106; Q9967

== ENCOUNTER 2024-09-30 17:48 | Inpatient (IN) | payer MEDICARE, OTHER, SELFPAY ==
[2024-09-30] VITALS (12 sets, daily range): BP systolic 108–149; BP diastolic 63–82; BMI 22.4; BMI 20.3
[2024-09-30 09:00] LABS: Glucose - Point of Care 73 mg/dl (70-99)
--- NOTE | 2024-09-30 09:19 | ED.GENMED ---
History of Present Illness
<ADEBAYO Castellon Jr. Last Filed: 09/30/24 11:40>
General
Chief Complaint: Blood Sugar Problem
Source: ambulance crew and [facility]
Exam Limitations: clinical condition
Time Seen by Provider: 09/30/24 08:55
Nursing documentation reviewed up to this point in time: agreed with
History of Present Illness
History of Present Illness:
53-year-old male significant past medical history of stroke seizures hypertension hyperlipidemia, colostomy in place end-stage renal disease currently on hemodialysis, nasal dependent diabetes sacral decubitus ulcer with iliac us abscess treated
with SHAILA drain at this point on IV antibiotics presenting to the emergency department today with concerns of hypotension hypoglycemia that staff noted this morning prior to going to dialysis. He did not receive his dialysis session. He denies any
specific symptoms at this point.
Past History
<ADEBAYO Castellon Jr. Last Filed: 09/30/24 11:40>
Past History
ED Past Medical History: CVA, HTN, Hypercholesterolemia, NIDDM, Renal failure and Seizures
ED Past Surgical History: Urological
Social History
Tobacco: Former smoker
Alcohol: None
Drug: None
Personal:
Living: [facility]
Employment: Not employed
Family History
Family History: Hypertension
Review of Systems
<ADEBAYO Castellon Jr. Last Filed: 09/30/24 11:40>
Review of Systems
Allergies reviewed?: Yes
All Other Systems: ROS reviewed and negative except as documented in HPI and ROS
Phy Exam
<ADEBAYO Castlelon Jr. Last Filed: 09/30/24 11:40>
Physical Exam
Physical Exam:
GENERAL: Alert , in no apparent distress
EYE: pupils equal and reactive
NECK: Supple, no significant adenopathy.
ENT: o/p clr, mmm.
CARDIAC: Regular rate and rhythm .
LUNGS: Clear breath sounds bilaterally, no acute respiratory distress, no wheezes/rales/rhonchi
ABDOMEN: Colostomy in place left side of the abdomen SHAILA drain to the right lower yellow-green fluid soft, without focal tenderness, no r/g, no cvat
NEUROLOGICAL: Alert and oriented, no focal neuro deficits
SKIN: Sacral decubitus ulcer warm and dry, skin intact.
MUSCULOSKELETAL: Boots on his feet
Course
<Gal Raza Jr., PA-C - Last Filed: 09/30/24 11:40>
Orders/Labs/Results
Orders:
Orders
09/30/24 09:10
EKG [Electrocardiogram (*1)] Urgent
Reason for Study: Fatigue / Weakness
EKG- Treatment ONCE
Lactic Acid Urgent
09/30/24 09:11
CMP [Comprehensive Metabolic Panel] Urgent
Complete Blood Count/With Diff Urgent
09/30/24 09:15
Blood Culture Q30M
MARCO ANTONIO Source: Blood/Venous
Specimen Description:
09/30/24 09:39
Urinalysis Reflex To Culture Urgent
Urine Microscopic Reflex Cult Urgent
Urine Culture Urgent
MARCO ANTONIO Source: U
Specimen Description:
09/30/24 09:45
Blood Culture Q30M
MARCO ANTONIO Source: Blood/Venous
Specimen Description:
09/30/24 09:58
Dextrose 50%-Water [Dextrose 50% Syringe] 12.5 grams IV NOW STA
09/30/24 10:00
Dextrose 10%/Water 250 ml [D10w] 250 ml IV 200 mls/hr
09/30/24 10:21
Dextrose 50%-Water [Dextrose 50% Syringe] 12.5 grams IV NOW STA
09/30/24 11:00
Dextrose 5%/0.45%Sodchl 500 ml [D5/0.45%NaCl] 500 ml IV 250 mls/hr
09/30/24 11:03
CefTRIAXone [Rocephin] 2,000 mg IV NOW STA
Abnormal Lab Results
09/30/24 09/30/24 09/30/24
09:11 09:39 09:57
RBC 2.78 L 10^6/uL
(4.70-6.10)
Hgb 9.0 L g/dL
(13.0-18.0)
Hct 26.7 L %
(39.0-52.0)
MCV 96.0 H fL
(80.0-94.0)
MCH 32.4 H pg
(27.0-31.0)
RDW 22.2 H %
(11.5-14.5)
Immature Gran % 0.6 H %
(0-0.5)
Lymphocytes % 17.8 L %
(20.5-51.1)
Chloride 109 H mmol/L
(98-107)
BUN 46 H mg/dl
(9-20)
Creatinine 2.3 H mg/dL
(0.7-1.3)
Glucose 69 L mg/dl
(70-99)
Alkaline Phosphatase 209 H U/L
(38-126)
Albumin 2.6 L g/dl
(3.5-5.0)
Ur Occult Blood Reflex 4+ A
(Negative)
Leukocyte Esterase Rfl 3+ A
(Negative)
Urine RBC 11-15 A /HPF
(0-2)
Urine WBC (Reflex) >100 A /HPF
(0-5)
Urine Bacteria (Reflex) Few A
(Negative)
Urine Albumin (Reflex) 3+ A
(Neg - Trace)
POC Glucose 69 L mg/dl
(70-99)
09/30/24
10:19
RBC
Hgb
Hct
MCV
MCH
RDW
Immature Gran %
Lymphocytes %
Chloride
BUN
Creatinine
Glucose
Alkaline Phosphatase
Albumin
Ur Occult Blood Reflex
Leukocyte Esterase Rfl
Urine RBC
Urine WBC (Reflex)
Urine Bacteria (Reflex)
Urine Albumin (Reflex)
POC Glucose 69 L mg/dl
(70-99)
09/30/24 09:11
09/30/24 09:11
Vital Signs
Initial and Last Documented VS:
Initial Vital Signs
Pulse Resp Pulse Ox
74 17 100
09/30/24 08:59 09/30/24 08:59 09/30/24 08:59
Last Documented Vital Signs
Temp Pulse Resp BP Pulse Ox
97.6 F 63 14 131/66 100
09/30/24 09:26 09/30/24 10:15 09/30/24 09:15 09/30/24 10:00 09/30/24 10:15
<Nikita Kruse, DO - Last Filed: 09/30/24 10:59>
Orders/Labs/Results
Orders:
Orders
09/30/24 09:10
EKG [Electrocardiogram (*1)] Urgent
Reason for Study: Fatigue / Weakness
EKG- Treatment ONCE
Lactic Acid Urgent
09/30/24 09:11
CMP [Comprehensive Metabolic Panel] Urgent
Complete Blood Count/With Diff Urgent
09/30/24 09:15
Blood Culture Q30M
MARCO ANTONIO Source: Blood/Venous
Specimen Description:
09/30/24 09:39
Urinalysis Reflex To Culture Urgent
Urine Microscopic Reflex Cult Urgent
Urine Culture Urgent
MARCO ANTONIO Source: U
Specimen Description:
09/30/24 09:45
Blood Culture Q30M
MARCO ANTONIO Source: Blood/Venous
Specimen Description:
09/30/24 09:58
Dextrose 50%-Water [Dextrose 50% Syringe] 12.5 grams IV NOW STA
09/30/24 10:00
Dextrose 10%/Water 250 ml [D10w] 250 ml IV 200 mls/hr
09/30/24 10:21
Dextrose 50%-Water [Dextrose 50% Syringe] 12.5 grams IV NOW STA
09/30/24 11:00
Dextrose 5%/0.45%Sodchl 500 ml [D5/0.45%NaCl] 500 ml IV 250 mls/hr
09/30/24 11:03
CefTRIAXone [Rocephin] 2,000 mg IV NOW STA
Abnormal Lab Results
09/30/24 09/30/24 09/30/24
09:11 09:39 09:57
RBC 2.78 L 10^6/uL
(4.70-6.10)
Hgb 9.0 L g/dL
(13.0-18.0)
Hct 26.7 L %
(39.0-52.0)
MCV 96.0 H fL
(80.0-94.0)
MCH 32.4 H pg
(27.0-31.0)
RDW 22.2 H %
(11.5-14.5)
Immature Gran % 0.6 H %
(0-0.5)
Lymphocytes % 17.8 L %
(20.5-51.1)
Chloride 109 H mmol/L
(98-107)
BUN 46 H mg/dl
(9-20)
Creatinine 2.3 H mg/dL
(0.7-1.3)
Glucose 69 L mg/dl
(70-99)
Alkaline Phosphatase 209 H U/L
(38-126)
Albumin 2.6 L g/dl
(3.5-5.0)
Ur Occult Blood Reflex 4+ A
(Negative)
Leukocyte Esterase Rfl 3+ A
(Negative)
Urine RBC 11-15 A /HPF
(0-2)
Urine WBC (Reflex) >100 A /HPF
(0-5)
Urine Bacteria (Reflex) Few A
(Negative)
Urine Albumin (Reflex) 3+ A
(Neg - Trace)
POC Glucose 69 L mg/dl
(70-99)
09/30/24
10:19
RBC
Hgb
Hct
MCV
MCH
RDW
Immature Gran %
Lymphocytes %
Chloride
BUN
Creatinine
Glucose
Alkaline Phosphatase
Albumin
Ur Occult Blood Reflex
Leukocyte Esterase Rfl
Urine RBC
Urine WBC (Reflex)
Urine Bacteria (Reflex)
Urine Albumin (Reflex)
POC Glucose 69 L mg/dl
(70-99)
09/30/24 09:11
09/30/24 09:11
Vital Signs
Initial and Last Documented VS:
Initial Vital Signs
Pulse Resp Pulse Ox
74 17 100
09/30/24 08:59 09/30/24 08:59 09/30/24 08:59
Last Documented Vital Signs
Temp Pulse Resp BP Pulse Ox
97.6 F 63 14 131/66 100
09/30/24 09:26 09/30/24 10:15 09/30/24 09:15 09/30/24 10:00 09/30/24 10:15
<Gal Raza Jr., PA-C - Last Filed: 09/30/24 11:40>
MDM/Problems Addressed
MDM/Problems Addressed:
53-year-old male presenting to the emergency department today from nursing facility with concerns of hypotension hypoglycemia prior to arrival EMS gave glucagon with improvement. Dialysis was held today due to these findings. Patient's case was
discussed with his nursing facility they claims he has not quite been acting himself and has had decreased oral intake no changes in his insulin treatment. Here patient is able to answer basic questioning but is refusing to eat. His sugar level
dropped to the 60s multiple times after receiving initially D10 100 mL then D50 is 2 doses. Concerning this plan started drip and admit for further monitoring. Urinalysis potentially consistent with urinary tract infection patient was started on
antibiotic.
<Gal Raza Jr., PA-C - Last Filed: 09/30/24 11:40>
*Critical Care Note
Total Time (30-74mins, 75-104mins- exclusive of procedures): Not Applicable
ED Attending Note
<Gal Raza Jr., PA-C - Last Filed: 09/30/24 11:40>
-
Portions of this chart may have been created with voice recognition software.� Occasional wrong word or��sound alike� substitutions may have occurred due to the inherent limitations of voice recognition software.
<Nikita Kruse DO - Last Filed: 09/30/24 10:59>
ED Attending Note
Patient seen and examined by attending physician: Yes
I performed the substantive portion of visit, reviewed & personally made and approve the management plan that is documented in note by myself or ALYSHA.: Yes
ED Attending Note:
I have seen and evaluated the patient with a [id number] encounter. I have spoken to the advance practicer provider and involved in the medical history, the physical exam, medical decision making.
Evaluation and management service: agree unless noted differently below.
Results interpretation: agree unless noted differently below.
Focused HPI: 53-year-old male presenting for evaluation of hypoglycemia and hypotension. Patient does have a history of diabetes and is on insulin. EMS gave glucagon en route
Physical exam: Weak and frail. Appears malnourished
Medical Decision Making: Despite IV pushes of dextrose, patient continues to be hypoglycemic. Will require dextrose drip. This is potentially caused by insulin versus poor p.o. intake versus both
Discharge Plan
Departure
Patient Disposition: Admit
Date of Disposition: 09/30/24
Time of Disposition: 11:39
Admit to: Med/Surg
Admit to doctor: Enoc
Presentation/result/management discussed w/ accepting MD/DO: Hospitalist
Patient with high blood pressure during this ER visit?: No
Condition: Good
Covid-19: Not Applicable
Discharge Problem:
Hypoglycemia
Prescriptions:
No Action
ipratropium-albuterol 0.5 mg-3 mg(2.5 mg base)/3 mL Solution For Nebulization
3 ml INHALATION R Q4HPRN PRN (Reason: sob)
ondansetron HCl 4 mg Tablet
4 mg PO Q6HPRN PRN (Reason: nausea/vomiting)
insulin aspart U-100 100 unit/mL Solution
1 sliding scale dose SC ACHS
Patient Comments:
Rx Instructions:
if 150-200= 2 units; 201-250= 4 units; 251-300= 6 units; 301-350= 8 units; 351-400= 10 units.
pantoprazole 40 mg Tablet,Delayed Release (Dr/Ec)
40 mg PO DAILY
ferrous sulfate 325 mg (65 mg iron) Tablet
325 mg PO DAILY
ascorbic acid (vitamin C) [Vitamin C] 1,000 mg Tablet
1,000 mg PO DAILY
acetaminophen 325 mg Tablet
650 mg PO Q4HPRN PRN (Reason: mild pain)
lidocaine-prilocaine 2.5-2.5 % Cream
1 applic TOPICAL MOWEFR
Rx Instructions:
apply to right avg 1 hr prior to HD TX.
atorvastatin 40 mg Tablet
40 mg PO DAILY
bisacodyl 10 mg Suppository
10 mg DC DAILYPRN PRN (Reason: if no bm aftr mom)
divalproex [Depakote] 500 mg tablet,delayed release (DR/EC)
500 mg PO BID
oxycodone 10 mg tablet
10 mg PO Q4HPRN PRN (Reason: severe pain) Qty: 10 0RF
insulin glargine [Lantus Solostar U-100 Insulin] 100 unit/mL (3 mL) Insulin Pen
10 unit SC HS
metronidazole 500 mg Tablet
500 mg PO BID Qty: 90 0RF
Rx Instructions:
PER SHELTER MAR - UNTIL 10/10
cefepime 2 gram Recon Soln
2,000 mg IV MoWeFr@1800 Qty: 0 0RF
Rx Instructions:
PER SHELTER MAR - UNTIL 10/10
midodrine 5 mg tablet
10 mg PO MOWEFR
carvedilol 25 mg tablet
25 mg PO BID
bumetanide 2 mg tablet
2 mg PO DAILY
levetiracetam 250 mg tablet
250 mg PO TID
Lokelma 10 gram powder in packet
10 g PO TUTHSA
Glucagon Emergency Kit (human) 1 mg recon soln
1 mg IM PRN PRN (Reason: LOW BLOOD GLUCOSE)
heparin (porcine) 5,000 unit/mL Solution
5,000 unit SC Q12H
Referrals:
Carly,Cody I., DO [Family Provider, Internal Medicine]
Interventions
Interventions:
*Risk Screen - Suicide Last Done: 09/30/24 08:52
*General Assessment Last Done: 09/30/24 08:52
*Neglect/Abuse Screening Last Done: 09/30/24 08:52
*ED- Fall Risk Assessment Last Done: 09/30/24 08:52
ED- Neurological Assessment Last Done: 09/30/24 08:52
Discharge Date and Time
Print Language: ETHIOPIAN
[2024-09-30] MEDS: D10W IV (09:23)
[2024-09-30 09:35] LABS: % Basophils 0.9 % (0-2); % Eosinophils 0.1 % (0-6); % Immature Granulocytes 0.6 % (0-0.5); % Lymphocytes 17.8 % (20.5-51.1); % Monocytes 8.9 % (1.7-9.3); % Neutrophils 71.7 % (42.2-75.2); ALT (SGPT) < 10 U/L (0-50); AST (SGOT) 21 U/L (17-59); Absolute Basophils 0.1 10^3/uL (0-0.2); Absolute Lymphocytes 1.2 10^3/uL (1.2-3.4); Absolute Monocytes 0.6 10^3/uL (0.1-0.6); Albumin 2.6 g/dl (3.5-5.0); Alkaline Phosphatase 209 U/L (38-126); Calcium 8.9 mg/dl (8.4-10.2); Carbon Dioxide 23 mmol/L (22-30); Chloride 109 mmol/L (98-107); Glucose 69 mg/dl (70-99); Hematocrit 26.7 % (39.0-52.0); Mean Corp Hgb Conc. 33.7 g/dL (33.0-37.0); Mean Corpuscular Hgb 32.4 pg (27.0-31.0); Mean Platelet Volume 9.9 fL (7.4-10.4); Nucleated Red Blood Cells % 0 % (-); Platelet Count 199 10^3/uL (130-400); Potassium 4.7 mmol/L (3.5-5.1); Red Blood Cell Count 2.78 10^6/uL (4.70-6.10); Red Cell Dist. Width 22.2 % (11.5-14.5); Sodium 136 mmol/L (135-145); Total Protein 7.4 g/dl (6.3-8.2); eGFR 33.54
[2024-09-30 09:44] LABS: Blood Urea Nitrogen 46 mg/dl (9-20); Total Bilirubin 0.6 mg/dl (0.2-1.3)
[2024-09-30 09:55] LABS: Urine Albumin 3+ (Neg - Trace); Urine Bilirubin Negative (Negative); Urine Character Cloudy (Clear); Urine Color Yellow; Urine Glucose Negative (Negative); Urine Ketone Negative (Negative); Urine Leukocyte 3+ (Negative); Urine Nitrite Negative (Negative); Urine Occult Blood 4+ (Negative); Urine Specific Gravity 1.015 (<1.030); Urine Urobilinogen Negative (Neg - 1+)
[2024-09-30 09:58] LABS: Glucose - Point of Care 69 mg/dl (70-99)
[2024-09-30] MEDS: DEXTROSE 50% SYRINGE 12.5 GRAMS IV ×2 (10:02→10:22)
[2024-09-30 10:08] LABS: Urine Squamous Cell >30 /LPF (Few)
[2024-09-30 10:10] LABS: Urine Amorphous Seen
[2024-09-30 10:13] LABS: Urine White Cell >100 /HPF (0-5)
[2024-09-30 10:14] LABS: Urine Bacteria Few (Negative)
[2024-09-30 10:16] LABS: Anisocytosis 1+; Hypochromasia 1+; Normal RBC Morphology No; Polychromasia 1+; Target Cells FEW
[2024-09-30 10:17] LABS: Acanthocytes FEW; Ovalocytes FEW
[2024-09-30 10:20] LABS: Glucose - Point of Care 69 mg/dl (70-99)
[2024-09-30 10:46] LABS: Glucose - Point of Care 85 mg/dl (70-99)
[2024-09-30] MEDS: D5/0.45%NACL 500 IV ×2 (11:04→13:43)
[2024-09-30] MEDS: ROCEPHIN 2000 MG IV (11:09)
--- NOTE | 2024-09-30 12:59 | CM ---
CM reviewed chart and met with pt bedside in ED. IMM reviewed.
LTC resident at [facility], requires total care, rebekah lift for transfer, receives HD MWF
Spoke to [facility], confirmed they will accept back when discharged, 15 day Medicaid bed hold
CM will continue to follow for all discharge planning needs
PCP: Cody Carroll
Pharmacy: [facility] nursing report: [phone]
Discharge instructions fax number: [phone]
DC plan: return to LTC at [facility] pending ongoing medical evaluation
[2024-09-30 14:08] LABS: Glucose - Point of Care 98 mg/dl (70-99)
[2024-09-30] MEDS: D10W 250 IV (14:16)
--- NOTE | 2024-09-30 14:22 | W.CON.NEPH ---
Consultation
-
Date/Time Consultation Requested: 09/30/24 1400
Date/Time Consultation Performed: 09/30/24 1400
Requesting Provider: Dr. Jean Baptiste
Performing Provider: Dr. Hopkins
Reason for Consultation: ESRD
Medical History
-
Chief Complaint: End-stage renal disease
History of Present Illness:
The patient is a 53-year-old male with end-stage renal disease who dialyzes Thursday at [facility]. He has hypertension for which he is maintained on carvedilol. He is maintained on insulin for diabetes. He has a prior history of
CVA with right hemiplegia and hemiparesis as well as underlying sacral decubiti. He has previous colectomy and colostomy. He was in the hospital earlier in August 2024 with septic sacroiliac arthritis and sacral osteomyelitis. This was drained and he
was placed on Antibiotics. He was sent back to [facility]. Today he was noted to be hypoglycemia and hypotense and sent to ER before his outpatient dialysis treatment. He says that his appetite has been poor. He denies any other symptoms. He was
hypotense in the ER and received IVF.
Past Medical History
ESRD Thursday [facility]
chronic Vale
history of intracranial hemorrhage stroke residual right-sided weakness
hypertension
hyperlipidemia
diabetes
chronic bedbound
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
right thigh complex abscess
History of seizure disorder
sacral stage IV decubitus ulcer with osteomyelitis�
AVF RUE
Social History
Tobacco: Non-Smoker
Family History
no ckd
Allergies / Home Medications
Allergy/AdvReac Type Severity Reaction Status Date / Time
banana Allergy Swelling Verified 08/29/24 19:20
�Medication �Instructions �Recorded �Confirmed �Type
ferrous sulfate 325 mg (65 mg 325 mg PO DAILY Supplement 08/14/22 09/30/24 History
iron) tablet
insulin aspart U-100 100 unit/mL 1 sliding scale dose SC ACHS 08/14/22 09/30/24 History
subcutaneous solution Diabetes
ipratropium 0.5 mg-albuterol 3 mg 3 ml inhalation R Q4HPRN PRN sob 08/14/22 09/30/24 History
(2.5 mg base)/3 mL nebulization
soln
ondansetron HCl 4 mg tablet 4 mg PO Q6HPRN PRN nausea/vomiting 08/14/22 09/30/24 History
pantoprazole 40 mg tablet,delayed 40 mg PO DAILY Gastrointestinal 08/14/22 09/30/24 History
release issue
acetaminophen 325 mg tablet 650 mg PO Q4HPRN PRN mild pain 12/02/22 09/30/24 History
ascorbic acid (vitamin C) 1,000 mg 1,000 mg PO DAILY Supplement 12/02/22 09/30/24 History
tablet (Vitamin C)
lidocaine-prilocaine 2.5 %-2.5 % 1 applic topical MOWEFR apply to 12/02/22 09/30/24 History
topical cream right AVG
atorvastatin 40 mg tablet 40 mg PO DAILY High Cholesterol 01/16/23 09/30/24 History
bisacodyl 10 mg rectal suppository 10 mg LA DAILYPRN PRN if no bm 01/23/23 09/30/24 History
aftr mom
divalproex 500 mg tablet,delayed 500 mg PO BID Seizures 04/06/23 09/30/24 History
release (Depakote)
oxycodone 10 mg tablet 10 mg PO Q4HPRN PRN severe pain 08/19/24 09/30/24 Rx
#10 tabs
insulin glargine 100 unit/mL (3 10 unit SC HS Diabetes 08/30/24 09/30/24 History
mL) subcutaneous pen (Lantus
Solostar U-100 Insulin)
cefepime 2 gram solution for 2,000 mg IV MoWeFr@1800 #0 ea 09/08/24 09/30/24 Rx
injection
metronidazole 500 mg tablet 500 mg PO BID #90 tabs 09/08/24 09/30/24 Rx
bumetanide 2 mg tablet 2 mg PO DAILY Blood Pressure 09/30/24 09/30/24 History
carvedilol 25 mg tablet 25 mg PO BID Blood Pressure 09/30/24 09/30/24 History
glucagon 1 mg solution for 1 mg IM PRN PRN LOW BLOOD GLUCOSE 09/30/24 09/30/24 History
injection (Glucagon Emergency Kit)
heparin (porcine) 5,000 unit/mL 5,000 unit SC Q12H Blood Clot 09/30/24 09/30/24 History
injection solution Prevention/Tx
levetiracetam 250 mg tablet 250 mg PO TID Seizures 09/30/24 09/30/24 History
midodrine 5 mg tablet 10 mg PO MOWEFR 09/30/24 09/30/24 History
sodium zirconium cyclosilicate 10 10 g PO TUTHSA HYPERKALEMIA 09/30/24 09/30/24 History
gram oral powder packet (Lokelma)
Review of Systems
-
All other systems: Negative unless noted
Physical Exam
Vital Signs
Vital Signs
Temp Pulse Resp BP Pulse Ox
97.6 F 66 14 149/67 100
09/30/24 09:26 09/30/24 12:00 09/30/24 09:15 09/30/24 12:00 09/30/24 12:00
Lab Results
WBC 7.0 10^3/uL (4.8-10.8) 09/30/24 09:11
RBC 2.78 10^6/uL (4.70-6.10) L 09/30/24 09:11
Hgb 9.0 g/dL (13.0-18.0) L 09/30/24 09:11
Hct 26.7 % (39.0-52.0) L 09/30/24 09:11
Plt Count 199 10^3/uL (130-400) 09/30/24 09:11
Sodium 136 mmol/L (135-145) 09/30/24 09:11
Potassium 4.7 mmol/L (3.5-5.1) 09/30/24 09:11
Chloride 109 mmol/L (98-107) H 09/30/24 09:11
Carbon Dioxide 23 mmol/L (22-30) 09/30/24 09:11
BUN 46 mg/dl (9-20) H 09/30/24 09:11
Creatinine 2.3 mg/dL (0.7-1.3) H 09/30/24 09:11
eGFR 33.54 09/30/24 09:11
Glucose 69 mg/dl (70-99) L 09/30/24 09:11
Calcium 8.9 mg/dl (8.4-10.2) 09/30/24 09:11
Albumin 2.6 g/dl (3.5-5.0) L 09/30/24 09:11
Laboratory Tests
09/08/24
07:35
Hgb 8.7 L
Potassium 4.3 D
Physical Exam
Patient is awake alert oriented and in no distress. Mood and affect were pleasant, insight and judgment were good. Pupils are equal round and reactive to light, extraocular movements are intact, sclera were anicteric. Hearing was normal, ears and
nose are intact. Oropharynx was clear. Neck was supple with trachea midline and no thyromegaly. Heart was regular rate and rhythm without rubs. Lower extremities without edema. Lungs were clear to auscultation bilaterally and with normal
excursion. Abdomen was soft, nontender, with normal active bowel sounds, and no hepatosplenomegaly. Skin was without rash and with normal turgor. Right AVF with thrill/bruit
Data Reviewed
-
Radiology: Image Personally Visualized and interpreted (CXR 09/05 by my reading shows no acute disease)
Medical Tests (Nuc Med, Echo etc): Image Personally Visualized and interpreted (EKG 09/30/24 by my reading normal sinus rhythm)
Labs: Labs Reviewed by me
Old Records: Reviewed
Assessment/Plan
-
Impression:
Anemia
End-stage renal disease Thursday [facility] via AVF RUE
Type 2 diabetes
Seizure disorder
Hypotension
hypoglycemia
History of Colostomy
Chronic Vale catheter
Anemia
History of CVA with right-sided hemiparesis
*septic arthritis of the right sacroiliac joint with osteo of the sacrum
*7.4 cm abscess in the subcutaneous fat posterior to the left iliac bone
Left basilic vein thrombus
Plan:
Continue outpatient midodrine dosing 10 mg with dialysis, If BP remains low after IVF bolus can use midodrine ATC
no urgency to HD today, will plan for tomorrow
Antibiotics per primary team until October 10
dextrose based IVF
--- NOTE | 2024-09-30 15:17 | EDRN ---
Assumed care of pt. at change of shift, blood cultures ordered; however, pt. already received IV antibiotics. This RN clarified w/ infectious disease if cultures should be obtained, per infectious disease, no sense in obtaining blood cultures as
antibiotics already given.
[2024-09-30 15:28] LABS: Glucose - Point of Care 100 mg/dl (70-99)
[2024-09-30] MEDS: D5/0.45%NACL IV ×3 (15:43→20:45)
[2024-09-30 19:00] LABS: Glucose - Point of Care 101 mg/dl (70-99)
[2024-09-30] MEDS: MAXIPIME 2000 MG IV (20:55)
[2024-09-30] MEDS: STERILE WATER FOR INJECTION 10 ML IV (20:56)
--- NOTE | 2024-09-30 21:23 | HPS.HSE ---
Addendum entered and electronically signed by Kendall George MD 09/30/24 22:28:
Attending Addendum-
I performed a history and physical exam of the patient and discussed his management with the resident. I reviewed the resident's note and agree with the documented findings and plan of care CC/HPI- Sent by [facility] due to poor appetite x 2 days
hypotension and hypoglycemia. Unable to get HD today. Patient poor historian and doesn't illicit any complaints. Recently DC's after complicated stay for sepsis abscess and OM. States he just wants to be kept warm. Denies pain fevers chills NV GOFF
neuro complaints. urinary complaints. Full 12 point ROS reviewed and negative except as documented Exam- vitals reviewed in EMR GEN-NAD heart RRR lungs fine crackles at bases abd SHAILA drain in place colostomy with soft stool LE no edema obrien in
place Neuro AAO x 2 right hemiparesis
Plan:
# Hypotension
- cont midodrine during HD
- likely due to poor intake
- give IVF
- monitor closely
# Hypoglycemia with CIMS
- from poor intake
- insulin continued to be given despite poor appetite
- cont D5 IVF
- d50 given with minimal resolution
- hold lantus cont SSI
#h/o recent Septic shock 2/2 osteomyelitis with bacteremia of stage 4 sacral ulcer and iiac muscle abscess
-7.4 cm abscess in the subcutaneous fat posterior to the left iliac bone extending into the left gluteus villa muscle
-cont SHAILA drain for abscess
-wound care
-cont cefepime with HD plus metronidazole through 10/10
-not a candidate for flap closure due to acute infection, timing hard to determine since unclear healing potential
# ESRD
- HD M,W,F [facility]
- c/s nephro
- for HD in AM no need for emergent HD today
# H/O CVA ICH
- PT OT speech evals
- bedbound
#Chronic anemia 2/2 ESRD
-Epo as per Nephrology
-Cont HD
-follow CBC
#Seizure d/o
-Seizure precautions
-cont depakote and keppra
# Severe PCM
- nutrition consult
#Chronic hypotension
-midodrine
#DM type unspecified
-hold lantus
-start SSI
-cont accuchecks
#HLD
-cont lipitor
#LUE DVT-brachial
-restart Eliquis-continue x 3 months then DC
#Mood d/o
- cont meds
#Chronic urinary retention
- cont obrien
#Diverting colostomy
-colostomy care
DVT ppx hep
GI ppx PPI
Full code
ACP
Patient consented to discuss, was alone, time spent explanation of advance directives, changes in health status, patient�s health care wishes if the patient becomes unable to make health decisions, goals of care, code status, and prognosis verified
with facility and POA sister requires further GOC discussions- 16 minutes
Time spent coordinating care, review of plan of care with resident, personally reviewed previous records in EMR, med rec, labs, radiology, d/w nursing, total time documented is exclusive of any additional time listed that was spent in advance care
planning discussion -�80 minutes
Original Note:
Family Physician
-
Family Physician: Cody Carroll
Chief Complaint
-
Hypoglycemia
History of Present Illness
53-year-old male, with past medical history of insulin-dependent diabetes mellitus, ESRD on hemodialysis, CVA, seizures, hypertension, hyperlipidemia, colostomy, sacral decubitus ulcer, right iliac abscess with SHAILA drain, presented to the ER from
[facility] by EMS with hypoglycemia and hypotension. Patient reports that he was not eating well from the past 2 days. In the ER he was given D50�1 ampoule, D10 and D5. His blood sugars improved. He had a recent hospital admission for septic
shock secondary to osteomyelitis of the sacroiliac joint/sacral decubitus ulcer for which she was sent on IV antibiotics cefepime, metronidazole through 10/10/2024.
Medical History
Past Medical History
Past Medical History: Reports CVA, HTN, Hypercholesterolemia, IDDM, Renal Failure and Seizures
Past Surgical History: Reports Bowel Resection
Additional Past Surgical History:
Colostomy, right iliac abscess with SHAILA drain,
Social History
Tobacco: Former Smoker
Alcohol: None
Drug: None
Living: Half-Way
Family History
Family History: Not pertinent
Allergies / Home Medications
Allergies reflects when Allergies were last updated in [facility].
Home Medications with original date entered in [facility]
Allergy/Medication List:
Allergies
Allergy/AdvReac Type Severity Reaction Status Date / Time
banana Allergy Swelling Verified 08/29/24 19:20
Home Medications
ferrous sulfate 325 mg (65 mg iron) tablet 325 mg PO DAILY Supplement 08/14/22
insulin aspart U-100 100 unit/mL subcutaneous solution 1 sliding scale dose SC ACHS Diabetes 08/14/22
ipratropium 0.5 mg-albuterol 3 mg (2.5 mg base)/3 mL nebulization soln 3 ml inhalation R Q4HPRN PRN sob 08/14/22
ondansetron HCl 4 mg tablet 4 mg PO Q6HPRN PRN nausea/vomiting 08/14/22
pantoprazole 40 mg tablet,delayed release 40 mg PO DAILY Gastrointestinal issue 08/14/22
acetaminophen 325 mg tablet 650 mg PO Q4HPRN PRN mild pain 12/02/22
ascorbic acid (vitamin C) 1,000 mg tablet (Vitamin C) 1,000 mg PO DAILY Supplement 12/02/22
lidocaine-prilocaine 2.5 %-2.5 % topical cream 1 applic topical MOWEFR apply to right AVG 12/02/22
atorvastatin 40 mg tablet 40 mg PO DAILY High Cholesterol 01/16/23
bisacodyl 10 mg rectal suppository 10 mg KS DAILYPRN PRN if no bm aftr mom 01/23/23
divalproex 500 mg tablet,delayed release (Depakote) 500 mg PO BID Seizures 04/06/23
oxycodone 10 mg tablet 10 mg PO Q4HPRN PRN severe pain #10 tabs 08/19/24
insulin glargine 100 unit/mL (3 mL) subcutaneous pen (Lantus Solostar U-100 Insulin) 10 unit SC HS Diabetes 08/30/24
cefepime 2 gram solution for injection 2,000 mg IV MoWeFr@1800 #0 ea 09/08/24
metronidazole 500 mg tablet 500 mg PO BID #90 tabs 09/08/24
bumetanide 2 mg tablet 2 mg PO DAILY Blood Pressure 09/30/24
carvedilol 25 mg tablet 25 mg PO BID Blood Pressure 09/30/24
glucagon 1 mg solution for injection (Glucagon Emergency Kit) 1 mg IM PRN PRN LOW BLOOD GLUCOSE 09/30/24
heparin (porcine) 5,000 unit/mL injection solution 5,000 unit SC Q12H Blood Clot Prevention/Tx 09/30/24
levetiracetam 250 mg tablet 250 mg PO TID Seizures 09/30/24
midodrine 5 mg tablet 10 mg PO MOWEFR 09/30/24
sodium zirconium cyclosilicate 10 gram oral powder packet (Lokelma) 10 g PO TUTHSA HYPERKALEMIA 09/30/24
Review of Systems
-
A 12 point ROS was completed and negative except as noted: Yes
Physical Exam
Vital Signs
Vital Signs
Temp Pulse Resp BP Pulse Ox
98 F 73 18 108/63 100
09/30/24 19:01 09/30/24 19:01 09/30/24 19:01 09/30/24 19:01 09/30/24 19:01
Physical Exam
General: No Apparent Distress
HEENT: NormoCephalic and Anicteric
Respiratory: Clear
Cardiac: S1/S2 and Regular Rhythm
GI: Soft, Non Tender, Non Distended, Normal Bowel Sounds and Other (Right iliac region-SHAILA drain)
Genito-urinary: Obrien (With cloudy urine)
Musculoskeletal: Other (Right AV fistula with thrill)
Skin: Warm, Dry and Decubitus Ulcers (Sacral decubitus ulcer)
Neuro: Awake, Alert, Oriented and AO x 3
Psych: Calm
Laboratory Results
-
09/30/24 09:11
09/30/24 09:11
Laboratory Results
Lactic Acid Cancelled 09/30/24 09:11
Total Bilirubin 0.6 mg/dl (0.2-1.3) 09/30/24 09:11
AST 21 U/L (17-59) 09/30/24 09:11
ALT < 10 U/L (0-50) 09/30/24 09:11
Alkaline Phosphatase 209 U/L (38-126) H 09/30/24 09:11
Impression/Plan
-
IMPRESSION:
53-year-old male presented with hypoglycemia, with normal mental status.
PLAN:
#Hypoglycemia
#IDDM
Patient is diabetic dependent on insulin.
As per EMS, was receiving his insulin doses at [facility], but not eating well in the past 2 days.
No change in mental status during my evaluation
Likely secondary to poor oral intake or from ongoing bacteremia
Blood sugars improving after dextrose IVF
Insulin on hold
Started SSI
Monitor blood sugars
#End-stage renal disease
Nephrology on board
Hemodialysis tomorrow
Continue midodrine
Monitor electrolytes
#Septic sacroiliac arthritis
#Sacral osteomyelitis
#Sacral decubitus ulcer
#Right iliac abscess
#UTI
U/A�bacteriuria, pyuria and Obrien bag with cloudy urine
Recent hospital admission with multiple abscesses, right iliac abscess with SHAILA drain
Continue cefepime, Flagyl through 10/10/2024
Wound consult
Monitor WBC, fever curve
#Seizures
Continue levetiracetam, Depakote
#History of left upper extremity DVT
Secondary to PICC line
Continue Eliquis
#Hyperlipidemia
Continue atorvastatin
#Hypertension
Continue carvedilol
#DVT prophylaxis�Eliquis
#Full code
[2024-09-30 21:35] LABS: Glucose - Point of Care 93 mg/dl (70-99)
[2024-09-30] MEDS: FLAGYL 500 MG PO (22:11)
[2024-09-30] MEDS: DEPAKOTE (12 HR RELEASE) 500 MG PO (22:11)
[2024-09-30] MEDS: KEPPRA 750 MG PO (22:11)
[2024-09-30] MEDS: ELIQUIS 5 MG PO (22:11)
[2024-09-30] MEDS: D5W 1000 IV (22:12)
[2024-09-30] MEDS: COREG 25 MG PO (22:36)
[2024-10-01 03:13] VITALS: BP 107/62
[2024-10-01 05:52] VITALS: BMI 20.4
[2024-10-01] MEDS: D5W 1000 IV (06:04)
[2024-10-01 07:00] VITALS: BP 121/64
[2024-10-01] MEDS: ProAmatine 10 MG PO (08:02)
[2024-10-01 08:11] LABS: Glucose - Point of Care 86 mg/dl (70-99)
[2024-10-01 08:29] LABS: Hematocrit 23.3 % (39.0-52.0); Mean Corp Hgb Conc. 34.3 g/dL (33.0-37.0); Mean Corpuscular Hgb 32.9 pg (27.0-31.0); Mean Corpuscular Volume 95.9 fL (80.0-94.0); Mean Platelet Volume 10.2 fL (7.4-10.4); Platelet Count 198 10^3/uL (130-400); Red Blood Cell Count 2.43 10^6/uL (4.70-6.10); Red Cell Dist. Width 21.3 % (11.5-14.5); White Blood Cell Count 6.6 10^3/uL (4.8-10.8)
[2024-10-01] MEDS: RETACRIT 10000 UNITS IV (09:01)
[2024-10-01 09:06] LABS: ALT (SGPT) < 10 U/L (0-50); AST (SGOT) 14 U/L (17-59); Albumin 2.4 g/dl (3.5-5.0); Alkaline Phosphatase 187 U/L (38-126); Blood Urea Nitrogen 47 mg/dl (9-20); Calcium 8.8 mg/dl (8.4-10.2); Carbon Dioxide 16 mmol/L (22-30); Chloride 105 mmol/L (98-107); Estimated Creatinine Clearance 28 ml/min; Glucose 77 mg/dl (70-99); Potassium 4.3 mmol/L (3.5-5.1); Sodium 130 mmol/L (135-145); Total Bilirubin 0.4 mg/dl (0.2-1.3); eGFR 26.49
--- NOTE | 2024-10-01 09:21 | W.PN.HOSP.TC ---
Today's Communication/Plan
-
Discharge planning today
Assessment / Plan
Assessment / Plan
Physical exam:
General: Chronically ill
HEENT: Normocephalic, Atraumatic and Moist Mucous Membranes
Respiratory: Clear to Auscultation; Negative Wheezes, Rales or Rhonchi
Cardiac: Regular Rhythm and S1/S2
GI: Soft, Nontender and Nondistended
Musculoskeletal: Left upper extremity edema. Bilateral lower extremity edema. No Clubbing, No Cyanosis.
Neuro: Awake, Alert and Oriented, no neurological deficit. Generalized weak
Psych: Calm
A/P:
# Hypotension
-Resolved
- cont midodrine during HD
- likely due to poor intake
- given IVF but today hemodialysis and tolerated well
- Blood pressures stable
# Hypoglycemia with CIMS
-Resolved
- from poor intake--> oral intake improving. Blood sugar stable today.
- insulin continued to be given despite poor appetite
- No IV access so no IV fluids
- d50 given with minimal resolution
- hold lantus cont SSI--> continue hold Lantus for 48 more hours even upon discharge
#h/o recent Septic shock 2/2 osteomyelitis with bacteremia of stage 4 sacral ulcer and iiac muscle abscess
-7.4 cm abscess in the subcutaneous fat posterior to the left iliac bone extending into the left gluteus villa muscle
-cont SHAILA drain for abscess
-wound care
-cont cefepime with HD plus metronidazole through 10/10
-not a candidate for flap closure due to acute infection, timing hard to determine since unclear healing potential
# ESRD
- [facility] M[facility]
- c/s nephro
- for HD today-discussed with nephrology today
# H/O CVA ICH
- PT OT speech evals
- bedbound
#Chronic anemia 2/2 ESRD
-Epo as per Nephrology
-Cont HD
-follow CBC
#Seizure d/o
-Seizure precautions
-cont depakote and keppra
# Severe PCM
- nutrition consult
#Chronic hypotension
-midodrine
#DM type unspecified
-hold lantus
-start SSI
-cont accuchecks
#HLD
-cont lipitor
#LUE DVT-brachial
-restart Eliquis-continue x 3 months then DC
#Mood d/o
- cont meds
#Chronic urinary retention
- cont obrien
#Diverting colostomy
-colostomy care
DVT ppx hep
GI ppx PPI
Full code
Anticipated Discharge: Today
Subjective/Interval History
-
Date of Service: October 01, 2024
No new complaints. Mild infiltrated left upper extremity and he is already treated for DVT on anticoagulation. No chest pain or shortness of breath.
Objective Data
-
Labs:
Laboratory Results
10/01/24
08:17
WBC 6.6
Hgb 8.0 L
Hct 23.3 L
Plt Count 198
Sodium 130 L
Potassium 4.3
Chloride 105
Carbon Dioxide 16 L
BUN 47 H
Creatinine 2.8 H
Glucose 77
Calcium 8.8
Total Bilirubin 0.4
AST 14 L
ALT < 10
Alkaline Phosphatase 187 H
Vital Signs:
Vital Signs
Temp Pulse Resp BP Pulse Ox
97.8 F 67 14 121/64 100
10/01/24 07:00 10/01/24 07:00 10/01/24 07:00 10/01/24 07:00 10/01/24 07:00
I&O
06/10/1910/01/24 10/02/24
06:59 06:59 06:59
Intake Total 1000 / 1000
Output Total
Balance 915 / 915
--- NOTE | 2024-10-01 10:25 | PTCARENOTE ---
on VAT rounds, HD lala alerted this VAT RN that pt with infiltrate LA today, according to HD nurse, primary RN was alerted to this earlier. ivf was stopped, piv dc'dby VAT RN. LA arm elevated and warmth applied. +1-2 edema noted. pt denies pain at
infiltrate site. suggested US and notified RN and MD, pt resting
[2024-10-01 10:27] LABS: Glycohemoglobin (HgbA1c) 4.2 % (4.0-5.6)
--- NOTE | 2024-10-01 10:49 | W.PN.NEPH.HD ---
Assessment
-
Seen on HD. no complaints. VSS, access ok
LUE IV infiltrated, but eating and BS ok
Progress Note - Hemodialysis
-
Date of Service: October 01, 2024
Duration: 30 minutes and 3 hours
Potassium Bath: 2
Calcium Bath: 2.5
Opti-Dialyzer: 160
Ultrafiltration: Other (1kg)
Blood Flow: 400
Dialysate Flow: 600
Heparin: 0
EPO: 54841 units
[2024-10-01 11:00] VITALS: BP 90/54
[2024-10-01] MEDS: FLAGYL 500 MG PO (12:26)
[2024-10-01] MEDS: VITAMIN C 1000 MG PO (12:27)
[2024-10-01] MEDS: LIPITOR 40 MG PO (12:27)
[2024-10-01] MEDS: DEPAKOTE (12 HR RELEASE) 500 MG PO (12:27)
[2024-10-01] MEDS: COREG 25 MG PO (12:28)
[2024-10-01] MEDS: BUMEX 2 MG PO (12:28)
[2024-10-01] MEDS: PROTONIX 40 MG PO (12:28)
[2024-10-01] MEDS: FEOSOL 325 MG PO (12:28)
[2024-10-01] MEDS: ELIQUIS 5 MG PO (12:29)
[2024-10-01] MEDS: LOKELMA 10 GRAM PO (12:34)
[2024-10-01 12:40] LABS: Glucose - Point of Care 85 mg/dl (70-99)
--- NOTE | 2024-10-01 13:42 | W.DCSUMMARY ---
Discharge Summary
Discharge Data
Date of Admission: 09/30/24
Date of Discharge: 10/01/24
-
Pending Results: No
Hospital Course
Patient 53 years old male with history of end-stage renal disease on hemodialysis and recent septic shock secondary to osteomyelitis with bacteremia and stage IV sacral ulcer and iliac muscle abscess on outpatient IV antibiotics, presented to the
hospital with poor oral appetite and hypertension and hyperglycemia and unable to dialyzed him. Patient received some dextrose IV fluid. His blood pressure remained stable. He was continued on midodrine. Long-acting insulin was held and I would
recommend to continue holding for 24 to 48 hours and making sure that he continues to eat adequately. Patient has been eating more and his blood sugars have remained stable. He had some swelling on his left upper extremity but he is known to have
DVT and on anticoagulation that will be continued. He had hemodialysis as inpatient today without any complications. Otherwise no reason to continue inpatient hospitalization and he can go back to skilled facility as he has remained
hemodynamically stable, afebrile and maintained euglycemia.
Discharge Plan
-
Patient Disposition: Care Home/SNF
Discharge Diagnosis/Procedures: Hypoglycemia. Hypotension.
Diet: 2 Gram Sodium, Diabetic, Carb Controlled and Restrict fluids to 64 oz
Activity: As tolerated
Blood Work: Please PCP to order CBC, BMP within 1 week
Referrals:
Cody Carroll I., [Family Provider, Internal Medicine] - in less than 1 week
Brandon Hopkins MD [Active, Nephrology] - in one to two weeks
Prescriptions:
New
Eliquis 5 mg Tablet
5 mg PO BID Qty: 60 0RF
Continued
ipratropium-albuterol 0.5 mg-3 mg(2.5 mg base)/3 mL Solution For Nebulization
3 ml INHALATION R Q4HPRN PRN (Reason: sob)
ondansetron HCl 4 mg Tablet
4 mg PO Q6HPRN PRN (Reason: nausea/vomiting)
insulin aspart U-100 100 unit/mL Solution
1 sliding scale dose SC ACHS
Patient Comments:
Rx Instructions:
if 150-200= 2 units; 201-250= 4 units; 251-300= 6 units; 301-350= 8 units; 351-400= 10 units.
pantoprazole 40 mg Tablet,Delayed Release (Dr/Ec)
40 mg PO DAILY
ferrous sulfate 325 mg (65 mg iron) Tablet
325 mg PO DAILY
ascorbic acid (vitamin C) [Vitamin C] 1,000 mg Tablet
1,000 mg PO DAILY
acetaminophen 325 mg Tablet
650 mg PO Q4HPRN PRN (Reason: mild pain)
lidocaine-prilocaine 2.5-2.5 % Cream
1 applic TOPICAL MOWEFR
Rx Instructions:
apply to right avg 1 hr prior to HD TX.
atorvastatin 40 mg Tablet
40 mg PO DAILY
bisacodyl 10 mg Suppository
10 mg [place] DAILYPRN PRN (Reason: if no bm aftr mom)
divalproex [Depakote] 500 mg tablet,delayed release (DR/EC)
500 mg PO BID
oxycodone 10 mg tablet
10 mg PO Q4HPRN PRN (Reason: severe pain) Qty: 10 0RF
metronidazole 500 mg Tablet
500 mg PO BID Qty: 90 0RF
Rx Instructions:
PER CARE HOME MAR - UNTIL 10/10
cefepime 2 gram Recon Soln
2,000 mg IV MoWeFr@1800 Qty: 0 0RF
Rx Instructions:
PER CARE HOME MAR - UNTIL 10/10
midodrine 5 mg tablet
10 mg PO MOWEFR
carvedilol 25 mg tablet
25 mg PO BID
bumetanide 2 mg tablet
2 mg PO DAILY
levetiracetam 250 mg tablet
250 mg PO TID
Lokelma 10 gram powder in packet
10 g PO TUTHSA
Glucagon Emergency Kit (human) 1 mg recon soln
1 mg IM PRN PRN (Reason: LOW BLOOD GLUCOSE)
Held
insulin glargine [Lantus Solostar U-100 Insulin] 100 unit/mL (3 mL) Insulin Pen
10 unit SC HS
Hold Instructions: Resume on 10/03/24.
Discontinued
heparin (porcine) 5,000 unit/mL Solution
5,000 unit SC Q12H
Discharge Orders:
Discharge Patient (As Directed); Ordered 10/01/24
Ordered By: Lion Blair
Discharge Date and Time
Discharge Date/Time: 10/01/24 17:01
Print Language: MALAY
--- NOTE | 2024-10-01 14:11 | CM ---
Addendum entered by Pat Norwood 10/01/24 15:16:
Patient scheduled for 5:00 p.m. ambulance transport, update to [facility].
Original Note:
CM reviewed chart, patient seen bedside, discussed plan for discharge today. Patient will require ambulance transport. Updates to liaison at [facility]. CM will continue to follow for all discharge planning needs.
Plan; return to [facility], [facility] resident, ambulance transport
[facility] nursing report: [phone]
Discharge instructions fax number: [phone]
[2024-10-01 15:00] VITALS: BP 115/65
[2024-10-03 18:58] LABS: Hepatitis B Surface Antigen Negative (Negative)
== END 2024-10-01 17:01 | DRG 637 ==
LOC: 4 WEST ACU 17:48
PROVIDERS: Physician Assistant; ADMITTING PHYSICIAN Family Medicine; ATTENDING PHYSICIAN Hospitalist; CONSULT PHYSICIAN Specialist; EMERGENCY PHYSICIAN Student in an Organized Health Care Education/Training Program; FAMILY PHYSICIAN Internal Medicine
PROC: 5A1D70Z Performance of Urinary Filtration, Intermittent, Less than 6 Hours Per Day (ICD-10-PCS; 2024-10-01)
DX: E11.649 Type 2 diabetes mellitus with hypoglycemia without coma (principal); A41.9 Sepsis, unspecified organism; L89.154 Pressure ulcer of sacral region, stage 4; I12.0 Hypertensive chronic kidney disease with stage 5 chronic kidney disease or end stage renal disease; I69.351 Hemiplegia and hemiparesis following cerebral infarction affecting right dominant side; M00.9 Pyogenic arthritis, unspecified; M46.28 Osteomyelitis of vertebra, sacral and sacrococcygeal region; N39.0 Urinary tract infection, site not specified; N18.6 End stage renal disease; Z99.2 Dependence on renal dialysis; E11.22 Type 2 diabetes mellitus with diabetic chronic kidney disease; Z79.899 Other long term (current) drug therapy; Z79.4 Long term (current) use of insulin; Z74.01 Bed confinement status; D63.1 Anemia in chronic kidney disease; E78.00 Pure hypercholesterolemia, unspecified; Z86.718 Personal history of other venous thrombosis and embolism; Z93.3 Colostomy status; G40.909 Epilepsy, unspecified, not intractable, without status epilepticus; Z91.018 Allergy to other foods; Z87.891 Personal history of nicotine dependence; I95.89 Other hypotension; E11.69 Type 2 diabetes mellitus with other specified complication; Z79.01 Long term (current) use of anticoagulants; Z90.49 Acquired absence of other specified parts of digestive tract
CPT/HCPCS: 51702; 80053; 81003; 81015; 82962; 83036; 85025; 85027; 87070; 87086; 87340; 93005; 96365; 96366; 96375; 99285; P9047; Q5106

== ENCOUNTER → 2024-10-17 09:41 | Outpatient (REF) | payer MEDICARE, OTHER, SELFPAY ==
[2024-10-17 09:45] VITALS: BP 116/63; BP_SYST 63
--- NOTE | 2024-10-17 10:03 | PN.IRAD.UPD ---
Update Note - IRAD
- -
IN DEPARTMENT, CLEANED AND PREPPED PATIENT'S RIGHT LOWER ABDOMINAL DRAIN, REMOVED IT WITH NO COMPLAINTS AND DRESSED WITH A PRIMAPORE.
== END ==
LOC: RADI 09:41
DX: Z46.82 Encounter for fitting and adjustment of non-vascular catheter (principal)

== ENCOUNTER 2025-01-22 03:14 | Inpatient (IN) | payer MEDICARE, OTHER, SELFPAY ==
[2025-01-22] VITALS (75 sets, daily range): BP systolic 74–111; BP diastolic 47–78; BMI 24.9; BMI 23.5
--- NOTE | 2025-01-22 00:32 | ED.GENMED ---
History of Present Illness
General
Chief Complaint: Change in Mental Status
Time Seen by Provider: 01/22/25 00:24
History of Present Illness
History of Present Illness:
Note:
CHIEF COMPLAINT(S)
Change in mental status and fever.
HISTORY OF PRESENT ILLNESS
The patient is a 54-year-old male resident of a assisted, presenting with a change in mental status and fever. He was found to be febrile with a temperature of 102.7�F. His past medical history is significant for conditions including stroke,
septic shock, end-stage renal disease (currently on hemodialysis on Mondays, Wednesdays, and Fridays), and chronic anemia secondary to renal disease. The patient also has a history of intracranial hemorrhage and seizure disorder, for which he was
taking divalproex sodium (Depakote) and another unspecified medication, potentially carbamazepine (Carbatrol, though this requires verification). Additionally, he has chronic hypotension managed with midodrine and hyperlipidemia treated with
atorvastatin (Lipitor). He has a stage four sacral ulcer with a history of associated osteomyelitis and bacteremia. The patient has a colostomy. This current presentation hines a deviation from his usual state, as he is typically verbal but is now
nonverbal, able to respond to simple questions only with a nod. There is a high suspicion of septic shock, potentially originating from a urinary infection or his sacral ulcer.
PAST MEDICAL AND SURIGICAL HISTORY
- Stroke
- Septic shock
- End-stage renal disease
- Chronic anemia secondary to renal disease
- Intracranial hemorrhage
- Seizure disorder
- Chronic hypotension
- Hyperlipidemia
- Stage four sacral ulcer
- Colostomy
ADDITIONAL HISTORY OBTAINED FROM SOURCES OTHER THAN THE PATIENT
According to nursing transfer notes, the patients altered mental status is unusual for him as he typically exhibits an awake, alert, and oriented status.
CHRONIC MEDICAL CONDITIONS SIGNIFICANTLY AFFECTING CARE
- Stroke
- End-stage renal disease
- Chronic anemia secondary to renal disease
- Chronic hypotension
- Seizure disorder
- Hyperlipidemia
SOCIAL DETERMINANTS AFFECTING HEALTH
The patient is a resident of a assisted and is a former smoker.
ALLERGIES
Bananas
REVIEW OF SYSTEMS
- Neurological: Altered mental status, nonverbal but nods to respond
- Infectious Disease: Febrile, suspicion of septic shock potentially from urinary or sacral ulcer infection
PHYSICAL EXAM
General: Alert, no acute distress.
Skin: Warm, dry.
Head: Normocephalic, atraumatic.
Neck: Supple, trachea midline.
Eye, ears, nose, mouth, and throat: Oral mucosa moist.
Cardiovascular: Normal peripheral perfusion, no edema.
Respiratory: Respirations are non-labored.
Gastrointestinal: Abdomen nondistended.
Back: Normal range of motion, normal alignment.
Musculoskeletal: Normal range of motion, normal strength.
Neurological: Alert to person, nonverbal but responsive with nods.
Psychiatric: Appearance cooperative, mood subdued.
PROBLEM LIST
Acute Issues:
- Change in mental status
- Fever
- Suspicion of septic shock
Chronic Problems:
- Stroke
- End-stage renal disease
- Chronic anemia
- Chronic hypotension
- Seizure disorder
- Hyperlipidemia
DIFFERENTIAL DIAGNOSIS
The Differential Diagnosis includes, in no particular order and is not limited to:
- Urinary tract infection
- Septic shock
- Cellulitis
- Pneumonia
- Electrolyte imbalance
- Intracranial infection or hemorrhage
- Severe anemia causing altered mental status
- Medication-induced alterations
- Dementia-related progression
- Delirium secondary to acute illness
CARE-UPDATE
01/22/25 - 01:29
Hemoglobin has improved to 9.7 from the previous 8.0. MCV decreased to 79.2 from 95.9, suggesting microcytic anemia. COVID and flu tests returned negative.
Disposition:
SUMMARY OF ENCOUNTER
The patient is a 54-year-old male presenting with fever and a change in mental status, highly suggestive of septic shock. The patient has a complex medical history including end-stage renal disease and a stage four sacral ulcer. Upon examination, he
was found to be febrile. He was admitted to the hospital for further management due to the suspicion of septic shock.
DISPOSITION
Admit.
ASSESSMENT
The patient presents with fever and altered mental status, highly suggestive of septic shock potentially related to an infection from his sacral ulcer or end-stage renal disease complications.
MEDICAL DECISION MAKING
-Complexity of Data Reviewed: Chronic conditions affecting care: stroke, end-stage renal disease, chronic anemia secondary to renal disease, intracranial hemorrhage, seizure disorder, chronic hypotension, hyperlipidemia, stage four sacral ulcer.
Differential diagnosis includes urinary tract infection, septic shock, cellulitis, pneumonia, electrolyte imbalance, intracranial infection or hemorrhage, severe anemia causing altered mental status, medication-induced alterations, dementia-related
progression, delirium secondary to acute illness.
-Data:
Category 2
Clinical information was obtained from an independent historian as the nursing transfer notes indicate an unusual altered mental status for this patient.
-Risk:
Care significantly affected by Social Determinants of Health: The patient is a resident of a assisted and is a former smoker, potentially impacting management and care coordination.
DIAGNOSIS
Septic shock - R65.21.
Past History
Past History
ED Past Medical History: CVA, HTN, Hypercholesterolemia, NIDDM, Renal failure and Seizures
ED Past Surgical History: Urological
Social History
Tobacco: Former smoker
Alcohol: None
Drug: None
Personal:
Living: assisted
Employment: Not employed
Family History
Family History: Hypertension
Phy Exam
Physical Exam
Physical Exam:
.
Sepsis
Sepsis Screening
Sepsis Assessment: Severe Sepsis
Sepsis Screening: Lactate >2mmol/L, Hypotension, Urine output- <0.5ml/kg/hr for 2 consecutive hours and Sustained Hypotension-SBP <90,MAP<65, or SBP decrease 40mmHg or more
Sepsis Screen
Sepsis Screen: Severe Sepsis
Date: 01/22/25
Time: 06:47
Course
Orders/Labs/Results
Orders:
Orders
01/22/25 00:11
Electrocardiogram (*1) Urgent
Reason for Study: Other
Other Reason for Exam: Possible Sepsis
Cardiac Monitoring- Treatment ONCE
EKG- Treatment ONCE
IV Insert/Care/Rem.- Treatment PRN
Straight cath- Treatment ONCE
O2 Therapy [RESP] Urgent
Titrate/Wean O2 to maintain O2 sat greater than (%): 93
Special Instructions: TO MAINTAIN CONTINUOUS O2 SATS > OR = 93%
Pulse Ox/cont/shift [RESP] Urgent
Quantity: 1
Special Instructions: CONTINUOUS
01/22/25 00:30
Complete Blood Count/With Diff Urgent
Comprehensive Metabolic Panel Urgent
Blood Culture Q20M
MARCO ANTONIO Source: Blood/Venous
Specimen Description:
Comment: Urgent from separate sites. If patient screens positive for possible sepsis
Influenza A+B Rapid Molecular Urgent
MARCO ANTONIO Source: Nasal Swab
Specimen Description:
01/22/25 00:31
COVID-19 Antigen Urgent
Source: Nasal Swab
Lactic Acid Q4H
Comment: ON ICE, CANCEL 2ND ORDER IF FIRST LACTIC ACID LEVEL <2
Urinalysis Reflex To Culture Urgent
Date Specimen was Collected: 01/22/25
Time Specimen was Collected: 00:11
Urine Microscopic Reflex Cult Urgent
Blood Culture Q20M
MARCO ANTONIO Source: Blood/Venous
Specimen Description:
Comment: Urgent from separate sites. If patient screens positive for possible sepsis
Urine Culture Urgent
MARCO ANTONIO Source: U
Specimen Description:
Date Specimen was Collected: 01/22/25
Time Specimen was Collected: 00:11
01/22/25 00:45
Acetaminophen 10 mg/ml [Ofirmev] 1,000 mg Pharmacy To Prepare [Call Pharmacy To Prepare] 0 ml IV ONCE
Acetaminophen IV Indication:: Targeted Temp Management
01/22/25 01:10
Dextrose 50%-Water [Dextrose 50% Syringe] 25 grams .ROUTE .STK-MED ONE
01/22/25 01:13
Dextrose 50%-Water [Dextrose 50% Syringe] 25 grams IV NOW STA
01/22/25 01:19
Piperacillin/Tazo 4.5 Gram [Zosyn] 4.5 gram in 100 ml IV NOW
01/22/25 01:22
0.9% Sodium Chloride 1000 ml [Nss] 1,000 ml IV BOLUS
01/22/25 01:27
CT Head W/o Iv Contrast Urgent
Comment:
Reason For Exam: AMS
01/22/25 02:00
Dextrose 5%/0.45%Sodchl 1000ML [D5/0.45%NaCl] 1,000 ml IV 250 mls/hr
Dextrose 5%/0.45%Sodchl 500 ml [D5/0.45%NaCl] 500 ml IV 250 mls/hr
01/22/25 02:39
NORepinephrine 4 MG/250 ML [Levophed] 4 mg in 250 ml .ROUTE .STK-MED
Vancomycin [Vancocin] 2,000 mg 0.9% Sodium Chloride 500 ml [Nss] 500 ml IV NOW
01/22/25 02:40
CR Chest Portable - 1 View Stat
Comment:
Reason For Exam: hypoxia
Reason Study Needs to be Portable: Patient Unstable
01/22/25 02:45
NORepinephrine 4 MG/250 ML [Levophed] 4 mg in 250 ml IV PER PROTOCOL
Initial dose in mcg/min, then titrate:: 2
Titrate to keep:: Other
Titrate to keep other:: MAP>60
Titrate by mcg/min:: 1-2 mcg/min
Frequency of titrations (minutes):: 5
Maximum dose in ICU in mcg/min:: 30
Maximum dose in IMU in mcg/min:: 8
Maximum dose in IVU in mcg/min:: 4
Begin to taper infusion when:: Remained at goal for 4hrs
Taper by mcg/min:: 1-2 mcg/min
Frequency of taper (minutes) if patient maintains goal:: 30
Taper to off?: Yes
If infusion off & no longer maintaining goal:: Contact Provider
01/22/25 02:47
Admit/Transfer Patient As Directed
Co-Sign Provider:
Level of Care: Inpatient admission
Assign to:: ICU
Physician / Group: Kwesi
Diagnosis: sepsis
Reason for Hospitalization: sepsis
Expected length of stay greater than two midnights?: Yes
ELOS- Estimated Length of Stay in days: 2
I certify the patient meets the requirements for IP care: Yes
PRN Pain Medication Management As Directed
May give lesser potent ordered pain med per pt: Yes
preference::
Protocol:: Medication orders for pain may be administered in a
manner that supports deferring to patient preference
when the pt is:
- Requesting an ordered lesser potent pain medication.
Least to most potent pain medications are defined
as: acetaminophen < NSAID < tramadol < opioids
(morphine, oxycodone, hydromorphone).
- Requesting a lesser dose of the same medication IF
ORDERED.
- Requesting a less intrusive route of administration
if both routes are prescribed by the provider (PO <
IV).
01/22/25 02:49
Code Status As Directed
Resuscitation Status: Full Code
01/22/25 02:55
0.9% Sodium Chloride 250 ml [Nss] 250 ml IV BOLUS
01/22/25 04:01
Acetaminophen [Tylenol] 650 mg PO Q4HPRN PRN mild pain
Bisacodyl [Dulcolax] 10 mg RECTAL DAILYPRN PRN if no bm aftr mom
Ondansetron Injectable [Zofran] 4 mg IV Q6HPRN PRN
Oxycodone [Roxicodone] 10 mg PO Q4HPRN PRN severe pain
VANCOMYCIN Pharmacy to Dose [VANCOCIN Pharmacy to Dose] 1 each Pharmacy To Prepare [Call Pharmacy To Prepare] 0 ml IV PER PROTOCOL
01/22/25 04:01
Consult Notification Routine
Specialty to Notify: Infectious Disease
Consult Notification Routine
Specialty to Notify: Nephrology
INFECTIOUS DISEASE CONSULT Routine
Consulting Provider: Silvia Craig
Was physician already notified: No
Reason for consult: sepsis, unclear source
NEPHROLOGY CONSULT Routine
Consulting Provider: Abdon Prescott V.
Was physician already notified: No
Reason for consult: ESRD HD M/W/F here with sepsis.
Activity As Directed
Activity Level: With Assistance
Bedside Glucose Monitoring As Directed
Frequency: AC&HS
Vale Catheter [Catheter- Indwelling] As Directed
Reason for insertion: Chronic Vale on Admit
Intake/ Output As Directed
Frequency: Per unit guidelines
Vital Signs As Directed
Frequency: Per unit guidelines
DX Deep Vein Thrombosis Video Routine
01/22/25 04:15
Lactic Acid Q4H
Comment: ON ICE, CANCEL 2ND ORDER IF FIRST LACTIC ACID LEVEL <2
01/22/25 05:46
Complete Blood Count/No Diff IN AM
Lactic Acid IN AM
Comment: repeat q4 hours x 4 or until less than 2 mmol/L
01/22/25 Breakfast
IDDSI 4 - Pureed
At Your Request: Non-Participating
01/22/25 07:30
Insulin Aspart Corrective Mod [Novolog Flexpen-Moderate Resistance] See Protocol SC AC
01/22/25 08:00
Divalproex Delayed Rel. 12 Hr [Depakote (12 Hr Release)] 500 mg PO BID
Heparin 5,000 units SC Q12
Levetiracetam [Keppra] 250 mg PO TID
Pantoprazole [Protonix] 40 mg PO DAILY
Piperacillin/Tazo 2.25 Gram [Zosyn] 2.25 grams in 50 ml IV Q8H
01/24/25 08:00
Sodium Zirconium Cyclosilicate [Lokelma] 10 gram PO TuThSa@0800
Abnormal Lab Results
01/22/25 01/22/25 01/22/25
: 00:31 00:34
RBC 3.71 L 10^6/uL
(4.70-6.10)
Hgb 9.7 L g/dL
(13.0-18.0)
Hct 29.4 L %
(39.0-52.0)
MCV 79.2 L fL
(80.0-94.0)
MCH 26.1 L pg
(27.0-31.0)
RDW 18.7 H %
(11.5-14.5)
MPV 10.6 H fL
(7.4-10.4)
Abs Immat Gran (auto) 0.2 H 10^3/uL
(0-0.05)
Absolute Neuts (auto) 8.3 H 10^3/uL
(1.4-6.5)
Absolute Lymphs (auto) 0.3 L 10^3/uL
(1.2-3.4)
Immature Gran % 1.7 H %
(0-0.5)
Neutrophils % 91.9 H %
(42.2-75.2)
Lymphocytes % 3.3 L %
(20.5-51.1)
BUN 66 H mg/dl
(9-20)
Creatinine 3.1 H mg/dL
(0.7-1.3)
Glucose 50 L* mg/dl
(70-99)
Lactic Acid 3.4 H mmol/L
(0.7-2.0)
Total Bilirubin 1.6 H mg/dl
(0.2-1.3)
AST 104 H U/L
(17-59)
ALT 75 H U/L
(0-50)
Total Protein 8.7 H g/dl
(6.3-8.2)
Albumin 3.0 L g/dl
(3.5-5.0)
Ur Occult Blood Reflex 4+ A
(Negative)
Leukocyte Esterase Rfl 3+ A
(Negative)
Urine RBC 16-20 A /HPF
(0-2)
Urine WBC (Reflex) >100 A /HPF
(0-5)
Urine Bacteria (Reflex) Many A
(Negative)
Urine Albumin (Reflex) 3+ A
(Neg - Trace)
POC Glucose 68 L mg/dl
(70-99)
01/22/25
01:43
RBC
Hgb
Hct
MCV
MCH
RDW
MPV
Abs Immat Gran (auto)
Absolute Neuts (auto)
Absolute Lymphs (auto)
Immature Gran %
Neutrophils %
Lymphocytes %
BUN
Creatinine
Glucose
Lactic Acid
Total Bilirubin
AST
ALT
Total Protein
Albumin
Ur Occult Blood Reflex
Leukocyte Esterase Rfl
Urine RBC
Urine WBC (Reflex)
Urine Bacteria (Reflex)
Urine Albumin (Reflex)
POC Glucose 143 H mg/dl
(70-99)
01/22/25 00:30
01/22/25 00:30
Vital Signs
Initial and Last Documented VS:
Initial Vital Signs
Temp Pulse Resp BP Pulse Ox
102.7 F H 103 27 89/78 88
01/22/25 00:12 01/22/25 00:12 01/22/25 00:12 01/22/25 00:12 01/22/25 00:12
Last Documented Vital Signs
Temp Pulse Resp BP Pulse Ox
98.5 F 77 15 78/49 97
01/22/25 04:21 01/22/25 06:30 01/22/25 06:30 01/22/25 06:30 01/22/25 06:30
*Pulse Oximetry
SaO2: 88
Oxygen Mode of Delivery: Room air
Patient hypoxic: yes
*Critical Care Note
Total Time (30-74mins, 75-104mins- exclusive of procedures): 44 (Critical care statement: A total of 44 minutes of critical care time was provided for this patient. This time is separate from time utilized to perform the aforementioned documented
procedures. Aggregate critical care time includes only time during which I was engaged in work directl)
ED Attending Note
-
Portions of this chart may have been created with voice recognition software.� Occasional wrong word or��sound alike� substitutions may have occurred due to the inherent limitations of voice recognition software.
Discharge Plan
Departure
Patient Disposition: Admit
Date of Disposition: 01/22/25
Time of Disposition: 01:24
Admit to: ICU
Presentation/result/management discussed w/ accepting MD/DO: Hospitalist
Condition: Good
Discharge Problem:
Sepsis, Chronic indwelling Vale catheter, Decubitus ulcer of sacral region, stage 4, History of CVA with residual deficit, Bedridden, Right hemiparesis, Sacral osteomyelitis, Anemia, ESRD (end stage renal disease) on dialysis, Diabetes mellitus
with osteomyelitis
Interventions
Interventions:
*Risk Screen - Suicide Last Done: 01/22/25 04:34
*General Assessment Last Done: 01/22/25 00:18
*Neglect/Abuse Screening Last Done: 01/22/25 00:18
*ED- Fall Risk Assessment Last Done: 01/22/25 04:17
*ED COVID-19 Vaccine History Last Done: 01/22/25 04:34
*Nursing Disposition Last Done: 01/22/25 04:17
ED- Pulmonary Assessment Last Done: 01/22/25 04:19
ED-Psychological Assessment Last Done: 01/22/25 04:19
ED- Neurological Assessment Last Done: 01/22/25 00:18
ED- Cardiac Assessment Last Done: 01/22/25 04:19
ED Swallowing Screen Last Done: 01/22/25 00:24
Discharge Date and Time
Discharge Date/Time: 01/22/25 04:21
[2025-01-22 00:35] LABS: Glucose - Point of Care 68 mg/dl (70-99)
[2025-01-22 00:52] LABS: Hematocrit 29.4 % (39.0-52.0); Hemoglobin 9.7 g/dL (13.0-18.0); Mean Corp Hgb Conc. 33.0 g/dL (33.0-37.0); Mean Corpuscular Volume 79.2 fL (80.0-94.0); Platelet Count 155 10^3/uL (130-400); Red Cell Dist. Width 18.7 % (11.5-14.5)
[2025-01-22] MEDS: OFIRMEV 100 MG IV (00:54)
[2025-01-22 00:59] LABS: COVID-19 Antigen Negative (Negative)
[2025-01-22 01:09] LABS: ALT (SGPT) 75 U/L (0-50); AST (SGOT) 104 U/L (17-59); Albumin 3.0 g/dl (3.5-5.0); Alkaline Phosphatase 75 U/L (38-126); Blood Urea Nitrogen 66 mg/dl (9-20); Calcium 8.4 mg/dl (8.4-10.2); Carbon Dioxide 27 mmol/L (22-30); Chloride 99 mmol/L (98-107); Estimated Creatinine Clearance 28 ml/min; Glucose 50 mg/dl (70-99); Potassium 4.5 mmol/L (3.5-5.1); Sodium 138 mmol/L (135-145); Total Protein 8.7 g/dl (6.3-8.2); eGFR 23.30
[2025-01-22] MEDS: DEXTROSE 50% SYRINGE 25 GRAMS IV (01:14)
[2025-01-22] MEDS: NSS 1000 IV (01:23)
[2025-01-22 01:27] LABS: Urine Character Cloudy (Clear)
[2025-01-22] MEDS: ZOSYN 100 IV (01:29)
[2025-01-22 01:44] LABS: Glucose - Point of Care 143 mg/dl (70-99)
[2025-01-22 01:49] LABS: Nucleated Red Blood Cells % 0 % (-)
[2025-01-22 02:16] LABS: Urine Squamous Cell 0-2 /LPF (Few)
[2025-01-22 02:17] LABS: Urine Red Blood Cell 16-20 /HPF (0-2); Urine White Cell >100 /HPF (0-5)
--- NOTE | 2025-01-22 02:22 | HPS.HSE ---
Family Physician
-
Family Physician: NOT KNOW UNKNOWN - PT DOES
Chief Complaint
-
Altered mental status
History of Present Illness
53-year-old with chronically feeling weak in the hands due to renal disease on hemodialysis Thursday, hypertension, hyperlipidemia, diabetes, CVA with right hip again), status post colectomy with end colostomy, sacral pressure ulcer
with resultant osteomyelitis and bacteremia with history of recent iliac muscle abscess status post prolonged antibiotics now presenting to the emergency department from snf/rehab facility with change in mental status. Patient unable to
provide history. He looks quite ill and septic in appearance.
He had from reportedly point to due to alteration in mental status. He is usually alert and oriented x 3 but today he has been lethargic. He was his roommate pointed to the alteration in mental status. EMS stated that the bedside Leukos was 60s
at the facility and glucagon was admitted. He has a wound VAC which was removed recently for sacral wound.
Initial blood pressure was 86/50, pulse 93 and he was satting 100% on room air. Measured temperature of 102.7 on arrival.
CBC shows a white count of 9.0 hemoglobin of 9.7 and of a platelet count of 155. He is electrolytes were unremarkable. Initial glucose was 50 and patient is status post dextrose infusion. BUN/creatinine consistent with end-stage renal disease.
Lactic acid 3.4. There is mild transaminitis with T. bili of 1.6, AST of 104 and ALT of 75. UA with 3+ leukocyte Estrace.
Medical History
Past Medical History
Past Medical History: Reports CVA, HTN, Hypercholesterolemia, IDDM, Renal Failure and Seizures
Past Surgical History: Reports Bowel Resection
Additional Past Surgical History:
Colostomy, right iliac abscess with SHAILA drain,
Social History
Tobacco: Former Smoker
Alcohol: None
Drug: None
Living: Intermediate
Family History
Family History: Not pertinent
Allergies / Home Medications
Allergies reflects when Allergies were last updated in [facility].
Home Medications with original date entered in [facility]
Allergy/Medication List:
Allergies
Allergy/AdvReac Type Severity Reaction Status Date / Time
banana Allergy Swelling Verified 08/29/24 19:20
Home Medications
ferrous sulfate 325 mg (65 mg iron) tablet 325 mg PO DAILY Supplement 08/14/22
insulin aspart U-100 100 unit/mL subcutaneous solution 1 sliding scale dose SC ACHS Diabetes 08/14/22
ipratropium 0.5 mg-albuterol 3 mg (2.5 mg base)/3 mL nebulization soln 3 ml inhalation R Q4HPRN PRN sob 08/14/22
ondansetron HCl 4 mg tablet 4 mg PO Q6HPRN PRN nausea/vomiting 08/14/22
pantoprazole 40 mg tablet,delayed release 40 mg PO DAILY Gastrointestinal issue 08/14/22
acetaminophen 325 mg tablet 650 mg PO Q4HPRN PRN mild pain 12/02/22
ascorbic acid (vitamin C) 1,000 mg tablet (Vitamin C) 1,000 mg PO DAILY Supplement 12/02/22
lidocaine-prilocaine 2.5 %-2.5 % topical cream 1 applic topical MOWEFR apply to right AVG 12/02/22
atorvastatin 40 mg tablet 40 mg PO DAILY High Cholesterol 01/16/23
bisacodyl 10 mg rectal suppository 10 mg OR DAILYPRN PRN if no bm aftr mom 01/23/23
divalproex 500 mg tablet,delayed release (Depakote) 500 mg PO BID Seizures 04/06/23
oxycodone 10 mg tablet 10 mg PO Q4HPRN PRN severe pain #10 tabs 08/19/24
insulin glargine 100 unit/mL (3 mL) subcutaneous pen (Lantus Solostar U-100 Insulin) 10 unit SC HS Diabetes 08/30/24
cefepime 2 gram solution for injection 2,000 mg IV MoWeFr@1800 #0 ea 09/08/24
metronidazole 500 mg tablet 500 mg PO BID #90 tabs 09/08/24
bumetanide 2 mg tablet 2 mg PO DAILY Blood Pressure 09/30/24
carvedilol 25 mg tablet 25 mg PO BID Blood Pressure 09/30/24
glucagon 1 mg solution for injection (Glucagon Emergency Kit) 1 mg IM PRN PRN LOW BLOOD GLUCOSE 09/30/24
heparin (porcine) 5,000 unit/mL injection solution 5,000 unit SC Q12H Blood Clot Prevention/Tx 09/30/24
levetiracetam 250 mg tablet 250 mg PO TID Seizures 09/30/24
midodrine 5 mg tablet 10 mg PO MOWEFR 09/30/24
sodium zirconium cyclosilicate 10 gram oral powder packet (Lokelma) 10 g PO TUTHSA HYPERKALEMIA 09/30/24
Review of Systems
-
Unable to obtain full review of systems at this time due to: Patient Non-verbal
Physical Exam
Vital Signs
Vital Signs
Temp Pulse Resp BP Pulse Ox
100.4 F H 95 17 86/52 88
01/22/25 01:43 01/22/25 01:15 01/22/25 01:15 01/22/25 01:00 01/22/25 01:25
Physical Exam
General: Appears Chronically Ill
HEENT: NormoCephalic, Anicteric, Moist mucous membranes and Atraumatic
Respiratory: Clear
Cardiac: S1/S2 and Regular Rhythm
Breast: Deferred by me
GI: Soft, Non Tender, Non Distended, Normal Bowel Sounds and Ostomy
Rectal: Other (colostomy with heme negative brown stool)
Genito-urinary: Deferred by me
Musculoskeletal: No Clubbing, No Cyanosis and No Edema
Skin: Warm
Neuro: Awake and Nonfocal/grossly intact
Hematologic/Lymphatic: No Lymphadenopathy
Psych: Calm
Laboratory Results
-
01/22/25 00:30
01/22/25 00:30
Laboratory Results
Lactic Acid 3.4 mmol/L (0.7-2.0) H 01/22/25 00:31
Total Bilirubin 1.6 mg/dl (0.2-1.3) H 01/22/25 00:30
AST 104 U/L (17-59) H 01/22/25 00:30
ALT 75 U/L (0-50) H 01/22/25 00:30
Alkaline Phosphatase 75 U/L (38-126) 01/22/25 00:30
Data Reviewed
-
Lab Data: Labs Reviewed by me
Impression/Plan
-
IMPRESSION:
54-year-old with multiple comorbidities including end-stage renal disease on hemodialysis Thursday, CVA with right hemiplegia, osteomyelitis/sepsis s/p ABX who presents to ED with AMS and fever to 102. Picture c/w sepsis but unclear
source. COVID and influenza are negative. Despite end-stage renal disease patient still makes urine and the Vale which is chronic and indwelling has essentially pus coming out at this time. What are possible etiologies include pneumonia and soft
tissue infection coming from decubitus ulcer which had wound VAC recently removed.
PLAN:
Sepsis -presented with septic shock of unclear etiology but likely urinary vascular skin. Possible PNA
- Admit to ICU
- Blood cultures have been sent, urine culture sent
- Chest x-ray
- Patient was previously on cefepime for chronic osteo, blood and urine cultures have always been sensitive to cefepime and Zosyn, will continue with Zosyn for now
- Vancomycin
- ID consultation
- Pressors to keep MAP greater than 65
- Hold Bumex, bolus 500 ml NS now
- supplemental O2 and duonebs prn
2. DM II - Hypoglycemic. On insulin at home. Improved with dextrose infusion
- slidings scale insulin for now
- diabetic renal diet as tolerated
- hypoglycemia protocol
3. ESRD - M/W/F. No indication for emergent dialysis. K, bicarb normal
- nephrology consultation
- hold bumex
4. Seizure d/o
- continue valproic acid and keppra per home regimen
- pureed diet, thin liquids
5. HTN - orthostatic
- holding coreg
DVT PPX - hep s/q q 12
Code status - Full Code
[2025-01-22] MEDS: LEVOPHED 250 IV ×6 (02:45→22:31)
[2025-01-22] MEDS: VANCOCIN 540 MG IV (03:26)
[2025-01-22 04:34] LABS: Glucose - Point of Care 107 mg/dl (70-99)
[2025-01-22] MEDS: NSS 250 IV (04:41)
--- NOTE | 2025-01-22 05:32 | PTCARENOTE ---
Received pt from ED RN. Pt is AAOx3, drowsy, slow speech, withdrawn, flat. NSR on the monitor. On 2L NC O2 sat 98%, lungs diminished/coarse. Colostomy in place. Chronic obrien in place, milky urine, hygiene provided. Sacrum wound, wound care
consulted and wound care provided. Received pt on 12 mcgs of levo (see worklist). CHG bath and mouth care provided. Call lomax in reach. Safe environment maintained.
[2025-01-22 06:07] LABS: Hematocrit 25.9 % (39.0-52.0); Hemoglobin 8.3 g/dL (13.0-18.0); Mean Corp Hgb Conc. 32.0 g/dL (33.0-37.0); Mean Corpuscular Volume 79.9 fL (80.0-94.0); Platelet Count 147 10^3/uL (130-400); Red Cell Dist. Width 18.9 % (11.5-14.5)
[2025-01-22 06:14] LABS: INR 1.51; PT 18.5 Sec (11.4-14.6)
[2025-01-22 06:15] LABS: APTT 39.5 Sec (23.4-35.0)
[2025-01-22] MEDS: NEO-SYNEPHRINE 250 IV (06:34)
[2025-01-22 06:37] LABS: Blood Urea Nitrogen 64 mg/dl (9-20); Calcium 8.2 mg/dl (8.4-10.2); Carbon Dioxide 27 mmol/L (22-30); Chloride 101 mmol/L (98-107); Estimated Creatinine Clearance 24 ml/min; Glucose 109 mg/dl (70-99); Magnesium 1.6 mg/dl (1.6-2.3); Potassium 3.7 mmol/L (3.5-5.1); Sodium 138 mmol/L (135-145); eGFR 18.84
[2025-01-22] MEDS: NOVOLOG FLEXPEN-MODERATE RESISTANCE SC ×2 (07:50→17:18)
[2025-01-22] MEDS: ZOSYN 50 IV ×3 (07:52→23:09)
--- NOTE | 2025-01-22 08:17 | PHA.VAN.IN ---
Assessment
- Assessment
Renal Function: Patient has ESRD, on chronic Hemodialysis
Hemodialysis Schedule: MWF
Maximum Temperature: 102.7 F
Plan
- Plan
Initial / Loading Dose: VANCO 2000MG X1
Monitoring: RANDOM 01/23 @0600 PRIOR TO HD
Pharmacokinetics Vancomycin I
- -
Patient Age: 54
Patient Sex: Male
Vancomycin Day #: 1
Indication: Skin And Soft Tissue
Requesting Provider: DR. HERNANDEZ
Height / Weight:
Height 5 ft 10 in
Actual Weight 74.253 kg
Pertinent Past Medical History: ESRD-HD
- Vital Signs / Lab Results
Temp Pulse Resp BP Pulse Ox
98.5 F 77 15 81/51 97
01/22/25 04:21 01/22/25 07:00 01/22/25 07:00 01/22/25 06:45 01/22/25 07:00
Lab Results - Hematology
01/22/25 01/22/25
00:30 05:46
WBC 9.0 5.9
Lab Results - Chemistry
01/22/25 01/22/25
00:30 05:46
BUN 66 H 64 H
Creatinine 3.1 H 3.7 H
Estimated Creat Clear 28 24
Albumin 3.0 L
01/22/25 01/22/25 01/22/25
00:31 04:15 05:46
Lactic Acid 3.4 H Cancelled 3.6 H
Lab Results - Urine
01/22/25
00:31
Urine Nitrite (Reflex) Negative
Leukocyte Esterase Rfl 3+ A
Urine WBC (Reflex) >100 A
Ur Squamous Epith Cells 0-2
Urine Bacteria (Reflex) Many A
Microbiology Results
01/22/25 00:30 Influenza Types A & B (DANI) - Final
Nasal Swab Negative for Influenza A & B, NAAT
Negative results must be combined with clinical observations
and patient history.
Nucleic Acid Amplification test (NAAT)performed on the
[employer] platform.
[2025-01-22 08:19] LABS: Glucose - Point of Care 126 mg/dl (70-99)
--- NOTE | 2025-01-22 08:20 | W.CON.NEPH ---
Consultation
-
Date/Time Consultation Requested: 01/22/2025 7:15 AM
Date/Time Consultation Performed: 01/22/2025 8:00 AM
Requesting Provider: Dr. Anderson
Performing Provider: Dr. Prescott
Reason for Consultation: ESRD
Medical History
-
Chief Complaint: ESRD
History of Present Illness:
The patient is a 54-year-old male with a past medical history of end-stage renal disease who dialyzes Wednesdays and Thursday. He has hypertension but requires midodrine on dialysis, hyperlipidemia, diabetes (on insulin), CVA with right hip
again), status post colectomy with end colostomy, sacral pressure ulcer with resultant osteomyelitis and bacteremia with history of recent iliac muscle abscess status post prolonged antibiotics now presenting to the emergency department from nursing
home/rehab facility with change in mental status.
He had from reportedly point to due to alteration in mental status. He is usually alert and oriented x 3 had been lethargic. EMS stated that the bedside glucose was 60s at the facility and glucagon was admitted. He has a wound VAC which was
removed recently for sacral wound.
Initial blood pressure was 86/50, pulse 93 and he was satting 100% on room air. Measured temperature of 102.7 on arrival.
Nephrology was consulted for end-stage renal disease in the setting of evolving sepsis.
Past Medical History
ESRD Thursday [facility]
chronic Vale
history of intracranial hemorrhage stroke residual right-sided weakness
hypertension
hyperlipidemia
diabetes
chronic bedbound
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
right thigh complex abscess
History of seizure disorder
sacral stage IV decubitus ulcer with osteomyelitis�
AVF RUE
Social History
Tobacco: Non-Smoker
Living: Jail
Family History
no ckd
Allergies / Home Medications
Allergy/AdvReac Type Severity Reaction Status Date / Time
banana Allergy Swelling Verified 01/22/25 00:39
�Medication �Instructions �Recorded �Confirmed �Type
ferrous sulfate 325 mg (65 mg 325 mg PO DAILY Supplement 08/14/22 01/22/25 History
iron) tablet
insulin aspart U-100 100 unit/mL 1 sliding scale dose SC ACHS 08/14/22 01/22/25 History
subcutaneous solution Diabetes
pantoprazole 40 mg tablet,delayed 40 mg PO DAILY Gastrointestinal 08/14/22 01/22/25 History
release issue
acetaminophen 325 mg tablet 650 mg PO Q4HPRN PRN mild pain 12/02/22 01/22/25 History
ascorbic acid (vitamin C) 1,000 mg 1,000 mg PO DAILY Supplement 12/02/22 01/22/25 History
tablet (Vitamin C)
lidocaine-prilocaine 2.5 %-2.5 % 1 applic topical MOWEFR apply to 12/02/22 01/22/25 History
topical cream right AVG
atorvastatin 40 mg tablet 40 mg PO DAILY High Cholesterol 01/16/23 01/22/25 History
bisacodyl 10 mg rectal suppository 10 mg CO DAILYPRN PRN if no bm 01/23/23 01/22/25 History
aftr mom
divalproex 500 mg tablet,delayed 500 mg PO BID Seizures 04/06/23 01/22/25 History
release (Depakote)
oxycodone 10 mg tablet 10 mg PO Q4HPRN PRN severe pain 08/19/24 01/22/25 Rx
#10 tabs
insulin glargine 100 unit/mL (3 10 unit SC HS Diabetes 08/30/24 01/22/25 History
mL) subcutaneous pen (Lantus
Solostar U-100 Insulin)
Held on 10/01/24.
Instructions: Resume on
10/03/24.
bumetanide 2 mg tablet 2 mg PO DAILY Blood Pressure 09/30/24 01/22/25 History
carvedilol 25 mg tablet 25 mg PO BID Blood Pressure 09/30/24 01/22/25 History
glucagon 1 mg solution for 1 mg IM PRN PRN LOW BLOOD GLUCOSE 09/30/24 01/22/25 History
injection (Glucagon Emergency Kit)
levetiracetam 250 mg tablet 250 mg PO TID Seizures 09/30/24 01/22/25 History
midodrine 5 mg tablet 10 mg PO MOWEFR Blood Pressure 09/30/24 01/22/25 History
sodium zirconium cyclosilicate 10 10 g PO TUTHSA HYPERKALEMIA 09/30/24 01/22/25 History
gram oral powder packet (Lokelma)
Review of Systems
-
History Source: Patient
All other systems: Negative unless noted
Constitutional: Fever
Musculoskeletal: Other (Sacral decub)
Neurological: Other (Lethargy change of mental status)
Physical Exam
Vital Signs
Vital Signs
Temp Pulse Resp BP Pulse Ox
98.5 F 77 15 81/51 97
01/22/25 04:21 01/22/25 07:00 01/22/25 07:00 01/22/25 06:45 01/22/25 07:00
Lab Results
01/22/25 05:46
01/22/25 05:46
WBC 5.9 10^3/uL (4.8-10.8) 01/22/25 05:46
RBC 3.24 10^6/uL (4.70-6.10) L 01/22/25 05:46
Hgb 8.3 g/dL (13.0-18.0) L 01/22/25 05:46
Hct 25.9 % (39.0-52.0) L 01/22/25 05:46
Plt Count 147 10^3/uL (130-400) 01/22/25 05:46
Sodium 138 mmol/L (135-145) 01/22/25 05:46
Potassium 3.7 mmol/L (3.5-5.1) 01/22/25 05:46
Chloride 101 mmol/L (98-107) 01/22/25 05:46
Carbon Dioxide 27 mmol/L (22-30) 01/22/25 05:46
BUN 64 mg/dl (9-20) H 01/22/25 05:46
Creatinine 3.7 mg/dL (0.7-1.3) H 01/22/25 05:46
eGFR 18.84 01/22/25 05:46
Glucose 109 mg/dl (70-99) H 01/22/25 05:46
Calcium 8.2 mg/dl (8.4-10.2) L 01/22/25 05:46
Albumin 3.0 g/dl (3.5-5.0) L 01/22/25 00:30
Physical Exam
General: Awake, Alert and Other (Chronically ill-appearing)
HEENT: EOMI, Anicteric, Conjunctivae Clear, Ear/Nose Intact, Hearing Normal, Facial Symmetry, Neck Supple, Trachea Midline, No JVD and No Thyromegaly
Respiratory: Normal Excursion and Other (Coarse breath sounds bilateral)
Cardiac: S1/S2 and Regular Rate/Rhythm
Breast: Deferred by me
Abdomen: Nontender, Nondistended, Normal Bowel Sounds and No Hepatosplenomegaly
Rectal: Deferred by Provider
Genito-urinary: No Costovertebral Tender
Musculoskeletal: No Cyanosis and No Edema
Skin: No Rash, No Clubbing, No Cyanosis, Normal Turgor and No Bruising
Neuro: Other (Patient moves all 4 limbs independently no asterixis, patient not cooperative with neuroexam)
Hematologic/Lymphatic: No Cervical Lymphadenopathy, No Submandibular Lymphadenopathy and No Supraclavicular Lymphadenopathy
Psych: Other (Lethargic weakly answers questions and follows commands)
Vascular Access: AVF (Right upper extremity good thrill and bruit)
Data Reviewed
-
Radiology: Report Reviewed by me (Chest x-ray personally reviewed: Some lower lobe opacities noted at base but hypoinflated lung dowd)
Labs: Labs Reviewed by me (BMP CBC)
Old Records: Reviewed (Reviewed previous ESRD consult from date 08/30/24 in EMR for ESRD)
Assessment/Plan
-
Impression:
ESRD Thursday [facility]
Suspected sepsis
Diabetes
Seizure disorder
Orthostatic hypotension
History of CVA with subsequent right hemiplegia
History of recurrent osteomyelitis with sacral decubitus
History of colectomy
Chronic Vale
Anemia
History of septic arthritis of right sacroiliac joint/right iliac abscess
History of right upper extremity AV fistula
Plan:
No acute dialysis requirement today
Dialysis will be provided for tomorrow
SUMEET support for anemia on HD
Midodrine will be provided for hemodynamic support during ultrafiltration
Antibiotics (zosyn/vanco) renally dosed for ESRD, blood cultures pending
Currently critically ill on multi pressor support for suspected sepsis, maintain MAP 60 or greater, carvedilol held
31 minutes of critical care time spent with patient
--- NOTE | 2025-01-22 08:29 | CON.INTV ---
Addendum entered and electronically signed by Yordan Cervantes MD 01/23/25 01:31:
Patient was seen and evaluated on 01/22/2025
Original Note:
Consultation
Consultation Request
Date/Time Consultation Requested: 01/22/2025400
Date/Time Consultation Performed: 01/22/2025827
Requesting Provider: Dr. Orosco
Performing Provider: Dr. Cervantes
Reason for Consultation: Shock
Medical History
-
Chief Complaint: Change in mental status
History of Present Illness:
54-year-old M with PMHx of ESRD on HD MWF, DM type II, seizure disorder, orthostatic hypotension on midodrine, chronic vale, Hx of LUE PICC-related venous thrombosis, chronic sacral decubtus ulcer with chronic OM, Hx of ICH with residual
right-sided weakness, ambulatory dysfunction, depression, and dysphagia who p/w AMS. He was sent in from his NH at [facility]. He has not been eating and has had worsening lethargy. Bedside glucose was in 60s, and the NH administered glucagon.
Also his woundvac for his chronic sacral wound was recently removed. At baseline he is usually AAOx3. He was initially febrile to 102.7F, MD 103, RR 27, BP 89/78, and SpO2 88% on room air. Labs showed normal WBC at 9, Hb 9.7, glucose 50 (on
BMP), lactate 3.4, T bili 1.6, LFTs elevated slightly, UA was dirty with +3 LE, >100 WBC and many bacteria. COVID-19 antigen negative. Blood cultures + urine Cx collected. CT head showed no acute intracranial pathology, and CXR showed bibasilar
opacities likely due to atelectasis vs PNA. He was given Zosyn, 1 amp of d50, 1L bolus of NS 0.9%, ofirmev and started on levophed due to persistent hypotension. Pt then admitted to ICU and [employer] service consulted for further
management/recommendations.
When I saw the pt, he was resting in bed in NAD. Appears drowsy but able to answer my questions appropirately, although he has issues enunciating, possibly related to his Hx of ICH. Current HR is 78 with BP 75/48 and saturating 96%on 2L/min
nasal cannula. He currently feels 'ok,' just tired. Denies chest pain, nausea or vomiting.
PMHx: ESRD on HD MWF, DM type II, seizure disorder, orthostatic hypotension on midodrine, chronic vale, Hx of LUE PICC-related venous thrombosis, chronic sacral decubtus ulcer with chronic OM, Hx of ICH with residual right-sided weakness,
ambulatory dysfunction, depression, dysphagia
PSHx: AVF creation, right testicle removal
Past Medical History
Past Medical History: Other (Above as per HPI)
Past Surgical History: Other (Above as per HPI)
Social History
Tobacco: Non-smoker
Alcohol: None
Drug: None
Family History
Family History: Reviewed & Not Pertinent
Allergies / Home Medications
Allergies
Allergy/AdvReac Type Severity Reaction Status Date / Time
banana Allergy Swelling Verified 01/22/25 00:39
Home Medications
�Medication �Instructions �Recorded �Confirmed �Last Taken �Type
ferrous sulfate 325 mg (65 mg 325 mg PO DAILY Supplement 08/14/22 01/22/25 09/29/24 History
iron) tablet
insulin aspart U-100 100 unit/mL 1 sliding scale dose SC ACHS 08/14/22 01/22/25 09/25/23 History
subcutaneous solution Diabetes
pantoprazole 40 mg tablet,delayed 40 mg PO DAILY Gastrointestinal 08/14/22 01/22/25 09/30/24 History
release issue
acetaminophen 325 mg tablet 650 mg PO Q4HPRN PRN mild pain 12/02/22 01/22/25 Unknown History
ascorbic acid (vitamin C) 1,000 mg 1,000 mg PO DAILY Supplement 12/02/22 01/22/25 09/29/24 History
tablet (Vitamin C)
lidocaine-prilocaine 2.5 %-2.5 % 1 applic topical MOWEFR apply to 12/02/22 01/22/25 09/30/24 History
topical cream right AVG
atorvastatin 40 mg tablet 40 mg PO DAILY High Cholesterol 01/16/23 01/22/25 09/29/24 History
bisacodyl 10 mg rectal suppository 10 mg MD DAILYPRN PRN if no bm 01/23/23 01/22/25 Unknown History
aftr mom
divalproex 500 mg tablet,delayed 500 mg PO BID Seizures 04/06/23 01/22/25 09/29/24 History
release (Depakote)
oxycodone 10 mg tablet 10 mg PO Q4HPRN PRN severe pain 08/19/24 01/22/25 09/24/24 Rx
#10 tabs
insulin glargine 100 unit/mL (3 10 unit SC HS Diabetes 08/30/24 01/22/25 09/29/24 History
mL) subcutaneous pen (Lantus
Solostar U-100 Insulin)
Held on 10/01/24.
Instructions: Resume on
10/03/24.
bumetanide 2 mg tablet 2 mg PO DAILY Blood Pressure 09/30/24 01/22/25 09/29/24 History
carvedilol 25 mg tablet 25 mg PO BID Blood Pressure 09/30/24 01/22/25 09/30/24 History
glucagon 1 mg solution for 1 mg IM PRN PRN LOW BLOOD GLUCOSE 09/30/24 01/22/25 Unknown History
injection (Glucagon Emergency Kit)
levetiracetam 250 mg tablet 250 mg PO TID Seizures 09/30/24 01/22/25 09/29/24 History
midodrine 5 mg tablet 10 mg PO MOWEFR Blood Pressure 09/30/24 01/22/25 09/30/24 History
sodium zirconium cyclosilicate 10 10 g PO TUTHSA HYPERKALEMIA 09/30/24 01/22/25 09/29/24 History
gram oral powder packet (Lokelma)
Review of Systems
-
Unable to Obtain full review of systems at this time due to: Acuity
Vitals / Labs / Diagnostic Testing
Vital Signs
Temp Pulse Resp BP Pulse Ox
97.6 F 81 20 80/50 96
01/22/25 08:00 01/22/25 09:45 01/22/25 09:45 01/22/25 09:45 01/22/25 09:45
Lab Data
01/22/25 05:46
01/22/25 05:46
Laboratory Results
01/22/25
05:46
PT 18.5 H
INR 1.51
APTT 39.5 H
Microbiology
01/22/25 00:30 Nasal Swab Influenza Types A & B (DANI) - Final
Negative for Influenza A & B, NAAT
Negative results must be combined with clinical observations
and patient history.
Nucleic Acid Amplification test (NAAT)performed on the
[employer] platform.
Diagnostic Testing:
Physical Exam
-
HEENT: Normocephalic and Anicteric
Cardiovascular: S1/S2 and Peripheral Edema (negative)
Respiratory: Wheeze (negative), Rales (bibasilar), Rhonchi (negative), Non-Labored Respirations and Other (Poor inspiratory effort)
GI: Soft, Non Distended, Non Tender and Normal Bowel Sounds
Neurology: Awake (drowsy at times) and Tremors (negative)
Skin: Warm, Dry and Other (RUE AVF with +thrill, +pulsation and +bruit)
General: Respiratory Distress (negative), Comfortable, Fever (negative) and Chills (negative)
Assessment
-
Assessment: 54-year-old M with PMHx of ESRD on HD MWF, DM type II, seizure disorder, orthostatic hypotension on midodrine, chronic vale, Hx of LUE PICC-related venous thrombosis, chronic sacral decubtus ulcer with chronic OM, Hx of ICH with
residual right-sided weakness, ambulatory dysfunction, depression, and dysphagia who p/w AMS. He was sent in from his NH at [facility]. He has not been eating and has had worsening lethargy. Bedside glucose was in 60s, and the NH administered
glucagon. Also his woundvac for his chronic sacral wound was recently removed. At baseline he is usually AAOx3. He was initially febrile to 102.7F, MD 103, RR 27, BP 89/78, and SpO2 88% on room air. Labs showed normal WBC at 9, Hb 9.7, glucose
50 (on BMP), lactate 3.4, T bili 1.6, LFTs elevated slightly, UA was dirty with +3 LE, >100 WBC and many bacteria. COVID-19 antigen negative. Blood cultures + urine Cx collected. CT head showed no acute intracranial pathology, and CXR showed
bibasilar opacities likely due to atelectasis vs PNA. He was given Zosyn, 1 amp of d50, 1L bolus of NS 0.9%, ofirmev and started on levophed due to persistent hypotension. Pt then admitted to ICU and [employer] service consulted for further
management/recommendations.
Chronic conditions [employer]: ESRD on HD MWF, DM type II, seizure disorder, orthostatic hypotension on midodrine, chronic vale, Hx of LUE PICC-related venous thrombosis, chronic sacral decubtus ulcer with chronic OM, Hx of ICH with residual right-sided
weakness, ambulatory dysfunction, depression, dysphagia
Impression:
#Septic shock - sources include urine, sacral wound and intra-abdominal (however there currently is no abdominal clinical symptoms)- believe this is from his sacral wound
#Abnormal urinalysis (pt has chronic vale so abnormal UA may be result of this)
#Lactic acidosis
#ESRD on HD MWF
#DM type II c/b hypoglycemia
#AMS due tp TME in setting of sepsis/GNR bacteremia
#Seizure disorder
#Orthostatic hypotension
#Chronic Vale
#Hx of LUE PICC-associated DVT (involving short segment of left brachial vein - per LUE Duplex US from 09/05/2024)
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
#Hx of 13.1 cm abscess in the right iliacus muscle s/p IR drain with severe septic arthritis of the right sacroiliac joint with adjacent acute OM of the sacrum + right iliac bone
#Hx of 8.3 cm ulcer posterior to the right iliac bone + SI joint
#Hx of Left gluteus villa muscle abscess (7.4cm) with gas
#Hx of bacteremia with Bacteroides auris
#History of ICH with residual right-sided weakness
#History of testicular cancer s/p orchiectomy
#Ambulatory dysfunction
#Chronic sacral decubitus ulcer s/p anterior abdominal wall diverting colostomy
#Depression
Plan:
- Pt remains on vasopressors with levophed
- Titrate to keep MAP>65
- Recommend to start vasopressin
- I will also administer 25g 25% IV albumin and raise his midodrine to 15mg TID
- Check random cortisol and if <19 then would start stress dose steroids
- He has inadequate IV access - IV team will be coming by to place midline --> given that we cannot use RUE (AVF in place), IV team worried given his Hx of LUE PICC associated DVT that this may be persisting. Official LUE duplex US ordered. In
meantime, I checked bedside PocUS and there was scar tissue seen in LUE but no obvious thrombus that I could identify in the entire basilic vein; unable to visualize brachial vein due to Tegaderm over a peripheral IV --> basically it is safe from my
standpoint for a midline to be placed into LUE basilic vein; otherwise can obtain another PIV
- Insert A line
- He has a Hx of polymicrobial disease with multiple cultures in past growing gram-negative microbes; Has Hx of E coli n his sacrum and also LLE leg abascess
- Continue broad spectrum ABx
- Follow up blood CX sensitivities; obtain set of surveillance BCx >24 hrs after last set obtained
- ID consulted - Abx to be deferred to them
- Maintain SpO2 >90-94% with aspiration precautions
- Wean down supplemental o2 flow rate as tolerated
- prn nebulized bronchodilators - not currently bronchospastic
- If patient wakes up more, then I will encourage IS use 10x per hour for at least 4 hours a day, as tolerated
- Replete electrolytes with K>4, Mg>2
- Defer HD to nephro, but I do worry that his BP will not be able to tolerate
- Will likely need CRRT
- Maintain euglycemia with goal BG 140-180; HbA1C: 4.2 - 10/01/2024
- Avoid hypoglycemia; hold basal SQ insulin meds for now; Use ISS for now
- Trend H/H and transfuse if needed to keep Hb>7g/dL; keep plt>20k, unless there is concern for bleeding then keep plt>50k
- DVT ppx: HSQ --> raise to TID dosing
Hospitalist spoke with patient's sister today and she is contemplating hospice; apparently the patient has previously been enrolled into hospice.
Continue ICU level of care for this critically ill patient.
Critical care statement: A total of 42 minutes of critical care time was provided for this patient today. This includes management of unstable vital signs, evaluation of the patient at bedside, reviewing the patient's pertinent medical records
including radiographs, microbiology, laboratory evaluations, and discussion with primary team, consultants, pharmacy, nutrition, physical therapy, case management, charge nurse, critical care nursing, and respiratory therapy.
Data:
CXR 01/22/2025: Lungs appear hypoinflated. Parenchymal opacity within both lower lungs, new since prior examination, with main differential considerations of atelectasis and/or pneumonia.
[2025-01-22] MEDS: PROTONIX 40 MG PO (09:09)
[2025-01-22] MEDS: KEPPRA 250 MG PO (09:09)
[2025-01-22] MEDS: DEPAKOTE (12 HR RELEASE) 500 MG PO ×2 (09:10→20:16)
[2025-01-22] MEDS: HEPARIN 5000 UNITS SC ×2 (09:11→20:16)
--- NOTE | 2025-01-22 11:32 | CM ---
CM spoke with nursing at [facility]
Pt is a LTC resident with MA bed hold
Pt is bedbound, total care and rebekah for transfers
He is typically AxO 3x at baseline and able to feed self only
He receives HD at [facility] MWF, has colostomy, chronic obrien, and wound care at SNF
Wound vac recently removed
PCP- Giovani Maldonado
Rx- Aleja Tong
Return SNF referral sent via [facility]
Discharge Disposition- return to [facility] for LTC
--- NOTE | 2025-01-22 11:43 | CON.ID ---
Consultation
-
Date/Time Consultation Requested: January 22, 2025 0401
Date/Time Consultation Performed: January 22, 2025 1145
Requesting Provider: Dr. Orosco
Performing Provider: Dr. Silvia Craig
Reason for Consultation: Sepsis, unclear source
Chief Complaint / Past History
Chief Complaint
Lethargy
History of Present Illness
53 year old male, local usp and has a history of CVA with right residual, seizure disorder and diabetes mellitus, ESRD on dialysis , presented to ED overnight due to change in mental status. In ED T 102.7. BP in 70's requiring pressor.
LFTs mildly elevated. Chest x-ray hypoinflated lungs. He is currently on vancomycin and Zosyn. He denies headache, rhinorrhea, or sore throat. No cough or shortness of breath. No nausea or vomiting. No bladder discomfort. No muscular pain.
No sacral pain. Positive chills.
He cannot remember when the Obrien was replaced.
Past History
Additional Past Medical History:
Intracranial hemorrhage/CVA with right-sided weakness
Seizure
Diabetes mellitus
Hypertension
End-stage renal disease on dialysis Wednesdays and Fridays via RUE AVG
dyslipidemia
History of testicular cancer status post right orchiectomy
chronic obrien
chronic sacral decubitus/osteo s/p 6 weeks cefazolin (completed 09/2022)
Hx Abscess from sacrum to right knee s/p I+D s/p 6 weeks cefazolin/metronidazole till 01/21/23.
R iliacus muscle and left gluteal villa abscess abscess, sacral osteo, left iliac bone osteo s/p 6 weeks of cefazolin/metronidazole till 10/10/24.
Diverting colostomy
Ambulatory dysfunction
Allergy History:
banana Allergy (Verified 01/22/25 00:39)
Swelling
Medications Reviewed: Yes
Current Antibiotics:
Vancomycin/Zosyn
Social History
Tobacco: Non-Smoker
Alcohol: None
Drug: None
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
Employment: Disabled
Family History
Family History: Not Pertinent
Review of Systems
Review of Systems
General: Fever, Chills and Change in Appetite
HEENT: Negative Stiff Neck, Sinus Problems or Headache
Cardiovascular: Negative Dyspnea
Respiratory: Negative Dyspnea or Cough
Gasteroenterology: Negative Nausea or Vomiting
Genital / Urological: Negative Flank Pain
Endocrine: Weakness
All systems: All other systems were reviewed and were negative
Vital Signs
Temp Pulse Resp BP Pulse Ox
97.6 F 78 18 78/50 95
01/22/25 08:00 01/22/25 11:15 01/22/25 11:15 01/22/25 11:15 01/22/25 11:15
Selected Entries
01/22/25
00:12 01/22/25
01:43
Temp 102.7 F H 100.4 F H
Physical Exam
Physical Exam
Constitutional: Acutely Ill and Chronically Ill
Eyes: No Conjunctival Hemorrhage and Sclera Anicteric
Cardiovascular: Regular Rate and S1/S2
Pulmonary: Non Labored and Other (Poor respiratory effort)
Gastrointestinal: Soft, Non Tender, Non Distended, Normal Bowel Sounds and Other (Ostomy with soft brown stool)
Genito-Urinary: Obrien and Clear Urine
Extremities: Negative Edema
Neurological: Awake and Other (Drowsy)
Lab / Diagnostic Study Results
01/22/25 05:46
01/22/25 05:46
Abs Immat Gran (auto) 0.2 10^3/uL (0-0.05) H 01/22/25 00:30
Absolute Neuts (auto) 8.3 10^3/uL (1.4-6.5) H 01/22/25 00:30
Absolute Lymphs (auto) 0.3 10^3/uL (1.2-3.4) L 01/22/25 00:30
Absolute Monos (auto) 0.2 10^3/uL (0.1-0.6) 01/22/25 00:30
Absolute Basos (auto) 0.0 10^3/uL (0-0.2) 01/22/25 00:30
Immature Gran % 1.7 % (0-0.5) H 01/22/25 00:30
Neutrophils % 91.9 % (42.2-75.2) H 01/22/25 00:30
Lymphocytes % 3.3 % (20.5-51.1) L 01/22/25 00:30
Monocytes % 2.7 % (1.7-9.3) 01/22/25 00:30
Eosinophils % 0.0 % (0-6) 01/22/25 00:30
Basophils % 0.4 % (0-2) 01/22/25 00:30
PT 18.5 Sec (11.4-14.6) H 01/22/25 05:46
INR 1.51 01/22/25 05:46
Lactic Acid 3.6 mmol/L (0.7-2.0) H 01/22/25 05:46
Ur Squamous Epith Cells 0-2 /LPF (Few) 01/22/25 00:31
Microbiology Results
Micro:
01/22/25 00:30 Blood Culture - Preliminary
Blood/Venous Positive culture in progress
Gram Stain - Preliminary
01/22/25 00:31 Blood Culture - Pending
Blood/Venous
01/22/25 05:47 MRSA Screen - Pending
Nose
01/22/25 00:31 Urine Culture - Pending
Urine
01/22/25 00:30 Influenza Types A & B (DANI) - Final
Nasal Swab Negative for Influenza A & B, NAAT
Negative results must be combined with clinical observations
and patient history.
Nucleic Acid Amplification test (NAAT)performed on the
[employer] platform.
01/22/25 CXR: Lungs appear hypoinflated. Parenchymal opacity within both lower lungs, new since prior examination, with main differential considerations of atelectasis and/or pneumonia.
Assessment / Plan
# GNR bacteremia
?urine source
# Septic shock
# Fever
# Chronic obrien
# ESRD on HD via AVF
# Chronic sacral decubiti
- Repeat blood cx's
- Await Ucx.
- Agree with Zosyn
- Follow temps, BP
- Local wound care to sacral wounds.
#Conditions present on admission:
Intracranial hemorrhage/CVA with right-sided weakness
Seizure
Diabetes mellitus
Hypertension
End-stage renal disease on dialysis Wednesdays and Fridays via RUE AVG
dyslipidemia
History of testicular cancer status post right orchiectomy
chronic obrien
chronic sacral decubitus/osteo s/p 6 weeks cefazolin (completed 09/2022)
Hx Abscess from sacrum to right knee s/p I+D s/p 6 weeks cefazolin/metronidazole till 01/21/23.
R iliacus muscle and left gluteal villa abscess abscess, sacral osteo, left iliac bone osteo s/p 6 weeks of cefazolin/metronidazole till 10/10/24.
Diverting colostomy
Ambulatory dysfunction
[2025-01-22 12:17] LABS: Glucose - Point of Care 150 mg/dl (70-99)
[2025-01-22] MEDS: NOVOLOG FLEXPEN-MODERATE RESISTANCE 1 UNITS SC (12:36)
--- NOTE | 2025-01-22 15:03 | VATNOTE ---
pt with picc order. pt LA only, hx of clot in LA previous admission, US ordered, awaiting results prior to picc placement. will cont to assess for picc/vat needs, in contact with eren MANZANARES
--- NOTE | 2025-01-22 15:21 | W.PN.HOSP.TC ---
Today's Communication/Plan
-
see outlined plan below
Assessment / Plan
Assessment / Plan
Assessment:
Septic shock
Gram negative bacteremia
- Continue empiric Zosyn
- wean pressors as able; A-line to be placed
- continue IVF
- scheduled midodrine
- follow ICU and ID recs
ESRD on HD
- next HD Thursday per Nephrology
- hold Bumex
- continue scheduled Lokelma
Intracranial hemorrhage/CVA with right-sided weakness
Type 2 DM
- SSI
Chronic obrien
Essential HTN - hold BP meds
testicular cancer status post right orchiectomy
dyslipidemia
Diverting colostomy
Seizure d/o
- on Keppra post-HD dosing; d/w pharmacy
DVT ppx: SC heparin
Code: Full
Total Critical Care Time 41 minutes. I was immediately available to the patient and staff. I personally examined, reviewed labs, diagnostic images/reports, interpretations, treatment plans, discussed patient care with other providers and family
or caregivers (if patient is unable to make decisions), entered orders as appropriate and documented the medical record.
Anticipated Discharge: > 48 hours
Subjective/Interval History
-
Date of Service: January 22, 2025
remains on 16 mcg Levophed
Bacteremia discovered; on empiric Abx
no discomfort at present
Objective Data
-
Labs:
Laboratory Results
01/22/25
05:46
WBC 5.9
Hgb 8.3 L
Hct 25.9 L
Plt Count 147
PT 18.5 H
INR 1.51
APTT 39.5 H
Sodium 138
Potassium 3.7
Chloride 101
Carbon Dioxide 27
BUN 64 H
Creatinine 3.7 H
Glucose 109 H
Calcium 8.2 L
Vital Signs:
Vital Signs
Temp Pulse Resp BP Pulse Ox
98.5 F 84 19 104/59 99
01/22/25 12:19 01/22/25 13:00 01/22/25 13:00 01/22/25 13:00 01/22/25 13:14
I&O
01/21/25 01/22/25 01/23/25
06:59 06:59 06:59
Intake Total 682.5 / 742.5 647.3 / 647.3
Balance 682.5 / 742.5 647.3 / 647.3
Physical Exam
-
General: Appears Chronically Ill
HEENT: Normocephalic and Atraumatic
Respiratory: Negative Wheezes
Cardiac: Regular Rhythm and S1/S2
Neuro: AO x 3
Psych: Calm
Data Reviewed
-
Critical Care Time (in minutes): 41
Labs: Labs Reviewed by me
--- NOTE | 2025-01-22 15:57 | W.SUR.POST ---
Surgical Immediate Post Op
Note
Arterial Catheter Insertion Procedure
Date of procedure: 01/22/2025
Pre Op Diagnosis: Circulatory shock
Post Op Diagnosis: Same as above
Procedure Performed: Arterial catheter insertion
Primary proceduralist: Dr. Cervantes
Secondary Surgeons: N/A
Anesthesia: N/A
Estimated Blood Loss: 5cc
Fluids: N/A
Drains/Shunts: N/A
Specimens/Cultures: N/A
Doppler/Duplex/Angio (Y/N): N/A
Complications: No immediate complications
Operative Findings: After informed verbal consent was obtained (patient was able to consent to procedure), the patient was positioned with his distal left upper extremity supinated. Palpable radial pulse as well as palpable ulnar pulse identified.
Collateral flow appreciated with a positive Omero test. Sterile technique was employed with handwashing, cap, gown, face mask and sterile gloves. The left radial artery site was cleaned with a ChloraPrep. Ultrasound guidance was utilized to
identify the patent radial artery which had good pulsatility. Integral-guidewire (Arrow) technique was used. The catheter was inserted into the patient's skin and advanced until pulsatile blood flow was seen inside the catheter. The guidewire was
advanced through the needle and catheter to the hub. The outer catheter was advanced over the needle and wire into the artery. The needle�guidewire unit was removed entirely. The arterial catheter was attached to the tubing with appropriate
waveform seen. Arterial line was secured into place using a Ethilon 2-0 suture. The insertion site was covered with a Biopatch and the entire catheter was then covered with a Tegaderm. There were no immediate complications.
[2025-01-22 16:45] LABS: Glucose - Point of Care 142 mg/dl (70-99)
--- NOTE | 2025-01-22 17:40 | PTCARENOTE ---
Assessment update, assessment trends ongoing and as documented. VS trends ongoing. Follow up vital sign assessment, left radial arterial line placed. Noted arterial pressures 90/44, with NIBP pressures 106/61 as follow. Levophed presently remains at
18mcg/min. Vascular access provided additional line continue to monitor fragile access points. ABX continue. [facility] Sawyer team, nephrology and Hospitalist team in and out at bedside with patient. Hospitalist team at bedside and on phone with patient
family. To arrive tomorrow to discuss code status. (previously noted in hospice) Continue skin cares, wound cares, and follow up patient care needs. Planning HD tomorrow. Follow access concerns with grave digger team thru shift. Continue supportive
cares for patient.
[2025-01-22] MEDS: KEPPRA 1000 MG PO (18:06)
[2025-01-22] MEDS: KCL ELIXIR 10 MEQ PO (18:31)
[2025-01-22] MEDS: MAGNESIUM OXIDE 400 MG PO (18:33)
[2025-01-22] MEDS: FLEXBUMIN 100 IV (18:33)
--- NOTE | 2025-01-22 20:38 | PTCARENOTE ---
Received pt from previous RN. Pt is AAOx1 (self), drowsy, arousable to verbal stimuli, slow speech. NSR on the monitor. Received pt on 2L NC O2 sat 99%, lungs diminished. Colostomy in place. Chronic obrien in place, milky urine, oliguric. Sacrum
dressing c/d/i. B/l foam heal boots in place. +bruit and thrill. Ulmer zeroed and transduced. Received pt on 18 mcgs of levo, titration per protocol, goal MAP >60 (see worklist). Q2T provided. Mouth care provided. Call lomax in reach. Safe
environment maintained.
[2025-01-22 21:55] LABS: Glucose - Point of Care 148 mg/dl (70-99)
--- NOTE | 2025-01-22 23:54 | PTCARENOTE ---
Systems reviewed, no new changes in assessment. Levo gtt maintained (see worklist). Safe environment maintained.
[2025-01-23] VITALS (18 sets, daily range): BP systolic 93–140; BP diastolic 58–76; BMI 24.1
--- NOTE | 2025-01-23 02:01 | PTCARENOTE ---
Pt yelling out, went in to check on the pt, pt states he is choking, pt suctioned with minimal secretions, O2 dropped to 79%. O2 increased to 6L + NRB, pt O2 sat 100%. EKG provided. ICU CHIP FRIER notified. ABG provided. Cxray ordered.
[2025-01-23 02:03] LABS: B.E. 0.4 mmol/L; HCO3 26.0 mmol/L (21-28); O2 Saturation % 99.5 % (94-98); PCO2 46 mmHg (35-48); PO2 141 mmHg (83-108)
[2025-01-23] MEDS: LEVOPHED 250 IV ×2 (02:59→08:28)
[2025-01-23 05:07] LABS: Hematocrit 24.7 % (39.0-52.0); Hemoglobin 8.3 g/dL (13.0-18.0); Mean Corp Hgb Conc. 33.6 g/dL (33.0-37.0); Mean Corpuscular Volume 77.2 fL (80.0-94.0); Platelet Count 142 10^3/uL (130-400); Red Cell Dist. Width 18.6 % (11.5-14.5)
[2025-01-23 05:23] LABS: ALT (SGPT) 43 U/L (0-50); AST (SGOT) 38 U/L (17-59); Albumin 2.8 g/dl (3.5-5.0); Alkaline Phosphatase 56 U/L (38-126); Blood Urea Nitrogen 78 mg/dl (9-20); Calcium 8.1 mg/dl (8.4-10.2); Carbon Dioxide 24 mmol/L (22-30); Chloride 96 mmol/L (98-107); Estimated Creatinine Clearance 23 ml/min; Glucose 153 mg/dl (70-99); Magnesium 1.7 mg/dl (1.6-2.3); Potassium 3.8 mmol/L (3.5-5.1); Sodium 133 mmol/L (135-145); Total Protein 7.6 g/dl (6.3-8.2); eGFR 17.69
[2025-01-23] MEDS: ZOSYN 50 IV ×3 (07:02→22:03)
[2025-01-23] MEDS: DEPAKOTE (12 HR RELEASE) 500 MG PO ×2 (07:03→20:52)
[2025-01-23] MEDS: HEPARIN 5000 UNITS SC ×2 (07:03→20:52)
[2025-01-23] MEDS: NOVOLOG FLEXPEN-MODERATE RESISTANCE 1 UNITS SC (07:06)
[2025-01-23] MEDS: PROTONIX 40 MG PO (07:08)
[2025-01-23] MEDS: RETACRIT 10000 UNITS IV (09:05)
--- NOTE | 2025-01-23 09:15 | PTCARENOTE ---
Updated assessment, vital signs and critical care trends on going. Physical Medicine Teacher team at bedside this am. Update plan of cares, vascular, HD and I/D follow up continue. Update with Nephrology team at bedside during HD. Continue rounds and trends in
critical cares.
--- NOTE | 2025-01-23 09:30 | W.PN.ID1 ---
Date of Service
Date of Service: January 23, 2025
Today's Communication
Continue Zosyn.
Assessment / Plan
# Complicated UTI/CAUTI
# E. coli bacteremia, 2 sets
# Septic shock, weaning pressor
# Fever- resolving
# R side PNA vs mucous plugging
# Chronic obrien
# ESRD on HD via AVF
# Chronic sacral decubiti, hx diverting colostomy
- Follow repeat blood cx's
- Ucx E. coli
- Continue Zosyn (d3)
- Follow temps, BP
- Local wound care to sacral wounds.
#Conditions present on admission:
Intracranial hemorrhage/CVA with right-sided weakness
Seizure
Diabetes mellitus
Hypertension
End-stage renal disease on dialysis Wednesdays and Fridays via RUE AVG
dyslipidemia
History of testicular cancer status post right orchiectomy
chronic obrien
chronic sacral decubitus/osteo s/p 6 weeks cefazolin (completed 09/2022)
Hx Abscess from sacrum to right knee s/p I+D s/p 6 weeks cefazolin/metronidazole till 01/21/23.
R iliacus muscle and left gluteal villa abscess abscess, sacral osteo, left iliac bone osteo s/p 6 weeks of cefazolin/metronidazole till 10/10/24.
Diverting colostomy
Ambulatory dysfunction
Vital Signs / Physical Exam
Vital Signs
Vital Signs
Temp Pulse Resp BP Pulse Ox
97.3 F 76 20 102/59 100
01/23/25 07:37 01/23/25 08:56 01/23/25 08:56 01/23/25 08:56 01/23/25 08:56
Objective Data
Lab Data
Lab Results
01/23/25 04:49
01/23/25 04:49
PT 18.5 Sec (11.4-14.6) H 01/22/25 05:46
INR 1.51 01/22/25 05:46
APTT 39.5 Sec (23.4-35.0) H 01/22/25 05:46
Estimated Creat Clear 23 ml/min 01/23/25 04:49
Lactic Acid 2.6 mmol/L (0.7-2.0) H 01/23/25 04:47
Total Bilirubin 1.1 mg/dl (0.2-1.3) 01/23/25 04:49
AST 38 U/L (17-59) 01/23/25 04:49
ALT 43 U/L (0-50) 01/23/25 04:49
Alkaline Phosphatase 56 U/L (38-126) 01/23/25 04:49
Most recent labs reviewed.
Micro Results:
01/22/25 00:31 Blood Culture - Preliminary
Blood/Venous Positive culture in progress
Gram Stain - Final
01/22/25 00:31 Urine Culture - Preliminary
Urine Escherichia coli
01/22/25 00:30 Blood Culture - Preliminary
Blood/Venous Escherichia coli
Gram Stain - Final
01/22/25 05:47 MRSA Screen - Final
Nose No Methicillin Resistant Staphylococcus aureus isolated.
01/23/25 04:48 Blood Culture - Pending
Blood/Venous
01/22/25 00:30 Influenza Types A & B (DANI) - Final
Nasal Swab Negative for Influenza A & B, NAAT
Negative results must be combined with clinical observations
and patient history.
Nucleic Acid Amplification test (NAAT)performed on the
[employer] platform.
01/23/25 CXR: Interval increase in LARGE RIGHT LOWER and MIDDLE LOBE AIRSPACE CONSOLIDATIONS with associated right lung volume loss with moderate [id number] mediastinal shift. Diagnostic possibilities are (1) right lower and middle lobe
atelectasis secondary to mucous plugging in the bronchus intermedius or (2) severe pneumonia (if there are signs/symptoms of pulmonary infection).
01/22/25 CXR: Lungs appear hypoinflated. Parenchymal opacity within both lower lungs, new since prior examination, with main differential considerations of atelectasis and/or pneumonia.
--- NOTE | 2025-01-23 09:50 | W.PN.NEPH.PH ---
Today's Communication / Plan
-
HD
Assessment/Plan
-
Impression:
ESRD Thursday [facility]
Suspected sepsis
Diabetes
Seizure disorder
Orthostatic hypotension
History of CVA with subsequent right hemiplegia
History of recurrent osteomyelitis with sacral decubitus
History of colectomy
Chronic Vale
Anemia
History of septic arthritis of right sacroiliac joint/right iliac abscess
History of right upper extremity AV fistula
Plan:
midodrine
wean levophed as allowed, ok to follow cuff pressure
check [employer]
HD today
sister coming in to reevaluated GOC
critical care time 31 minutes
-
-
Date of Service: January 23, 2025
CC / HPI / ROS
-
Chief Complaint:
ESRD
History of Present Illness:
HD today
critically ill in ICU on pressors
remains on O2 supplemental
on Abx for e coli sepsis
hgb low 8.3, microcytic
Review of Systems:
no CP/SOB
Labs
-
Labs:
WBC 8.4 10^3/uL (4.8-10.8) 01/23/25 04:49
RBC 3.20 10^6/uL (4.70-6.10) L 01/23/25 04:49
Hgb 8.3 g/dL (13.0-18.0) L 01/23/25 04:49
Hct 24.7 % (39.0-52.0) L 01/23/25 04:49
Plt Count 142 10^3/uL (130-400) 01/23/25 04:49
Sodium 133 mmol/L (135-145) L 01/23/25 04:49
Potassium 3.8 mmol/L (3.5-5.1) 01/23/25 04:49
Chloride 96 mmol/L (98-107) L 01/23/25 04:49
Carbon Dioxide 24 mmol/L (22-30) 01/23/25 04:49
BUN 78 mg/dl (9-20) H 01/23/25 04:49
Creatinine 3.9 mg/dL (0.7-1.3) H 01/23/25 04:49
eGFR 17.69 01/23/25 04:49
Glucose 153 mg/dl (70-99) H 01/23/25 04:49
Calcium 8.1 mg/dl (8.4-10.2) L 01/23/25 04:49
Phosphorus 4.9 mg/dl (2.5-4.5) H 01/23/25 04:49
Albumin 2.8 g/dl (3.5-5.0) L 01/23/25 04:49
Physical Exam
-
Vital Signs:
Vital Signs
Temp Pulse Resp BP Pulse Ox
97.3 F 76 20 102/59 100
01/23/25 07:37 01/23/25 08:56 01/23/25 08:56 01/23/25 08:56 01/23/25 08:56
Cardiovascular:: Regular rate and rhythm
Respiratory:: Bilateral: Coarse
Lung Excursion:: Normal
Abdomen:: Nontender and Soft
Bowel Sounds:: Normal
Extremity Edema:: None: Bilateral:
--- NOTE | 2025-01-23 09:53 | W.PN.NEPH.HD ---
Assessment
-
Seen on HD. no complaints. VSS, access ok
midodrine pre hd
Progress Note - Hemodialysis
-
Date of Service: January 23, 2025
Duration: 30 minutes and 3 hours
Potassium Bath: 3
Calcium Bath: 2.5
Opti-Dialyzer: 160
Ultrafiltration: Other (2kg)
Blood Flow: 400
Dialysate Flow: 600
Heparin: 0
EPO: 56472 units
--- NOTE | 2025-01-23 10:12 | W.PN.HOSP.TC ---
Today's Communication/Plan
-
Continue with empirical Zosyn
Follow-up blood culture data
Continue with vasopressors and wean as able
Continue with hemodialysis support
Speech evaluation
Assessment / Plan
Assessment / Plan
Assessment:
Septic shock
-Gram-negative bacteremia
E. coli UTI
- Continue empiric Zosyn
- wean pressors as able; A-line to be placed
- scheduled midodrine
- ID following
ESRD on HD
- next HD Thursday per Nephrology
- hold Bumex
- continue scheduled Lokelma
Intracranial hemorrhage/CVA with right-sided weakness-continue with supportive care
History of seizures-continue Keppra and valproic acid
Type 2 DM
- SSI
- If oral intake is adequate we will start Lantus
Chronic obrien
Essential HTN - hold BP meds
testicular cancer status post right orchiectomy
dyslipidemia
Diverting colostomy
Seizure d/o
- on Keppra post-HD dosing; d/w pharmacy
DVT ppx: SC heparin
Code: Full
Await sister visit to discuss goals of care
Discussed with WINDLASSER
Discussed with recooperer
Total time spent on today's encounter was 52 minutes which included time spent in counseling the patient/family regarding diagnosis and treatment plan as listed above, goals of care, and symptom management. Case was discussed with nursing staff,
specialists, and care coordinators/case management. All labs and imaging personally reviewed by me. Remainder the time spent in detailed review of previous records, lab data, imaging, and other medical provider documentation.
Anticipated Discharge: > 48 hours
Subjective/Interval History
-
Date of Service: January 23, 2025
Looks weak and lethargic.
Able to some conversation. He thought he was at home. He states his home is in [place].
He does follow simple commands.
He nodded yes that sister helps to make the medical decision but he couldnt tell if she has the power of trial attorney.
Objective Data
-
Labs:
Laboratory Results
01/23/25 01/23/25 01/23/25
01:58 04:49 12:00
WBC 8.4
Hgb 8.3 L
Hct 24.7 L
Plt Count 142
HCO3 26.0 Pending
Sodium 133 L
Potassium 3.8
Chloride 96 L
Carbon Dioxide 24
BUN 78 H
Creatinine 3.9 H
Glucose 153 H
Calcium 8.1 L
Total Bilirubin 1.1
AST 38
ALT 43
Alkaline Phosphatase 56
Vital Signs:
Vital Signs
Temp Pulse Resp BP Pulse Ox
97.3 F 76 20 102/59 100
01/23/25 07:37 01/23/25 08:56 01/23/25 08:56 01/23/25 08:56 01/23/25 08:56
I&O
01/22/25 01/23/25 01/24/25
06:59 06:59 06:59
Intake Total 682.5 / 742.5 1854.2000.6 222.5 / 222.5
Output Total 50 / 50
Balance 682.5 / 742.5 1804.1950.6 222.5 / 222.5
Physical Exam
-
General: No Apparent Distress
Respiratory: Non Labored Respirations and Other (Inspiratory squeaks more so on the right lower lobe on anterior auscultation)
Cardiac: Regular Rhythm and S1/S2
GI: Soft
Neuro: Awake and Alert; Negative Oriented
Psych: Calm and Confused
Data Reviewed
-
Labs: Labs Reviewed by me
[2025-01-23 11:58] LABS: Glucose - Point of Care 114 mg/dl (70-99)
[2025-01-23] MEDS: NOVOLOG FLEXPEN-MODERATE RESISTANCE SC ×2 (11:59→16:50)
[2025-01-23 12:01] LABS: B.E. 5.1 mmol/L; HCO3 30.9 mmol/L (21-28); O2 Saturation % 90.7 % (94-98); PCO2 51 mmHg (35-48); PO2 60 mmHg (83-108)
--- NOTE | 2025-01-23 12:30 | WOUNDNOTE ---
L LATERAL LEG AND HEEL
--- NOTE | 2025-01-23 12:35 | WOUNDNOTE ---
JENARO RN note: Patient admitted with sepsis.
See H&P for complete history. From [facility].
PMH: Per physician note, ESRD-MWF,chronic Vale history of intracranial hemorrhage stroke residual right-sided weakness hypertension
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
sacral stage IV decubitus ulcer with osteomyelitis.
Wound Location and type/assessment: Patient known to service, last seen 09/08/24 for same chronic stage 4 sacral PI. Sacral ulcer, base pink with few dark red spots, scant slough. [place] 7-8 O clock at 5cm, bone palpable. Patient confirmed that
Dakin's WTD dressing still in use. Periwound with pale pink scarring. Intact scars on posterior thighs and legs. Heels are very dry and flaky, chronic discolored skin. Patient using own fiber filled boots, skin flaking off feet and legs when
assessed. Patient has a LUQ colostomy with leakage under wafer. Stoma pale pink, slightly budded and oval, peristomal skin is intact. Patient denies leakage issues with Colostomy, did not bring in supplies.
Appetite: Poor, pureed diet. Encouraged protein in diet.
Pressure redistribution devices in place: Air mattress, turning schedule, off-loading heel boots. Instructed nurse Pretty to keep patient on air mattress if transferred to floor.
Plan: Sacrum applied saline WTD and silicone foam. Will order Dakin's moistened Kerlix to dry dressing daily. Applied Vaseline to legs will order Mineral oil. Adhesive foams not staying on heels, fiber filled boots re applied. Ostomy supplies
brought to and appliance changed. Will confirm orders with hospitalist.
Updated nurse, care plan and will follow as needed.
Note to case management of equipment requested for discharge: air mattress at facility.
--- NOTE | 2025-01-23 13:56 | W.PN.INTV ---
Today's Communication / Plan
Recommendations
- Chronically hypotension, change target MAP to 60 or above
- Wean pressors as tolerated
- Hypertonic saline and albuterol nebulized 3 times daily along with chest physical therapy right lower lobe and percussion mattress
- Follow-up chest x-ray in a.m.
Assessment
-
Assessment: 54-year-old M with PMHx of ESRD on HD MWF, DM type II, seizure disorder, orthostatic hypotension on midodrine, chronic obrien, Hx of LUE PICC-related venous thrombosis, chronic sacral decubtus ulcer with chronic OM, Hx of ICH with
residual right-sided weakness, ambulatory dysfunction, depression, and dysphagia who p/w AMS. He was sent in from his NH at [facility]. He has not been eating and has had worsening lethargy. Bedside glucose was in 60s, and the NH administered
glucagon. Also his woundvac for his chronic sacral wound was recently removed. At baseline he is usually AAOx3. He was initially febrile to 102.7F, MN 103, RR 27, BP 89/78, and SpO2 88% on room air. Labs showed normal WBC at 9, Hb 9.7, glucose
50 (on BMP), lactate 3.4, T bili 1.6, LFTs elevated slightly, UA was dirty with +3 LE, >100 WBC and many bacteria. COVID-19 antigen negative. Blood cultures + urine Cx collected. CT head showed no acute intracranial pathology, and CXR showed
bibasilar opacities likely due to atelectasis vs PNA. He was given Zosyn, 1 amp of d50, 1L bolus of NS 0.9%, ofirmev and started on levophed due to persistent hypotension. Pt then admitted to ICU and Pumping Supervisor service consulted for further
management/recommendations.
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
weakness, ambulatory dysfunction, depression, dysphagia
01/23 Overview: Increased O2 requirement with decreased PaO2 on ABG. Current infusions, Levophed at 10, 2 L supplemental oxygen, subsequently increased to [address] L. Chronic [address] in [address].
Assessment and plan:
#1. Septic shock with E. coli bacteremia.
- Potential sources UTI, chronic sacral decubitus ulcer with osteomyelitis
- Continue antibiotics as ordered, follow-up on final sensitivities
- ID service on case
- Continue pressors as needed to keep MAP 60 or above
- Serial lactate is improving, most recently down to 1.3, normal pH, 7.39
- Patient has chronic underlying hypotension, midodrine dependent, currently on dialysis, will target MAP of 60.
- Continue midodrine as ordered
#2. Acute hypoxic respiratory failure with suspected right lower lobe atelectasis
- Rapid change on x-ray noted with right lower lobe volume loss. Considering mediastinum is shifted to the right, changes are suggestive of volume loss more likely atelectasis rather than consolidation
- Poor cough, mucus plug likely etiology. Start hypertonic saline along with albuterol 3 times daily, chest physical therapy, percussion mattress
- Supplemental O2 as needed to keep saturation above 90%
- Follow-up chest x-ray in a.m.
#3. End-stage neural disease on hemodialysis
-Right arm AV graft in place, prior history of right IJ permacath, nephrology service on case
#4. Left upper extremity PICC related venous thrombosis in 08/2024.
-PICC line since removed, if needed will place a central line for pressors
#5. History of intracranial hemorrhage
- Resultant hemiplegia and bedbound status with longstanding sacral decubitus ulcers, status post colostomy and chronic Obrien catheter
-Poor functional status, continue wound care
Other medical diagnoses:
#DM type II c/b hypoglycemia
#AMS due tp TME in setting of sepsis/GNR bacteremia. Improved
#Seizure disorder, on Depakote and Keppra
#Orthostatic hypotension. Chronically on midodrine
#History of testicular cancer s/p orchiectomy
#Ambulatory dysfunction
#Depression
DVT prophylaxis with subcu heparin. GI prophylaxis with Protonix.
Critical care statement: A total of 42 minutes of critical care time was provided for this patient today. This includes management of unstable vital signs, evaluation of the patient at bedside, reviewing the patient's pertinent medical records
including radiographs, microbiology, laboratory evaluations, and discussion with primary team, consultants, pharmacy, nutrition, physical therapy, case management, charge nurse, critical care nursing, and respiratory therapy.
Data:
CXR 01/22/2025: Lungs appear hypoinflated. Parenchymal opacity within both lower lungs, new since prior examination, with main differential considerations of atelectasis and/or pneumonia.
Subjective Dataa
Subjective Data
Date of Service:
Date of Service: January 23, 2025
Subjective:
Patient comfortably lying in bed in no acute distress.
Review of Systems
Genitourinary: Other (No new symptoms reported.)
Objective Data
Data Reviewed
Vital Signs / I&O / Oxygen:
Vital Signs
Temp Pulse Resp BP Pulse Ox
97.5 F 80 22 115/65 88
01/23/25 11:28 01/23/25 13:30 01/23/25 13:30 01/23/25 13:00 01/23/25 12:30
Intake and Output
01/22/25 01/23/25 01/24/25
06:59 06:59 06:59
Intake Total 682.5 / 742.5 1854.2000.6 407.5 / 407.5
Output Total 50 / 50
Balance 682.5 / 742.5 180.1 1950.6 407.5 / 407.5
SaO2 88
Nasal Cannula flow liters per 4
minute
Physical Exam
General: Comfortable
HEENT: Normocephalic
Cardiovascular: S1-S2
Respiratory: Non-Labored Respirations and Other (Decreased air entry in the right lower hemithorax)
GI: Soft and Non Distended
Neurology: Awake and Alert
Skin: Warm
Labs/Micro/Reports
Lab Data
01/23/25 04:49
01/23/25 04:49
Laboratory Results
01/23/25 01/23/25
01:58 11:54
pH 7.36 7.39
pCO2 46 51 H
pO2 141 H 60 L
HCO3 26.0 30.9 H
O2 Delivery Level
Microbiology
01/22/25 00:31 Blood/Venous Blood Culture - Preliminary
Positive culture in progress
01/22/25 00:31 Blood/Venous Gram Stain - Final
01/22/25 00:31 Urine Urine Culture - Preliminary
Escherichia coli
01/22/25 00:30 Blood/Venous Blood Culture - Preliminary
Escherichia coli
01/22/25 00:30 Blood/Venous Gram Stain - Final
01/22/25 05:47 Nose MRSA Screen - Final
No Methicillin Resistant Staphylococcus aureus isolated.
01/22/25 00:30 Nasal Swab Influenza Types A & B (DANI) - Final
Negative for Influenza A & B, NAAT
Negative results must be combined with clinical observations
and patient history.
Nucleic Acid Amplification test (NAAT)performed on the
[employer] platform.
--- NOTE | 2025-01-23 14:21 | CM ---
IV/Levophed/Zosyn. Wean pressors, hypotensive 102/47, CXR in am. Discharge POC: Return to [facility] for resumption of LTC.
--- NOTE | 2025-01-23 14:22 | PTCARENOTE ---
Continue to assist, feed, and encourage PO intake. Patient taking minimal in meals. Discuss with him needs for increased nutritional intake. Working with wound care team dressing changes, evaluation and assessment needs. Follow up orders and
changes. Continue wean levophed post HD. MAP pressure have been consistently over 60. Antibiotics as ordered. Skin cares, refused oral cares at this time. Assist with lunch intake. Continue emotional support and supportive cares. Await family at
this time. Ct Scan Special Procedures Technologist in and out at bedside thru shift. Will work with respiratory team, respiratory meds/nebs, chest pt and transition to sport bed when available.
--- NOTE | 2025-01-23 15:06 | PTOTSP ---
Speech Therapy Assessment
Patient without overt signs of aspiration but patient with chronic and acute risk factors for dysphagia including history of CVA, current impaired respiratory status, bedbound status and acute illness.
Recommend
1. Level 6 (soft and bite-sized) and thin liquids.
2. Meds with liquid as tolerated.
3. Aspiration precautions.
4. Elevate bed as close to upright as patient tolerates but at least beyond [address] will follow to ensure diet tolerance and need for instrumental testing.
[2025-01-23 16:50] LABS: Glucose - Point of Care 99 mg/dl (70-99)
--- NOTE | 2025-01-23 16:56 | PTCARENOTE ---
Completed HD earlier today. Continue progressive wean off levophed. MAP trend 60mmhg as per goals. Speech team working at bedside with patient Advance diet as per orders. Continue to encourage and feed patient to increase caloric intake. Continue
with teaching and supportive cares for patient. Noted refusing some cares at times. Plan to dc arterial line once off levophed for several hours cuff pressures as noted and reviewed. Continue with wound cares. Updated plan of pulmonary cares CPT,
respiratory medications and treatments with sport bed now available.
[2025-01-23] MEDS: KEPPRA 1000 MG PO (17:24)
[2025-01-23 19:25] LABS: Hepatitis B Surface Antigen Negative (Negative)
[2025-01-23] MEDS: VENTOLIN NEBULES 2.5 MG INH (19:30)
[2025-01-23] MEDS: SODIUM CHLORIDE 3% FOR INHALATION 1 VIAL INH (19:30)
[2025-01-23 21:26] LABS: Glucose - Point of Care 90 mg/dl (70-99)
[2025-01-24] VITALS (11 sets, daily range): BP systolic 84–116; BP diastolic 54–70; BMI 23.9
--- NOTE | 2025-01-24 00:49 | PTCARENOTE ---
pt on 8L midflow, remains off levo gtt. denies pain. repositioned frequently. call lomax in reach.
[2025-01-24 04:56] LABS: Hematocrit 24.5 % (39.0-52.0); Hemoglobin 8.2 g/dL (13.0-18.0); Mean Corp Hgb Conc. 33.5 g/dL (33.0-37.0); Mean Corpuscular Volume 76.8 fL (80.0-94.0); Platelet Count 117 10^3/uL (130-400); Red Cell Dist. Width 18.6 % (11.5-14.5)
--- NOTE | 2025-01-24 04:59 | PTCARENOTE ---
discussed LUE US results with ICU STOCK OR DELIVERY CLERK (Nonocclusive thrombus in the proximal to mid cephalic vein associated with the presence of a midline catheter.) keeping the LUE PIV in at this time per STOCK OR DELIVERY CLERK. AM labs sent. pt on 6L midflow. CXR done. care
continues.
[2025-01-24 05:08] LABS: ALT (SGPT) 33 U/L (0-50); AST (SGOT) 24 U/L (17-59); Albumin 2.6 g/dl (3.5-5.0); Alkaline Phosphatase 61 U/L (38-126); Blood Urea Nitrogen 42 mg/dl (9-20); Calcium 8.1 mg/dl (8.4-10.2); Carbon Dioxide 28 mmol/L (22-30); Chloride 98 mmol/L (98-107); Estimated Creatinine Clearance 36 ml/min; Glucose 75 mg/dl (70-99); Iron 45 ug/dl (49-181); Potassium 3.5 mmol/L (3.5-5.1); Sodium 134 mmol/L (135-145); Total Protein 7.5 g/dl (6.3-8.2); eGFR 30.16
[2025-01-24 05:17] LABS: Total Iron Binding Capacity 119 ug/dl (261-462)
[2025-01-24 06:28] LABS: Ferritin 4650.0 ng/ml (17.9-464.0)
[2025-01-24] MEDS: VENTOLIN NEBULES 2.5 MG INH ×3 (08:13→19:46)
[2025-01-24] MEDS: SODIUM CHLORIDE 3% FOR INHALATION 1 VIAL INH ×3 (08:14→19:46)
--- NOTE | 2025-01-24 08:20 | PTCARENOTE ---
pt on RA with SpO2 96%, remains off levo gtt. denies pain. repositioned frequently. call lomax in reach.
[2025-01-24] MEDS: HEPARIN 5000 UNITS SC ×2 (08:40→20:45)
[2025-01-24] MEDS: DEPAKOTE (12 HR RELEASE) 500 MG PO ×2 (08:40→20:46)
[2025-01-24] MEDS: DAKIN'S SOLUTION 0.125% 1/4 STRENGTH 473 ML TOPICAL (08:41)
[2025-01-24] MEDS: HYDROPHOR 1 APPLIC TOPICAL (08:41)
[2025-01-24] MEDS: PROTONIX 40 MG PO (08:41)
[2025-01-24] MEDS: NOVOLOG FLEXPEN-MODERATE RESISTANCE SC ×3 (09:22→17:20)
--- NOTE | 2025-01-24 09:33 | W.PN.HOSP.TC ---
Today's Communication/Plan
-
Continued empirical Zosyn
Transfer out of ICU if remains hemodynamically stable off of pressors.
Assessment / Plan
Assessment / Plan
Assessment:
Septic shock
-Gram-negative bacteremia
E. coli UTI
- Continue empiric Zosyn
- Off of vasopressors today
- scheduled midodrine
- ID following
ESRD on HD
- next HD Thursday per Nephrology
- hold Bumex
- continue scheduled Lokelma
Intracranial hemorrhage/CVA with right-sided weakness-continue with supportive care
History of seizures-continue Keppra and valproic acid
Type 2 DM
- SSI
- If oral intake is adequate we will start Lantus
Chronic obrien
Essential HTN - hold BP meds
testicular cancer status post right orchiectomy
dyslipidemia
Diverting colostomy
Seizure d/o
- on Keppra post-HD dosing; d/w pharmacy
DVT ppx: SC heparin
Code: Full
Discussed with FREIGHT REPRESENTATIVE
Transfer out of ICU later today if remains hemodynamically stable without pressor support
Anticipated Discharge: > 48 hours
Subjective/Interval History
-
Date of Service: January 24, 2025
Patient is very alert and interactive.
' I like your lowery doc!'
Denies any shortness of breath. Off of oxygen.
Denies any chest pain. No nausea vomiting. Tolerating modified diet. Denies any abdominal pain.
Objective Data
-
Labs:
Laboratory Results
01/24/25
04:27
WBC 7.7
Hgb 8.2 L
Hct 24.5 L
Plt Count 117 L
Sodium 134 L
Potassium 3.5
Chloride 98
Carbon Dioxide 28
BUN 42 H
Creatinine 2.5 H
Glucose 75
Calcium 8.1 L
Total Bilirubin 1.0
AST 24
ALT 33
Alkaline Phosphatase 61
Vital Signs:
Vital Signs
Temp Pulse Resp BP Pulse Ox
98.1 F 84 18 100/67 100
01/24/25 08:26 01/24/25 08:15 01/24/25 08:15 01/24/25 06:00 01/24/25 06:00
I&O
01/23/25 01/24/25 01/25/25
06:59 06:59 06:59
Intake Total 4.2000.6 674.45 / 674.45
Output Total 50 / 50
Balance 180.1 1950.6 654.45 / 654.45
Physical Exam
-
General: Comfortable
Respiratory: Clear to Auscultation (Anteriorly), Non Labored Respirations and Accessory Resp Muscle Use
Cardiac: Regular Rhythm and S1/S2
GI: Soft
Neuro: AO x 3
Psych: Calm
Data Reviewed
-
Labs: Labs Reviewed by me
[2025-01-24 09:42] LABS: Glucose - Point of Care 81 mg/dl (70-99)
--- NOTE | 2025-01-24 10:16 | W.PN.ID1 ---
Date of Service
Date of Service: January 24, 2025
Today's Communication
- Ordered change obrien
- Transition Zosyn to po Augmentin 500mg q24 through 01/30/25.
Assessment / Plan
# Complicated UTI/CAUTI
# E. coli bacteremia, 2 sets
# s/p Septic shock, weaning pressor
# Fever- resolving
# R side mucous plugging
# Chronic obrien
# ESRD on HD via AVF
# Chronic sacral decubiti, hx diverting colostomy
- repeat blood cx's neg to date.
- Ucx E. coli
- Ordered change obrien
- Transition Zosyn to po Augmentin 500mg q24 through 01/30/25.
#Conditions present on admission:
Intracranial hemorrhage/CVA with right-sided weakness
Seizure
Diabetes mellitus
Hypertension
End-stage renal disease on dialysis Wednesdays and Fridays via [facility] AVG
dyslipidemia
History of testicular cancer status post right orchiectomy
chronic obrien
chronic sacral decubitus/osteo s/p 6 weeks cefazolin (completed 09/2022)
Hx Abscess from sacrum to right knee s/p I+D s/p 6 weeks cefazolin/metronidazole till 01/21/23.
R iliacus muscle and left gluteal villa abscess abscess, sacral osteo, left iliac bone osteo s/p 6 weeks of cefazolin/metronidazole till 10/10/24.
Diverting colostomy
Ambulatory dysfunction
Chief Complaint
-: Bacteremia
Subjective / Review of Systems
Feeling better. More alert.
Vital Signs / Physical Exam
Vital Signs
Vital Signs
Temp Pulse Resp BP Pulse Ox
98.1 F 84 18 100/67 100
01/24/25 08:26 01/24/25 08:15 01/24/25 08:15 01/24/25 06:00 01/24/25 06:00
Physical Exam
Constitutional: No Acute Distress and Chronically Ill
Cardiovascular: Regular Rate and S1/S2
Gastrointestinal: Soft, Non Tender and Non Distended
Genito-Urinary: Obrien and Turbid Urine
Wound: Other (Reviewed wound photo: sacral wound clean with granulation tissue)
Neurological: Awake and Alert
Objective Data
Lab Data
Lab Results
01/24/25 04:27
01/24/25 04:27
PT 18.5 Sec (11.4-14.6) H 01/22/25 05:46
INR 1.51 01/22/25 05:46
APTT 39.5 Sec (23.4-35.0) H 01/22/25 05:46
Estimated Creat Clear 36 ml/min 01/24/25 04:27
Lactic Acid 1.3 mmol/L (0.7-2.0) 01/23/25 11:54
Total Bilirubin 1.0 mg/dl (0.2-1.3) 01/24/25 04:27
AST 24 U/L (17-59) 01/24/25 04:27
ALT 33 U/L (0-50) 01/24/25 04:27
Alkaline Phosphatase 61 U/L (38-126) 01/24/25 04:27
Most recent labs reviewed.
Micro Results:
01/22/25 00:30 Blood Culture - Final
Blood/Venous Escherichia coli
Gram Stain - Final
01/22/25 00:31 Blood Culture - Final
Blood/Venous Escherichia coli
Gram Stain - Final
01/22/25 00:31 Urine Culture - Preliminary
Urine Escherichia coli
01/23/25 04:48 Blood Culture - Preliminary
Blood/Venous No Growth in 24 hours- Final report to follow
01/22/25 05:47 MRSA Screen - Final
Nose No Methicillin Resistant Staphylococcus aureus isolated.
01/22/25 00:30 Influenza Types A & B (DANI) - Final
Nasal Swab Negative for Influenza A & B, NAAT
Negative results must be combined with clinical observations
and patient history.
Nucleic Acid Amplification test (NAAT)performed on the
[employer] platform.
01/23/25 CXR: Interval increase in LARGE RIGHT LOWER and MIDDLE LOBE AIRSPACE CONSOLIDATIONS with associated right lung volume loss with moderate [id number] mediastinal shift. Diagnostic possibilities are (1) right lower and middle lobe
atelectasis secondary to mucous plugging in the bronchus intermedius or (2) severe pneumonia (if there are signs/symptoms of pulmonary infection).
01/22/25 CXR: Lungs appear hypoinflated. Parenchymal opacity within both lower lungs, new since prior examination, with main differential considerations of atelectasis and/or pneumonia.
Care Review
Plan reviewed with: Nurse and Physician (Dr. Andie Gipson)
--- NOTE | 2025-01-24 10:28 | W.PN.NEPH.PH ---
Today's Communication / Plan
-
HD tomorrow
Assessment/Plan
-
Impression:
ESRD Thursday [place]
Suspected sepsis
Diabetes
Seizure disorder
Orthostatic hypotension
History of CVA with subsequent right hemiplegia
History of recurrent osteomyelitis with sacral decubitus
History of colectomy
Chronic [place]
Anemia
History of septic arthritis of right sacroiliac joint/right iliac abscess
History of right upper extremity AV fistula
Plan:
midodrine TID 15mg
HD tomorrow
sister coming in to reevaluated [facility]
prognosis is guarded
critical care time 31 minutes
-
-
Date of Service: January 24, 2025
CC / HPI / ROS
-
Chief Complaint:
ESRD
History of Present Illness:
tolerated HD yesterday
critically ill in ICU
off IV pressors, but on high dose midodrine
remains on O2 supplemental
on Abx for e coli sepsis
hgb low 8.2, microcytic
Review of Systems:
no CP/SOB
Labs
-
Labs:
WBC 7.7 10^3/uL (4.8-10.8) 01/24/25 04:27
RBC 3.19 10^6/uL (4.70-6.10) L 01/24/25 04:27
Hgb 8.2 g/dL (13.0-18.0) L 01/24/25 04:27
Hct 24.5 % (39.0-52.0) L 01/24/25 04:27
Plt Count 117 10^3/uL (130-400) L 01/24/25 04:27
Sodium 134 mmol/L (135-145) L 01/24/25 04:27
Potassium 3.5 mmol/L (3.5-5.1) 01/24/25 04:27
Chloride 98 mmol/L (98-107) 01/24/25 04:27
Carbon Dioxide 28 mmol/L (22-30) 01/24/25 04:27
BUN 42 mg/dl (9-20) H 01/24/25 04:27
Creatinine 2.5 mg/dL (0.7-1.3) H 01/24/25 04:27
eGFR 30.16 01/24/25 04:27
Glucose 75 mg/dl (70-99) 01/24/25 04:27
Calcium 8.1 mg/dl (8.4-10.2) L 01/24/25 04:27
Phosphorus 4.9 mg/dl (2.5-4.5) H 01/23/25 04:49
Albumin 2.6 g/dl (3.5-5.0) L 01/24/25 04:27
Physical Exam
-
Vital Signs:
Vital Signs
Temp Pulse Resp BP Pulse Ox
98.1 F 84 18 100/67 100
01/24/25 08:26 01/24/25 08:15 01/24/25 08:15 01/24/25 06:00 01/24/25 06:00
Cardiovascular:: Regular rate and rhythm
Respiratory:: Bilateral: Coarse
Lung Excursion:: Normal
Abdomen:: Nontender and Soft
Bowel Sounds:: Normal
Extremity Edema:: None: Bilateral:
--- NOTE | 2025-01-24 11:44 | PTCARENOTE ---
Borien cath removed and replaced as ordered. 16F obrien in place and draining foul smelling, milky urine. A-line removed.
[2025-01-24] MEDS: AUGMENTIN 500 MG/125 MG 1 TABLET PO (11:53)
--- NOTE | 2025-01-24 12:24 | W.PN.INTV ---
Today's Communication / Plan
Recommendations
- Patient weaned off pressors
- Can transfer out of ICU
- Continue airway clearance with hypertonic saline and albuterol for another 48 hours
- Dairy Equipment Repairer service will sign off, please call as needed
Assessment
-
Assessment: 54-year-old M with PMHx of ESRD on HD MWF, DM type II, seizure disorder, orthostatic hypotension on midodrine, chronic obrien, Hx of LUE PICC-related venous thrombosis, chronic sacral decubtus ulcer with chronic OM, Hx of ICH with
residual right-sided weakness, ambulatory dysfunction, depression, and dysphagia who p/w AMS. He was sent in from his NH at [facility]. He has not been eating and has had worsening lethargy. Bedside glucose was in 60s, and the NH administered
glucagon. Also his woundvac for his chronic sacral wound was recently removed. At baseline he is usually AAOx3. He was initially febrile to 102.7F, MS 103, RR 27, BP 89/78, and SpO2 88% on room air. Labs showed normal WBC at 9, Hb 9.7, glucose
50 (on BMP), lactate 3.4, T bili 1.6, LFTs elevated slightly, UA was dirty with +3 LE, >100 WBC and many bacteria. COVID-19 antigen negative. Blood cultures + urine Cx collected. CT head showed no acute intracranial pathology, and CXR showed
bibasilar opacities likely due to atelectasis vs PNA. He was given Zosyn, 1 amp of d50, 1L bolus of NS 0.9%, ofirmev and started on levophed due to persistent hypotension. Pt then admitted to ICU and Dairy Equipment Repairer service consulted for further
management/recommendations.
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
weakness, ambulatory dysfunction, depression, dysphagia
01/24 Overview: Patient comfortably sitting in bed, saturating 94% on room air, current MAP of 85. Not requiring any pressors since 6:30 PM on 01/23. Not on any other infusions.
Assessment and plan:
#1. Septic shock with E. coli bacteremia.
- Potential sources UTI, chronic sacral decubitus ulcer with osteomyelitis
- Continue antibiotics as ordered, follow-up on final sensitivities
- ID service on case
- Weaned off pressors as of 01/23. Target MAP 60 or above
- Serial lactate is improving, most recently down to 1.3, normal pH, 7.39
- Patient has chronic underlying hypotension, midodrine dependent, currently on dialysis, will target MAP of 60.
- Discontinue arterial line
#2. Acute hypoxic respiratory failure with suspected right lower lobe atelectasis (mucous plugging)
- 01/23 Rapid change on x-ray noted with right lower lobe volume loss. Considering mediastinum is shifted to the right, changes are suggestive of volume loss more likely atelectasis rather than consolidation
- Poor cough, mucus plug likely etiology. Started hypertonic saline along with albuterol 3 times daily, chest physical therapy, percussion mattress
- 01/24, right lower lobe atelectasis significantly improved. Supplemental oxygen need resolved. Saturating 94% on room air now.
- Continue airway clearance measures for another 48 hours and then discontinue.
- Unfortunately with patient's poor cough, prior history of stroke and significant hemiparesis, bedbound status, he is at high risk of mucous plugging and lobar collapse. Patient unable to use flutter valve effectively
#3. End-stage neural disease on hemodialysis
-Right arm AV graft in place, prior history of right IJ permacath, nephrology service on case
#4. Left upper extremity PICC related venous thrombosis in 08/2024.
-PICC line since removed
#5. History of intracranial hemorrhage
- Resultant hemiplegia and bedbound status with longstanding sacral decubitus ulcers, status post colostomy and chronic Obrien catheter
- Poor functional status, continue wound care
Other medical diagnoses:
#DM type II c/b hypoglycemia
#AMS due tp TME in setting of sepsis/GNR bacteremia. Improved
#Seizure disorder, on Depakote and Keppra
#Orthostatic hypotension. Chronically on midodrine
#History of testicular cancer s/p orchiectomy
#Ambulatory dysfunction
#Depression
DVT prophylaxis with subcu heparin. GI prophylaxis with Protonix.
Critical care statement: A total of 41 minutes of critical care time was provided for this patient today. This includes management of unstable vital signs, evaluation of the patient at bedside, reviewing the patient's pertinent medical records
including radiographs, microbiology, laboratory evaluations, and discussion with primary team, consultants, pharmacy, nutrition, physical therapy, case management, charge nurse, critical care nursing, and respiratory therapy.
Data:
CXR 01/22/2025: Lungs appear hypoinflated. Parenchymal opacity within both lower lungs, new since prior examination, with main differential considerations of atelectasis and/or pneumonia.
Subjective Dataa
Subjective Data
Date of Service:
Date of Service: January 24, 2025
Subjective:
Patient comfortably sitting in bed in no acute distress.
Review of Systems
Genitourinary: Other (No new symptoms reported)
Objective Data
Data Reviewed
Vital Signs / I&O / Oxygen:
Vital Signs
Temp Pulse Resp BP Pulse Ox
98.3 F 88 23 116/69 94
01/24/25 11:26 01/24/25 11:00 01/24/25 11:00 01/24/25 10:00 01/24/25 11:00
Intake and Output
01/23/25 01/24/25 01/25/25
06:59 06:59 06:59
Intake Total 4.2000.6 674.45 / 674.45 480 / 480
Output Total 50 / 50 20 / 20
Balance 1803.1950.6 654.45 / 654.45 480 / 480
SaO2 94
Nasal Cannula flow liters per 4
minute
Physical Exam
General: Comfortable
HEENT: Normocephalic
Cardiovascular: S1-S2
Respiratory: Non-Labored Respirations and Other (Improved air entry in the right hemithorax)
GI: Soft and Non Distended
Neurology: Awake and Alert
Skin: Warm
Labs/Micro/Reports
Lab Data
01/24/25 04:27
01/24/25 04:27
Microbiology
01/22/25 00:30 Blood/Venous Blood Culture - Final
Escherichia coli
01/22/25 00:30 Blood/Venous Gram Stain - Final
01/22/25 00:31 Blood/Venous Blood Culture - Final
Escherichia coli
01/22/25 00:31 Blood/Venous Gram Stain - Final
01/22/25 00:31 Urine Urine Culture - Preliminary
Escherichia coli
01/23/25 04:48 Blood/Venous Blood Culture - Preliminary
No Growth in 24 hours- Final report to follow
01/22/25 05:47 Nose MRSA Screen - Final
No Methicillin Resistant Staphylococcus aureus isolated.
01/22/25 00:30 Nasal Swab Influenza Types A & B (DANI) - Final
Negative for Influenza A & B, NAAT
Negative results must be combined with clinical observations
and patient history.
Nucleic Acid Amplification test (NAAT)performed on the
[employer] platform.
--- NOTE | 2025-01-24 14:05 | CM ---
Transferred to Room 2131. HD, colostomy, obrien, Zosyn transitioned to PO Augmentin, off pressors, plan to have GOC discussion with sister. Discharge POC: Return to [facility] for resumption of LTC.
[2025-01-24 17:06] LABS: Glucose - Point of Care 121 mg/dl (70-99)
[2025-01-24 17:10] LABS: Glucose - Point of Care 117 mg/dl (70-99)
[2025-01-24] MEDS: ROXICODONE 10 MG PO (18:13)
[2025-01-24] MEDS: KEPPRA 1000 MG PO (18:14)
[2025-01-24 21:17] LABS: Glucose - Point of Care 114 mg/dl (70-99)
[2025-01-25] VITALS (7 sets, daily range): BP systolic 102–144; BP diastolic 57–74; BMI 24.0
[2025-01-25] MEDS: SODIUM CHLORIDE 3% FOR INHALATION 1 VIAL INH ×2 (07:50→13:38)
[2025-01-25] MEDS: VENTOLIN NEBULES 2.5 MG INH ×2 (07:50→13:37)
[2025-01-25 08:30] LABS: Glucose - Point of Care 97 mg/dl (70-99)
[2025-01-25] MEDS: RETACRIT 10000 UNITS IV (08:30)
[2025-01-25 08:56] LABS: Hematocrit 25.5 % (39.0-52.0); Hemoglobin 8.7 g/dL (13.0-18.0); Mean Corp Hgb Conc. 34.1 g/dL (33.0-37.0); Mean Corpuscular Volume 76.8 fL (80.0-94.0); Platelet Count 143 10^3/uL (130-400); Red Cell Dist. Width 18.6 % (11.5-14.5)
[2025-01-25] MEDS: NOVOLOG FLEXPEN-MODERATE RESISTANCE SC ×3 (08:59→17:54)
[2025-01-25] MEDS: HEPARIN 5000 UNITS SC ×2 (09:20→21:03)
[2025-01-25] MEDS: DAKIN'S SOLUTION 0.125% 1/4 STRENGTH 473 ML TOPICAL (09:21)
[2025-01-25] MEDS: HYDROPHOR 1 APPLIC TOPICAL (09:22)
[2025-01-25 09:44] LABS: Blood Urea Nitrogen 57 mg/dl (9-20); Estimated Creatinine Clearance 28 ml/min; Glucose 98 mg/dl (70-99)
[2025-01-25 09:45] LABS: ALT (SGPT) 23 U/L (0-50); AST (SGOT) 15 U/L (17-59); Albumin 2.5 g/dl (3.5-5.0); Alkaline Phosphatase 79 U/L (38-126); Calcium 8.1 mg/dl (8.4-10.2); Carbon Dioxide 26 mmol/L (22-30); Chloride 98 mmol/L (98-107); Potassium 3.6 mmol/L (3.5-5.1); Sodium 134 mmol/L (135-145); Total Protein 7.2 g/dl (6.3-8.2); eGFR 22.43
--- NOTE | 2025-01-25 10:31 | W.PN.NEPH.HD ---
Assessment
-
Patient seen on dialysis
Systolic blood pressure stable at 119 at current UF
HD via fistula
Progress Note - Hemodialysis
-
Date of Service: January 25, 2025
Duration: 30 minutes and 3 hours
Potassium Bath: 3
Calcium Bath: 2.5
Opti-Dialyzer: 160
Ultrafiltration: Other (2 to 3 kg)
Blood Flow: 400
Dialysate Flow: 600
Heparin: None
EPO: 10,000
--- NOTE | 2025-01-25 11:36 | W.PN.ID1 ---
Date of Service
Date of Service: January 25, 2025
Today's Communication
Recommend doxycycline 100mg po bid x 7d through 01/31/25.
ID will sign off.
Assessment / Plan
# Complicated UTI/CAUTI with MDR/ESBL-Ecoli
# E. coli bacteremia, 2 sets. Urine source
# s/p Septic shock, weaning pressor
# Fever- resolved
# R side mucous plugging
# Chronic obrien - changed 01/24.
# ESRD on HD via AVF
# Chronic sacral decubiti, hx diverting colostomy
- repeat blood cx's neg to date.
- Ucx ESBL-E. coli
- s/p Zosyn (3d)
- DC Augmentin (s/p 1 dose)
- Start doxycycline 100mg po bid x 7d through 01/31/25 to also cover the ESBL-Ecoli recovered from urine.
- Contact isolation.
ID will sign off.
#Conditions present on admission:
Intracranial hemorrhage/CVA with right-sided weakness
Seizure
Diabetes mellitus
Hypertension
End-stage renal disease on dialysis Wednesdays and Fridays via RUE AVG
dyslipidemia
History of testicular cancer status post right orchiectomy
chronic obrien
chronic sacral decubitus/osteo s/p 6 weeks cefazolin (completed 09/2022)
Hx Abscess from sacrum to right knee s/p I+D s/p 6 weeks cefazolin/metronidazole till 01/21/23.
R iliacus muscle and left gluteal villa abscess abscess, sacral osteo, left iliac bone osteo s/p 6 weeks of cefazolin/metronidazole till 10/10/24.
Diverting colostomy
Ambulatory dysfunction
Chief Complaint
-: UTI and Bacteremia
Subjective / Review of Systems
No new complaints.
Vital Signs / Physical Exam
Vital Signs
Vital Signs
Temp Pulse Resp BP Pulse Ox
98.3 F 90 18 144/71 99
01/25/25 07:55 01/25/25 07:55 01/25/25 07:55 01/25/25 07:55 01/25/25 07:55
Physical Exam
Constitutional: Comfortable and Chronically Ill
Cardiovascular: Regular Rate and S1/S2
Pulmonary: Non Labored
Gastrointestinal: Soft, Non Tender and Non Distended
Genito-Urinary: Obrien and Clear Urine
Extremities: Negative Edema
Neurological: Awake
Objective Data
Lab Data
Lab Results
01/25/25 08:24
01/25/25 08:24
PT 18.5 Sec (11.4-14.6) H 01/22/25 05:46
INR 1.51 01/22/25 05:46
APTT 39.5 Sec (23.4-35.0) H 01/22/25 05:46
Estimated Creat Clear 28 ml/min 01/25/25 08:24
Lactic Acid 1.3 mmol/L (0.7-2.0) 01/23/25 11:54
Total Bilirubin 0.6 mg/dl (0.2-1.3) 01/25/25 08:24
AST 15 U/L (17-59) L 01/25/25 08:24
ALT 23 U/L (0-50) 01/25/25 08:24
Alkaline Phosphatase 79 U/L (38-126) 01/25/25 08:24
Most recent labs reviewed.
Micro Results:
01/22/25 00:31 Urine Culture - Final
Urine Escherichia coli - ESBL
01/23/25 04:48 Blood Culture - Preliminary
Blood/Venous No Growth in 48 hours- Final report to follow
01/22/25 00:30 Blood Culture - Final
Blood/Venous Escherichia coli
Gram Stain - Final
01/22/25 00:31 Blood Culture - Final
Blood/Venous Escherichia coli
Gram Stain - Final
01/22/25 05:47 MRSA Screen - Final
Nose No Methicillin Resistant Staphylococcus aureus isolated.
01/22/25 00:30 Influenza Types A & B (DANI) - Final
Nasal Swab Negative for Influenza A & B, NAAT
Negative results must be combined with clinical observations
and patient history.
Nucleic Acid Amplification test (NAAT)performed on the
[employer] platform.
01/23/25 CXR: Interval increase in LARGE RIGHT LOWER and MIDDLE LOBE AIRSPACE CONSOLIDATIONS with associated right lung volume loss with moderate [id number] mediastinal shift. Diagnostic possibilities are (1) right lower and middle lobe
atelectasis secondary to mucous plugging in the bronchus intermedius or (2) severe pneumonia (if there are signs/symptoms of pulmonary infection).
01/22/25 CXR: Lungs appear hypoinflated. Parenchymal opacity within both lower lungs, new since prior examination, with main differential considerations of atelectasis and/or pneumonia.
Care Review
Plan reviewed with: Physician (Dr. Andie Gipson)
[2025-01-25 11:37] LABS: Glucose - Point of Care 97 mg/dl (70-99)
[2025-01-25] MEDS: PROTONIX 40 MG PO (12:14)
[2025-01-25] MEDS: DEPAKOTE (12 HR RELEASE) 500 MG PO (12:14)
[2025-01-25] MEDS: VIBRAMYCIN 100 MG PO (12:14)
[2025-01-25] MEDS: AUGMENTIN 500 MG/125 MG PO (12:15)
--- NOTE | 2025-01-25 13:17 | W.PN.HOSP.TC ---
Addendum entered and electronically signed by Rupert Gipson MD 01/27/25 08:05:
Functional quadriplegia -cw supportive care
Original Note:
Today's Communication/Plan
-
Continue antibiotics
Continue with supportive care
DC planning
Assessment / Plan
Assessment / Plan
Assessment:
Septic shock
Ecoli bacteremia
ESBL E. coli UTI
- Off of vasopressors
- scheduled midodrine
- ID following-antibiotic switched to oral doxycycline with discovery of ESBL E. coli in urine
ESRD on HD
- next HD Thursday per Nephrology
- hold Bumex
- continue scheduled Lokelma
Intracranial hemorrhage/CVA with right-sided weakness-continue with supportive care
History of seizures-continue Keppra and valproic acid
Type 2 DM
- SSI
- Blood sugars are on the low side. Hold on scheduled Lantus for now. Hemoglobin A1c was 4.2 in September. Repeat hemoglobin A1c
Chronic obrien
Essential HTN - hold BP meds
testicular cancer status post right orchiectomy
dyslipidemia
Diverting colostomy
Seizure d/o
- on Keppra post-HD dosing
DVT ppx: SC heparin
Code: Full
Discussed with RN
Anticipated Discharge: 24 - 48 hours
Subjective/Interval History
-
Date of Service: January 25, 2025
Denies any pain or shortness of breath.
Objective Data
-
Labs:
Laboratory Results
01/25/25
08:24
WBC 8.4
Hgb 8.7 L
Hct 25.5 L
Plt Count 143 D
Sodium 134 L
Potassium 3.6
Chloride 98
Carbon Dioxide 26
BUN 57 H
Creatinine 3.2 H
Glucose 98
Calcium 8.1 L
Total Bilirubin 0.6
AST 15 L
ALT 23
Alkaline Phosphatase 79
Vital Signs:
Vital Signs
Temp Pulse Resp BP Pulse Ox
98.3 F 98 18 131/69 100
01/25/25 11:41 01/25/25 12:20 01/25/25 11:41 01/25/25 12:20 01/25/25 11:41
I&O
01/24/25 01/25/25 01/26/25
06:59 06:59 06:59
Intake Total 674.45 / 674.45 960 / 960
Output Total 470 / 470
Balance 654.45 / 654.45 490 / 490
Physical Exam
-
General: No Apparent Distress
Respiratory: Rhonchi (on anterior auscultation) and Non Labored Respirations; Negative Accessory Resp Muscle Use
Cardiac: Regular Rhythm and S1/S2
GI: Soft
Neuro: Awake, Alert and Oriented
Psych: Calm
Data Reviewed
-
Labs: Labs Reviewed by me
--- NOTE | 2025-01-25 14:07 | CM ---
Reviewed the chart notes. Patient received HD today. CM continues to be available to patient/family and is monitoring medical plan for needs at discharge.
Plan: Discharge back to [facility]. No precert required.
Call report to: [phone]
Fax report to: [phone]
Medical necessity and transport forms on chart.
--- NOTE | 2025-01-25 14:13 | PN.CDI ---
CDI
- -
CDI:
Physician Documentation Request
Admit Date: 01/22/25 03:14
Dear Doctor Brandan,
Patient admitted for CAUTI.
01/22 Case management note: 'Pt is bedbound, total care and rebekah for transfers. He is typically AxO 3x at baseline and able to feed self only. He receives HD at [facility], has colostomy, chronic obrien, and wound care at [facility]'
Nutrition clinical panel
01/22/25
10:04 01/22/25
17:52 01/23/25
08:50
Amount consumed: 50% 25%
Type of Feed- Assist Assist Complete
01/23/25
14:27 01/24/25
10:00 01/24/25
19:29
Amount consumed:
Type of Feed- Complete Complete Complete
Which, if any, of the following is a likely etiology of the above abnormalities and treatment rendered:
- Functional quadriplegia (complete immobility due to severe physical disability or yranybx-pax-ggpnqihhbk cause)
- Generalized weakness - indicate known or suspected etiology
- Other (please specify):
Use of terms such as suspected, likely, concern for, or probable (associated with a specific diagnosis that is being evaluated, monitored, or treated as if it exists) are acceptable and can be coded in the inpatient setting, when documented at the
time of discharge.
Thank you,
Emani Gilbert RN, BSN
CDI Specialist
Available via [employer] text
Please use your independent medical judgment in providing your response.
--- NOTE | 2025-01-25 15:43 | PTOTSP ---
Speech Therapy Follow-Up:
Pt received asleep in bed. Per nursing, pt coughing on secretions and w/ P.O. intake. Baseline wet cough. Pt took one single straw sip w/ assistance bringing straw to mouth. Maximal verbal cueing to use straw to take a sip, as pt did not react to
straw sensation in anterior oral cavity. Immediate wet cough observed after single sip.
Given fact that pt tolerated previous diet level w/ no overt s/s of aspiration, current status appears to be an acute change. Strict NPO recommended at this time.
Recommendations:
1. Strict NPO
2. No P.O. medications
3. F/U w/ ST to monitor ANNE-MARIE to reassess at the bedside before determining if appropriate for further P.O. trials and instrumental
4. Instrumental swallow study (FEES) to objectively determine aspiration occurrence and determine best tolerated diet-level when appropriate. VSE not appropriate for pt given difficulty sitting upright and significant R lean
[2025-01-25] MEDS: KEPPRA 1000 MG IV (17:46)
[2025-01-25 17:55] LABS: Glucose - Point of Care 105 mg/dl (70-99)
--- NOTE | 2025-01-25 18:16 | PTCARENOTE ---
Patient coughing on all oral intake. MD made aware. Speech therapy to see patient. Patient made NPO. Pt with increased drowsiness post dialysis. Pt. with chronic r sided weakness and mild R facial droop from previous stroke. MD aware of change in
mentation. CAT of head ordered and preformed. Chronic changes noted. Patient sating 99% on RA. VBGS completed and sent per order.
[2025-01-25 18:24] LABS: Venous Blood Gas B.E. 4.7 mmol/L (-4 to +4); Venous Blood Gas O2 Sat % 99.8 %
[2025-01-25] MEDS: VIBRAMYCIN 260 MG IV (20:46)
[2025-01-25] MEDS: TYLENOL/FEVERALL 650 MG RECTAL (20:47)
[2025-01-25] MEDS: DEPACON 55 MG IV (22:10)
--- NOTE | 2025-01-25 22:47 | PTCARENOTE ---
Addendum entered by Leonard Hare RN 01/25/25 23:13:
Pt's O2 being wean down. Pt is on 2L NC , SaO2 94-96%. No changes neuro.
Original Note:
Pt is AAOx1, drowsy, Neuro assessment done and charted without any changes from previous. Pt saturation was in the high 70's and was placed in 6l NC. Pt SaO2 94-96%. New IV access placed in the Rt foot. Pt had a temp 100.8 F , and was given rectal
Tylenol. Recheck 1 hr, pt temp was 99.8
[2025-01-25 23:53] LABS: Glucose - Point of Care 104 mg/dl (70-99)
[2025-01-26 03:24] VITALS: BP 144/70
[2025-01-26 05:28] VITALS: BMI 23.6
[2025-01-26 05:56] LABS: Venous Blood Gas B.E. 4.0 mmol/L (-4 to +4); Venous Blood Gas O2 Sat % 99.3 %
[2025-01-26 05:57] LABS: Glucose - Point of Care 96 mg/dl (70-99)
[2025-01-26 06:04] LABS: Venous Blood Gas O2 Therapy 94
[2025-01-26 06:21] LABS: Blood Urea Nitrogen 30 mg/dl (9-20); Calcium 8.2 mg/dl (8.4-10.2); Carbon Dioxide 30 mmol/L (22-30); Chloride 101 mmol/L (98-107); Estimated Creatinine Clearance 39 ml/min; Glucose 101 mg/dl (70-99); Potassium 3.4 mmol/L (3.5-5.1); Sodium 138 mmol/L (135-145); eGFR 33.33
[2025-01-26 06:24] LABS: Hematocrit 27.2 % (39.0-52.0); Hemoglobin 8.9 g/dL (13.0-18.0); Mean Corp Hgb Conc. 32.7 g/dL (33.0-37.0); Mean Corpuscular Volume 77.9 fL (80.0-94.0); Platelet Count 142 10^3/uL (130-400); Red Cell Dist. Width 19.6 % (11.5-14.5)
[2025-01-26 06:29] LABS: Depakane 40.0 ug/ml (50.0-120.0)
[2025-01-26 07:20] VITALS: BP 150/72
[2025-01-26] MEDS: VIBRAMYCIN 260 MG IV ×2 (08:36→19:46)
[2025-01-26] MEDS: PROTONIX IV 40 MG IV (08:36)
[2025-01-26] MEDS: HEPARIN 5000 UNITS SC ×2 (08:36→19:47)
[2025-01-26] MEDS: NSS (PRESERVATIVE FREE) 10 ML IV (08:36)
[2025-01-26] MEDS: HYDROPHOR 1 APPLIC TOPICAL (08:37)
[2025-01-26] MEDS: DAKIN'S SOLUTION 0.125% 1/4 STRENGTH 1 ML TOPICAL (08:37)
[2025-01-26] MEDS: DEPACON 55 MG IV ×2 (10:43→21:03)
--- NOTE | 2025-01-26 11:04 | CM ---
Reviewed the chart notes. Updated clinicals sent to SNF in [facility]. CM continues to be available to patient/family and is monitoring medical plan for needs at discharge.
Plan: Discharge back to [facility]. No precert required.
Call report to: [phone]
Fax report to: [phone]
Medical necessity and transport forms on chart.
--- NOTE | 2025-01-26 11:46 | W.PN.NEPH.PH ---
Today's Communication / Plan
-
Dialysis tomorrow
Assessment/Plan
-
Impression:
ESRD Thursday [facility]
Suspected sepsis
Diabetes
Seizure disorder
Orthostatic hypotension
History of CVA with subsequent right hemiplegia
History of recurrent osteomyelitis with sacral decubitus
History of colectomy
Chronic Vale
Anemia
History of septic arthritis of right sacroiliac joint/right iliac abscess
History of right upper extremity AV fistula
Plan:
midodrine TID 15mg
HD tomorrow,
Continues with antibiotics for ESBL E. coli UTI bacteremia and sepsis
prognosis is guarded
critical care time 31 minutes
-
-
Date of Service: January 26, 2025
CC / HPI / ROS
-
Chief Complaint:
ESRD
History of Present Illness:
tolerated HD yesterday
ESRD Thursday
off IV pressors, but on high dose midodrine
remains on O2 supplemental
on doxycycline for e coli sepsis
hgb low 8.9 microcytic
Review of Systems:
no CP/SOB
Labs
-
Labs:
WBC 11.8 10^3/uL (4.8-10.8) H 01/26/25 05:41
RBC 3.49 10^6/uL (4.70-6.10) L 01/26/25 05:41
Hgb 8.9 g/dL (13.0-18.0) L 01/26/25 05:41
Hct 27.2 % (39.0-52.0) L 01/26/25 05:41
Plt Count 142 10^3/uL (130-400) 01/26/25 05:41
Sodium 138 mmol/L (135-145) 01/26/25 05:41
Potassium 3.4 mmol/L (3.5-5.1) L 01/26/25 05:41
Chloride 101 mmol/L (98-107) 01/26/25 05:41
Carbon Dioxide 30 mmol/L (22-30) 01/26/25 05:41
BUN 30 mg/dl (9-20) H 01/26/25 05:41
Creatinine 2.3 mg/dL (0.7-1.3) H 01/26/25 05:41
eGFR 33.33 01/26/25 05:41
Glucose 101 mg/dl (70-99) H 01/26/25 05:41
Calcium 8.2 mg/dl (8.4-10.2) L 01/26/25 05:41
Phosphorus 4.9 mg/dl (2.5-4.5) H 01/23/25 04:49
Albumin 2.5 g/dl (3.5-5.0) L 01/25/25 08:24
Physical Exam
-
Vital Signs:
Vital Signs
Temp Pulse Resp BP Pulse Ox
97.6 F 18 18 150/72 97
01/26/25 11:05 01/26/25 11:05 01/26/25 07:20 01/26/25 07:20 01/26/25 11:05
Cardiovascular:: Regular rate and rhythm
Respiratory:: Bilateral: Coarse
Lung Excursion:: Normal
Abdomen:: Nontender and Soft
Bowel Sounds:: Normal
Extremity Edema:: None: Bilateral:
Vale Catheter: Yes
--- NOTE | 2025-01-26 14:03 | W.PN.HOSP.TC ---
Today's Communication/Plan
-
FEES
CW meds IV
Assessment / Plan
Assessment / Plan
Assessment:
Septic shock
Ecoli bacteremia
ESBL E. coli UTI
- Off of vasopressors
- scheduled midodrine
- ID following-antibiotic switched to oral doxycycline with discovery of ESBL E. coli in urine
ESRD on HD
- CW HD per Nephrology
- hold Bumex
- continue scheduled Lokelma
Intracranial hemorrhage/CVA with right-sided weakness-continue with supportive care
History of seizures-continue Keppra and valproic acid
Dysphagia - was on modified diet at [place]. Now worse. CT head repeat no acute findings. FEES today .
Type 2 DM
- SSI
- Blood sugars are on the low side. Hold on scheduled Lantus for now. Hemoglobin A1c was 4.2 in September. Repeat hemoglobin A1c
Chronic obrien
Essential HTN - hold BP meds
testicular cancer status post right orchiectomy
dyslipidemia
Diverting colostomy
Seizure d/o
- on Keppra post-HD dosing
DVT ppx: SC heparin
Code: Full
Discussed with RN
Sister NELIDA is coming tomorrow to address GOC
Anticipated Discharge: > 48 hours
Subjective/Interval History
-
Date of Service: January 26, 2025
Patient today alert and oriented to place and person.
He remembers being weak yesterday after dialysis.
Denies any headache.
He has failed swallow testing and getting FEES today
Denies any shortness of breath but audible breath sounds heard. He is requiring oxygen via nasal cannula but no distress noted
Objective Data
-
Labs:
Laboratory Results
01/26/25
05:41
WBC 11.8 H
Hgb 8.9 L
Hct 27.2 L
Plt Count 142
Sodium 138
Potassium 3.4 L
Chloride 101
Carbon Dioxide 30
BUN 30 H
Creatinine 2.3 H
Glucose 101 H
Calcium 8.2 L
Vital Signs:
Vital Signs
Temp Pulse Resp BP Pulse Ox
97.6 F 18 18 150/72 97
01/26/25 11:05 01/26/25 11:05 01/26/25 07:20 01/26/25 07:20 01/26/25 11:05
I&O
01/25/25 01/26/25 01/27/25
06:59 06:59 06:59
Intake Total 960 / 960 320 / 320
Output Total 470 / 470 45 / 45
Balance 490 / 490 275 / 275
Physical Exam
-
General: No Apparent Distress
Respiratory: Rhonchi (BL on anterior ausultation) and Non Labored Respirations; Negative Accessory Resp Muscle Use
Cardiac: Regular Rhythm and S1/S2; Negative Tachycardic
Psych: Calm
Data Reviewed
-
Labs: Labs Reviewed by me
[2025-01-26 15:05] VITALS: BP 135/74
[2025-01-26] MEDS: KEPPRA 1000 MG IV (16:58)
[2025-01-26 19:00] VITALS: BP 154/76
[2025-01-26 22:10] LABS: Glucose - Point of Care 136 mg/dl (70-99)
[2025-01-26 22:10] LABS: Glucose - Point of Care 149 mg/dl (70-99)
[2025-01-26 23:00] VITALS: BP 151/76
[2025-01-27 05:20] VITALS: BMI 23.7
[2025-01-27 07:24] LABS: Carbon Dioxide 28 mmol/L (22-30); Chloride 103 mmol/L (98-107); Potassium 3.8 mmol/L (3.5-5.1); Sodium 139 mmol/L (135-145)
[2025-01-27 07:25] VITALS: BP 160/80
[2025-01-27 07:51] LABS: Glucose - Point of Care 106 mg/dl (70-99)
[2025-01-27] MEDS: NOVOLOG FLEXPEN-MODERATE RESISTANCE SC ×3 (08:03→16:05)
[2025-01-27 08:10] LABS: Hematocrit 25.9 % (39.0-52.0); Hemoglobin 8.4 g/dL (13.0-18.0); Mean Corp Hgb Conc. 32.4 g/dL (33.0-37.0); Mean Corpuscular Volume 79.2 fL (80.0-94.0); Platelet Count 173 10^3/uL (130-400); Red Cell Dist. Width 19.7 % (11.5-14.5)
[2025-01-27] MEDS: PROTONIX IV 40 MG IV (08:30)
[2025-01-27] MEDS: NSS (PRESERVATIVE FREE) 10 ML IV (08:30)
[2025-01-27] MEDS: HEPARIN 5000 UNITS SC ×2 (08:30→20:59)
[2025-01-27] MEDS: VIBRAMYCIN 260 MG IV ×2 (08:31→21:00)
[2025-01-27] MEDS: HYDROPHOR 1 APPLIC TOPICAL (08:31)
[2025-01-27] MEDS: DAKIN'S SOLUTION 0.125% 1/4 STRENGTH 473 ML TOPICAL (08:32)
[2025-01-27] MEDS: DEPACON 55 MG IV ×2 (10:18→20:59)
[2025-01-27 11:20] VITALS: BP 186/95
--- NOTE | 2025-01-27 11:49 | W.CON.PAL ---
Reason for Admission
Illness Course/HPI
54 year old M with PMH of ESRD on HD MWF, hypertension, hyperlipidemia, diabetes, CVA, colectomy with end colostomy, sacral pressure ulcer with chronic osteomyelitis recurrent bacteremia, recent iliac muscle abscess s/p prolonged antibiotics
admitted from [facility] with change in mental status.
Upon admission was lethargic, baseline is AAOx3. Glucose in the 60s s/p glucagon. BP in the ER was 86/50, satting 100% on room air, temp 102.7. Labs notable for white count of 9.0 hemoglobin of 9.7 and platelet count of 155. Lactic acid 3.4, mild
transaminitis. UA with 3+ leukocyte estrace.
Started on ABX, pressors and sent to ICU. Blood cultures +e.coli likely from wounds vs UTI. Weaned off pressors and out of ICU. Failed bedside swallow, had video swallow yesterday and cleared for diet.
Per team, spoke with patients family about GOC and goals are restorative at this time but interested in speaking with palliative care.
Spoke with patients sister who was interested in learning about setting up PC for patient at [facility]. Explained [facility] does not service [facility] but that I would ask Cm to see if they offer it through someone else so a referral can be
made. General info given about palliative care. Sister thankful for the information and phone call. Team and CM aware.
Objective Data
-
Objective Data:
Vital Signs
Temp Pulse Resp BP Pulse Ox
99.0 F 94 16 189/56 97
01/27/25 11:20 01/27/25 11:40 01/27/25 11:20 01/27/25 11:40 01/27/25 11:20
Laboratory Results
01/27/25 06:47
01/27/25 06:47
PT 18.5 Sec (11.4-14.6) H 01/22/25 05:46
INR 1.51 01/22/25 05:46
APTT 39.5 Sec (23.4-35.0) H 01/22/25 05:46
Total Protein 7.2 g/dl (6.3-8.2) 01/25/25 08:24
Albumin 2.5 g/dl (3.5-5.0) L 01/25/25 08:24
Urine Color Yellow 01/22/25 00:31
Urine Clarity Cloudy (Clear) 01/22/25 00:31
Urine pH 7.0 (5.0-9.0) 01/22/25 00:31
Ur Specific [place] 1.015 (<1.030) 01/22/25 00:31
Urine Ketones Negative (Negative) 01/22/25 00:31
Urine Bilirubin Negative (Negative) 01/22/25 00:31
Palliative Performance Scale
Palliative Performance Scale:
PPS Level Ambulation Activity & Evidence of Disease Self Care Intake Conscious Level
100% Full Normal Activity & Work; Full Intake Full
No Evidence of Disease
90% Full Normal Activity & Work; Full Normal Full
Some Evidence of Disease
80% Full Normal Activity with Effort Full Normal or Full
Some Evidence of Disease Reduced
70% Reduced Unable Normal Job/Work Full Normal or Full
Significant Disease Reduced
60% Reduced Unable Hobby/Housework Occasional Normal or Full or Confusion
Significant Disease Assistance Reduced
50% Mainly Sit/Lie Unable to do Any Work Considerable Normal or Full or Confusion
Extensive Disease Assistance Req'd Reduced
40% Mainly in Bed Unable to do Most Activity Mainly Assistance Normal or Full or Drowsy;
Extensive Disease Reduced +/- Confusion
30% Totally Bed Unable to do Any Activity Total Care Normal or Full or Drowsy;
Bound Extensive Disease Reduced +/- Confusion
20% Totally Bed Bound Unable to do Any Activity Total Care Minimal to Full or Drowsy;
Extensive Disease Sips +/- Confusion
10% Totally Bed Bound Unable to do Any Activity Total Care Mouth Care Drowsy or Coma;
Extensive Disease Only +/- Confusion
0%
PPS Score Level:
Palliative Performance Score Response
Palliative Performance Score Response: 30%
Physical Exam
-
General: Appears Chronically Ill
HEENT: Normocephalic
Respiratory: Rhonchi
Cardiac: Regular Rhythm
Peripheral Vascular: No Edema
GI: Soft
Skin: Ulcers
Neuro: Awake and Alert
Psych: Confused
Assessment / Plan
-
Assessment/Plan:
54 year old M with ESRD on HD, CVA admitted with AMS 2/2 sepsis/ecoli bacteremia- UTI vs sacral wound. Multiple admissions.
Care Reviewed
Data Reviewed
EKG Tracings: Report Reviewed
Chest X ray: Report Reviewed
Medical Tests: I reviewed
Reviewed with: Patient, Family and Physician
--- NOTE | 2025-01-27 12:06 | W.PN.HOSP.TC ---
Today's Communication/Plan
-
Continue with antibiotics
Obtain a chest x-ray
Follow white count
Palliative care consult
Assessment / Plan
Assessment / Plan
Assessment:
Septic shock
Ecoli bacteremia
ESBL E. coli UTI
- Off of vasopressors
- Blood pressure on the higher side-hold midodrine
- ID following-antibiotic switched to oral doxycycline with discovery of ESBL E. coli in urine
Rising leukocytosis noted-no clinical concern as chest-patient described moist cough needing back oxygen. His admitting chest x-ray showed right lower lobe consolidation which is getting better. Repeat chest x-ray. Continue with modified diet.
ESRD on HD
- CW HD per Nephrology
- Continue Bumex per nephrology.
Intracranial hemorrhage/CVA with right-sided weakness-continue with supportive care
History of seizures-continue Keppra and valproic acid
Dysphagia -status post FEES study. Continue with modified diet
Type 2 DM
- SSI
- Blood sugars are on the low side. Hold on scheduled Lantus for now. Hemoglobin A1c was 4.2 in September. Repeat hemoglobin A1c
Chronic obrien
Essential HTN - hold BP meds
testicular cancer status post right orchiectomy
dyslipidemia
Diverting colostomy
Seizure d/o
- on Keppra post-HD dosing
DVT ppx: SC heparin
Code: Full
Discussed with RN
Abbey arrived today to discuss about goals of care. She has not the power of auto glass worker. She brought patient's hand to Conchis on the conference call.
Went over with both of them regarding current acute medical issue of septic shock which is resolved. We then started to discuss about goals of care-made them aware that is now in a persistent vegetative state from his prior cerebral insult of
intracranial bleed and I told him there would not be any meaningful recovery. Currently he is totally bedbound and Vernell lift. Was also made aware about dialysis dependent renal failure. Made him aware that it is his fourth admission.
They wavered between palliative care and hospice but could not come to conclusion. They want to continue with restorative care including full code for now. They wanted to see palliative care so a consult was placed.
Total time spent on today's encounter was 52 minutes which included time spent in counseling the patient/family regarding diagnosis and treatment plan as listed above, goals of care, and symptom management. Case was discussed with nursing staff,
specialists, and care coordinators/case management. All labs and imaging personally reviewed by me. Remainder the time spent in detailed review of previous records, lab data, imaging, and other medical provider documentation.
Portions of this chart may have been created with voice recognition software. Occasional wrong word or 'sound alike' substitutions may have occurred due to the inherent limitations of voice recognition software.
Anticipated Discharge: > 48 hours
Subjective/Interval History
-
Date of Service: January 27, 2025
Moist cough heard. Denies any shortness of breath.
Yesterday patient was cleared for a modified diet.
Denies any pain or discomfort currently.
Objective Data
-
Labs:
Laboratory Results
01/27/25
06:47
WBC 13.1 H
Hgb 8.4 L
Hct 25.9 L
Plt Count 173 D
Sodium 139
Potassium 3.8
Chloride 103
Carbon Dioxide 28
Vital Signs:
Vital Signs
Temp Pulse Resp BP Pulse Ox
99.0 F 94 16 189/56 97
01/27/25 11:20 01/27/25 11:40 01/27/25 11:20 01/27/25 11:40 01/27/25 11:20
I&O
01/26/25 01/27/25 01/28/25
06:59 06:59 06:59
Intake Total 320 / 320 570 / 570
Output Total 45 / 45
Balance 275 / 275 545 / 545
Physical Exam
-
General: Comfortable
Respiratory: Rhonchi (On anterior auscultation) and Non Labored Respirations; Negative Accessory Resp Muscle Use
Cardiac: Regular Rhythm and S1/S2; Negative Tachycardic
GI: Soft and Ostomy
Neuro: Awake, Alert and Oriented (Place and person)
Psych: Calm
Data Reviewed
-
Labs: Labs Reviewed by me
[2025-01-27 12:15] LABS: Glucose - Point of Care 133 mg/dl (70-99)
[2025-01-27] MEDS: RETACRIT 10000 UNITS IV (13:00)
[2025-01-27] MEDS: MANNITOL 25% 12.5 GRAMS IV ×2 (13:12→14:59)
--- NOTE | 2025-01-27 13:25 | CM ---
Reviewed the chart notes. Patient's sister in to visit with patient today. CM continues to be available to patient/family and is monitoring medical plan for needs at discharge.
Plan: Discharge back to [facility]. No precert required.
Call report to: [phone]
Fax report to: [phone]
Medical necessity and transport forms on chart.
[2025-01-27 15:25] VITALS: BP 117/63
[2025-01-27 15:30] VITALS: BP 117/63
[2025-01-27 15:51] LABS: Glucose - Point of Care 101 mg/dl (70-99)
--- NOTE | 2025-01-27 16:02 | W.PN.NEPH.HD ---
Assessment
-
pt seen during HD
vitals stable with midodirne
UF as tolerates
AVF functions well
asp risk, chr cough
Progress Note - Hemodialysis
-
Date of Service: January 27, 2025
Duration: 30 minutes and 3 hours
Potassium Bath: 3
Calcium Bath: 2.5
Opti-Dialyzer: 160
Ultrafiltration: Other (2kg)
Blood Flow: 400
Dialysate Flow: 600
Heparin: no
EPO: 20056
[2025-01-27] MEDS: KEPPRA 1000 MG IV (17:07)
[2025-01-27 19:25] VITALS: BP 151/81
[2025-01-27 21:42] LABS: Glucose - Point of Care 167 mg/dl (70-99)
[2025-01-27 23:02] VITALS: BP 133/72
[2025-01-28 03:33] VITALS: BP 124/69
[2025-01-28 07:20] VITALS: BP 132/60
[2025-01-28 07:57] LABS: Hematocrit 24.7 % (39.0-52.0); Hemoglobin 8.0 g/dL (13.0-18.0); Mean Corp Hgb Conc. 32.4 g/dL (33.0-37.0); Mean Corpuscular Volume 77.7 fL (80.0-94.0); Platelet Count 148 10^3/uL (130-400); Red Cell Dist. Width 19.7 % (11.5-14.5)
[2025-01-28 08:53] LABS: Glucose - Point of Care 93 mg/dl (70-99)
[2025-01-28] MEDS: NOVOLOG FLEXPEN-MODERATE RESISTANCE SC (09:02)
[2025-01-28] MEDS: NSS (PRESERVATIVE FREE) 10 ML IV (09:14)
[2025-01-28] MEDS: HEPARIN 5000 UNITS SC ×2 (09:14→19:52)
[2025-01-28] MEDS: PROTONIX IV 40 MG IV (09:14)
[2025-01-28] MEDS: VIBRAMYCIN 260 MG IV (09:15)
[2025-01-28] MEDS: DEPACON 55 MG IV (09:15)
[2025-01-28] MEDS: DAKIN'S SOLUTION 0.125% 1/4 STRENGTH 1 ML TOPICAL (09:16)
[2025-01-28] MEDS: HYDROPHOR 1 APPLIC TOPICAL (09:16)
[2025-01-28 11:40] VITALS: BP 165/71
[2025-01-28 12:20] LABS: Glycohemoglobin (HgbA1c) 4.6 % (4.0-5.6)
--- NOTE | 2025-01-28 12:46 | W.PN.HOSP.TC ---
Today's Communication/Plan
-
Continue with doxycycline.
DC insulin.
Restart Coreg with elevated blood pressure.
Check pulse ox.
Follow right pleural effusion.
Assessment / Plan
Assessment / Plan
Assessment:
Septic shock
Ecoli bacteremia
ESBL E. coli UTI
- Off of vasopressors
- Blood pressure on the higher side-hold midodrine
- ID following-antibiotic switched to oral doxycycline with discovery of ESBL E. coli in urine. Doxycycline till 01/31
Rising leukocytosis noted-no clinical concern as chest-patient described moist cough needing back oxygen. His admitting chest x-ray showed right lower lobe consolidation which is getting better. Repeat chest x-ray 01/27 shows Low lung volumes with
interval development of moderate-sized right pleural effusion with adjacent airspace consolidation/atelectasis.
continue with modified diet.
Check oxygenation on room air and if lower consider thoracentesis prior to discharge.
White count improving.
ESRD on HD
- CW HD per Nephrology
- Continue Bumex per nephrology.
Intracranial hemorrhage/CVA with right-sided weakness-continue with supportive care
History of seizures-continue Keppra and valproic acid as he takes at home.
Dysphagia -status post FEES study. Continue with modified diet
Type 2 DM
- SSI
- Blood sugars are on the low side. Hold on scheduled Lantus for now. Hemoglobin A1c was 4.2 in September. Repeat hemoglobin A1c 4.6. No further insulin for him.
Chronic obrien
Essential HTN - hold BP meds
testicular cancer status post right orchiectomy
dyslipidemia
Diverting colostomy
Seizure d/o
- on Keppra post-HD dosing
DVT ppx: SC heparin
Code: Full
Discussed with RN
01/27
xi arrived today to discuss about goals of care. She has not the power of trust and estates attorney. She brought patient's hand to [place] on the conference call.
Went over with both of them regarding current acute medical issue of septic shock which is resolved. We then started to discuss about goals of care-made them aware that is now in a persistent vegetative state from his prior cerebral insult of
intracranial bleed and I told him there would not be any meaningful recovery. Currently he is totally bedbound and Vernell lift. Was also made aware about dialysis dependent renal failure. Made him aware that it is his fourth admission.
They wavered between palliative care and hospice but could not come to conclusion. They want to continue with restorative care including full code for now. They wanted to see palliative care so a consult was placed.
Portions of this chart may have been created with voice recognition software. Occasional wrong word or 'sound alike' substitutions may have occurred due to the inherent limitations of voice recognition software.
Anticipated Discharge: 24 - 48 hours
Subjective/Interval History
-
Date of Service: January 28, 2025
Patient was sleepy but easily arousable. Denies any shortness of breath.
Discussed with RN-no overnight events.
Objective Data
-
Labs:
Laboratory Results
01/28/25
06:43
WBC 11.4 H
Hgb 8.0 L
Hct 24.7 L
Plt Count 148
Vital Signs:
Vital Signs
Temp Pulse Resp BP Pulse Ox
98.2 F 89 18 165/71 99
01/28/25 11:40 01/28/25 11:40 01/28/25 11:40 01/28/25 11:40 01/28/25 11:40
I&O
01/27/25 01/28/25 01/29/25
06:59 06:59 06:59
Intake Total 570 / 570 1195 / 1195
Output Total 175 / 175
Balance 545 / 545 1020 / 1020
Physical Exam
-
General: No Apparent Distress
Respiratory: Clear to Auscultation (Anteriorly. No rhonchorous breathing like before.) and Non Labored Respirations; Negative Accessory Resp Muscle Use
Cardiac: Regular Rhythm and S1/S2
Neuro: Awake and Alert
Psych: Calm
Data Reviewed
-
Labs: Labs Reviewed by me
[2025-01-28 13:23] LABS: Glucose - Point of Care 154 mg/dl (70-99)
[2025-01-28] MEDS: NOVOLOG FLEXPEN-MODERATE RESISTANCE 1 UNITS SC ×2 (13:23→19:44)
[2025-01-28] MEDS: COREG 25 MG PO ×2 (13:23→19:53)
[2025-01-28 15:25] VITALS: BP 135/65
[2025-01-28] MEDS: KEPPRA 250 MG PO ×2 (15:37→21:08)
--- NOTE | 2025-01-28 17:26 | W.PN.NEPH.PH ---
Today's Communication / Plan
-
HD thursday
Assessment/Plan
-
Impression:
ESRD Thursday [facility]
Suspected sepsis
Diabetes
Seizure disorder
Orthostatic hypotension
History of CVA with subsequent right hemiplegia
History of recurrent osteomyelitis with sacral decubitus
History of colectomy
Chronic Vale
Anemia
History of septic arthritis of right sacroiliac joint/right iliac abscess
History of right upper extremity AV fistula
Plan:
midodrine TID 15mg
next HD on Thursday
Continues with antibiotics for ESBL E. coli UTI bacteremia and sepsis
resuming ocreg ofr HTN
CXR Noted, right pleural effusion-may need tap later
-
-
Date of Service: January 28, 2025
CC / HPI / ROS
-
Chief Complaint:
ESRD
History of Present Illness:
tolerated HD yesterday
ESRD Thursday
quincy increasing high dose midodrine, coreg added
off O2 supplemental
on doxycycline for e coli sepsis
hgb low 8. microcytic
Review of Systems:
no CP/SOB
cough better today
able to eat when fed
Labs
-
Labs:
WBC 11.4 10^3/uL (4.8-10.8) H 01/28/25 06:43
RBC 3.18 10^6/uL (4.70-6.10) L 01/28/25 06:43
Hgb 8.0 g/dL (13.0-18.0) L 01/28/25 06:43
Hct 24.7 % (39.0-52.0) L 01/28/25 06:43
Plt Count 148 10^3/uL (130-400) 01/28/25 06:43
Sodium 139 mmol/L (135-145) 01/27/25 06:47
Potassium 3.8 mmol/L (3.5-5.1) 01/27/25 06:47
Chloride 103 mmol/L (98-107) 01/27/25 06:47
Carbon Dioxide 28 mmol/L (22-30) 01/27/25 06:47
BUN 30 mg/dl (9-20) H 01/26/25 05:41
Creatinine 2.3 mg/dL (0.7-1.3) H 01/26/25 05:41
eGFR 33.33 01/26/25 05:41
Glucose 101 mg/dl (70-99) H 01/26/25 05:41
Calcium 8.2 mg/dl (8.4-10.2) L 01/26/25 05:41
Phosphorus 4.9 mg/dl (2.5-4.5) H 01/23/25 04:49
Albumin 2.5 g/dl (3.5-5.0) L 01/25/25 08:24
Physical Exam
-
Vital Signs:
Vital Signs
Temp Pulse Resp BP Pulse Ox
98.0 F 88 16 135/65 97
01/28/25 15:25 01/28/25 15:25 01/28/25 15:25 01/28/25 15:25 01/28/25 15:25
Cardiovascular:: Regular rate and rhythm
Respiratory:: Bilateral: Coarse
Lung Excursion:: Normal
Abdomen:: Nontender and Soft
Bowel Sounds:: Normal
Extremity Edema:: None: Bilateral:
Vale Catheter: Yes
[2025-01-28 19:10] LABS: Glucose - Point of Care 165 mg/dl (70-99)
[2025-01-28 19:48] VITALS: BP 122/63
[2025-01-28] MEDS: DEPAKOTE SPRINKLE 500 MG PO (19:52)
[2025-01-28] MEDS: VIBRAMYCIN 100 MG PO (19:52)
[2025-01-28 23:00] VITALS: BP 139/67
[2025-01-28 23:20] LABS: Glucose - Point of Care 419 mg/dl (70-99)
[2025-01-28 23:20] LABS: Glucose - Point of Care 174 mg/dl (70-99)
[2025-01-29 03:00] VITALS: BP 136/66
--- NOTE | 2025-01-29 04:17 | W.PN.UPDATE ---
Update Note
Progress Note Update
Pt appears to have thrush. Ordered Nystatin oral suspension 5 mls QID.
[2025-01-29 06:00] VITALS: BMI 23.6
[2025-01-29 07:00] VITALS: BP 143/77; BP 160/75
[2025-01-29 07:12] LABS: Hematocrit 23.7 % (39.0-52.0); Hemoglobin 7.9 g/dL (13.0-18.0); Mean Corp Hgb Conc. 33.3 g/dL (33.0-37.0); Mean Corpuscular Volume 78.2 fL (80.0-94.0); Platelet Count 161 10^3/uL (130-400); Red Cell Dist. Width 19.6 % (11.5-14.5)
[2025-01-29] MEDS: VIBRAMYCIN 100 MG PO (08:18)
[2025-01-29] MEDS: HEPARIN 5000 UNITS SC (08:18)
[2025-01-29] MEDS: MYCOSTATIN ORAL SUSPENSION 5 ML PO ×2 (08:18→13:16)
[2025-01-29] MEDS: COREG 25 MG PO (08:18)
[2025-01-29] MEDS: KEPPRA 250 MG PO ×2 (08:18→14:59)
[2025-01-29] MEDS: PROTONIX 40 MG PO (08:18)
[2025-01-29] MEDS: DEPAKOTE SPRINKLE 500 MG PO (08:18)
[2025-01-29] MEDS: NSS (PRESERVATIVE FREE) IV (08:19)
[2025-01-29] MEDS: DAKIN'S SOLUTION 0.125% 1/4 STRENGTH 1 ML TOPICAL (08:19)
[2025-01-29] MEDS: HYDROPHOR 1 APPLIC TOPICAL (08:19)
[2025-01-29] MEDS: NOVOLOG FLEXPEN-MODERATE RESISTANCE SC (08:22)
[2025-01-29 08:23] LABS: Glucose - Point of Care 90 mg/dl (70-99)
--- NOTE | 2025-01-29 09:56 | W.DCSUMMARY ---
Discharge Summary
Discharge Data
Date of Admission: 01/22/25
Date of Discharge: 01/29/25
-
Pending Results: No
Hospital Course
Primary diagnosis:
Septic shock
Escherichia coli bacteremia
ESBL Esherichia coli urinary tract infection
Right pleural effusion
Secondary diagnosis:
End-stage renal disease on hemodialysis
History of intracranial hemorrhage/CVA with right-sided weakness
Dysphagia
Diabetes mellitus type [address]
Essential hypertension
Diverting colostomy
Seizure disorder
Hospital course:
Unfortunate gentleman who had intracranial hemorrhage had a CVA with right-sided weakness currently in a local halfway presented with septic shock secondary to E. coli back to. Source was not clear. He has a large sacral decubitus ulcer.
There was also concern about right lung pneumonia consolidation/aspiration pneumonitis. Was seen by ID. Vasopressor support for septic shock. Septic shock resolved with the antibiotics treatments. There was ESBL E. coli in the urine cultures.
ID recommended doxycycline course till 01/31/2025. He was afebrile. His white count normalized. He was off of oxygen. He had a small pleural effusion on the right side which I would watch and if he were to have recurrent fever or shortness of
breath then consider a tap. Had his Vale catheter changed during this admission.
He continued to receive his hemodialysis. He was continued on his antiepileptics. Regarding diabetes mellitus his blood sugars were low. Hemoglobin A1c was 4.6 and was 4.2 recently. I did not see the need of Lantus. He was also on midodrine and
I saw his blood pressures during the later part of the admission being high and did not see the need of that. I would use it with parameters. He is back on his diuretics and Coreg prior to discharge.
Today he is afebrile. Looks comfortable. Denies any shortness of breath or wheeze. Rhonchi resolved. Off of oxygen. White count normalized.
Deemed medically stable for discharge home on antibiotics. He will be discharged back to his rehab.
Consultants on board:
Nephrology-Abdon Dang
Infectious disease-Silvia Irizarry
Portions of this chart may have been created with voice recognition software. Occasional wrong word or 'sound alike' substitutions may have occurred due to the inherent limitations of voice recognition software.
Discharge Plan
-
Patient Disposition: Penitentiary/SNF
Discharge Diagnosis/Procedures: Septic shock
Ecoli bacteremia
ESBL E. coli UTI
ESRD on HD
Additional Diets: IDDSI 6 diet and thin liquids
Activity: As tolerated
Driving Restrictions: No driving
Activity Restrictions/Additional Instructions:
Wound Care Instructions
Sacrum: Dakin's moistened Kerlix (undermines 5cm 7-8 O'clock) to dry dressing daily.
Legs and feet: moisturize with mineral oil daily
Offloading heel boots
Air mattress
Follow up at wound care center call for an appointment.
Referrals:
UNKNOWN - PT DOES,NOT KNOW [Family Provider]
Prescriptions:
New
levetiracetam 250 mg Tablet
250 mg PO MoWeFr@1400 Qty: 1 0RF
nystatin 100,000 unit/mL Suspension
5 ml PO QID Qty: 60 0RF
Rx Instructions:
for 6 days
doxycycline hyclate 100 mg Capsule
100 mg PO Q12 Qty: 1 0RF
Rx Instructions:
till 01/31/25
Continued
insulin aspart U-100 100 unit/mL Solution
1 sliding scale dose SC ACHS
Patient Comments:
Rx Instructions:
if 150-200= 2 units; 201-250= 4 units; 251-300= 6 units; 301-350= 8 units; 351-400= 10 units.
pantoprazole 40 mg Tablet,Delayed Release (Dr/Ec)
40 mg PO DAILY
ferrous sulfate 325 mg (65 mg iron) Tablet
325 mg PO DAILY
ascorbic acid (vitamin C) [Vitamin C] 1,000 mg Tablet
1,000 mg PO DAILY
acetaminophen 325 mg Tablet
650 mg PO Q4HPRN PRN (Reason: mild pain)
lidocaine-prilocaine 2.5-2.5 % Cream
1 applic TOPICAL MOWEFR
Rx Instructions:
apply to right avg 1 hr prior to HD TX.
atorvastatin 40 mg Tablet
40 mg PO DAILY
bisacodyl 10 mg Suppository
10 mg NV DAILYPRN PRN (Reason: if no bm aftr mom)
divalproex [Depakote] 500 mg tablet,delayed release (DR/EC)
500 mg PO BID
oxycodone 10 mg tablet
10 mg PO Q4HPRN PRN (Reason: severe pain) Qty: 10 0RF
carvedilol 25 mg tablet
25 mg PO BID
bumetanide 2 mg tablet
2 mg PO DAILY
levetiracetam 250 mg tablet
250 mg PO TID
Glucagon Emergency Kit (human) 1 mg recon soln
1 mg IM PRN PRN (Reason: LOW BLOOD GLUCOSE)
midodrine 5 mg tablet
10 mg PO MOWEFR Qty: 0 0RF
Rx Instructions:
hold if sbp>140
Discontinued
insulin glargine [Lantus Solostar U-100 Insulin] 100 unit/mL (3 mL) Insulin Pen
10 unit SC HS
Lokelma 10 gram powder in packet
10 g PO TUTHSA
Discharge Orders:
Discharge Patient (As Directed); Ordered 01/29/25
Ordered By: Rupert Gipson
Discharge Date and Time
Print Language: INDIAN
--- NOTE | 2025-01-29 10:30 | CM ---
Chart reviewed. Plan for patient to return to [facility] today. Palliative care consulted, spoke w/ patient's sister who is interested in PC services at [facility] upon his return, unfortunately, PC does not service [facility]. Spoke
w/ patient's sister who is agreeable to referral to [facility]. Spoke w/ Tatyana, nurse DONALDO at [facility], confirmed patient can be serviced in SNF. Requesting clinicals to be sent to via fax to [phone]. Per Tatyana, an
nursing administrator will review clinicals and reach out to the family then have a nurse plan a visit to [facility].
IMM verbally reviewed, copy on chart
[facility]- [facility]
Report: [phone]

Plan: Return to [facility].
Palliative Care referral faxed to [facility]
--- NOTE | 2025-01-29 12:28 | W.PN.NEPH.PH ---
Today's Communication / Plan
-
ok for d/c
Assessment/Plan
-
Impression:
ESRD Thursday [facility]
Suspected sepsis
Diabetes
Seizure disorder
Orthostatic hypotension
History of CVA with subsequent right hemiplegia
History of recurrent osteomyelitis with sacral decubitus
History of colectomy
Chronic Vale
Anemia
History of septic arthritis of right sacroiliac joint/right iliac abscess
History of right upper extremity AV fistula
Plan:
next HD on Thursday
Continues with antibiotics for ESBL E. coli UTI bacteremia and sepsis
BP stable back on coreg and off elton midodrine, cont midodrine with HD
for d/c today
-
-
Date of Service: January 29, 2025
CC / HPI / ROS
-
Chief Complaint:
ESRD
History of Present Illness:
tolerated HD yesterday
ESRD Thursday
BP stable off midodrine and on coreg
off O2 supplemental
on doxycycline for e coli sepsis
hgb low 7.9 microcytic
Review of Systems:
no CP/SOB
able to eat when fed
Labs
-
Labs:
WBC 9.2 10^3/uL (4.8-10.8) 01/29/25 06:43
RBC 3.03 10^6/uL (4.70-6.10) L 01/29/25 06:43
Hgb 7.9 g/dL (13.0-18.0) L 01/29/25 06:43
Hct 23.7 % (39.0-52.0) L 01/29/25 06:43
Plt Count 161 10^3/uL (130-400) 01/29/25 06:43
Sodium 139 mmol/L (135-145) 01/27/25 06:47
Potassium 3.8 mmol/L (3.5-5.1) 01/27/25 06:47
Chloride 103 mmol/L (98-107) 01/27/25 06:47
Carbon Dioxide 28 mmol/L (22-30) 01/27/25 06:47
BUN 30 mg/dl (9-20) H 01/26/25 05:41
Creatinine 2.3 mg/dL (0.7-1.3) H 01/26/25 05:41
eGFR 33.33 01/26/25 05:41
Glucose 101 mg/dl (70-99) H 01/26/25 05:41
Calcium 8.2 mg/dl (8.4-10.2) L 01/26/25 05:41
Phosphorus 4.9 mg/dl (2.5-4.5) H 01/23/25 04:49
Albumin 2.5 g/dl (3.5-5.0) L 01/25/25 08:24
Physical Exam
-
Vital Signs:
Vital Signs
Temp Pulse Resp BP Pulse Ox
99.2 F 82 16 160/75 97
01/29/25 07:00 01/29/25 08:18 01/29/25 07:00 01/29/25 08:18 01/29/25 07:00
Cardiovascular:: Regular rate and rhythm
Respiratory:: Bilateral: Coarse
Lung Excursion:: Normal
Abdomen:: Nontender and Soft
Bowel Sounds:: Normal
Extremity Edema:: None: Bilateral:
Vale Catheter: Yes
[2025-01-29 12:29] LABS: Glucose - Point of Care 151 mg/dl (70-99)
[2025-01-29] MEDS: NOVOLOG FLEXPEN-MODERATE RESISTANCE 1 UNITS SC (13:16)
[2025-01-29 15:11] VITALS: BP 150/88
[2025-01-30 15:23] LABS: Glucose - Point of Care 102 mg/dl (70-99)
== END 2025-01-29 15:45 | DRG 698 ==
LOC: 2 NORTH 03:14
PROVIDERS: Internal Medicine; Nurse Practitioner Family; Nurse Practitioner Primary Care; Specialist; ADMITTING PHYSICIAN Internal Medicine; ATTENDING PHYSICIAN Internal Medicine; CONSULT PHYSICIAN Internal Medicine Critical Care Medicine; CONSULT PHYSICIAN Internal Medicine Infectious Disease; CONSULT PHYSICIAN Nurse Practitioner Gerontology; CONSULT PHYSICIAN Specialist; EMERGENCY PHYSICIAN Student in an Organized Health Care Education/Training Program
PROC: 5A1D70Z Performance of Urinary Filtration, Intermittent, Less than 6 Hours Per Day (ICD-10-PCS; 2025-01-23)
DX: T83.511A Infection and inflammatory reaction due to indwelling urethral catheter, initial encounter (principal); A41.51 Sepsis due to Escherichia coli [E. coli]; L89.154 Pressure ulcer of sacral region, stage 4; J18.9 Pneumonia, unspecified organism; R65.21 Severe sepsis with septic shock; N18.6 End stage renal disease; J96.01 Acute respiratory failure with hypoxia; R53.2 Functional quadriplegia; I12.0 Hypertensive chronic kidney disease with stage 5 chronic kidney disease or end stage renal disease; I69.351 Hemiplegia and hemiparesis following cerebral infarction affecting right dominant side; I62.9 Nontraumatic intracranial hemorrhage, unspecified; I69.151 Hemiplegia and hemiparesis following nontraumatic intracerebral hemorrhage affecting right dominant side; J98.11 Atelectasis; J90 Pleural effusion, not elsewhere classified; N39.0 Urinary tract infection, site not specified; Z87.891 Personal history of nicotine dependence; E11.649 Type 2 diabetes mellitus with hypoglycemia without coma; E11.22 Type 2 diabetes mellitus with diabetic chronic kidney disease; G40.909 Epilepsy, unspecified, not intractable, without status epilepticus; I95.1 Orthostatic hypotension; Z93.3 Colostomy status; F32.A Depression, unspecified; Z51.5 Encounter for palliative care; Y84.6 Urinary catheterization as the cause of abnormal reaction of the patient, or of later complication, without mention of misadventure at the time of the procedure; Z11.52 Encounter for screening for COVID-19; D63.1 Anemia in chronic kidney disease; Z74.01 Bed confinement status; Z79.4 Long term (current) use of insulin; Z79.899 Other long term (current) drug therapy; Z85.47 Personal history of malignant neoplasm of testis; Z99.2 Dependence on renal dialysis
CPT/HCPCS: 70450; 71045; 80048; 80051; 80053; 80164; 80202; 81003; 81015; 82728; 82805; 82962; 83036; 83540; 83550; 83605; 83735; 84100; 85025; 85027; 85610; 85730; 87040; 87070; 87077; 87086; 87154; 87186; 87205; 87340; 87502; 87811; 92526; 92610; 92612; 93005; 93971; 94640; 94668; 96361; 96365; 96375; 99291; G0257; P9047; Q5106

== ENCOUNTER 2025-04-14 01:04 | Inpatient (IN) | payer MEDICARE, OTHER, SELFPAY ==
[2025-04-13] VITALS (7 sets, daily range): BP systolic 119–198; BP diastolic 70–87; BMI 26.9
--- NOTE | 2025-04-13 17:05 | ED.GENMED ---
Addendum entered and electronically signed by Rafael Salas PA-C 04/14/25 00:44:
Upon admission, patient seen by admitting doctor here and spoke with ophthalmology here. Ophthalmology recommended the patient be transferred to [facility] for concern for endophthalmitis. I spoke with the physician at [facility] as well as the hospitalist,
Dr. Bautista, the accepting physician at [facility]. They have agreed to take the patient however there is no bed available this evening. Patient will require admission to this hospital until there is a bed available for transfer. Transfer form
signed.
Original Note:
History of Present Illness
General
Chief Complaint: Eye Problems
Source: patient
Exam Limitations: none
Time Seen by Provider: 04/13/25 16:43
History of Present Illness
History of Present Illness:
54-year-old male from [employer] presents via EMS with red and swollen right eye that progressively got worse over the past 2 days. He is insulin-dependent diabetic with end-stage renal disease on dialysis. No known injury to the eye.
He states his vision is blurry out of both eyes. Denies any left eye symptoms otherwise. He denies fevers. No other complaints
Past History
Past History
ED Past Medical History: CVA, HTN, Hypercholesterolemia, NIDDM, Renal failure and Seizures
ED Past Surgical History: Urological
Social History
Tobacco: Former smoker
Alcohol: None
Drug: None
Personal:
Living: halfway
Employment: Not employed
Family History
Family History: Hypertension
Phy Exam
Physical Exam
Physical Exam:
General: Well-appearing male no acute respiratory distress HEENT normal cephalic pupils equal round reactive to light. There is chemosis noted of the right eye. Conjunctive is inflamed. No significant discharge. Extraocular's are intact. There
is slight tenderness to patient of the globe. Right eye exam with fluorescein stain and Brito lamp. There is no foreign body or corneal abrasion. Right eye pressure checked with Jose-Pen which measures 44 mmHg on average. Left eye was also
checked which averaged 28 mmHg.
Skin: Surrounding skin is without erythema or fluctuance
Heart: Regular rate and rhythm
Lungs: Clear no wheeze
Course
Orders/Labs/Results
Orders:
Orders
04/13/25 17:02
CT Orbits W/o Iv Contrast Urgent
Reason For Exam: right eye swelling, poor IV access. no contrast
04/13/25 17:45
Complete Blood Count/With Diff Urgent
Comprehensive Metabolic Panel Urgent
04/13/25 17:[address] Non Medication Order As Directed
Physician Order: May use foot for IV
Above order entered?: Yes
04/13/25 18:16
Fluorescein Sodium [Ful-Cinthia] 1 mg .ROUTE .STK-MED ONE
Tetracaine HCl [Tetracaine 0.5% Ophthalmic Solution] 1 drop .ROUTE .STK-MED ONE
04/13/25 20:52
Vancomycin [Vancocin] 1,500 mg 0.9% Sodium Chloride 500 ml [Nss] 500 ml IV NOW
Abnormal Lab Results
04/13/25
17:45
RBC 3.78 L 10^6/uL
(4.70-6.10)
Hgb 10.8 L g/dL
(13.0-18.0)
Hct 30.8 L %
(39.0-52.0)
RDW 20.5 H %
(11.5-14.5)
Sodium 130 L mmol/L
(135-145)
BUN 41 H mg/dl
(9-20)
Creatinine 3.0 H mg/dL
(0.7-1.3)
Total Protein 8.6 H g/dl
(6.3-8.2)
Albumin 3.2 L g/dl
(3.5-5.0)
04/13/25 17:45
12/18/25 17:45
Vital Signs
Initial and Last Documented VS:
Initial Vital Signs
Temp Pulse Resp BP Pulse Ox
97.5 F 75 18 131/70 100
04/13/25 16:36 04/13/25 16:36 04/13/25 16:36 04/13/25 16:36 04/13/25 16:36
Last Documented Vital Signs
Temp Pulse Resp BP Pulse Ox
97.5 F 69 18 131/70 100
04/13/25 16:36 04/13/25 16:45 04/13/25 16:36 04/13/25 16:37 04/13/25 17:08
*Pulse Oximetry
SaO2: 100
Oxygen Mode of Delivery: Room air
Patient hypoxic: no
*Critical Care Note
Total Time (30-74mins, 75-104mins- exclusive of procedures): Not Applicable
Update Note
Update Note:
CT demonstrates evidence of preseptal cellulitis. Given medical comorbidities will admit to hospital vancomycin ordered.
ED Attending Note
-
Portions of this chart may have been created with voice recognition software.� Occasional wrong word or��sound alike� substitutions may have occurred due to the inherent limitations of voice recognition software.
Discharge Plan
Departure
Patient Disposition: Admit
Date of Disposition: 04/13/25
Time of Disposition: 20:57
Presentation/result/management discussed w/ accepting MD/DO: Hospitalist
Discharge Problem:
Preseptal cellulitis
Prescriptions:
No Action
insulin aspart U-100 100 unit/mL Solution
1 sliding scale dose SC ACHS
Patient Comments:
Rx Instructions:
if 150-200= 2 units; 201-250= 4 units; 251-300= 6 units; 301-350= 8 units; 351-400= 10 units.
pantoprazole 40 mg Tablet,Delayed Release (Dr/Ec)
40 mg PO DAILY
ferrous sulfate 325 mg (65 mg iron) Tablet
325 mg PO DAILY
ascorbic acid (vitamin C) [Vitamin C] 1,000 mg Tablet
1,000 mg PO DAILY
acetaminophen 325 mg Tablet
650 mg PO Q4HPRN PRN (Reason: mild pain)
lidocaine-prilocaine 2.5-2.5 % Cream
1 applic TOPICAL MOWEFR
Rx Instructions:
apply to right avg 1 hr prior to HD TX.
atorvastatin 40 mg Tablet
40 mg PO DAILY
bisacodyl 10 mg Suppository
10 mg [place] DAILYPRN PRN (Reason: if no bm aftr mom)
divalproex [Depakote] 500 mg tablet,delayed release (DR/EC)
500 mg PO BID
oxycodone 10 mg tablet
10 mg PO Q4HPRN PRN (Reason: severe pain) Qty: 10 0RF
carvedilol 25 mg tablet
25 mg PO BID
bumetanide 2 mg tablet
2 mg PO DAILY
levetiracetam 250 mg tablet
250 mg PO TID
Glucagon Emergency Kit (human) 1 mg recon soln
1 mg IM PRN PRN (Reason: LOW BLOOD GLUCOSE)
levetiracetam 250 mg Tablet
250 mg PO MoWeFr@1400 Qty: 1 0RF
nystatin 100,000 unit/mL Suspension
5 ml PO QID Qty: 60 0RF
Rx Instructions:
for 6 days
doxycycline hyclate 100 mg Capsule
100 mg PO Q12 Qty: 1 0RF
Rx Instructions:
till 01/31/25
midodrine 5 mg tablet
10 mg PO MOWEFR Qty: 0 0RF
Rx Instructions:
hold if sbp>140
Referrals:
NONE,* [Family Provider, Internal Medicine]
Interventions
Interventions:
*General Assessment Last Done: 04/13/25 16:48
*Neglect/Abuse Screening Last Done: 04/13/25 16:48
*ED COVID-19 Vaccine History Last Done: 04/13/25 16:48
*ED Influenza Vaccine History Last Done: 04/13/25 16:48
*Risk Screen - Suicide (C-SSRS) Last Done: 04/13/25 16:48
Discharge Date and Time
Print Language: SERBIAN
[2025-04-13 17:54] LABS: Hematocrit 30.8 % (39.0-52.0); Hemoglobin 10.8 g/dL (13.0-18.0); Mean Corp Hgb Conc. 35.1 g/dL (33.0-37.0); Mean Corpuscular Volume 81.5 fL (80.0-94.0); Nucleated Red Blood Cells % 0 % (-); Platelet Count 200 10^3/uL (130-400); Red Cell Dist. Width 20.5 % (11.5-14.5)
[2025-04-13 18:08] LABS: ALT (SGPT) 11 U/L (0-50); AST (SGOT) 17 U/L (17-59); Albumin 3.2 g/dl (3.5-5.0); Alkaline Phosphatase 83 U/L (38-126); Blood Urea Nitrogen 41 mg/dl (9-20); Calcium 8.4 mg/dl (8.4-10.2); Carbon Dioxide 22 mmol/L (22-30); Chloride 99 mmol/L (98-107); Glucose 87 mg/dl (70-99); Potassium 4.0 mmol/L (3.5-5.1); Sodium 130 mmol/L (135-145); Total Protein 8.6 g/dl (6.3-8.2); eGFR 24.23
--- NOTE | 2025-04-13 21:34 | HPS.HSE ---
Addendum entered and electronically signed by Paul Orosco MD 04/14/25 00:46:
Spoke with [facility]. Dr. Bautista accepted the patient. We're told there won't be a bed tonight at [facility] so he will have to be admitted here until transfer.
Will admit to med/surg pending bed availability
Addendum entered and electronically signed by Angelina Beauchamp MD 04/13/25 22:28:
left VM for sister
Original Note:
Family Physician
-
Family Physician: * NONE
Chief Complaint
-
right eye swelling and pain
History of Present Illness
Mr. Bautista Cortez is a 54 yo man with hx ICH with residual right sided weakness, ESRD on HD MWF, Dm II, seizure disorder, orthostatic hypotension on midodrine, chronic sacral decubitus ulcer with chronic OM, dysphagia, recent admission
01/17/25-01/29/25 for septic shock secondary to E. Coli bacteremia, ESBL UTI presents from correction with red and swollen right eye that has been worsening over the past 2 days.
Patient reports blurry vision in both eyes, he has 2 prior history of surgeries to right eye. He states it is uncomfortable to open. He has surrounding eyelid swelling. No fevers/chills. No hx trauma to the eye.
No abdominal pain, nausea or vomiting. No chest pain or shortness of breath.
Medical History
Past Medical History
Past Medical History: Reports HTN, Hypercholesterolemia and Other (ICH with residual right sided weakness, ESRD on HD MWF, Dm II, seizure disorder, orthostatic hypotension on midodrine, chronic sacral decubitus ulcer with chronic OM, dysphagia,
recent admission 01/17/25-01/29/25 for septic shock secondary to E. Coli bacteremia, ESBL UTI)
Past Surgical History: Reports Bowel Resection
Additional Past Surgical History:
Colostomy, right iliac abscess with SHAILA drain,
Social History
Tobacco: Former Smoker
Alcohol: None
Drug: None
Living: Retirement
Family History
Family History: Not pertinent
Allergies / Home Medications
Allergies reflects when Allergies were last updated in [facility].
Home Medications with original date entered in [facility]
Allergy/Medication List:
awaiting med rec
Review of Systems
-
History Source: Patient
A 12 point ROS was completed and negative except as noted: Yes
Physical Exam
Vital Signs
Vital Signs
Temp Pulse Resp BP Pulse Ox
97.5 F 65 18 119/73 100
04/13/25 16:36 04/13/25 19:00 04/13/25 16:36 04/13/25 19:00 04/13/25 17:08
Physical Exam
General: Appears Chronically Ill
HEENT: Other (right eye with corneal erythema and eyelid swelling, full ROM)
Respiratory: Clear; No Wheezes
Cardiac: S1/S2 and Regular Rhythm
GI: Soft, Non Tender and Other (colostomy)
Musculoskeletal: No Edema
Skin: Warm and Dry; No Rash
Neuro: Awake, Alert and Other (right hemiparesis)
Psych: Calm
Laboratory Results
-
04/13/25 17:45
04/13/25 17:45
Laboratory Results
Total Bilirubin 0.3 mg/dl (0.2-1.3) 04/13/25 17:45
AST 17 U/L (17-59) 04/13/25 17:45
ALT 11 U/L (0-50) 04/13/25 17:45
Alkaline Phosphatase 83 U/L (38-126) 04/13/25 17:45
Data Reviewed
-
Diagnostic Radiology: Report Reviewed by me
Lab Data: Labs Reviewed by me
Impression/Plan
-
Mr. Bautista Cortez is a 54 yo man with hx ICH with residual right sided weakness, ESRD on HD MWF, Dm II, seizure disorder, orthostatic hypotension on midodrine, chronic sacral decubitus ulcer with chronic OM, dysphagia, recent admission
01/17/25-01/29/25 for septic shock secondary to E. Coli bacteremia, ESBL UTI presents from correction with red and swollen right eye that has been worsening over the past 2 days.
Triage VS: T 97.5, P 75, RR 18, BP 131/70, SpO2 100%
LABS: WBC 6.1, Hg 10.8, PLT 200, Na 130, K+ 4.0, BUN 41, Cr 3.0, Glucose 87, liver enzymes WNL
Head/Orbits CT
IMPRESSION:
There is mild right periorbital/preseptal soft tissue swelling which likely represents preseptal cellulitis.
There is no evidence of post septal or intraconal extension.
Conjunctival erythema and pain concerning for endogenous endopthalmitis versus other bacterial/fungal infection of eye
preseptal cellulitis read on CT
-s/p IV Vanc/Unasyn in ER
-I am reviewing case and photos with Dr. Diane Souza who is recommending more urgent slit lamp exam and dilated eye exam. She recommends transfer to [facility]. I am discussing with ER team. For now hold off on admission.
ESRD on HD
-if admitted will need Renal consult
Hx ICH with Residual Right Sided Weakness
-patient is rebekah lift dependent
Seizure Disorder
-confirmed he takes Depakote and Keppra - will order this evening
Essential HTN
-Patient is on Coreg, SBP low in ER, hold for now and monitor
Chronic Sacral Decubitus Ulcer with Chronic OM
-will need wound care
*awaiting home med rec
Patient likely to transfer to [facility] versus [facility]
76 minutes spent on patient consult
--- NOTE | 2025-04-13 21:49 | ED.ADDNOTE ---
ED Addendum
ED Addendum
ED Addendum Note:
Patient appears chronically ill, there is scleral chemosis at the right eye. White count normal
[2025-04-13] MEDS: VANCOCIN 530 MG IV (22:11)
[2025-04-13] MEDS: KEPPRA 250 MG PO (23:19)
[2025-04-13] MEDS: OCUFLOX 2 DROP OPHTH (23:20)
[2025-04-13] MEDS: DEPAKOTE (12 HR RELEASE) 500 MG PO (23:20)
[2025-04-14] VITALS (8 sets, daily range): BP systolic 118–209; BP diastolic 67–85; BMI 22.3; BMI 22.5
[2025-04-14] MEDS: UNASYN IV (03:36)
[2025-04-14] MEDS: ROXICODONE 10 MG PO (03:39)
[2025-04-14 04:04] LABS: Glucose - Point of Care 77 mg/dl (70-99)
[2025-04-14 07:38] LABS: Hematocrit 31.0 % (39.0-52.0); Hemoglobin 10.7 g/dL (13.0-18.0); Mean Corp Hgb Conc. 34.5 g/dL (33.0-37.0); Mean Corpuscular Volume 82.4 fL (80.0-94.0); Platelet Count 210 10^3/uL (130-400); Red Cell Dist. Width 20.2 % (11.5-14.5)
[2025-04-14 08:07] LABS: Glucose - Point of Care 79 mg/dl (70-99)
[2025-04-14 08:33] LABS: Blood Urea Nitrogen 46 mg/dl (9-20); Calcium 8.3 mg/dl (8.4-10.2); Carbon Dioxide 23 mmol/L (22-30); Chloride 101 mmol/L (98-107); Estimated Creatinine Clearance 26 ml/min; Glucose 69 mg/dl (70-99); Potassium 3.9 mmol/L (3.5-5.1); Sodium 134 mmol/L (135-145); eGFR 20.14
[2025-04-14 08:36] LABS: Magnesium 1.6 mg/dl (1.6-2.3)
--- NOTE | 2025-04-14 08:57 | PHA.VAN.IN ---
Assessment
- Assessment
Renal Function: Patient has ESRD, on chronic Hemodialysis
Hemodialysis Schedule: MWF
Concomitant Antimicrobials: ampicillin/sulbactam
Laboratory Tests
04/14/25
09:39
Random Vancomycin 17.3
Plan
- Plan
Initial / Loading Dose: 1500mg - 04/13 22:11
Maintenance Regimen: dosing by level / HD - give 750mg x1 at end of / after HD
Pending transfer - unknown if will receive HD today
Will schedule post-HD dosing
Pharmacokinetics Vancomycin I
- -
Patient Age: 54
Patient Sex: Male
Vancomycin Day #: 1
Indication: Eye Or Ent Infection
Requesting Provider: Dr. Orosco
Pertinent Antimicrobial Allergies:
no pertinent antibiotic allergies
Height / Weight:
Height 6 ft
Actual Weight 75.07 kg
Pertinent Past Medical History: ESRD MWF, DM II
- Vital Signs / Lab Results
Temp Pulse Resp BP Pulse Ox
98.7 F 68 16 156/81 99
04/14/25 03:12 04/14/25 03:12 04/14/25 03:12 04/14/25 03:12 04/14/25 06:04
Lab Results - Hematology
04/13/25 04/14/25
17:45 06:39
WBC 6.1 5.7
Lab Results - Chemistry
04/13/25 04/14/25
17:45 06:39
BUN 41 H 46 H
Creatinine 3.0 H 3.5 H
Estimated Creat Clear 26
Albumin 3.2 L
--- NOTE | 2025-04-14 09:00 | W.CON.NEPH ---
Consultation
-
Date/Time Consultation Requested: 04/14/2025 7 AM
Date/Time Consultation Performed: 04/14/2025 9 AM
Requesting Provider: Dr. Beauchamp
Performing Provider: Dr. Hopkins
Reason for Consultation: ESRD
Medical History
-
Chief Complaint: ESRD
History of Present Illness:
The patient is a 54-year-old male with end-stage renal disease who dialyzes Wednesdays and Thursday at [facility]. He has hypertension but requires midodrine on dialysis, hyperlipidemia on statin therapy, diabetes on insulin, status post
colectomy with end colostomy, sacral pressure ulcer with resultant osteomyelitis and bacteremia with history of recent iliac muscle abscess status post prolonged antibiotics. He was brought to the emergency room because of swollen right eye which
has worsened over 2 days time. He reports blurriness as well as discomfort. There is no fever or chills. He is due for dialysis today. He is to be transferred to [facility] though no beds are currently available.
Past Medical History
ESRD Thursday [facility]
chronic Vale
history of intracranial hemorrhage stroke residual right-sided weakness
hypertension
hyperlipidemia
diabetes
chronic bedbound
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
right thigh complex abscess
History of seizure disorder
sacral stage IV decubitus ulcer with osteomyelitis�
AVF RUE
Social History
Tobacco: Non-Smoker
Living: Halfway
Family History
no ckd
Allergies / Home Medications
Allergy/AdvReac Type Severity Reaction Status Date / Time
banana Allergy Swelling Verified 01/22/25 00:39
�Medication �Instructions �Recorded �Confirmed �Type
ferrous sulfate 325 mg (65 mg 325 mg PO DAILY Supplement 08/14/22 04/13/25 History
iron) tablet
insulin aspart U-100 100 unit/mL 1 sliding scale dose SC ACHS 08/14/22 04/13/25 History
subcutaneous solution Diabetes
pantoprazole 40 mg tablet,delayed 40 mg PO DAILY Gastrointestinal 08/14/22 04/13/25 History
release issue
acetaminophen 325 mg tablet 650 mg PO Q4HPRN PRN mild pain 12/02/22 04/13/25 History
ascorbic acid (vitamin C) 1,000 mg 1,000 mg PO DAILY Supplement 12/02/22 04/13/25 History
tablet (Vitamin C)
lidocaine-prilocaine 2.5 %-2.5 % 1 applic topical MOWEFR apply to 12/02/22 04/13/25 History
topical cream right AVG
atorvastatin 40 mg tablet 40 mg PO DAILY High Cholesterol 01/16/23 04/13/25 History
bisacodyl 10 mg rectal suppository 10 mg AR DAILYPRN PRN if no bm 01/23/23 04/13/25 History
aftr mom
divalproex 500 mg tablet,delayed 500 mg PO BID Seizures 04/06/23 04/13/25 History
release (Depakote)
oxycodone 10 mg tablet 10 mg PO Q4HPRN PRN severe pain 08/19/24 04/13/25 Rx
#10 tabs
bumetanide 2 mg tablet 2 mg PO DAILY Blood Pressure 09/30/24 04/13/25 History
carvedilol 25 mg tablet 25 mg PO BID Blood Pressure 09/30/24 04/13/25 History
glucagon 1 mg solution for 1 mg IM PRN PRN LOW BLOOD GLUCOSE 09/30/24 04/13/25 History
injection (Glucagon Emergency Kit)
levetiracetam 250 mg tablet 250 mg PO TID Seizures 09/30/24 04/13/25 History
levetiracetam 250 mg tablet 250 mg PO MoWeFr@1400 #1 tab 01/29/25 04/13/25 Rx
midodrine 5 mg tablet 10 mg (2 x 5 mg) PO MOWEFR Blood 01/29/25 04/13/25 Rx
Pressure #0 tabs
nystatin 100,000 unit/mL oral 5 ml PO QID #60 mL 01/29/25 04/13/25 Rx
suspension
carvedilol 25 mg tablet (Coreg) 25 mg PO Q12H 04/13/25 04/13/25 History
pneumoc 20-ken conj-dip cr(PF) 0.5 0.5 ml IM ONCE 04/13/25 04/13/25 History
mL IM syringe (Prevnar 20 (PF))
sevelamer HCl 800 mg tablet 800 mg PO TID 04/13/25 04/13/25 History
sodium zirconium cyclosilicate 10 10 g PO DAILY 04/13/25 04/13/25 History
gram oral powder packet (Lokelma)
Review of Systems
-
No chest pain or shortness of breath
All other systems: Negative unless noted
Physical Exam
Vital Signs
Vital Signs
Temp Pulse Resp BP Pulse Ox
98.7 F 68 16 156/81 99
04/14/25 03:12 04/14/25 03:12 04/14/25 03:12 04/14/25 03:12 04/14/25 06:04
Lab Results
WBC 5.7 10^3/uL (4.8-10.8) 04/14/25 06:39
RBC 3.76 10^6/uL (4.70-6.10) L 04/14/25 06:39
Hgb 10.7 g/dL (13.0-18.0) L 04/14/25 06:39
Hct 31.0 % (39.0-52.0) L 04/14/25 06:39
Plt Count 210 10^3/uL (130-400) 04/14/25 06:39
Sodium 134 mmol/L (135-145) L 04/14/25 06:39
Potassium 3.9 mmol/L (3.5-5.1) 04/14/25 06:39
Chloride 101 mmol/L (98-107) 04/14/25 06:39
Carbon Dioxide 23 mmol/L (22-30) 04/14/25 06:39
BUN 46 mg/dl (9-20) H 04/14/25 06:39
Creatinine 3.5 mg/dL (0.7-1.3) H 04/14/25 06:39
eGFR 20.14 04/14/25 06:39
Glucose 69 mg/dl (70-99) L 04/14/25 06:39
Calcium 8.3 mg/dl (8.4-10.2) L 04/14/25 06:39
Albumin 3.2 g/dl (3.5-5.0) L 04/13/25 17:45
Physical Exam
Patient is awake alert oriented and in no distress. Mood and affect were pleasant, insight and judgment were good. Right eye was swollen and injected. Hearing was normal, ears and nose are intact. Oropharynx was clear. Neck was supple with
trachea midline and no thyromegaly. Heart was regular rate and rhythm without rubs. Lower extremities without edema. Lungs were clear to auscultation bilaterally and with normal excursion. Abdomen was soft, nontender, with normal active bowel
sounds, and no hepatosplenomegaly. Skin was without rash and with normal turgor. Right upper extremity AV fistula with good thrill and bruit
Data Reviewed
-
CT Scan: Report Reviewed by me
Labs: Labs Reviewed by me
Old Records: Reviewed
Assessment/Plan
-
Impression:
ESRD Thursday [facility]
Orbital cellulitis
Diabetes mellitus type II
Seizure disorder
Orthostatic hypotension
History of CVA with subsequent right hemiplegia
History of recurrent osteomyelitis with sacral decubitus
History of colectomy
Chronic Vale
Anemia
right upper extremity AV fistula
Plan:
Due for dialysis today
Pending transfer to [facility]
Will arrange for dialysis today but this should not delay transfer.
[2025-04-14] MEDS: LIPITOR 40 MG PO (10:00)
[2025-04-14] MEDS: PROTONIX 40 MG PO (10:01)
[2025-04-14] MEDS: MYCOSTATIN ORAL SUSPENSION 5 ML PO ×4 (10:01→22:48)
[2025-04-14] MEDS: FEOSOL 325 MG PO (10:01)
[2025-04-14] MEDS: DEPAKOTE (12 HR RELEASE) 500 MG PO ×2 (10:01→20:40)
[2025-04-14] MEDS: KEPPRA 250 MG PO ×3 (10:02→22:47)
[2025-04-14] MEDS: RENVELA 800 MG PO ×3 (10:02→22:47)
[2025-04-14] MEDS: HEPARIN 5000 UNITS SC ×3 (10:03→23:41)
[2025-04-14] MEDS: OCUFLOX 2 DROP OPHTH ×4 (10:09→22:48)
--- NOTE | 2025-04-14 11:39 | W.PN.HOSP.TC ---
Addendum entered and electronically signed by Dom Handley MD 04/15/25 15:58:
[id number]
Original Note:
Today's Communication/Plan
-
abx
transfer
hd today
Assessment / Plan
Assessment / Plan
Physical Exam
General: Appears Chronically Ill
HEENT: Other (right eye with corneal erythema and eyelid swelling, full ROM)
Respiratory: Clear; No Wheezes
Cardiac: S1/S2 and Regular Rhythm
GI: Soft, Non Tender and Other (colostomy)
Musculoskeletal: No Edema
Skin: Warm and Dry; No Rash
Neuro: Awake, Alert and Other (right hemiparesis)
Psych: Calm
Mr. Bautista Cortez is a 54 yo man with hx ICH with residual right sided weakness, ESRD on HD MWF, Dm II, seizure disorder, orthostatic hypotension on midodrine, chronic sacral decubitus ulcer with chronic OM, dysphagia, recent admission
01/17/25-01/29/25 for septic shock secondary to E. Coli bacteremia, ESBL UTI presents from skilled nursing with red and swollen right eye that has been worsening over the past 2 days.
Conjunctival erythema and pain concerning for endogenous endopthalmitis versus other bacterial/fungal infection of eye
preseptal cellulitis read on CT
-s/p IV Vanc/Unasyn in ER
-I am reviewing case and photos with Dr. Diane Souza who is recommending more urgent slit lamp exam and dilated eye exam. She recommends transfer [facility]. I am discussing with ER team. For now hold off on admission.
ESRD on HD
-if admitted will need Renal consult
Hx ICH with Residual Right Sided Weakness
-patient is rebekah lift dependent
Seizure Disorder
-confirmed he takes Depakote and Keppra - will order this evening
Essential HTN
-Patient is on Coreg, SBP low in ER, hold for now and monitor
Chronic Sacral Decubitus Ulcer with Chronic OM
-will need wound care
transfer to [facility]
More than 30 minutes spent in discharge including
Final examination of the patient
Summarizing hospital stay
Instructions for continuing care to all relevant caregivers
Preparation of discharge records, prescriptions, and referral forms
Total time spent (in minutes): 36
Anticipated Discharge: Today
Subjective/Interval History
-
Date of Service: April 14, 2025
no acute events overnight
Objective Data
-
Labs:
Laboratory Results
04/14/25
06:39
WBC 5.7
Hgb 10.7 L
Hct 31.0 L
Plt Count 210
Sodium 134 L
Potassium 3.9
Chloride 101
Carbon Dioxide 23
BUN 46 H
Creatinine 3.5 H
Glucose 69 L
Calcium 8.3 L
Vital Signs:
Vital Signs
Temp Pulse Resp BP Pulse Ox
98.9 F 70 16 168/85 98
04/14/25 07:35 04/14/25 07:35 04/14/25 07:35 04/14/25 07:35 04/14/25 07:35
I&O
04/13/25 04/14/25 04/15/25
06:59 06:59 06:59
Intake Total 240 / 240
Output Total 200 / 200
Balance 40 / 40
Review of Systems
-
History Source: Patient
All other systems: Reviewed and negative
Data Reviewed
-
CT Scan: Report Reviewed by me
Ultrasound: Report Reviewed by me
Labs: Labs Reviewed by me
[2025-04-14 11:43] LABS: Glucose - Point of Care 78 mg/dl (70-99)
--- NOTE | 2025-04-14 11:45 | W.DS.TRANS ---
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
-
Discharge Instructions:
Instructions:
Stand-Alone Forms:
Changes to Home Medications: No
Discharge Medications:
DC Medications w/original date entered in [employer]
ferrous sulfate 325 mg (65 mg iron) tablet 325 mg PO DAILY Supplement 08/14/22
insulin aspart U-100 100 unit/mL subcutaneous solution 1 sliding scale dose SC ACHS Diabetes 08/14/22
pantoprazole 40 mg tablet,delayed release 40 mg PO DAILY Gastrointestinal issue 08/14/22
acetaminophen 325 mg tablet 650 mg PO Q4HPRN PRN mild pain 12/02/22
ascorbic acid (vitamin C) 1,000 mg tablet (Vitamin C) 1,000 mg PO DAILY Supplement 12/02/22
lidocaine-prilocaine 2.5 %-2.5 % topical cream 1 applic topical MOWEFR apply to right AVG 12/02/22
atorvastatin 40 mg tablet 40 mg PO DAILY High Cholesterol 01/16/23
bisacodyl 10 mg rectal suppository 10 mg TN DAILYPRN PRN if no bm aftr mom 01/23/23
divalproex 500 mg tablet,delayed release (Depakote) 500 mg PO BID Seizures 04/06/23
oxycodone 10 mg tablet 10 mg PO Q4HPRN PRN severe pain #10 tabs 08/19/24
bumetanide 2 mg tablet 2 mg PO DAILY Blood Pressure 09/30/24
carvedilol 25 mg tablet 25 mg PO BID Blood Pressure 09/30/24
glucagon 1 mg solution for injection (Glucagon Emergency Kit) 1 mg IM PRN PRN LOW BLOOD GLUCOSE 09/30/24
levetiracetam 250 mg tablet 250 mg PO TID Seizures 09/30/24
levetiracetam 250 mg tablet 250 mg PO MoWeFr@1400 #1 tab 01/29/25
midodrine 5 mg tablet 10 mg (2 x 5 mg) PO MOWEFR Blood Pressure #0 tabs 01/29/25
nystatin 100,000 unit/mL oral suspension 5 ml PO QID #60 mL 01/29/25
carvedilol 25 mg tablet (Coreg) 25 mg PO Q12H 04/13/25
pneumoc 20-ken conj-dip cr(PF) 0.5 mL IM syringe (Prevnar 20 (PF)) 0.5 ml IM ONCE 04/13/25
sevelamer HCl 800 mg tablet 800 mg PO TID 04/13/25
sodium zirconium cyclosilicate 10 gram oral powder packet (Lokelma) 10 g PO DAILY 04/13/25
Home Medication Changes
na
Pending Results: Yes
--- NOTE | 2025-04-14 12:07 | CM ---
Patient is a group home patient at [facility]. AO x3, feeds self, total care, bedbound, rebekah lift, has a colostomy, chronic obrien, is on HD schedule. PCP is Dr. Giovani Maldonado. Pharmacy is [facility]. Discharge POC:
Patient to be discharged to [facility] when bed is available.
--- NOTE | 2025-04-14 12:53 | WOUNDNOTE ---
[facility] RN NOTE: Reviewed chart and met with patient. Patient known from previous admissions. Plan if for patient to be transferred to [facility] today after dialysis. Sacral wound appears stable, no odor or purulence noted. Wound was cleaned with
saline and packed with saline moistened gauze. See worklist for measurements. Stage 1 to heels, fiber filled boots ordered. Static air overlay added to bed. Patient turned on left semi-side lying position. Plan is for transfer today.
--- NOTE | 2025-04-14 13:05 | CM ---
Patient is a residential patient at [facility]. AO x3, feeds self, total care, bedbound, rebekah lift, has a colostomy, chronic obrien, is on HD schedule. PCP is Dr. Giovani Maldonado. Pharmacy is [facility]. Discharge POC:
Patient to be discharged to [facility] when bed is available for specialized eye services.
[2025-04-14] MEDS: VANCOCIN 150 IV (15:20)
--- NOTE | 2025-04-14 15:33 | W.PN.NEPH.HD ---
Assessment
-
Pt seen on HD. no complaints. VSS, access ok
Progress Note - Hemodialysis
-
Date of Service: April 14, 2025
Duration: 30 minutes and 3 hours
Potassium Bath: 3
Calcium Bath: 2.5
Opti-Dialyzer: 160
Ultrafiltration: Other (1kg)
Blood Flow: 400
Dialysate Flow: 600
Heparin: 0
EPO: 0
--- NOTE | 2025-04-14 16:18 | CON.ID ---
Consultation
-
Date/Time Consultation Requested: April 14, 2025 162
Date/Time Consultation Performed: April 14, 2025 162
Requesting Provider: Dr. Dom Handley
Performing Provider: Dr. Silvia Craig
Reason for Consultation: Eye infection, awaiting transfer to [place]
Chief Complaint / Past History
Chief Complaint
R eye swelling
History of Present Illness
54 year old male, local correction and has a history of CVA with right residual, seizure disorder and diabetes mellitus, ESRD on dialysis, sent to ED 04/13/25 due to right joseluis-orbital edema, erythema. He reports approximately 2 days ago he noted
that the right eyelids were swollen. The swelling progressed. Right vision more blurry. No eye pain with movement. No headache. No sinus congestion. All upper teeth extracted. No rubbing or trauma to the face. No fevers or chills. In the ER
he was started on vancomycin and Unasyn. CT of the orbit shows periorbital cellulitis. Today swelling is a little bit better. Still with vision change.
Past History
Additional Past Medical History:
Intracranial hemorrhage/CVA with right-sided weakness
Seizure
Diabetes mellitus
Hypertension
End-stage renal disease on dialysis Wednesdays and Fridays via [facility]
dyslipidemia
History of testicular cancer status post right orchiectomy
chronic obiren
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
chronic sacral decubitus/osteo s/p 6 weeks cefazolin (completed 09/2022)
Hx Abscess from sacrum to right knee s/p I+D s/p 6 weeks cefazolin/metronidazole till 01/21/23.
R iliacus muscle and left gluteal villa abscess abscess, sacral osteo, left iliac bone osteo s/p 6 weeks of cefazolin/metronidazole till 10/10/24.
Diverting colostomy
Ambulatory dysfunction
Eye surgery
Allergy History:
banana Allergy (Verified 01/22/25 00:39)
Swelling
Medications Reviewed: Yes
Current Antibiotics:
Vancomycin
Unasyn
Social History
Tobacco: Non-Smoker
Alcohol: None
Drug: None
Living: [facility]
Employment: Disabled
Family History
Family History: Not Pertinent
Review of Systems
Review of Systems
General: Negative Fever, Chills or Change in Appetite
HEENT: Negative Stiff Neck, Sinus Problems, Headache or Pharyngitis
Respiratory: Negative Dyspnea or Cough
Gasteroenterology: Negative Nausea or Vomiting
Genital / Urological: Negative Flank Pain
Endocrine: Negative Weakness
All systems: All other systems were reviewed and were negative
Vital Signs
Temp Pulse Resp BP Pulse Ox
97.8 F 60 16 118/73 99
04/14/25 15:40 04/14/25 15:40 04/14/25 15:40 04/14/25 15:40 04/14/25 15:40
Physical Exam
Physical Exam
Constitutional: No Acute Distress and Chronically Ill
Head: Other (No sinus tenderness)
Eyes: Sclera Anicteric and Other (Right joseluis-orbital edema/erythema, sclera mild-mod injected, chemosis, EOMI. )
Cardiovascular: Regular Rate and S1/S2
Pulmonary: Clear
Gastrointestinal: Soft, Non Tender, Non Distended and Normal Bowel Sounds
Genito-Urinary: Obrien and Clear Urine
Extremities: Edema
Skin: Negative Rash
Neurological: AO x 3
Lab / Diagnostic Study Results
04/14/25 06:39
04/14/25 06:39
Abs Immat Gran (auto) 0.0 10^3/uL (0-0.05) 04/13/25 17:45
Absolute Neuts (auto) 3.3 10^3/uL (1.4-6.5) 04/13/25 17:45
Absolute Lymphs (auto) 2.1 10^3/uL (1.2-3.4) 04/13/25 17:45
Absolute Monos (auto) 0.5 10^3/uL (0.1-0.6) 04/13/25 17:45
Absolute Basos (auto) 0.1 10^3/uL (0-0.2) 04/13/25 17:45
Immature Gran % 0.2 % (0-0.5) 04/13/25 17:45
Neutrophils % 54.7 % (42.2-75.2) 04/13/25 17:45
Lymphocytes % 33.8 % (20.5-51.1) 04/13/25 17:45
Monocytes % 8.9 % (1.7-9.3) 04/13/25 17:45
Eosinophils % 1.6 % (0-6) 04/13/25 17:45
Basophils % 0.8 % (0-2) 04/13/25 17:45
Microbiology Results
Micro:
04/14/25 08:05 Blood Culture - Pending
Blood/Venous
04/14/25 06:40 Blood Culture - Pending
Blood/Venous
04/13/25 CT head/orbits: There is mild right periorbital/preseptal soft tissue swelling which likely represents preseptal cellulitis.
Assessment / Plan
# Acute R preseptal cellulitis
- CT orbit wo contrast: no proptosis; extraocular muscles normal. Mild mucosal thickening of R posterior ethmoid air cells, 1.8cm mucous retention cyst right maxillary sinus.
- Continue Vancomycin
- Replace Unasyn with meropenem (dosed for HD) to cover MDRO - prolong SNF resident and ESBL colonization
- Monitor for symptoms from potential decrease Depakote level while on meropenem.
- Acute R vision change is concerning. Awaiting transfer to tertiary center.
Care Review
Plan reviewed with: Physician (Dr. Handley)
--- NOTE | 2025-04-14 16:26 | CM ---
TC to transfer center for [facility]- bed still not available. spoke with [facility], patient is on the list. They will call when bed available.
[2025-04-14 17:09] LABS: Hepatitis B Surface Antigen Negative (Negative)
[2025-04-14 17:59] LABS: Glucose - Point of Care 76 mg/dl (70-99)
[2025-04-14] MEDS: STERILE WATER FOR INJECTION 20 ML IV (18:12)
[2025-04-14] MEDS: MERREM 1000 MG IV (18:14)
[2025-04-14] MEDS: KEPPRA PO (18:18)
[2025-04-14] MEDS: BUMEX 2 MG PO (18:29)
[2025-04-14] MEDS: COREG 25 MG PO ×2 (18:29→20:40)
[2025-04-14 22:12] LABS: Glucose - Point of Care 96 mg/dl (70-99)
[2025-04-15 02:12] VITALS: BP 153/75
== END 2025-04-15 05:41 | disposition short-term general hospital (02) | DRG 602 ==
LOC: 2 NORTH 01:04
PROVIDERS: Physician Assistant; ADMITTING PHYSICIAN Internal Medicine; ATTENDING PHYSICIAN Internal Medicine; CONSULT PHYSICIAN Internal Medicine Infectious Disease; EMERGENCY PHYSICIAN Emergency Medicine; OTHER PHYSICIAN Specialist
PROC: 5A1D70Z Performance of Urinary Filtration, Intermittent, Less than 6 Hours Per Day (ICD-10-PCS; 2025-04-14)
DX: L03.213 Periorbital cellulitis (principal); L89.154 Pressure ulcer of sacral region, stage 4; N18.6 End stage renal disease; I12.0 Hypertensive chronic kidney disease with stage 5 chronic kidney disease or end stage renal disease; M46.28 Osteomyelitis of vertebra, sacral and sacrococcygeal region; I69.151 Hemiplegia and hemiparesis following nontraumatic intracerebral hemorrhage affecting right dominant side; I69.351 Hemiplegia and hemiparesis following cerebral infarction affecting right dominant side; Z87.891 Personal history of nicotine dependence; Z99.2 Dependence on renal dialysis; G40.909 Epilepsy, unspecified, not intractable, without status epilepticus; I95.1 Orthostatic hypotension; Z74.01 Bed confinement status; Z79.4 Long term (current) use of insulin; Z79.899 Other long term (current) drug therapy; Z75.1 Person awaiting admission to adequate facility elsewhere
CPT/HCPCS: 70480; 80048; 80053; 80202; 82962; 83735; 85025; 85027; 86706; 87040; 87340; 93971; 96365; 96366; 99284; J2185; P9047